=== PATIENT | female | born 2000 | race Caucasian/White ===

== ENCOUNTER 2023-05-28 20:41 | Emergency (ER) | payer OTHER, SELFPAY ==
[2023-05-28 20:44] VITALS: BP 135/83; PULSE 126; RESP 20; TEMP 36.8; O2SAT 94; BMI 19.6
--- NOTE | 2023-05-28 21:02 | ED.URI1 ---
HPI - URI/Sore Throat General Chief Complaint: Upper Respiratory Infection Stated Complaint: BACK PAIN, HEADACHE, FEVER Time Seen by Provider: 05/28/23 20:56 Source: patient Limitations: no limitations History of Present Illness HPI Narrative: patient has a past history of bone marrow transplant several years ago. 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 She is not on immunotherapy . Now presents complaining her lungs feel tight and she has a fever. Not short of breath. EDWARDS on and off but none now. No nausea or vomiting or abdominal pain MD elicited complaint: Reports fever Related Data Home Medications Medication Instructions Recorded Confirmed albuterol inhalation .every 4 hours PRN sob 05/28/23 cholecalciferol (vitamin D3) 25 05/28/23 mcg (1,000 unit) tablet montelukast 10 mg tablet mg 05/28/23 norgestimate-ethinyl estradiol tab 05/28/23 0.18 mg/0.215mg/0.25mg-35 mcg(28)tablet Allergies Allergy/AdvReac Type Severity Reaction Status Date / Time vancomycin Allergy Severe Rash Verified 05/28/23 20:51 blood products Allergy Severe Anaphylaxis Uncoded 05/28/23 20:51 Review of Systems ROS Status of ROS 10 or more systems reviewed and unremarkable except as noted in history and below Constitutional Reports: fever [facility] Medical History (Updated 05/28/23 @ 23:02 by Jose Davis MD) Social History Smoking status: Never smoker Exam Constitutional Vital Signs, click to edit/add: Last Vital Signs Temp 98.0 F 05/28/23 22:19 Pulse 126 H 05/28/23 20:44 Resp 20 05/28/23 20:44 BP 135/83 05/28/23 20:44 Pulse Ox 94 L 05/28/23 20:44 O2 Del Method Room Air 05/28/23 20:44 Common normals: no apparent distress, average body habitus, oriented x3, no limitations, healthy appearing, alert and well nourished [facility] Common normals: normocephalic and head/scalp atraumatic Eye Common normals: EOMs intact bilaterally, conjunctivae normal and no scleral icterus Respiratory Common normals: normal respiratory effort, no retractions, no use of accessory muscles and clear to auscultation bilaterally Cardio Common normals: regular rate, regular rhythm, S1 normal heart sound and S2 normal heart sound GI Common normals: Normal to inspection, nondistended, normoactive bowel sounds present, soft to palpation and non-tender Extremity Common normals: normal to inspection and full ROM Neuro Common normals: oriented x3, CN's II-XII intact bilaterally, moves all extremities, no focal motor deficits and no sensory deficits noted Psych Appearance: grossly normal Course Vital Signs Vital signs: Vital Signs Temperature 98.3 F 05/28/23 20:44 Pulse Rate 126 H 05/28/23 20:44 Respiratory Rate 05/28/23 20:44 Blood Pressure 135/83 05/28/23 20:44 Pulse Oximetry 94 L 05/28/23 20:44 Oxygen Delivery Method Room Air 05/28/23 20:44 Temperature 98.0 F 05/28/23 22:19 Pulse Rate 126 H 05/28/23 20:44 Respiratory Rate 05/28/23 20:44 Blood Pressure 135/83 05/28/23 20:44 Pulse Oximetry 94 L 05/28/23 20:44 Oxygen Delivery Method Room Air 05/28/23 20:44 MDM - URI/Sore Throat MDM Narrative Medical decision making narrative: patient has past history of pneumonia. Presents with fever and chest tightness. Concerned she may have pneumonia again. Not short of breath. cxray with early infiltrate LLL. Patient treated with IV Rocephin and zithromax and discharged home with a prescription for Ceftin and zpak Lab Data Labs: Lab Results 05/28/23 05/28/23 Range/Units 21:14 21:33 WBC 14.1 H (4.0-11.0) 10^3/uL RBC 4.00 L (4.20-5.40) 10^6/uL Hgb 14.4 (12.0-16.0) g/dL Hct 38.6 (36.0-48.0) % MCV 96.5 (81.0-99.0) fL MCH 36.0 H (26.7-34.0) pg MCHC 37.3 H (29.9-35.2) g/dL RDW 11.5 (11.0-15.0) % Plt Count 167 (150-450) 10^3/uL MPV 9.4 L (9.5-13.5) fL Neut % (Auto) 81.8 H (43.0-75.0) % Lymph % (Auto) 11.9 L (20.5-60.0) % [place] % (Auto) 5.6 (1.7-12.0) % Eos % (Auto) 0.2 L (0.9-7.0) % Baso % (Auto) 0.2 (0.2-2.0) % Neut # (Auto) 11.5 H (1.4-6.5) 10^3/uL Lymph # (Auto) 1.7 (1.2-3.8) 10^3/uL [place] # (Auto) 0.8 (0.3-0.8) 10^3/uL Eos # (Auto) 0.0 (0.0-0.7) 10^3/uL Baso # (Auto) 0.0 (0.0-0.1) 10^3/uL Abs Immat Gran (auto) 0.04 H (0.00-0.03) 10^3/uL Imm/Tot Granulo (auto) 0.3 (0.0-0.5) % Sodium 137 (136-145) mmol/L Potassium 3.6 (3.5-5.1) mmol/L Chloride 102 (98-107) mmol/L Carbon Dioxide 24.8 (21.0-32.0) mmol/L Anion Gap 13.8 BUN 15.0 (7.0-18.0) mg/dL Creatinine 1.00 (0.55-1.02) mg/dL Est GFR ( Amer) >60 (>=60) Est GFR (Non-Af Amer) >60 (>=60) BUN/Creatinine Ratio 15.0 Glucose 125 H (74-106) mg/dL Lactate 0.7 (0.4-2.0) mmol/L Calcium 9.3 (8.5-10.1) mg/dL Urine Color Lt. yellow (YELLOW) Urine Clarity Clear (CLEAR) Urine pH 7.0 (5.0-9.0) Ur Specific [place] <=1.005 A (1.005-1.025) Urine Protein Negative (NEG/TRACE) mg/dL Urine Glucose (UA) Negative (NEGATIVE) mg/dL Urine Ketones Negative (NEGATIVE) mg/dL Urine Occult Blood Large A (NEGATIVE) Urine Nitrite Negative (NEGATIVE) Urine Bilirubin Negative (NEGATIVE) Urine Urobilinogen 0.2 (0.2-1.0) EU/dL Ur Leukocyte Esterase Negative (NEGATIVE) Urine RBC 2-5 A (0-2) #/HPF Urine WBC 0-2 A (NONE SEEN) #/HPF Ur Squamous Epith Cells Moderate A (NONE/RARE) #/LPF Urine Crystals None seen (None Seen) #/HPF Urine Bacteria None seen (NONE SEEN) #/HPF Urine Casts None seen (NONE SEEN) #/LPF Urine Mucus None seen (NONE SEEN) Adenovirus (PCR) Not detected (NOT DETECTE) C. pneumoniae DNA (PCR) Not detected (NOT DETECTE) Coronavirus Type OC43 Not detected (NOT DETECTE) Coronavirus Type HKU1 Not detected (NOT DETECTE) Coronavirus Type 229E Not detected (NOT DETECTE) Coronavirus Type NL63 Not detected (NOT DETECTE) Human Metapneumovir PCR Not detected (NOT DETECTE) M. pneumoniae (PCR) Not detected (NOT DETECTE) Parainfluenza PCR Not detected (NOT DETECTE) Parainfluenza 2 (PCR) Not detected (NOT DETECTE) Parainfluenza 3 (PCR) Not detected (NOT DETECTE) Parainfluenza 4 (PCR) Not detected (NOT DETECTE) RSV (RT-PCR) Not detected (NOT DETECTE) Entero/Rhino (PCR) Not detected (NOT DETECTE) SARS-CoV-2 (PCR) Not detected (NOT DETECTE) Bordetella pertussis (PCR) Not detected (NOT DETECTE) B parapertussis DNA PCR Not detected (NOT DETECTE) Influenza Type A (PCR) Not detected (NOT DETECTE) Influenza Type B (PCR) Not detected (NOT DETECTE) Discharge Plan Discharge Chief Complaint: Upper Respiratory Infection Clinical Impression: Pneumonia Patient Disposition: Home, Self-Care Prescriptions / Home Meds: No Action norgestimate-ethinyl estradiol 0.18/0.215/0.25 mg-35 mcg (28) tablet montelukast 10 mg tablet cholecalciferol (vitamin D3) 25 mcg (1,000 unit) tablet albuterol inhalation .every 4 hours PRN (Reason: sob) Instructions: Community Acquired Pneumonia (ED), Pneumonia (ED) Additional Instructions: follow up with your doctor next week for recheck Stand Alone Forms: Portal Instructions Referrals: Physician,Non-Staff, MD [Primary Care Provider] - 1 week
--- NOTE | 2023-05-28 21:06 | XR_ITS ---
The [address] [address] Patient Name: ALLAN VARGAS MRN: [id number] date: 2000 Sex: F Assigned Patient Location: ER Current Patient Location: ER Accession/Order Number: [id number] Exam Date: 05/28/2023 21:25 Report Date: 05/28/2023 21:42 At the request of: JUAQUIN GUTIERREZ Procedure: XR chest 2V EXAM: XR chest 2V HISTORY: fever COMPARISON: None. TECHNIQUE: PA and lateral chest FINDINGS: Patchy consolidation at the left lung base concerning for infectious process. No pneumothorax or effusion. Normal heart size. No acute osseous abnormality. XR/XR chest 2V IMPRESSION: Consolidative changes at the left lung base concerning for infectious process. Electronically authenticated by: TERESITA STRAUSS Date: 05/28/2023 21:42
[2023-05-28 21:20] LABS: Adenovirus NOT DETECTED (NOT DETECTE); Bordetella parapertussis NOT DETECTED (NOT DETECTE); Coronavirus 229E NOT DETECTED (NOT DETECTE); Coronavirus HKU1 NOT DETECTED (NOT DETECTE); Coronavirus NL63 NOT DETECTED (NOT DETECTE); Coronavirus OC43 NOT DETECTED (NOT DETECTE); Human Metapneumovirus NOT DETECTED (NOT DETECTE); Human Rhinovirus/Enterovirus NOT DETECTED (NOT DETECTE); Influenza A NOT DETECTED (NOT DETECTE); Influenza B NOT DETECTED (NOT DETECTE); Mycoplasma pneumoniae NOT DETECTED (NOT DETECTE); Parainfluenza Virus 1 NOT DETECTED (NOT DETECTE); Parainfluenza Virus 2 NOT DETECTED (NOT DETECTE); Parainfluenza Virus 3 NOT DETECTED (NOT DETECTE); Parainfluenza Virus 4 NOT DETECTED (NOT DETECTE); Respiratory Syncytial Virus NOT DETECTED (NOT DETECTE); SARS-CoV-2 NOT DETECTED (NOT DETECTE)
[2023-05-28 21:24] LABS: Basophils Percent Auto 0.2 % (0.2-2.0); Eosinophils Percent Auto 0.2 % (0.9-7.0); Hematocrit 38.6 % (36.0-48.0); Hemoglobin 14.4 g/dL (12.0-16.0); Immature Granulocytes Abs Auto 0.04 10^3/uL (0.00-0.03); Immature Granulocytes Pct Auto 0.3 % (0.0-0.5); Lymphocytes Absolute Auto 1.7 10^3/uL (1.2-3.8); Lymphocytes Percent Auto 11.9 % (20.5-60.0); Mean Corpuscular HGB Conc 37.3 g/dL (29.9-35.2); Mean Corpuscular Volume 96.5 fL (81.0-99.0); Mean Platelet Volume 9.4 fL (9.5-13.5); Monocytes Absolute Auto 0.8 10^3/uL (0.3-0.8); Monocytes Percent Auto 5.6 % (1.7-12.0); Neutrophils Absolute Auto 11.5 10^3/uL (1.4-6.5); Neutrophils Percent Auto 81.8 % (43.0-75.0); Platelet Count 167 10^3/uL (150-450); Red Cell Distribution Width 11.5 % (11.0-15.0); White Blood Count 14.1 10^3/uL (4.0-11.0)
[2023-05-28] MEDS: 0.9 % SODIUM CHLORIDE 1,000 ML 999 ML IV (21:33)
[2023-05-28 21:37] LABS: Anion Gap 13.8; Calcium 9.3 mg/dL (8.5-10.1); Carbon Dioxide 24.8 mmol/L (21.0-32.0); Chloride 102 mmol/L (98-107); Estimated GFR (African America >60 (>=60); Estimated GFR (Non-African Ame >60 (>=60); Glucose 125 mg/dL (74-106); Potassium 3.6 mmol/L (3.5-5.1); Sodium 137 mmol/L (136-145)
[2023-05-28 21:45] LABS: Lactate/Lactic Acid 0.7 mmol/L (0.4-2.0)
[2023-05-28 21:56] LABS: Bilirubin Urine NEGATIVE (NEGATIVE); Blood Urine LARGE (NEGATIVE); Clarity Urine CLEAR (CLEAR); Color Urine LT. YELLOW (YELLOW); Glucose Urine UA NEGATIVE (NEGATIVE); Ketones Urine NEGATIVE (NEGATIVE); Leukocyte Esterase Urine NEGATIVE (NEGATIVE); Nitrite Urine NEGATIVE (NEGATIVE); Protein Urine NEGATIVE (NEG/TRACE); Specific Gravity Urine <=1.005 (1.005-1.025); Urobilinogen Urine 0.2 EU/dL (0.2-1.0)
[2023-05-28 22:01] LABS: Urine Microscopic Indicated YES
[2023-05-28] MEDS: CEFTRIAXONE 1,000 MG in 0.9 % SODIUM CHLORIDE 50 ML 100 MG IV (22:05)
[2023-05-28] MEDS: AZITHROMYCIN 250 MG TABLET 500 MG PO (22:17)
[2023-05-28 22:19] VITALS: TEMP 36.7
[2023-05-28 22:28] LABS: Bacteria Urine NONE SEEN #/HPF (NONE SEEN); Cast Seen? NONE SEEN #/LPF (NONE SEEN); Crystals Seen? None Seen #/HPF (None Seen); Mucus Urine NONE SEEN (NONE SEEN); WBC Urine 0-2 #/HPF (NONE SEEN)
[2023-05-28 22:30] LABS: Squamous Epithelial Cell Urine MODERATE #/LPF (NONE/RARE)
[2023-05-28 23:52] VITALS: O2SAT 97
== END 2023-05-28 23:52 | disposition home or self-care (01) ==
PROVIDERS: Emergency Provider Internal Medicine
DX: J18.9 Pneumonia, unspecified organism (principal); Z94.81 Bone marrow transplant status; Z79.899 Other long term (current) drug therapy; Z87.01 Personal history of pneumonia (recurrent); Z20.822 Contact with and (suspected) exposure to COVID-19
CPT/HCPCS: 0202U; 36415; 71046; 80048; 81001; 83605; 85025; 96365; 99285

== ENCOUNTER 2024-08-17 16:20 | Emergency (ER) | payer OTHER, SELFPAY ==
[2024-08-17 16:24] VITALS: BP 140/80; PULSE 106; TEMP 36.7; O2SAT 97; BMI 21.0
--- NOTE | 2024-08-17 16:37 | ED_ITS ---
HPI - URI/Sore Throat General Chief Complaint: Upper Respiratory Infection Stated Complaint: sore throat Time Seen by Provider: 08/17/24 16:25 Source: patient Limitations: no limitations History of Present Illness HPI Narrative: Patient is a 24-year-old female who presents to the emergency department for 6- day history of continued sore throat. She was seen at urgent care and was tested for strep, upper respiratory swabs were also performed and all of these were negative. She states urgent care started her on amoxicillin but when her strep swab and culture came back negative they told her to stop it after 2 doses. She has had no fevers, vomiting or diarrhea. She presents to the ER today because she continues to have the sore throat with no relief with [id number] medications. She has a remote history of leukemia with bone marrow transplant at age 16. She is not concerned for . She states she is drinking fluids easily but does have pain with swallowing food. Related Data Home Medications ?Medication ?Instructions ?Recorded ?Confirmed cholecalciferol (vitamin D3) 25 25 mcg PO DAILY 05/28/23 08/17/24 mcg (1,000 unit) tablet norgestimate-ethinyl estradiol 1 tab PO DAILY 05/28/23 08/17/24 0.18 mg/0.215mg/0.25mg-35 mcg(28)tablet Previous Rx's ?Medication ?Instructions ?Recorded cefdinir 300 mg capsule 300 mg PO BID 10 days #20 caps 08/17/24 dexamethasone 4 mg tablet 4 mg PO BID 3 days #6 tabs 08/17/24 Allergies Allergy/AdvReac Type Severity Reaction Status Date / Time vancomycin Allergy Severe Rash Verified 08/17/24 16:27 blood products Allergy Severe Anaphylaxis Uncoded 08/17/24 16:27 Review of Systems 2 ROS Constitutional Denies: fever or chills Ears, nose, mouth, and throat Reports: throat pain; Denies: nasal discharge or nasal congestion Respiratory Reports: cough; Denies: shortness of breath Gastrointestinal Denies: nausea or vomiting Integumentary/Breast Denies: rash Neurological Denies: numbness in extremities or weakness in extremities Hematologic/Lymphatic Denies: easy bruising or easy bleeding [facility] Medical History (Updated 08/17/24 @ 16:34 by CHARLY Owens) FH: bone marrow transplant ?Z84.89 - Family history of other specified conditions (ICD-10) Social History Smoking status: Never smoker Little interest or pleasure in doing things: not at all Feeling down, depressed, or hopeless: not at all Exam Narrative Exam Narrative: Gen.: Awake, alert, in no distress Head: Normocephalic, atraumatic ENT: Moist mucous membranes, airway widely open patent with uvula midline, pharyngeal erythema noted with no tonsillar edema or exudate. No trismus or drooling. Clear speech. Respiratory: No respiratory distress, lungs clear bilaterally Cardio: Regular rate and rhythm Extremities: Moves extremities equally Psych: Normal mood and affect Neuro: No focal neuro deficit Skin: Warm, dry, intact Constitutional Vital Signs, click to edit/add: Last Vital Signs Temp 98.1 F 08/17/24 16:24 Pulse 106 H 08/17/24 16:24 Resp 18 08/17/24 16:24 BP 140/80 08/17/24 16:24 Pulse Ox 97 08/17/24 16:24 O2 Del Method Room Air 08/17/24 16:24 Course Vital Signs Vital signs: Vital Signs Temperature 98.1 F 08/17/24 16:24 Pulse Rate 106 H 08/17/24 16:24 Respiratory Rate 18 08/17/24 16:24 Blood Pressure 140/80 08/17/24 16:24 Pulse Oximetry 97 08/17/24 16:24 Oxygen Delivery Method Room Air 08/17/24 16:24 Temperature 98.1 F 08/17/24 16:24 Pulse Rate 106 H 08/17/24 16:24 Respiratory Rate 18 08/17/24 16:24 Blood Pressure 140/80 08/17/24 16:24 Pulse Oximetry 97 08/17/24 16:24 Oxygen Delivery Method Room Air 08/17/24 16:24 MDM - URI/Sore Throat MDM Narrative Medical decision making narrative: Patient declined additional repeat strep screen or upper respiratory swabs. Based on the duration of symptoms, we will treat with antibiotics, steroids. Magic mouthwash given for symptoms. Patient appears well-hydrated and nontoxic with stable vital signs. No evidence of airway compromise or respiratory difficulty at this time. Follow-up with PCP and return to the emergency department if symptoms change or worsen SUPERVISED APC VISIT, PHYSICIAN ATTESTATION: Based on the medical record the care appears appropriate. ? Medical Records Attestation: I reviewed the patient's medical records. Discharge Plan Discharge Chief Complaint: Upper Respiratory Infection Clinical Impression: Pharyngitis Patient Disposition: Home, Self-Care Time of Disposition Decision: 16:33 Condition: Good Prescriptions / Home Meds: New dexamethasone 4 mg tablet 4 mg PO BID 3 Days Qty: 6 0RF cefdinir 300 mg capsule 300 mg PO BID 10 Days Qty: 20 0RF No Action norgestimate-ethinyl estradiol 0.18/0.215/0.25 mg-35 mcg (28) tablet 1 tab PO DAILY cholecalciferol (vitamin D3) 25 mcg (1,000 unit) tablet 25 mcg PO DAILY Print Language: Irish Instructions: Pharyngitis (ED) Referrals: Physician,Non-Staff, MD [Primary Care Provider] - 1 week
[2024-08-17 16:41] VITALS: BP 140/80; PULSE 98; O2SAT 98
== END 2024-08-17 16:42 | disposition home or self-care (01) ==
PROVIDERS: Emergency Provider Emergency Medicine
DX: J02.9 Acute pharyngitis, unspecified (principal); Z85.6 Personal history of leukemia; Z94.81 Bone marrow transplant status
CPT/HCPCS: 99283

== ENCOUNTER 2025-08-09 08:03 | Emergency (ER) | payer OTHER, SELFPAY ==
[2025-08-09] VITALS (13 sets, daily range): BP systolic 116–135; BP diastolic 72–79; PULSE 105–134; TEMP 36.8; O2SAT 87–99; BMI 21.1
--- NOTE | 2025-08-09 08:17 | XR_ITS ---
The [place] [id number] Patient Name: ALLAN VARGAS MRN: [id number] date: 2000 Sex: F Assigned Patient Location: ER Current Patient Location: ED.MAIN Accession/Order Number: [id number] Exam Date: 08/09/2025 08:20 Report Date: 08/09/2025 09:20 At the request of: GABRIELA HENDERSON MD Procedure: XR chest 1V Single view chest: CLINICAL HISTORY: cough COMPARISON: Chest 05/28/2023 FINDINGS: The heart is normal in size. The lungs are clear. The pulmonary vasculature is normal. Mediastinum and hilar regions are unremarkable. No pleural effusions are seen. Visualized bones are intact. XR/XR chest 1V IMPRESSION: NO ACUTE PROCESS. Impression dictated by: Elkin Melo Jr., D.O. 08/09/2025 9:20 AM Dictation Location: [place] [address] Electronically authenticated by: [id number] Y Date: 08/09/2025 09:20
--- NOTE | 2025-08-09 08:18 | ECG_ITS ---
The [facility] Test Date: 2025-08-09 Pat Name: ALLAN VARGAS Department: Room: - Gender: Female [employer]: : 2000 Requested By: [id number] Order Number: [id number] Reading MD: GER MONTANO M.D. Measurements Intervals [place] Rate: 105 P: 91 MA: 152 QRS: 71 QRSD: 80 T: 63 QT: 340 QTc: 401 Interpretive Statements 1120 Sinus tachycardia Otherwise normal ECG No previous ECG available for comparison Electronically Signed On 08-09-2025 8:51:38 EST by GER MONTANO M.D.
--- NOTE | 2025-08-09 08:18 | ED_ITS ---
HPI HPI - General Adult General Chief complaint: Shortness of Breath/Dyspnea Stated complaint: SOB, CHEST PAIN Time Seen by Provider: 08/09/25 08:07 Source: patient Mode of arrival: walk-in Limitations: no limitations History of Present Illness HPI narrative: 25-year-old female presents to the emergency department for cough. She is worried about having pneumonia. She has had it previously and her ship loader told her when she gets a cough like that she should go get a chest x-ray. She has been coughing up a small amount of green phlegm. No fever or hemoptysis. She has had the symptoms for the past 2 days. Related Data Home Medications ?Medication ?Instructions ?Recorded ?Confirmed cholecalciferol (vitamin D3) 25 25 mcg PO DAILY 08/17/24 mcg (1,000 unit) tablet norgestimate-ethinyl estradiol 1 tab PO DAILY 05/28/23 08/09/25 0.18mg/0.215mg/0.25mg-0.035mg(28)tablet Previous Rx's ?Medication ?Instructions ?Recorded dexamethasone 4 mg tablet 4 mg PO BID 3 days #6 tabs 1 10/18/23 albuterol sulfate 90 mcg/actuation 2 inh inhalation Q4 H PRN shortness 08/09/25 aerosol inhaler of breath or wheezing #8.5 g jacky azithromycin 250 mg tablet See Rx Instructions PO .COM PLEX #6 08/09/25 (Zithromax Z-Shane) tabs prednisone 10 mg tablet See Rx Instructions .Route 1 10/09/24 .COMPLEX #30 tabs Allergies Allergy/AdvReac Type Severity Reaction Status Date / Time vancomycin Allergy Severe Rash Verified 08/09/25 08:08 blood products Allergy Severe Anaphylaxis Uncoded 08/09/25 08:08 Opioid HPI Opioid Management Most Recent Opioid Data: Last Pain Scale 7 05/28/23, 20:55 Review of Systems ROS Narrative A ten point review of systems is negative except as noted above. [facility] Medical History (Updated 08/09/25 @ 09:28 by Gareth Harris MD) FH: bone marrow transplant ?Z84.89 - Family history of other specified conditions (ICD-10) Social History Smoking status: Never smoker Little interest or pleasure in doing things: not at all Feeling down, depressed, or hopeless: not at all Exam Narrative Exam Narrative: Nurses note and vital signs reviewed General:The patient appears in no acute respiratory distress. She is speaking in full sentences. Skin:Warm, dry, no pallor noted.There is no rash noted. Head:Normocephalic, atraumatic Eye: Normal conjunctiva, no drainage Ears, Nose, Mouth, and Throat: oral mucosa is moist. Nares patent. Cardiovascular:Regular Rate and Rhythm, mildly tachycardic Respiratory: Bilateral rhonchi present Back:non-tender GI: Soft and nontender Musculoskeletal: The patient has no evidence of calf tenderness, no pitting e stefano, symmetrical pulses noted bilaterally Neurological:A&O, normal speech Psychiatric:Cooperative Constitutional Vital Signs, click to edit/add: Last Vital Signs Temp 98.2 F 08/09/25 08:08 Pulse 134 H 08/09/25 09:03 Resp 18 08/09/25 09:03 BP 122/72 08/09/25 09:03 Pulse Ox 99 08/09/25 09:03 O2 Del Method Room Air 08/09/25 08:20 Course Vital Signs Vital signs: Vital Signs Temperature 98.2 F 08/09/25 08:08 Pulse Rate 118 H 08/09/25 08:08 Respiratory Rate 18 08/09/25 08:08 Blood Pressure 135/79 08/09/25 08:08 Pulse Oximetry 98 08/09/25 08:08 Oxygen Delivery Method Room Air 08/09/25 08:08 Temperature 98.2 F 08/09/25 08:08 Pulse Rate 134 H 08/09/25 09:03 Respiratory Rate 18 08/09/25 09:03 Blood Pressure 122/72 08/09/25 09:03 Pulse Oximetry 99 08/09/25 09:03 Oxygen Delivery Method Room Air 08/09/25 08:20 Medical Decision Making MDM Narrative Medical decision making narrative: COVID, influenza, and chest x-ray are negative. She was given aerosol treatment and feels improved. She is discharged home on albuterol, prednisone, and Zithromax. Treatment diagnosis and follow-up were discussed with the patient. Differential Diagnosis Differential Diagnosis: Pneumonia, COVID, influenza, viral URI Lab Data Lab results reviewed: Yes I reviewed the patient's lab results Labs: Lab Results 08/09/25 Range/Units 09:01 Influenza Type A Ag Negative Influenza Type B Ag Negative SARS-CoV-2 Ag (CV2AG) Negative (NEGATIVE) Imaging Data Chest x-ray: Radiologist's impression: ITS Impressions Chest X-Ray 08/09/25 08:17 IMPRESSION: NO ACUTE PROCESS. Impression dictated by: Elkin Melo Jr., D.O. 08/09/2025 9:20 AM Dictation Location: [place] [address] Electronically authenticated by: [id number] Y Date: 08/09/2025 09:20 ECG Data Attestation: I personally reviewed and interpreted this ECG as follows: (EKG on my interpretation shows sinus rhythm with a rate of 105) Discharge Plan Discharge Chief Complaint: Shortness of Breath/Dyspnea Clinical Impression: Upper respiratory infection Patient Disposition: Home, Self-Care Time of Disposition Decision: 09:28 Condition: Good Mode of Transportation: Private Vehicle Prescriptions / Home Meds: New prednisone 10 mg tablet See Rx Instructions .ROUTE .COMPLEX Qty: 30 0RF Rx Instructions: 4 by mouth daily for three days then 3 by mouth daily for three days then 2 by mouth daily for three days then 1 by mouth daily for three days azithromycin [Zithromax Z-Shane] 250 mg tablet See Rx Instructions .ROUTE .COMPLEX Qty: 6 0RF Rx Instructions: For 250 mg dose pack: take 500 mg today (day 1), then 250 mg for 4 days (days 2-5) albuterol sulfate 90 mcg/actuation HFA aerosol inhaler 2 inh inhalation Q4H PRN (Reason: shortness of breath or wheezing) Qty: 8.5 0RF No Action norgestimate-ethinyl estradiol 0.18/0.215/0.25 mg-35 mcg (28) tablet 1 tab PO DAILY cholecalciferol (vitamin D3) 25 mcg (1,000 unit) tablet 25 mcg PO DAILY dexamethasone 4 mg tablet 4 mg PO BID 3 Days Qty: 6 0RF Print Language: [place] Instructions: Upper Respiratory Infection (ED) Referrals: Physician,Non-Staff, [Physician] - 1 week
[2025-08-09] MEDS: ALBUTEROL SULFATE 2.5 MG/3 ML VIAL NEB IH (08:27)
--- OUTSIDE RECORDS SUMMARY | 2025-08-09 08:36 | XMS_ITS | CCD ---
Author Organization [facility] Care Team Providers Care Quality Control Microbiology Supervisor Name Role Phone JU GODFREY Attending UnavailAmina Arguelles Primary Care Physician Unavailable Primary Care Provider UnavailPRADIP Bassett Attending Unavailable Holly Garcia Primary Care Physician Blossom JHAVERI Unavailable Blossom Hancock MD Unavailable [phone] Tete Kent Unavailable Derrick Lopez MD Unavailable Stacie Holt Primary Care Provider Unavailable Primary Care Provider UnavailDR KRISTI Travis Attending Unavailable MIRIAM Graff, DR BERRY Admitting Unavailable [facility], DR ARCE Primary Care Unavailable MIRIAM Graff, DR BERRY Consulting Unavailable Lia Weiss Primary Care Physician Blossom Hancock MD Unavailable [phone] Tete Kent Unavailable Derrick Lopez MD Unavailable Stacie Holt Primary Care Provider Unavailable Primary Care Provider UnavailLia Sandhu Primary Care Physician Lia Weiss Attending Unavailable Lia Weiss Admitting Unavailable Lia Weiss Attending Unavailable Lia Weiss Attending Unavailable Lia Weiss Attending Unavailable NICOLE DOS SANTOS Attending Unavailable NICOLE DOS SANTOS Admitting Unavailable Ling Culver Attending Unavailable Efrain Pathak DO Unavailable Lia Pacheco Primary Care Provider GRAYSON BASS Attending Unavailelisabet BASS, GRAYSON Hannon Attending Unavailelisabet BASS, GRAYSON Hannon Attending UnavailLia Sandhu Admitting Unavailable Lia Weiss Attending Unavailable Blossom Hancock MD Unavailable [phone] Meagan MECHANICAL SYSTEMS DESIGN ENGINEER-ENGINEERING TECHNICAL WRITER, Tete Young Unavailable Derrick Lopez MD Unavailable Dipesh MECHANICAL SYSTEMS DESIGN ENGINEER-[facility], [facility] Primary Care Provider Deon Bernal Attending Unavailable Bullimore, Izzy E Attending Unavailable Bullimore, Izzy E Admitting Unavailable NO FAMILY, PHYSICIAN Primary Care Unavailable Bullimore ARTISTS' MODEL-BC, Izzy E Emergency Provider NO FAMILY, PHYSICIAN Primary Care Provider Unava ilable Radha MECHANICAL SYSTEMS DESIGN ENGINEER.ENGINEERING TECHNICAL WRITER, Holly Newby Primary Care Provider Brynn Arizmendi APRN Attending Provider [phone] NON STAFF Primary Care Provider UnavailPascual Carter MD Primary Care Provider [phone] Blossom Hancock MD Unavailable Meagan MECHANICAL SYSTEMS DESIGN ENGINEER-ENGINEERING TECHNICAL WRITER, Tete Young Unavailable Derrick Lopez MD Unavailable Dipesh MECHANICAL SYSTEMS DESIGN ENGINEER-[facility], [facility] Primary Care Provider NICOLE DOS SANTOS Attending Unavailable DIPESH, STACIE Referring Unavailable DIPESH, [facility] Primary Care Unavailable DIPESH, STACIE Primary Care Unavailable PREMA SMITH Referring Unavailable BLOSSOM HANCOCK Attending Unavailable SELF Referring Unavailable HOLLY GARCIA Primary Care Unavailable PREMA HENRY Attending Unavailable LYNETTE DASILVA Attending Unavailable KIMBERLY PIERRE Attending Unavailable KIMBERLY PIERRE Referring Unavailable JOSE L PIERRELIE Referring Unavailable LALITA, MARAN Referring Unavailable HOLLY GARCIA Primary Care Unavailable THAMILALACYAN, MARAN Referring Unavailable HOLLY GARCIA Primary Care Unavailable JOSE ALFREDO ALBARADO Attending Unavailelisabet e HOLLY GARCIA Primary Care Unavailable SELF Referring Unavailable CARLINE SNYDER Attending Unavailable ETHEL RANGEL Attending Unavailable EFRAIN PATHAK Attending Unavailable ACE BURNHAM Attending Unavailable Allergies Allergy ClassificationReported Allergen(s)Allergy TypeDate of OnsetReaction(s) FacilityGlycopeptides (antibiotic) (1 source)Vancomycin; Translations: [vancomycin]Drug Allergyras[facility] allergenic extract (1 source)[place] allergenic extractDrug AllergyEruption of skin (disorder)[facility] (20 sources)israel allergenic extract; Translations: [[place]]Drug Allergy 42-90-5297Gmkbemss of skin (disorder), [facility] (20 sources)Vancomycin; Translations: [vancomycin]Drug Sdxnteb10-61-3900Bcav, [facility] (20 sources)Blood-Group Specific Substance; Translations: [BLOOD-GROUP SPECIFIC SUBSTANCE]Drug Hoarssy56-70-8879Etwkmin, Other (See Comments)[facility] (20 sources)[place] Flavor; Translations: [[place] FLAVOR]Drug Exfmyau13-64-5238 Unknown, Other (See Comments), [facility] (1 source)VancomycinDrug Knskbad37-20-4958Orq [facility] (9 sources)Mangifera IndicaAllergy to frdpdipjx24-46-6304Qgzh, UnknownNOWA Healthcare Work Phone: (2 sources)blood productsAllergy to cpinzqypo89-32-1527Qadmtcf [facility]enan Private HospitalComment on above:body shuts down (8 sources)[place] Flavoring Agent (Non-Screening); Translations: [[place] FLAVORING AGENT (NON-SCREENING)]Propensity to adverse ofixtwopy49-00-9735Miau, Other (See Comments)[facility] Medications Current Medications MedicationDrug Class(es)DatesSig (Normalized)Sig (Original)acetaminophen 325 mg / HYDROcodone bitartrate 5 mg oral tablet (1 source)Opioid AgonistStart: 23-56-5658Yumid 325 mg-5 mg oral tablet 1 tab(s), Oral, q4hr for pain, 7 tab(s), Refill(s) 0 Start Date: 08/18/24 Status: Ordered [id number] 200 actuat albuterol 0.09 mg/actuat metered dose inhaler (20 sources)beta2-Adrenergic AgonistStart: 80-24-1570Souuupanp Sulfate 90 mcg/actuation HFA aerosol inhaler Active INHALATION March 29, 2025 12:00am Com plies with drug therapyStart: 92-91-1335mkme 2.5 mg by inhalation every six hours as neededalbuterol (PROVENTIL) 2.5 mg /3 mL (0.083 %) nebulizer solution Use 3 mL via nebulizer every 6 hours as needed for wheezing/shortness of breath. Inhale over 5-15 minutes Do not use if using inhaler 3mL 5 07/14/2024 Active Start: 05-29-2024 End: 44-82-6349nisc 2 puff(s) by inhalation every six hours as needed for wheezingalbuterol HFA (PROVENTIL HFA, VENTOLIN HFA) 90 mcg/actuation inhaler Inhale 2 Puffs as instructed every 6 hours as needed for wheezing/shortness of breath. 18 g 5 07/14/2024 07/14/2025 ActiveStart: 25-43-0618wdry 2 puff(s) by mouth every six hoursalbuterol HFA 90 mcg/act inhaler inhale 2 puffs by mouth and INTO THE LUNGS every 6 hours 07/17/2022 ActiveStart: 13-73-4694dhmm 2.5 mg by inhalation every six hours as needed for wheezingalbuterol 0.083% Inh Doris 3 mL 2.5 mg, 3 mL, Inhalation, q6hr as needed for wheezing, 100 EA, Refill(s) 0, [facility] [facility], 165, cm, 12/08/21 8:48:00 EDT, Height/Length Dosing, 54.5, kg, 12/08/21 8:48:00 EDT, Weight Dosing Start Date: 12/08/21 Status: OrderedStart: 16-57-9860vrhr 2.5 mg by inhalation every six hours as needed for wheezingalbuterol 0.083% Inh Doris 3 mL 2.5 mg, 3 mL, Inhalation, q6hr as needed for wheezing, 100 EA, Refill(s) 0, [facility], 165, cm, 12/08/21 8:48:00 EDT, Height/Length Dosing, 54.5, kg, 12/08/21 8:48:00 EDT, Weight Dosing Start Date: 12/08/21 Status: OrderedStart: 43-21-4629uoch 2 puff(s) by inhalation every six hours as needed for coughalbuterol 108 (90 Base) MCG/ACT inhaler Inhale 2 Puffs into the lungs every 6 hours as needed for Wheezing, Shortness of Breath or Cough 1 Each 3 08/25/2021 ActiveStart: 05-23-2020 End: 04-36-5759qosnzlmys HFA (PROVENTIL HFA, VENTOLIN HFA) 90 mcg/actuation inhaler Inhale 2 Puffs as instructed. 05/23/2020 05/29/2024 DiscontinuedComment on above:Inhale 2 Puffs as instructed.ALPRAZolam 0.25 mg oral tablet (4 sources)BenzodiazepineStart: 03-19-2022 End: 05-24-6046nuig 1 tablet by mouth twice daily as needed for anxietyXanax 0.25 mg Tab 0.25 mg = 1 tab(s), Oral, BID, PRN Anxiety, X 14 day(s), # 28 tab(s), Refills(s) 1, [facility], 165, cm, 03/19/22 11:59:00 EDT, Height/Length Dosing, 62, kg, 03/19/22 11:59:00 EDT, Weight Dosing Start Date: 03/19/22 Stop Date: 04/16/22 Status: Orderedamoxicillin 875 mg oral tablet (4 sources)Penicillin-class AntibacterialStart: 08-15-2024 End: 06-93-0772zqrf 1 tablet by mouth in the morningamoxicillin (Amoxil) 875 MG tablet Indications: Pharyngitis, unspecified etiology Take 1 tablet (875 mg) by mouth in the morning and 1 tablet (875 mg) before bedtime. Do all this for 10 days. 20 tablet 08/15/2024 08/25/2024 Activeamoxicillin 875 mg / clavulanate 125 mg oral tablet (2 sources)Penicillin-class AntibacterialStart: 11-17-2023 End: 63-12-6519dcxp 1 tablet by mouth every twelve hoursAugmentin 875 mg oral tablet = 1 tab(s), Oral, q12hr, X 10 day(s), # 20 tab(s), Refills(s) 0, Pharma cy: [facility] #[id number], 165, cm, 11/16/23 21:35:00 EST, Height/Length Dosing, 55.1, kg, 11/16/23 21:35:00 EST, Weight Dosing Start Date: 11/17/23 Stop Date: 11/27/23 Status: OrderedStart: 04-15-2022 End: 71-90-6735Nuodpwgpi 875 mg-125 mg Tab 1 tab(s), Oral, q12hr for 7 day(s), 14 tab(s), Refill(s) 0, [facility] #[id number], 165, cm, 04/15/22 13:44:00 EDT, Height/Length Dosing, 52.5, kg, 04/15/22 13:44:00 EDT, Weight Dosing Start Date: 04/15/22 Stop Date: 04/22/22 Status: Orderedbrompheniramine maleate 0.4 mg/ml / dextromethorphan hydrobromide 2 mg/ml / pseudoephedrine hydrochloride 6 mg/ml oral solution (6 sources)alpha-Adrenergic Agonist, Uncompetitive F-hqqtfp-P-aspartate Receptor Antagonist, Sigma-1 AgonistStart: 87-39-0851wufm 10 mL by mouth four times daily for cough and congestionBromfed DM oral syrup 10 mL, Oral, QID for cough and congestion, 200 mL, Refill(s) 0, [facility] #[id number], 166, cm, 07/17/22 13:01:00 EDT, Height/Length Dosing, 53, kg, 07/17/22 13:01:00 EDT, Weight Dosing Start Date: 07/17/22 Status: OrderedStart: 75-74-8902rbsa 10 mL by mouth four times daily for cough and congestionBromfed DM oral syrup 10 mL, Oral, QID for cough and congestion, 200 mL, Refill(s) 0, [facility], 165, cm, 12/08/21 8:48:00 EDT, Height/Length Dosing, 54.5, kg, 12/08/21 8:48:00 EDT, W eight Dosing Start Date: 12/08/21 Status: OrderedBrompheniramine / Pseudoephedrine (2 sources)alpha-Adrenergic AgonistStart: 28-47-9709abgy 10 mL by mouth four times daily for cough and congestionBromfed DM oral syrup 10 mL, Oral, QID for cough and congestion, 200 mL, Refill(s) 0, [facility], 165, cm, 12/08/21 8:48:00 EDT, Height/Length Dosing, 54.5, kg, 12/08/21 8:48:00 EDT, W eight Dosing Start Date: 12/08/21 Status: OrderedbusPIRone hydrochloride 5 mg oral tablet (1 source)busPIRone (BUSPAR) 5 mg tablet Take 5 mg by mouth as needed. Active cholecalciferol 0.025 mg oral capsule (20 sources)Vitamin DStart: 55-65-0081kcls 1 capsule by mouth once daily Cholecalciferol (Vitamin D3) 25 mcg (1,000 unit) capsule Active 25 MCG PO Daily November 11, 2024 1:00am Complies with drug therapyStart: 68-24-8572ifit 1 tablet by mouth once dailyRA Vitamin D-3 25 MCG (1000 UT) tablet Take 25 mcg by mouth Daily 05/07/2023 ActiveStart: 67-26-5051avld 1 tablet by mouth once daily cholecalciferol (VITAMIN D3) 25 mcg (1000 units) tablet Take 1 Tablet (1,000 Units) by mouth daily 90 Tablet 3 05/07/2023 ActiveStart: 03-08-2019 End: 24-72-6581yvhx 1 capsule by mouth once dailyCholecalciferol, Vitamin D3, 50 mcg (2,000 unit) cap take 1 capsule by mouth once daily 03/08/2019 ActiveComment on above:take 1 capsule by mouth once dailydoxycycline hyclate 100 mg oral capsule (4 sources)Tetracycline-class DrugStart: 49-50-2143jsft 1 capsule by mouth twice dailyDoxycycline Hyclate 100 mg capsule Active 100 MG PO Twice daily 02 07March 29, 2025 12:00am Complies with drug therapyStart: 11-11-2024 End: 44-15-2023gsaq 1 capsule by mouth twice dailyDoxycycline Hyclate 100 mg capsule Discontinued 100 MG PO Twice daily 02 07November 11, 2024 1:00am November 11, 2024 11:30amStart: 12-08-2021 End: 25-93-8321ntgk 1 tablet by mouth twice dailydoxycycline hyclate 100 mg Tab 100 mg = 1 tab(s), Oral, BID, X 7 day(s), # 14 tab(s), Refills(s) 0,[facility], 165, cm, 12/08/21 8:48:00 EDT, Height/Length Dosing, 54.5, kg, 12/08/21 8:48:00 EDT, Weight Dosing Start Date: 12/08/21 Stop Date: 12/15/21 Status: OrderedDrug or medicament (substance) (8 sources)Start: Each. 11/21/2020 ActiveEthinyl Estradiol / norgestimate (20 sources)Progestin, EstrogenStart: 32-46-5374yqlw 1 tablet by mouth in the morningnorgestimate-ethinyl estradiol (Ortho Tri-Cyclen,Trinessa) 0.18/0.215/0.25 MG-35 MCG tablet Indications: Encounter for gynecological examination without abnormal finding Take 1 tablet by mouth in themorning. 84 tablet 3 04/27/2025 ActiveStart: 03-21-2025 End: 28-92-5723pmzg 1 tablet by mouth once daily in the morningnorgestimate- ethinyl estradiol (Ortho Tri-Cyclen,Trinessa) 0.18/0.215/0.25 MG-35 MCG tablet Indications: Encounter for gynecological examination without abnormal finding TAKE 1 TABLET BY MOUTH EVERY DAY IN THE MORNING 28 tablet 1 03/21/2025 04/27/2025 Discontinued (Reorder)Start: 18-55-5456brjf 1 tablet by mouth once daily in the morningnorgestimate-ethinyl estradiol (Ortho Tri-Cyclen,Trinessa) 0.18/0.215/0.25 MG-35 MCG tablet Indications: Encounter for gynecological examination without abnormal finding TAKE 1 TABLET BY MOUTH EVERY DAY IN THE MORNING 28 tablet 1 03/21/2025 ActiveStart: 39-49-1410tnzx 1 tablet by mouth once dailyNorgestimate-Ethinyl Estradiol 0.18/0.215/0.25 mg-35 mcg (28) tablet Active 1 TAB PO Daily November 11, 2024 1:00am Complies with drug therapyStart: 01-28-3111jdox 1 tablet by mouth in the morningnorgestimate-ethinyl estradiol (Ortho Tri-Cyclen,Trinessa) 0.18/0.215/0.25 MG-35 MCG tablet Indications: Encounter for gynecological examination without abnormal finding Take 1 tablet by mouth in themorning. 28 tablet 11 04/28/2024 ActiveStart: 19-58-0255ppkn 1 tablet by mouth once daily in the morningnorgestimate-ethinyl estradiol (ORTHO TRI-CYCLEN) 0.18/0.215/0.25 MG-35 MCG tablet Take 1 Tablet bymouth every morning 04/28/2024 ActiveStart: 01-31-2023 End: 40-49-6055qvaw 1 tablet by mouth once dailyNorgestimate-Ethinyl Estradiol 0.18/0.215/0.25 mg-35 mcg (28) Take 1 tablet by mouth once daily. 01/31/2023 02/23/2025 DiscontinuedStart: 37-42-4811egev 1 tablet by mouth once daily Norgestimate-Ethinyl Estradiol 0.18/0.215/0.25 mg-35 mcg (28) Take 1 tablet by mouth once daily. 01/31/2023 ActiveStart: 22-00-4650hflk 1 tablet by mouth once dailyNorgestimate-Ethinyl Estradiol 0.18/0.215/0.25 mg-35 mcg (28) Take 1 tablet by mouth once daily. 0 01/31/2023 ActiveStart: 96-12-8766ktcpgue estradiol- norgestimate triphasic 35 mcg Tab Refills(s) 0 Start Date: 11/08/21 Status: OrderedStart: 86-32-0861lvxf 1 tablet by mouth oncenorgestimate 0.25 mg-ethinyl estradiol 35 mcg (SPRINTEC, ORTHO-CYCLEN) 0.25-35 mg-mcg per tablet Take 1 tablet by mouth. 02/14/2021 ActiveStart: 28-45-3224kwro 1 tablet by mouth once norgestimate 0.25 mg-ethinyl estradiol 35 mcg (SPRINTEC, ORTHO-CYCLEN) 0.25-35 mg-mcg per tablet Take 1 tablet by mouth. 0 02/14/2021 ActiveStart: 02-14-2021 End: 67-69-4732rjyh 1 tablet by mouth oncenorgestimate 0.25 mg-ethinyl estradiol 35 mcg (SPRINTEC, ORTHO-CYCLEN) 0.25-35 mg-mcg per tablet Take 1 tablet by mouth. 0 02/14/2021 02/09/2022 ActiveComment on above:Take 1 tablet by mouth. Take 1 tablet by mouth once daily.ethinyl estradiol-norgestimate triphasic 35 mcg Tab (2 sources)Start: 94-72-8387synjbgt estradiol-norgestimate triphasic 35 mcg Tab Refills(s) 0 Start Date: 11/08/21 Status: Orderedfluconazole 150 mg oral tablet (5 sources)Azole AntifungalStart: 20-07-8769mwpt 1 tablet by mouth onceDiflucan 150 mg Tab 150 mg = 1 tab(s), Oral, Once, # 1 tab(s), Refills(s) 0, [facility]: [facility], 165, cm, 12/19/21 18:29:00 EDT, Height/Length Dosing, 54.4, kg, 12/19/21 18:29:00 EDT, Weight Dosing Start Date: 12/19/21 Status: OrderedFLUoxetine 20 mg oral capsule (6 sources)Serotonin Reuptake InhibitorStart: 08-48-6765fptq 1 capsule by mouth once dailyFLUoxetine (PROzac) 20 MG capsule Take 20 mg by mouth Daily 04/06/2025 Active End: 82-42-9177btua 1 capsule by mouth once dailyFLUoxetine (PROzac) 40 MG capsule Take 40 mg by mouth Daily 04/27/2025 Discontinued (Therapy completed) fluticasone propionate 0.05 mg/actuat metered dose nasal spray (8 sources)CorticosteroidStart: 54-41-4112nkaa 2 spray(s) nasal route once daily fluticasone 0.05 mg/inh Nasal [place] 2 spray(s), Nasal, Daily, 16 gram, Refill(s) 0, each nostril, [facility], 165, cm, 12/08/21 8:48:00 EDT, Height/Length Dosing, 54.5, kg, 12/08/21 8:48:00 EDT, Weight Dosing Start Date: 12/08/21 Status: Orderedfluticasone 0.05 mg/inh Nasal [place] (3 sources)Start: 95-30-3151mshs 2 spray(s) nasal route once dailyfluticasone 0.05 mg/inh Nasal [place] 2 spray(s), Nasal, Daily, 16 gram, Refill(s) 0, each nostril, [facility], 165, cm, 12/08/21 8:48:00 EDT, Height/Length Dosing, 54.5, kg, 12/08/21 8:48:00 EDT, Weight Dosing Start Date: 12/08/21 Status: OrderedhydrOXYzine pamoate 25 mg oral capsule (9 sources)AntihistamineStart: 72-40-4180aede 1 capsule by mouth in the morning hydrOXYzine pamoate (Vistaril) 25 MG capsule Take 1 capsule by mouth in the morning. 12/01/2024 ActiveStart: 08-18-8956ipzv 1 tablet by mouth twice daily as needed for anxietyhydrOXYzine hydrochloride 10 mg Tab 10 mg = 1 tab(s), Oral, BID, PRN for anxiety, # 60 tab(s), Refills(s) 1, [id number], 165, cm, 04/15/22 13:44:00 EDT, Height/Length Dosing, 52.5, kg,04/15/22 13:44:00 EDT, Weight Dosing Start Date: 04/15/22 Status: Orderedloratadine 10 mg oral tablet (1 source)take 1 tablet by mouth once daily as neededloratadine (CLARITIN) 10 MG tablet Take 1 Tablet (10 mg) by mouth daily as needed ActivemethylPREDNISolone 4 mg oral tablet (3 sources)CorticosteroidStart: 76-67-4944uwrb 1 tablet by mouth once Methylprednisolone (Medrol (Shane)) 4 mg tablets,dose pack Active 0 PO per package directions 2024 12:00am PO PER PKG DIR for 6 days Complies with drug therapyStart: 07-17-2022 End: 54-78-3437Pmzbaz 4 mg Tab = 1 packet(s), Oral, As Directed, as directed on package labeling, X 6 day(s), # 21tab(s), Refills(s) 0, [id number], 166, cm, 07/17/22 13:01:00 EDT, Height/Length Dosing, 53, kg, 07/17/22 13:01:00 EDT, Weight Dosing Start Date: 07/17/22 Stop Date: 07/23/22 Status: Orde redStart: 03-19-2022 End: 68-25-0156Djtowp 4 mg Tab = 1 packet(s), Oral, As Directed, as directed on package labeling, X 6 day(s), # 21tab(s), Refills(s) 0, [facility]: [facility], 165, cm, 03/19/22 11:59:00 EDT, Height/Length Dosing, 62, kg, 03/19/22 11:59:00 EDT, Weight Dosing Start Date: 03/19/22 Stop Date: 03/25/22 Sta tus: Orderedmontelukast 10 mg oral tablet (20 sources)Leukotriene Receptor AntagonistStart: 04-30-2020 End: 94-17-9627zxty 10 mg by mouth once dailySingulair 10 mg, Oral, Daily, Refills(s) 0 Start Date: 07/23/23 Status: OrderedComment on above:Take 1 tablet by mouth once daily.Multi Vitamin+ (8 sources)Start: 86-63-6263Lsbtt Vitamin+ Oral, Daily, Refill(s) 0 Start Date: 07/23/23 Status: OrderedMultivitamin (Multiple Vitamins) tablet (2 sources)Start: 65-91-3674btgx 1 tablet by mouth once dailyMultivitamin (Multiple Vitamins) tablet Active 1 TAB PO Daily November 11, 2024 1:00am Complies with drug therapyStart: 22-76-5670cyrk 1 tablet by mouth once dailyMultivitamin (Multiple Vitamins) tablet Active 1 TAB PO Daily November 11, 2024 12:00am mv,calcium,min/iron/folic/vitK (ONE-A-DAY WOMEN'S COMPLETE ORAL) (20 sources)mv,calcium,min/iron/folic/vitK (ONE-A-DAY WOMEN'S COMPLETE ORAL) Take by mouth. Activemv,calcium,min/iron/folic/vitK (ONE-A-DAY WOMEN'S COMPLETE ORAL) Take by mouth. 0 ActiveComment on above:Take by mouth.naproxen 500 mg oral tablet (11 sources)Nonsteroidal Anti-inflammatory DrugStart: 86-17-5158whwx 1 tablet by mouth twice dailyNaprosyn 500 mg Tab 500 mg = 1 tab(s), Oral, BID, # 20 tab(s), Refills(s) 0, [facility]: [facility], 165, cm, 11/11/21 21:37:00 EST, Height/Length Dosing, 52.5, kg, 11/11/21 21:37:00 EST, Weight Dosing Start Date: 11/12/21 Status: OrderedNorgestimate-Ethinyl Estradiol 0.18/0.215/0.25 mg-35 mcg (28) tablet (1 source)Start: 27-51-6203uvxr 1 tablet by mouth once dailyNorgestimate-Ethinyl Estradiol 0.18/0.215/0.25 mg-35 mcg (28) tablet Active 1 TAB PO Daily November 11, 2024 12:00amnystatin 100,000 units/mL oral suspension (1 source)Start: 12-19-2021 End: 57-22-3229beng 085916 [IU] by mouth four times dailynystatin 100,000 units/mL oral suspension 500,000 unit(s) = 5 mL, Oral, QID, X 7 day(s), # 200 mL, Refills(s) 1, Pharmacy: [facility] [address], 165, cm, 12/19/21 18:29:00 EDT, Height/Length Dosing, 54.4, kg, 12/19/21 18:29:00 EDT, Weight Dosing Start Date: 12/19/21 Stop Date: 01/02/22 Status: Orderedomeprazole 20 mg delayed release oral capsule (9 sources)Proton Pump InhibitorStart: 54-66-6022ynxl 1 capsule by mouth once dailyomeprazole 20 mg Cap-DR 20 mg = 1 cap(s), Oral, Daily, # 30 cap(s), Refills(s) 1, Pharmacy: [facility] #[id number], 166, cm, 11/06/22 15:01:00 EST, Height/Length Dosing, 54.9, kg, 11/06/22 15:01:00 EST, Weight Dosing Start Date: 11/10/22 Status: OrderedStart: 96-71-2375vfdm 1 capsule by mouth once daily omeprazole 20 mg Cap-DR 20 mg = 1 cap(s), Oral, Daily, # 30 cap(s), Refills(s) 1, Pharmacy: [facility] #[id number], 166, cm, 09/11/22 11:42:00 EST, Height/Length Dosing, 54.8, kg, 09/11/22 11:42:00 EST, Weight Dosing Start Date: 09/11/22 Status: Orderedondansetron 4 mg oral tablet (17 sources)Serotonin-3 Receptor AntagonistStart: 08-14-2024 End: 55-27-2702liwk 1 tablet by mouth once daily as needed for nauseaondansetron (Zofran) 4 MG tablet TAKE 1 TABLET BY MOUTH ONCE EVERYDAY NEEDED FOR NAUSEA/VOMITINGAS DIRECTED 08/14/2024 ActiveStart: 16-59-7025gptr 1 tablet by mouth every six hours as needed for nauseaondansetron 4 mg Dis Tab 4 mg = 1 tab(s), Oral, q6hr, PRN Nausea/Vomiting, # 12 tab(s), Refills(s) 0, [facility] [address], 165, cm, 11/13/21 10:33:00 EST, Height/Length Dosing, 53, kg, 11/13/21 10:33:00 EST, Weight Dosing Start Date: 11/13/21 Status: OrderedStart: 28-73-2872ekml 1 tablet by mouth every six hours as needed for nauseaondansetron 4 mg Dis Tab 4 mg = 1 tab(s), Oral, q6hr, PRN Nausea/Vomiting, # 12 tab(s), Refills(s) 0, [facility], 165, cm, 11/13/21 10:33:00 EST, Height/Length Dosing, 53, kg, 11/13/21 10:33:00 EST, Weight Dosing Start Date: 11/13/21 Status: OrderedpredniSONE 50 mg oral tablet (8 sources)Start: 04-04-2022 End: 44-07-0076lolg 1 tablet by mouth once dailypredniSONE 50 mg Tab 50 mg = 1 tab(s), Oral, Daily, X 7 day(s), # 7 tab(s), Refills(s) 0 Start Date: 04/04/22 Stop Date: 04/11/22 Status: OrderedStart: 12-23-2021 End: 35-69-5554wrig 3 tablets by mouth once daily, then take 2 tablets by mouth once daily, then take 1 tablet by mouth once daily, then take 0.5 tablet by mouth once dailypredniSONE (DELTASONE) 10 mg tablet Indications: Bronchiolitis obliterans syndrome (HCC) Take 3 tablets by mouth once daily for 5 days, THEN 2 tablets once daily for 5 days, THEN 1 tablet once daily for 5 days, THEN 0.5 tablets once daily for 5 days. 33 tablet 0 12/23/2021 01/12/2022 ActiveStart: 07-11-2021 End: 60-69-6129xbsj 1 tablet by mouth once dailypredniSONE (DELTASONE) 20 mg tablet Take 1 tablet by mouth once daily. 7 tablet 0 07/11/2021 12/23/2021 DiscontinuedComment on above:Take 1 tablet by mouth once daily.Take 3 tablets by mouth once daily for 5 days, THEN 2 tablets once daily for 5 days, THEN 1 tablet once daily for 5 days, THEN 0.5 tablets once daily for 5 days.sodium chloride 0.111 meq/ml nasal spray (11 sources)Start: 34-25-7487Fws Saline Mist 0.65% nasal spray 2 spray(s), Nasal, QID, 1 EA, Refill(s) 3, [facility] [address], 165, cm, 12/08/21 8:48:00 EDT, Height/Length Dosing, 54.5, kg, 12/08/21 8:48:00 EDT, Weight Dosing Start Date: 12/08/21 Status: OrderedStart: 21-14-2803Jdu Saline Mist 0.65% nasal spray 2 spray(s), Nasal, QID, 1 EA, Refill(s) 3, [facility] [address], 165, cm, 12/08/21 8:48:00 EDT, Height/Length Dosing, 54.5, kg, 12/08/21 8:48:00 EDT, Weight Dosing Start Date: 12/08/21 Status: OrderedSpacer/Aero-Holding Chambers ([place]) MISC DEVICE (6 sources)Start: 21-69-3557Iaqgqy/Aero-Holding Chambers ([place]) MISC DEVICE 1 Each by Other route Use as directed with metered-dose inhaler. 1 Each 1 11/21/2020 Active Completed/Discontinued Medications MedicationDrug Class(es)DatesSig (Normalized)Sig (Original)Albuterol (Eqv-ProAir HFA) 90 mcg/inh inhalation aerosol (20 sources)Start: 73-80-6524vtze 1 dose by inhalation every six hoursAlbuterol (Eqv-ProAir HFA) 90 mcg/inh inhalation aerosol 2 puff(s), Inhalation, q6hr, 1 EA, Refill(s) 4, [facility], 166, cm, 07/17/22 13:01:00 EDT, Height/Length Dosing, 53, kg, 07/17/22 13:01:00 EDT, Weight Dosing Start Date: 07/17/22 Status: OrderedStart: 66-12-9765wzwg 2 puff(s) by inhalation every six hoursAlbuterol (Eqv-ProAir HFA) 90 mcg/inh inhalation aerosol 2 puff(s), Inhalation, q6hr, 1 EA, Refill(s) 1, [facility], 165, cm, 12/08/21 8:48:00 EDT, Height/Length Dosing, 54.5, kg, 12/08/21 8:48:00 EDT, Weight Dosing Start Date: 12/08/21 Status: Orderedazithromycin 250 mg oral tablet (20 sources)Macrolide AntimicrobialStart: 11-11-2024 End: 24-95-4029Ffcnrzynbhtm 250 mg tablet Discontinued 0 PO .COMPLEX 6 November 11, 2024 1:00am March 29, 2025 6:08pm For 250 mg dose pack: take 500 mg today (day 1), then 250 mg for 4 days (days 2-5) POStart: 11-17-2023 End: 79-09-7325Ueuvnnxao 250 mg Tab = 1 packet(s), Oral, As Directed, as directed on package labeling, X 5 day(s),# 6 tab(s), Refills(s) 0, [facility]: [id number], 165, cm, 11/16/23 21:35:00 EST, Height/Length Dosing, 55.1, kg, 11/16/23 21:35:00 EST, Weight Dosing Start Date: 11/17/23 Stop Date: 11/22/23 Status:OrderedStart: 16-78-5476gptv 1 tablet by mouth onceazithromycin 500 mg oral tablet take 1 tablet by mouth every WEDNESDAY, WEDNESDAY AND WEDNESDAY Start Date : 09/11/22 Status: OrderedStart: 07-11-2021 End: 32-73-3297szjx 1 tablet by mouth onceazithromycin (ZITHROMAX) 500 mg tablet Take 1 tablet by mouth every Wednesday,Wednesday,Wednesday. 36 tablet 3 03/30/2022 ActiveStart: 02-28-2021 End: 34-35-0906Qqpixsgjfucu (ZITHROMAX) 500 MG tablet Take 1 tab by mouth Wed- 36 Tablet 4 02/28/2021 05/05/2024 Discontinued (* Remove (Not on AVS))Comment on above:1 tablet every Wednesday,Wednesday,Wednesday.Take 1 tablet by mouth every Wednesday,Wednesday,Wednesday.biotin 2.5 mg oral capsule (20 sources) End: 53-91-1190Pnacmw 2,500 mcg cap Take 2,500 mcg by mouth. 02/23/2025 DiscontinuedComment on above:Take 2,500 mcg by mouth.cefdinir 300 mg oral capsule (4 sources)Cephalosporin AntibacterialStart: 08-17-2024 End: 32-26-1803yqfu 1 capsule by mouth every twelve hourscefdinir (OMNICEF) 300 mg capsule Take 1 capsule by mouth every 12 hours. 08/17/2024 03/28/2025 Disc ontinued (Course of therapy completed)diphenhydrAMINE hydrochloride 25 mg oral tablet (20 sources)Histamine-1 Receptor AntagonistStart: 01-24-2019 End: 39-14-8458xmlv 1 tablet by mouth once daily at bedtime for sleep diphenhydrAMINE (BENADRYL) 25 mg tablet take 1 tablet by mouth once daily at bedtime if needed for itching sleep or allergies 0 01/24/2019 08/20/2023 DiscontinuedComment on above:take 1 tablet by mouth once daily at bedtime if needed for itching sleep or allergiesdocusate sodium 100 mg oral capsule (2 sources)Start: 05-08-2022 End: 79-93-7256hqng 1 capsule by mouth twice dailydocusate sodium (COLACE) 100 MG CAPS capsule Take 1 Capsule (100 mg) by mouth 2 times daily 60 Capsule 5 05/08/2022 05/07/2023 Discontinued (* Remove (Not on AVS))Ethinyl Estradiol / Ferrous fumarate / Norethindrone (20 sources)Estrogen End: 82-12-6609pabg 1 tablet by mouth once dailynorethindrone-e.estradiol-iron (LO LOESTRIN FE) 1 mg-10 mcg (24)/10 mcg (2) Take 1 tablet by mouth once daily. 02/23/2025 Discontinuedtake 1 tablet by mouth once daily norethindrone-e.estradiol-iron (LO LOESTRIN FE) 1 mg-10 mcg (24)/10 mcg (2) Take 1 tablet by mouth once daily. Activetake 1 tablet by mouth once daily norethindrone-e.estradiol-iron (LO LOESTRIN FE) 1 mg-10 mcg (24)/10 mcg (2) Take 1 tablet by mouth once daily. 0 ActiveComment on above:Take 1 tablet by mouth once daily.60 actuat formoterol fumarate 0.005 mg/actuat / mometasone furoate 0.2 mg/actuat metered dose inhaler (1 source)Corticosteroid, beta2-Adrenergic AgonistStart: 83-52-6884ovnr 1 puff(s) by inhalation twice dailymometasone-formoterol (DULERA) 200-5 mcg/actuation inhaler Inhale 1 Puff as instructed twice daily.8.8 g 2 07/31/2022 ActiveComment on above:Inhale 1 Puff as instructed twice daily.Nebulizer Machine (6 sources)Start: 24-76-1717Wawbyyngp Machine Nebulizer Machine, See Instructions, 1 EA, 0, Nebulizer Machine, Novel #16, Supply, 165, cm, 08/05/21 7:46:00 EST, Height/Length Dosing, 51.6, kg, 08/05/21 7:46:00 EST, Weight Dosing Start Date: 08/05/21 Status: OrderedNebulizer Tubing and Mouthpiece Kit (6 sources)Start: 75-79-6726Ioxeqdvuf Tubing and Mouthpiece Kit Nebulizer Tubing and Mouthpiece Kit, See Instructions, 1 kit(s), 0, Nebulizer Tubing and Mouthpiece Kit, Novel #16, Supply, 165, cm, 08/05/21 7:46:00 EST, Height/Length Dosing, 51.6, kg, 08/05/21 7:46:00 EST, Weight Dosing Start Date: 08/05/21 Status: OrderedNORGESTIMATE-ETH ESTRADIOL PO (3 sources) End: 03-37-4111HPKVEZADOQRC-ETH ESTRADIOL PO Take by mouth 05/05/2024 Discontinued (* Remove (Not on AVS))NORGESTIMATE-ETH ESTRADIOL PO Take by mouth 0 ActivePediatric Rsozwzoy-Hivyhomq-Q (MULTIVITAMIN GUMMIES CHILDRENS PO) (1 source) End: 49-06-3041tezq 2 tablets by mouth once dailyPediatric Pdpvtrvf-Geqjzfkj-M (MULTIVITAMIN GUMMIES CHILDRENS PO) Take 2 Tabs by mouth daily [place] gummies 0 05/08/2022 Discontinued (* Remove (Not on AVS))sucralfate 100 mg/ml oral suspension (1 source)Aluminum ComplexStart: 08-21-2024 End: 60-34-6050uxyz 1 mL by mouth every six hoursSucralfate (Carafate) 100 mg/mL suspension Discontinued 10 ML PO Every 6 hours 300 August 21, 2024 1:00am November 11, 2024 10:26amSucralfate (Carafate) 100 mg/mL suspension (1 source)Start: 08-21-2024 End: 91-12-9655hyqi 1 mL by mouth every six hoursSucralfate (Carafate) 100 mg/mL suspension Discontinued 10 ML PO Every 6 hours 300 August 21, 2024 12:00am November 11, 2024 9:26amVitamin D3 5000 intl units oral capsule (20 sources)Start: 10-53-3370leds 1 capsule by mouth once daily at mealtime Vitamin D3 5000 intl units oral capsule 5,000 International_Unit = 1 cap(s), Oral, Daily, with food, Refills(s) 0 Start Date: 07/26/20 Status: Ordered (19 sources)Start: Each. 0 11/21/2020 ActiveComment on above:1 Each. Problems Active Problems Problem ClassificationProblemDateDocumented DateEpisodic/ChronicAcute and chronic tonsillitis (1 source)Acute tonsillitis; Translations: [Acute tonsillitis, unspecified] 53-28-3304SsqlrbqxAzypowq disorders (20 sources)Anxiety; Translations: [Anxiety disorder]Onset: 141874-08-4020 ChronicAortic; peripheral; and visceral artery aneurysms (3 sources)Thoracic aortic aneurysm without rupture; Translations: [Thoracic aortic aneurysm without rupture, unspecified part (HCC)]33-84-4149BgomhzzNibvlv (20 sources)Exacerbation of moderate persistent asthma; Translations: [Exacerbation of asthma]Onset: 235386-88-8792XddnuojTpttmsbrm-jtipnta, conduct, and disruptive behavior disorders (20 sources)Attention deficit hyperactivity disorder, predominantly inattentive jslj68-65-9803HpgwhzvLahriys obstructive pulmonary disease and bronchiectasis (20 sources)Obliterative bronchiolitis; 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]Onset: 06-24-2017 Resolved: 46-56-0283ItevtbiBlfmfmn obstructive pulmonary disease and bronchiectasis (1 source)Bronchitis; Translations: [Bronchitis, not specified as acute or chronic]Onset: 96-14-6982VdpxrvkiPnqrmgouvtvd of device; implant or graft (20 sources)Graft versus host disease; 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 disease, unspecified]Onset: 01-05-2017 Resolved: 399484-64-7589YtjrppoPuljwgckxwuyo and procreative management (2 sources)Social and personal history finding; Translations: [Encounter for procreative management, unspecified]24-79-3129ThrsiwzyFyqmhyhjcxrfs symptoms and ill-defined conditions (1 source)Proteinuria; Translations: [Proteinuria, unspecified]Onset: 04-09-2022 EpisodicLeukemias (20 sources)Acute myeloid leukemia in remission; Translations: [Acute myeloblastic leukemia, in remission]Onset: 07-29-2016 Resolved: 774783-52-1504JbvsshfWryfzhkfv (20 sources)History of acute myeloid leukemia; Translations: [Personal history of leukemia]Onset: 938763-52-1000GkjypdquLnmsncskge disorders (20 sources)Primary ovarian failure; Translations: [Other primary ovarian failure]Onset: 11-05-2017 Resolved: 135934-27-1191QecxxvkPlircv and vomiting (1 source)Nausea; Translations: [Nausea]Onset: 52-10-7780MqdsiavuVvizfptgn of unspecified nature or uncertain behavior (2 sources)Neoplasm of uncertain behavior of skin; Translations: [Neoplasm of uncertain behavior of skin]40-39-3240BtvhtqezQerhhmpmcoy deficiencies (1 source)Vitamin D deficiency; Translations: [Vitamin D deficiency, unspecified]03-28-2338TcwrwujRfzun aftercare (1 source)Other penitentiary (current) drug therapy; Translations: [OTH PLUMBER'S ASSISTANT CURRENT DRUG THERAPY]Onset: 68-61-1811NbiglpfeRbaxy aftercare (1 source)custodial (current) use of hormonal contraceptives; Translations: [PLUMBER'S ASSISTANT HORMONAL CONTRACEPTIVES]Onset: 15-13-5556YszuzlauWzrso and unspecified benign neoplasm (3 sources)Melanocytic nevus of trunk; Translations: [Melanocytic nevi of trunk] 36-00-4203FtnvjnqhAffbi gastrointestinal disorders (1 source)Chronic idiopathic constipation; Translations: [Chronic idiopathic constipation]ChronicOther gastrointestinal disorders (6 sources)Irritable bowel uxbbohng27-03-5173LsilohtYlndm hereditary and degenerative nervous system conditions (1 source)Restless legs; Translations: [Restless legs syndrome]Onset: 03-13-2024 ChronicOther lower respiratory disease (3 sources)Interstitial lung disease; Translations: [Interstitial pulmonary disease, unspecified]ChronicOther lower respiratory disease (2 sources)Acute lower respiratory tract infection; Translations: [Unspecified acute lower respiratory infection]23-12-8780IkogmqlxYwujr lower respiratory disease (1 source)Unspecified acute lower respiratory infection; Translations: [Other diseases of respiratory system,not elsewhere classified]80-03-9009XoiuptaaFsshl nutritional; endocrine; and metabolic disorders (20 sources)Body mass index less than 20; Translations: [Body mass index (BMI) 19.9 or less, adult]Onset: 666059-49-4916YpgiovbeUezcb screening for suspected conditions (not mental disorders or infectious disease) (1 source)Cancer cervix screening status; Translations: [Encounter for screening for malignant neoplasm of cervix]32-13-1726NbkrnfzbHcxaa skin disorders (3 sources)Rash and other nonspecific skin eruption; Translations: [RASH OTH NONSPECIFIC SKIN ERUPTION]Onset: 00-64-0146QwbhmjloPxpof skin disorders (2 sources)Non-scarring alopecia; Translations: [Nonscarring hair loss, unspecified]Onset: 38-55-5550MjxubgstSnjxl skin disorders (1 source)Lentiginosis; Translations: [Other melanin hyperpigmentation] 57-15-7450UycukkamVcvfa upper respiratory disease (20 sources)Seasonal allergic -53-9358MizzobbBxuir upper respiratory disease (15 sources)Allergic rhinitis; Translations: [Allergic rhinitis, unspecified] Onset: 433367-21-9683QgexphlApels upper respiratory disease (15 sources)Chronic rhinitis; Translations: [Chronic rhinitis]Onset: 05-23-2020 97-11-0016FtwxubgYuebc upper respiratory disease (2 sources)Bleeding of pharynx; Translations: [Other diseases of pharynx] 00-36-5200DjrkyudkRizzp upper respiratory infections (12 sources)Bacterial sinusitis; Translations: [Chronic sinusitis, unspecified] Onset: 12-02-2017 Resolved: 896229-25-7230RewasuxFheominm codes; unclassified (20 sources)H/O: tissue/organ recipient; Translations: [Stem cells transplant status]Onset: 033548-14-3578RwzlwvkCryqquxc codes; unclassified (19 sources)History of bone marrow transplant; Translations: [Bone marrow transplant status]Onset: 93-25-1331KcdogpfUeneujlm codes; unclassified (6 sources)Bone marrow transplant kbolmtf68-27-5485JvfvfqjUukftmbp codes; unclassified (1 source)FH: Polycystic kidney; Translations: [Family history of polycystic kidney]46-72-5513HbmctwzaVjndrbxu codes; unclassified (3 sources)Body mass index 20-24 - normal; Translations: [Body mass index (BMI) 21.0-21.9, adult]Onset: 56-83-8693VrgneeatHskjkqyx codes; unclassified (3 sources)Patient encounter status; Translations: [Other specified health status]Onset: 65-09-2478MxyvbrvfCebjwlly codes; unclassified (1 source)Family history of ischemic heart disease; Translations: [Family history of ischemic heart disease and other diseases of the circulatory system] 84-00-1630EnzdxsjiErvjzznf codes; unclassified (3 sources)Non-smoker; Translations: [Other specified health status]Onset: 119987-18-5602HwkgvzwxVsxziabndspv (5 sources)Body mass index 20-24 - -48-3397Uclofiwmshxx (3 sources)Ooa-xcarhp71-78qzmnuu87-68-2747Pgurksitldhc (1 source)History of bone marrow -57-0446Fcxnvkmasceg (1 source)Social and personal history qdhffej81-31-0637Jgkhssajlemq (1 source)Thoracic aortic aneurysm without rupture, unspecified part; Translations: [Thoracic aortic aneurysmwithout rupture, unspecified part]Onset: 81-78-0313Kioevzwegtvc (2 sources)History of acute myeloid leukemia; Translations: [History of acute myeloid leukemia in remission]Onset: Past or Other Problems Problem ClassificationProblemDateDocumented DateEpisodic/ChronicAbdominal pain (20 sources)Abdominal discomfort; Translations: [Abdominal pain]Onset: 10-15-2016 Resolved: 744111-58-5180YnmlqeibKtfdt and unspecified renal failure (6 sources)Acute injury of kidney; Translations: [Acute kidney failure, unspecified]Onset: 08-01-2016 Resolved: 281006-26-8872ZjzzxcsyLtdun bronchitis (6 sources)Acute bronchitis; Translations: [Acute bronchitis, unspecified]Onset: 02-28-2021 Resolved: 169957-63-3730IjtefguyPaowxztzyd disorders (6 sources)Adjustment disorder with anxious mood; Translations: [Adjustment disorder with anxiety]Onset: 10-15-2016 Resolved: 869975-18-1735DcxqzofXcfwnavlodnmhe/social admission (15 sources)Fear of endocrine disease; Translations: [Person with feared health complaint in whom no diagnosis is made]Onset: 12-14-2017 Resolved: 192361-97-3703BdmwpcjfKjybsqpx reactions (20 sources)Contact dermatitis; Translations: [Acral erythema]Onset: 10-10-2016 Resolved: 668587-57-9232KwvjqcljIbpbwalmw infection; unspecified site (6 sources)Infection due to Pseudomonas aeruginosa; Translations: [Other bacterial infections of unspecified site]Onset: 10-16-2016 Resolved: 871052-95-0614ImhgjaegZcnhzlaulhw and hemorrhagic disorders (12 sources)Platelet count below reference range; Translations: [Thrombocytopenia, unspecified]Onset: 07-27-2016 Resolved: 171421-69-0569PwljtkrNthgrlchkcbzy of surgical procedures or medical care (6 sources)Anemia due to antineoplastic chemotherapy; Translations: [Antineoplastic chemotherapy induced anemia]Onset: 10-11-2016 Resolved: 341642-12-5137CqxobqvXsvmdqynpjdfu of surgical procedures or medical care (20 sources)Anaphylactic reaction due to administration of blood and blood products, initial encounter; Translations: [Anaphylactic reaction due to administration of blood and blood products]Onset: 07-29-2016 Resolved: 352521-53-2516FuyybxohOtnvuhjjxx and other anemia (6 sources)Pancytopenia due to antineoplastic chemotherapy; Translations: [Antineoplastic chemotherapy inducedpancytopenia]Onset: 11-04-2016 Resolved: 909084-58-9731TjbtxghWycuhdqflg and other anemia (6 sources)Anemia; Translations: [Anemia, unspecified]Onset: 07-27-2016 Resolved: 017954-32-0623NrrgzcgwWjmpiwfh of mouth; excluding dental (6 sources)Painful mouth; Translations: [Other lesions of oral mucosa]Onset: 11-26-2016 Resolved: 738409-36-4468KikrxmckXhcxvbkc of white blood cells (18 sources)Leukocytosis; Translations: [Elevated white blood cell count, unspecified]Onset: 07-26-2016 Resolved: 107003-53-8424ItrixksWthza of unknown origin (6 sources)Fever; Translations: [Fever, unspecified]Onset: 06-30-2017 Resolved: 794635-06-9790KpspttqgYbspt and electrolyte disorders (6 sources)Hypokalemia; Translations: [Hypokalemia]Onset: 07-31-2016 Resolved: 785224-58-2271NcrwzwgfFqfxtqwk disorders (6 sources)Hypogammaglobulinemia; 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]Onset: 06-28-2017 Resolved: 632190-43-4959CvjvmigAwyhfsdepn infection (6 sources)Clostridium difficile diarrhea; Translations: [Enterocolitis due to Clostridium difficile, not specified as recurrent]Onset: 12-07-2016 Resolved: 125126-36-3336NaitwhaaPlzzyrogr disorders (9 sources)Amenorrhea; Translations: [Amenorrhea, unspecified]Onset: 04-16-2023 Resolved: 189517-88-4208GjwmuodKfvknzy (12 sources)Candidiasis of mouth; Translations: [Candidal stomatitis]Onset: 07-27-2016 Resolved: 060308-60-7967TgcveiolBzulr aftercare (2 sources)Follow-up status; Translations: [Encounter for follow-up examination after completed treatment for conditions other than malignant neoplasm]Episodic Other aftercare (15 sources)Patient care statuses; Translations: [Encounter for palliative care] Onset: 613495-41-9216JhkrestgJyckr endocrine disorders (6 sources)Iatrogenic adrenal insufficiency; Translations: [Other adrenocortical insufficiency]Onset: 12-13-2018 Resolved: 472294-50-3005SljnfzfTeola inflammatory condition of skin (6 sources)Erythema; Translations: [Erythematous condition, unspecified]Onset: 12-12-2016 Resolved: 331464-79-2801WgdswfocQpxag lower respiratory disease (6 sources)Desaturation of blood; Translations: [Hypoxemia]Onset: 05-12-2017 Resolved: 112844-43-1658MuuxoksaFmhsf lower respiratory disease (6 sources)Chronic lung disease; Translations: [Other disorders of lung]Onset: 07-07-2017 Resolved: 306636-89-7224VeaijdgeXrykj nutritional; endocrine; and metabolic disorders (6 sources)Hypoalbuminemia; Translations: [Other disorders of plasma-protein metabolism, not elsewhere classified]Onset: 07-31-2016 Resolved: 650080-21-8078GvszmqkZwbxk nutritional; endocrine; and metabolic disorders (6 sources)Hypomagnesemia; Translations: [Hypomagnesemia]Onset: 12-31-2016 Resolved: 928677-31-1823GvyzaqzXjryb nutritional; endocrine; and metabolic disorders (6 sources)Dietary intake finding; Translations: [Other symptoms and signs concerning food and fluid intake]Onset: 09-15-2016 Resolved: 754289-01-3722JzilwawzXevae nutritional; endocrine; and metabolic disorders (5 sources)Weight loss; Translations: [Abnormal weight loss]Onset: 06-14-2018 Resolved: 801961-40-7942JxfvddjwMsdat nutritional; endocrine; and metabolic disorders (1 source)Weight decreased; Translations: [Abnormal weight loss]Onset: 06-14-2018 Resolved: 016162-14-3487NynffoyzFryjf skin disorders (1 source)Loss of hair; Translations: [Nonscarring hair loss, unspecified] 11-48-2145DdllbsztHpdce upper respiratory infections (20 sources)Acute upper respiratory infection; Translations: [Acute upper respiratory infection, unspecified]Onset: 10-18-2019 Resolved: 863337-37-3460NgghbzvpAlnykhlwk (except that caused by tuberculosis or sexually transmitted disease) (20 sources)Pneumonia; Translations: [Pneumonia, unspecified organism]Onset: 05-12-2017 Resolved: 80-26-2257VgliuqjjVldaombj enteritis and ulcerative colitis (6 sources)Terminal ileitis; Translations: [Crohn's disease of small intestine without complications]Onset: 12-28-2016 Resolved: 350265-34-0060ByehwilZtwwtalu codes; unclassified (6 sources)Restlessness and agitation; Translations: [Restlessness and agitation]Onset: 08-01-2016 Resolved: 585403-24-1408WqkmflxXjrtkubz codes; unclassified (6 sources)Edema, generalized; Translations: [Generalized edema]Onset: 07-31-2016 Resolved: 263777-07-9672CipcrfncHgfaskna codes; unclassified (6 sources)Intolerance to drug; Translations: [Other specified health status] Onset: 11-23-2016 Resolved: 010094-80-7343VcktmpkoIflnwjai codes; unclassified (6 sources)Tube feeding diet; Translations: [Other specified health status] Onset: 12-29-2016 Resolved: 451584-38-8552HgxamzjzMaockniu codes; unclassified (6 sources)Postoperative state; Translations: [Other specified postprocedural states]Onset: 06-10-2020 Resolved: 216361-31-5565GbkjiuaxCbzljbzu codes; unclassified (1 source)Family history of ischemic heart disease and other diseases of the circulatory system; Translations: [Family history of ischemic heart disease] Onset: 24-35-7392PfksbzapVjeclyyaljj failure; insufficiency; arrest (adult) (6 sources)Acute hypoxemic respiratory failure; Translations: [Acute respiratory failure with hypoxia]Onset: 07-31-2016 Resolved: 911292-70-3302WwtuluzdBnlwinvrvp (except in labor) (6 sources)Septic shock; Translations: [Sepsis, unspecified organism]Onset: 08-04-2016 Resolved: 355824-60-7661CnnthrznRqlahfjsjpxv (1 source)Exposure to 2019 novel coronavirus; Translations: [Contact with and (suspected) exposure to COVID19]Viral infection (20 sources)Viral pleurisy; Translations: [Cytomegalovirus infection]Onset: 12-11-2016 Resolved: 349371-14-8264Seilalab Results Test NameValueInterpretationReference RangeFacilityCNPNon 01-54-9859BEHZ Telephone (REIBD) PARIS VARGAS ([id number]) 4 F Date Time Provider Department 06/26/25 DANIELA SAHA During your visit today, we recorded the following information about you: KevinJagjitBoy 06/26/2025 1:30 PM Signed Patient has been identified by name and birthdate. Person Calling: Self Reason for Call: Patient Question Message: patient called in to make an appointment. They are a cancer patient, please reach out Call patient at: Cell, , [place] to leave a voicemail, and , [place] to send a MyChart [phone] (home) [phone] (cell) Sharon No RN 06/26/2025 2:39 PM Signed Consult to Fertility Preservation Consult referral received on [employer] Workstation from patients PCP/Oncology office. Called patient at phone number listed, . Sent Mychart message with office contact information so patient can schedule consult with Best Garrido NP or Dr. Daniela Saha who specializes in Oncofertility/fertility preservation. Will follow up with patient if they have any further questions/concerns regarding egg/ embryo freezing process. Sharon No RN June 26, 2025 2:24 PM Allergies As of Date: 06/26/2025 Noted Allergy Reaction BLOOD-GROUP SPECIFIC SUBSTANCE 08/05/2016 16 - Unknown Comments: TRALI on 07/29/16 - please see FYI tab 12/22/16: Anaphylaxis to male platelets and female platelets that were premedicated with Tylenol, Solumedrol and benadryl. 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 Pretreat with Benadryl, and run vancomycin over 2 hours. Date Reviewed: 03/28/2025 Reviewed by: Ramo Capellan RN - Fully Assessed Reason for Visit: Patient Question [7857] Primary Visit Diagnosis:Encounter for fertility testing [Z31.41] Order(s):WHIIVF ANTI MULLERIAN HORMONE [SQAMHIVF] Order #: [id number] FUTURE ESTRADIOL-17B BLD [SQE2] Order #: [id number] FUTURE FOLLICLE STIMULATING HORMONE [SQFSH] Order #: [id number] FUTURE PROGESTERONE [SQPROG] Order #: [id number] FUTURE LUTEINIZING HORMONE [SQLH] Order #: [id number] FUTURE Prescriptions as of 06/26/2025 - hydrOXYzine pamoate (VISTARIL) 25 mg capsule Take 1 capsule by mouth once daily. - busPIRone (BUSPAR) 5 mg tablet Take 5 mg by mouth as needed. - albuterol HFA (PROVENTIL HFA, VENTOLIN HFA) 90 mcg/actuation inhaler Inhale 2 Puffs as instructed every 6 hours as needed for wheezing/shortness of breath. - albuterol (PROVENTIL) 2.5 mg /3 mL (0.083 %) nebulizer solution Use 3 mL via nebulizer every 6 hours as needed for wheezing/shortness of breath. Inhale over 5-15 minutes Do not use if using inhaler - norgestimate 0.25 mg-ethinyl estradiol 35 mcg (SPRINTEC, ORTHO-CYCLEN) 0.25-35 mg-mcg per tablet Take 1 tablet by mouth. - 1 Each. - Cholecalciferol, Vitamin D3, 50 mcg (2,000 unit) cap take 1 capsule by mouth once daily - mv,calcium,min/iron/folic/vitK (ONE-A-DAY WOMEN'S COMPLETE ORAL) Take by mouth. Problem List As Of Date 06/26/2025 Noted Resolved Acute myeloid leukemia in remission ([facility]) [C92.* Stem cells transplant status (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 on above:Order Comment: Release to patient->AutomaticBasophils/100 WBC (Bld)0.4 %Normal0.3-0.[address] [facility] on above:Order Comment: Release to patient->AutomaticEosinophil \\P\\0.04 10E3/???LNormal0.04-0.27[facility] HospitalComcorewell [facility] on above:Order Comment: Release to patient->Automatic Eosinophils/100 WBC (Bld)0.6 %Normal0.6-3.8ABluffton HospitalComcorewell health [facility] on above:Order Comment: Release to patient->AutomaticErythrocyte distribution width (RBC) [Ratio]11.6 %Low11.9-14.8[facility] on above:Order Comment: Release to patient->AutomaticHematocrit (Bld) [Volume fraction]39.4 % Xpzjnd54.5-44.6AM[facility] on above:Order Comment: Release to patient->AutomaticHemoglobin (Bld) [Mass/Vol]14.5 g/hZOsgtbg16.4-14.8ABluffton HospitalComment on above:Order Comment: Release to patient->Automatic Immature granulocytes/100 WBC (Bld)0.4 %Normal0.2-0.5ABluffton Hospital Comment on above:Order Comment: Release to patient->AutomaticResult Comment: Immature Granulocyte Percent includes promyelocytes, myelocytes,and metamyelocytes.IG% > 1.0 indicates a left shift is present. With automated differentials, bands are included inthe neutrophil count and not in the Immature Granulocyte Percent.Lymphocyte \\P\\3.25 10E3/???LHigh1.51-2.99[facility] HospitalComment on above:Order Comment: Release to patient->Automatic Lymphocytes/100 WBC (Bld)46.6 %High21.8-42.1ABluffton HospitalComment on above:Order Comment: Release to patient->AutomaticMCH (RBC) [Entitic mass]34.9 ovDvis11.7-31.2ABluffton HospitalComment on above:Order Comment: Release to patient->RokskopopJNET37.8 %High31.3-34.0[facility] HospitalComment on above:Order Comment: Release to patient->AutomaticMCV (RBC) [Entitic vol]94.9 fL Vauwrm30.0-100.0[facility] HospitalComment on above:Order Comment: Release to patient->AutomaticMonocyte \\P\\0.44 10E3/???LNormal0.36-0.77[facility] HospitalComment on above:Order Comment: Release to patient->Automatic Monocytes/100 WBC (Bld)6.3 %Normal5.6-10.2ABluffton HospitalComment on above:Order Comment: Release to patient->AutomaticNeutrophil \\P\\3.18 10E3/???L Normal2.43-6.42[facility] HospitalComcorewell [facility] on above:Order Comment: Release to patient->AutomaticNeutrophils/100 WBC (Bld)45.7 %Low46.0-68.6ABluffton HospitalComment on above:Order Comment: Release to patient->AutomaticNucleated RBC/100 WBC (Bld) [Ratio]0.0 %Normal0.0-0.0[facility] on above:Order Comment: Release to patient->AutomaticPlatelet mean volume (Bld) [Entitic vol]9.3 fLLow9.6-11.9AM[facility] on above:Order Comment: Release to patient->QnhfwmapoNothaczhw966 10E3/???EYrfwfm491-202CnwpcMercy Health St. [facility] on above:Order Comment: Release to patient->Automatic RBC4.15 10E6/???LNormal4.03-4.91[facility] on above:Order Comment: Release to patient->AutomaticWBC7.0 10E3/???LNormal4.9-10.0[facility] on above:Order Comment: Release to patient->Automatic COMPREHENSIVE METABOLIC PANELon [id number] [Mass/Vol]4.8 g/dLNormal 3.5-5.0[facility] on above:Order Comment: Release to patient->AutomaticALP [Catalytic activity/Vol]54 U/FNrmqvy40-780EqtutMercy Health St. [facility] Medical Center on above:Order Comment: Release to patient->AutomaticALT [Catalytic activity/Vol]20 U/LNormal<=34AM[facility] on above:Order Comment: Release to patient->AutomaticAST [Catalytic activity/Vol]26 U/LNormal<=31[facility] on above:Order Comment: Release to patient->AutomaticBILI,TOTAL0.5 mg/dLNormal<=1.0[facility] on above:Order Comment: Release to patient->AutomaticCalcium [Mass/Vol]9.7 mg/dL Normal7.6-11.0[facility] on above:Order Comment: Release to patient->AutomaticChloride [Moles/Vol]101 mmol/ZSlfrpm84-475ZkqerMercy Health St. [facility] Center on above:Order Comment: Release to patient->AutomaticCO2 [Moles/Vol]23.6 mmol/OVaxbyw65.0-29.0[facility] on above: Order Comment: Release to patient->AutomaticCreatinine [Mass/Vol]0.97 mg/dL Normal0.50-1.00[facility] on above:Order Comment: Release to patient->TyygphvcffOQZ26 mL/min/1.73 w9Wsxyoc>=60[facility] Comment on above:Order Comment: Release to patient->AutomaticGlucose [Mass/Vol] 92 mg/rTVlgpgp23-64PhowqEast Liverpool City HospitalComcorewell health [facility] on above:Order Comment: Release to patient->AutomaticResult Comment: Criteria for Diagnosis of Diabetes: Fasting Specimen (no caloric intake for at least 8 hours): <100 mg/dL Normal 100-125 mg/dL Increased risk for Diabetes >125 mg/dL Diagnostic for Diabetes Random Glucose (any time of day without regard to last meal): > or = 200 mg/dL plus Classic Symptoms of DiabetesPotassium [Moles/Vol]3.7 mmol/LNormal3.3-5.[address] [facility] on above:Order Comment: Release to patient->AutomaticProtein [Mass/Vol]8.1 g/dLNormal5.9-8.4AM[facility] on above:Order Comment: Release to patient->AutomaticSodium [Moles/Vol]139 mmol/WPkrycy471-034MbjxwMercy Health St. [facility] on above: Order Comment: Release to patient->AutomaticUrea nitrogen [Mass/Vol]16 mg/dL Normal4-19[facility] HospitalComcorewell health [facility] on above:Order Comment: Release to patient->AutomaticComplete Blood Count with DifferentialOrdered By: Mitra Ghosh on [id number] (Bld) [#/Vol]0.03 10*3/[facility] HospitalBasophils/100 WBC (Bld)0.4 %0.3 - 0.9 %[facility] Eosinophils (Bld) [#/Vol]0.04 10*3/[facility] HospitalEosinophils/100 WBC (Bld)0.6 %0.6 - 3.8 %[facility] HospitalErythrocyte distribution width (RBC) [Ratio]11.6 %Low11.9 - 14.8 %[facility] HospitalHematocrit (Bld) [Volume fraction]39.4 %35.5 - 44.6 %[facility] HospitalHemoglobin (Bld) [Mass/Vol]14.5 g/dL11.4 - 14.8 g/dLEast Liverpool City HospitalImmature granulocytes/100 WBC (Bld)0.4 %0.2 - 0.5 %[facility] HospitalComment on above:Immature Granulocyte Percent includes promyelocytes, myelocytes,and metamyelocytes. IG% > 1.0 indicates a left shift is present. With automated differentials, bands are included in the neutrophil count and not in the Immature Granulocyte Percent.Interpretation and review of laboratory results AbnormalEast Liverpool City HospitalLymphocytes (Bld) [#/Vol]3.25 10*3/uLHighEast Liverpool City HospitalLymphocytes/100 WBC (Bld)46.6 %High21.8 - 42.1 %[facility] (RBC) [Entitic mass]34.9 xaIrox31.7 - 31.2 pgAWexner Medical CenterHC (RBC) [Mass/Vol]36.8 %High31.3 - 34.0 %[facility] HospitalV (RBC) [Entitic vol]94.9 fL80.0 - 100.0 [facility] Monocytes (Bld) [#/Vol]0.44 10*3/[facility] HospitalMonocytes/100 WBC (Bld)6.3 %5.6 - 10.2 %[facility] HospitalNeutrophils (Bld) [#/Vol]3.18 10*3/uLEast Liverpool City HospitalNeutrophils/100 WBC (Bld)45.7 %Low46.0 - 68.6 % [facility] HospitalNucleated RBC/100 WBC (Bld) [Ratio]0.0 %0.0 - 0.0 % [facility] HospitalPlatelet mean volume (Bld) [Entitic vol]9.3 fLLow9.6 - 11.9 fLEast Liverpool City HospitalPlatelets (Bld) [#/Vol]191 10*3/[facility] HospitalRBC (Bld) [#/Vol]4.15 10*6/[facility] HospitalWBC (Bld) [#/Vol]7.0 10*3/[facility] Comprehensive metabolic panelon [id number] BCG dye [Mass/Vol]4.8 g/dL3.5 - 5.0 g/dLEast Liverpool City HospitalALP [Catalytic activity/Vol]54 U/L35 - 104 U/[facility] CenterALT With P-5'-P [Catalytic activity/Vol]20 U/LNINF - 34 U/[facility] CenterAST With P-5'-P [Catalytic activity/Vol]26 U/L NINF - 31 U/[facility] CenterBilirubin [Mass/Vol]0.5 mg/dLNINF - 1.0 mg/dLEast Liverpool City HospitalCalcium [Mass/Vol]9.7 mg/dL7.6 - 11.0 mg/dLEast Liverpool City HospitalChloride [Moles/Vol]101 mmol/L96 - 108 mmol/[facility] CenterCreatinine [Mass/Vol]0.97 mg/dL0.50 - 1.00 mg/dLEast Liverpool City HospitalGFR/1.73 sq M.predicted among non-blacks MDRD (S/P/Bld) [Vol rate/Area] 84 mL/min/{1.73_m2}- PINCleveland Clinic Children's Hospital for RehabilitationGlucose [Mass/Vol]92 mg/dL70 - 99 mg/dLEast Liverpool City HospitalComment on above:Criteria for Diagnosis of Diabetes: Fasting Specimen (no caloric intake for at least 8 hours): <100 mg/dL Normal 100-125 mg/dL Increased risk for Diabetes >125 mg/dL Diagnostic for Diabetes Random Glucose (any time of day without regard to last meal): > or = 200 mg/dL plus Classic Symptoms of Diabetes HCO3 (P) [Moles/Vol]23.6 mmol/L22.0 - 29.0 mmol/[facility] Interpretation and review of laboratory resultsNormJersey City Medical [facility] Potassium (BldA) [Moles/Vol]3.7 mmol/L3.3 - 5.1 mmol/[facility] Protein [Mass/Vol]8.1 g/dL5.9 - 8.4 g/dLSelect Medical Specialty Hospital - Columbusodium [Moles/Vol]139 mmol/L133 - 145 mmol/[facility] CenterUrea nitrogen [Mass/Vol]16 mg/dL4 - 19 mg/dLOrlando Health [facility] Hospital Red Topon [id number] HospitalCNOVon [id number] Visit (CARIMN) SAMPARIS ANDERS ([id number]) 4 F Date Time Provider Department 03/28/25 12:15 PM JOSE ALFREDO ALBARADO During your visit today, we recorded the following information about you: Pulse Blood pressure Weight Height 111/minute 132/95 55.3 kg 1.651 m Jose Alfredo Albarado MD 03/28/2025 5:51 PM Signed Heart, Vascular and Thoracic Randolph Zully Alvarez Department of Cardiovascular Medicine SECTION OF CARDIOVASCULAR IMAGING OUTPATIENT VISIT DATE 03/28/2025 OUTPATIENT VISIT TYPE NEW PRIMARY CARE PHYSICIAN: Holly Garcia APRN.ENGINEERING TECHNICAL WRITER [address] [facility] [id number] REFERRING PHYSICIAN: SELF Recording using ambient Retora Black software for draft documentation of the visit was discussed with the patient/authorized logistics service representative; all questions welcomed and answered. Patient/authorized logistics service representative agreed to proceed CHIEF COMPLAINT: Anxiety regarding aortic dilation HPI: Ms. Paris Vargas is a 25-year-old female presenting for evaluation of aortic dilation noted on a prior echocardiogram. The patient reports feeling generally well but experiences occasional episodes of tachycardia, describing it as a hard, fast beating heart and being able to see my heartbeat. She attributes these episodes to anxiety, which she describes as constant. She also notes that her blood pressure is often reported as elevated during medical visits. She is currently dealing with unspecified pulmonary issues, which she believes may contribute to her elevated heart rate. She has a history of cancer and continues to follow up with her oncologist annually. She is no longer on immunosuppressive therapy. She denies any other cardiac symptoms or conditions. She has no family history of aortic aneurysms or dissections. Her father had a myocardial infarction at age 55, which she believes was related to polycystic kidney disease and a subsequent kidney transplant. NURSING INTAKE: Mrs. 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 She presents today with complaints of palpitations, and rapid HR, and anxiety. 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 OSH TTE 05/05/2025 PAST MEDICAL HISTORY Diagnosis Date Acute myeloid leukemia in remission (HCC) Aspergillus pneumonia (HCC) C. 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) Recurrent pneumonia Stem cells transplant status (HCC) MUD PAST SURGICAL HISTORY Procedure Laterality Date LUNG BIOPSY x 2 SOCIAL HISTORY Social History Tobacco Use Smoking status: Never Smokeless tobacco: Never Vaping Use Vaping status: Never Used Substance Use Topics Alcohol use: Yes Comment: occasional Drug use: Never FAMILY HISTORY Problem Relation Age of Onset Heart Attack Father ALLERGIES: ALLERGIES Allergen Reactions Blood-Group Specifi* Unknown TRALI on 07/29/16 - please see FYI tab 12/22/16: Anaphylaxis to male platelets and female platelets that were premedicated with Tylenol, Solumedrol and benadryl. 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 Pretreat with Benadryl, and run vancomycin over 2 hours. MEDICATIONS: hydrOXYzine pamoate (VISTARIL) 25 mg capsule Take 1 capsule by mouth once daily. albuterol HFA (PROVENTIL HFA, VENTOLIN HFA) 90 mcg/actuation inhaler Inhale 2 Puffs as instructed every 6 hours as needed for wheezing/shortness of breath. albuterol (PROVENTIL) 2.5 mg /3 mL (0.083 %) nebulizer solution Use 3 mL via nebulizer every 6 hours as needed for wheezing/shortness of breath. Inhale over 5-15 minutes Do not use if using inhaler norgestimate 0.25 mg-ethinyl estradiol 35 mcg (SPRINTEC, ORTHO-CYCLEN) 0.25-35 mg-mcg per tablet Take 1 tablet by mouth. Cholecalciferol, Vitamin D3, 50 mcg (2,000 unit) cap take 1 capsule by mouth once daily mv,calcium,min/iron/folic/vitK (ONE-A-DAY WOMEN'S COMPLETE ORAL) Take by mouth. busPIRone (BUSPAR) 5 mg tablet Take 5 mg by mouth as needed. 1 Each. REVIEW OF SYSTEMS: Positive in BOLD GENERAL: Weight loss or gain, Fever or Chills, Weakness and Sleep difficulties. HEENT: Headache, Glasses/Contacts, Eye pain, Impaired Vis (more content not included)...NormalMartin Memorial Hospital COMPLETEon [id number] COMPLETEVentricular Rate : 97 BPM Atrial Rate : 97 BPM P-R Interval : 156 ms QRS Duration : 86 ms Q-T Interval : 348 ms QTC Calculation(Bazett) : 441 ms Calculated P [place] : 80 degrees Calculated R [place] : 57 degrees Calculated T [place] : 67 degrees NORMAL SINUS RHYTHM WITH SINUS ARRHYTHMIA NORMAL ECG Confirmed by CÉSAR MARTIENZ M.D. ([id number]) on 05/18/2025 4:47:23 PM NAME : PARIS VARGAS PID : [id number] : 2000 Gender : Female Race : ORD : [id number] Procedure Date : Mar 28 2025 11:06:47 Edit Date : May 18 2025 16:54:59 Diagnosis: NORMAL SINUS RHYTHM WITH SINUS ARRHYTHMIA NORMAL ECG Confirmed by CÉSAR MARTINEZ M.D. ([id number]) on 05/18/2025 4:47:23 PM Test Reason : Location : 314 : J14 J1-4 Overread By : CÉSAR MARTINEZ M.D. Edited By : CÉSAR MARTINEZ M.D. Referred By : EH CELIS Acquired by : Audra EVERETTACMC [facility] [id number]isqtrbaf Report: Transthoracic Echo [address] Date of service: 03/28/2025 3:26:43 PM SERVICE ASSOCIATE Ordering physician: JOSE ALFREDO ALBARADO Exam indication: Palpitations Technologist: Dang Perez Interpreting physician: Eugene Carrion MD PATIENT: Name: MRS. PARIS VARGAS : 2000 Age: 25 years Gender: F Primary rhythm: sinus. Height: 165.10 cm BSA: 1.64 m Weight: 58.70 kg BMI: 21.5 kg/m Heart rate 94 bpm Blood pressure 132/95 mmHg Color Doppler was utilized to interrogate the cardiac valves assessed and spectral Doppler was utilized to determine the flow velocities and pressure gradients reported in this exam. Myocardial strain analysis was performed in this exam to aid in the assessment of cardiac function. MEASUREMENTS: Value Indexed Normal Max aortic dimension 3.3 cm Ao < 3.8 Left atrial volume 23 ml (biplane A-L) 14 ml/m Adrianna <= 34 LV ID (diastole) 5.0 cm (2D) 3.04 cm/m LV ID (systole) 3.8 cm (2D) 2.32 cm/m IVS, leaflet tips 0.8 cm (2D) Posterior wall thickness 0.8 cm (2D) Left ventricular mass 137 g (2D) 84 g/m Global peak long strain -16.1 % LV stroke volume 49 ml (2D biplane) LV end diastolic volume 86 ml (2D biplane) 52.3 ml/m 29<=EDVi<62 LV end systolic volume 37 ml (2D biplane) 22.8 ml/m Ejection Fraction 57 % (2D biplane) EF > 54 FINDINGS: LEFT VENTRICLE The left ventricle is normal in size. Left ventricular systolic function is normal. Global LV myocardial strain is normal. Left ventricular diastolic function was not evaluated due to e/a fusion. Wall Motion: All scored segments are normal. RIGHT VENTRICLE The right ventricle is normal in size. Right ventricular systolic function is normal. RV systolic tissue Doppler velocity is 16.0 cm/s. Tricuspid annular displacement is 1.7 cm. Estimated right ventricular systolic pressure is not reported due to an insufficient tricuspid regurgitation signal. Estimated right atrial pressure is 3 mmHg based on IVC assessment. LEFT ATRIUM The left atrial cavity is normal in size. RIGHT ATRIUM The right atrial cavity is normal in size. Inferior Vena Cava: The inferior vena cava appears normal measuring 0.6 cm. The vessel decreases greater than 50 percent with inspiration. MITRAL VALVE The mitral valve leaflets are structurally normal. There is no mitral valve regurgitation. TRICUSPID VALVE The tricuspid valve leaflets are structurally normal. There is trace tricuspid valve regurgitation. AORTIC VALVE The aortic valve cusps are structurally normal. There is no aortic valve regurgitation. The peak gradient is 6 mmHg (peak velocity = 123.0 cm/s). PULMONIC VALVE The pulmonic valve cusps are structurally normal. There is no pulmonic valve regurgitation. The peak gradient is 3 mmHg. AORTA The visualized aorta is normal in size. Measurements - Aortic valve annulus 1.9 cm. Sinus: 3.3 cm. Mid ascending aorta 3.0 cm. Distal ascending aorta 2.8 cm. Mid arch 2.4 cm. Distal descending diaphragmatic level 1.8 cm. INTERATRIAL SEPTUM There is no evidence of intracardiac shunting as detected by Doppler. INTERVENTRICULAR SEPTUM There is no flow through the interventricular septum as detected by Doppler. CONCLUSIONS: - Exam indication: Palpitations - The left ventricle is normal in size. Left ventricular systolic function is normal. EF = 57 5% (2D biplane) - The right ventricle is normal in size. Right ventricular systolic function is normal. - There are no significant valvular abnormalities. There are no significant valvular abnormalities. Patient tachycardic throughout most of the study. - The patient has not had a prior CC echocardiographic exam for comparison. * * * Final (Updated) * * * [facility] [employer] [facility] Image : [id number] [facility] HealthFrandy [id number] Visit ([facility]) PARIS VARGAS ([id number]) 4 F Date Time Provider Department 02/23/25 10:20 AM PREMA HENRY [facility] During your visit today, we recorded the following information about you: Pulse Blood pressure Weight Last Period 98/minute 130/87 59 kg 01/31/25 Prema Henry MD 02/23/2025 10:55 AM Signed [facility] OFFICE VISIT Jaxson Toledo is a 25 year old With a history of POI who presents with preconception visit. She was diagnosed with POI at the time of her Leukemia and had bone marrow transplant in 2017. She had labs completed in 2018 which confirmed POI and she has been taking COCP for hormone replacement since that time. Prior to chemotherapy for her leukemia, she did receive Lupron for attempt at ovarian preservation. Taking Trinessa COCP with regular monthly menses. No intermenstrual bleeding. No other concerning or bothersome symptoms. She denies any history of blood clots, migraines, hypertension. She denies any bowel or urinary concerns. Did meet with fertility specialist in [place] and reports poor reaction to pelvic exam. She would like to get in the next 2 years. 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 Pap 04/2024 NILM No history STD: No Sexually active: Yes Pain with intercourse: no Bleeding with intercourse: No OB History Gravida0 Para0 Term0 Preterm0 AB0 Living0 SAB0 IAB0 Ectopic0 Multiple0 Live Births0 Plant Operator Helper History LMP: 01/31/2025 (Approximate), Having periods Age at Menarche: Age at First : Age at Menopause: Plant Operator Helper History Comments: Sexual Activity: Yes; Male Contraception: Pill PAST MEDICAL HISTORY Diagnosis Date Acute myeloid leukemia in remission (HCC) Aspergillus pneumonia (HCC) C. 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 Social History Tobacco Use Smoking status: Never Smokeless tobacco: Never Vaping Use Vaping status: Never Used Substance Use Topics Alcohol use: Yes Comment: occasional Drug use: Never Current Outpatient Medications Medication Sig albuterol HFA (PROVENTIL HFA, VENTOLIN HFA) 90 mcg/actuation inhaler Inhale 2 Puffs as instructed every 6 hours as needed for wheezing/shortness of breath. albuterol (PROVENTIL) 2.5 mg /3 mL (0.083 %) nebulizer solution Use 3 mL via nebulizer every 6 hours as needed for wheezing/shortness of breath. Inhale over 5-15 minutes Do not use if using inhaler 1 Each. Cholecalciferol, Vitamin D3, 50 mcg (2,000 unit) cap take 1 capsule by mouth once daily cefdinir (OMNICEF) 300 mg capsule Take 1 capsule by mouth every 12 hours. (Patient not taking: Reported on 02/23/2025) Norgestimate-Ethinyl Estradiol 0.18/0.215/0.25 mg-35 mcg (28) Take 1 tablet by mouth once daily. (Patient not taking: Reported on 02/23/2025) norgestimate 0.25 mg-ethinyl estradiol 35 mcg (SPRINTEC, ORTHO-CYCLEN) 0.25-35 mg-mcg per tablet Take 1 tablet by mouth. Biotin 2,500 mcg cap Take 2,500 mcg by mouth. norethindrone-e.estradiol-iron (LO LOESTRIN FE) 1 mg-10 mcg (24)/10 mcg (2) Take 1 tablet by mouth once daily. mv,calcium,min/iron/folic/vitK (ONE-A-DAY WOMEN'S COMPLETE ORAL) Take by mouth. (Patient not taking: Reported on 08/23/2024) No current facility-administered medications for this visit. ALLERGIES Allergen Reactions Blood-Group Specifi* Unknown TRALI on 07/29/16 - please see FYI tab 12/22/16: Anaphylaxis to male platelets and female platelets that were premedicated with Tylenol, Solumedrol and benadryl. 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 Pretreat with Benadryl, and run vancomycin over 2 hours. Review of Systems Constitutional: Negative for chills, fatigue, fever and unexpected weight change. Respiratory: Negative for chest tightness and shortness of breath. Cardiovascular: Negative for chest pain and palpitations. Gastrointestinal: Negative for abdominal pain, constipation, diarrhea, nausea and vomiting. Endocrine: Negative for cold intolerance. Genitourinary: Negative for dyspareunia, dysuria, frequency, pelvic pain, urgency, vaginal bleeding and vaginal discharge. Musculoskeletal: Negative for arthralgias, back pain and myalgias. Skin: Negative. Neurological: Negative for dizziness, tremors and weakness. Psychiatric/Behavioral: Negative for confusion and decreased miah (more content not included)...[facility] [id number] Visit (OTOLMN) PARIS STEVEN ([id number]) 4 F Date Time Provider Department 08/23/24 10:00 AM LYNETTE DASILVA OTOLMN During your visit today, we recorded the following information about you: Greg Martins MA 08/23/2024 10:43 AM Signed Tobacco Use: Never Was smoking cessation packet given? N/A - Patient is a non-smoker or quit >1 year ago. Was a referral initiated?N/A Patient is a non-smoker Lynette Dasilva MD 08/23/2024 10:43 AM Signed 24 year old female presents with the following concerns and complaints: Sore throat ASSESSMENT/IMPRESSION/PLAN: Resolved hemorrhagic tonsillitis. No action required HISTORY OF PRESENT ILLNESS: Patient reports remote history of bone marrow transplant completed when she was a child for leukemia. Reports no interim difficulties. Now? Patient has 1 week history of tonsillitis associated with spitting blood. She brought with her a picture/photo of her throat demonstrating 3+ tonsils with hemorrhagic spots on the left side. Currently: Sore throat is minimal. Painful swallowing has resolved. Neck node swelling has resolved. She reports that in the ED a test for strep and mono were negative. Denies history of repeat sore throats. Denies other bleeding difficulties. 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 albuterol HFA (PROVENTIL HFA, VENTOLIN HFA) 90 mcg/actuation inhaler Inhale 2 Puffs as instructed every 6 hours as needed for wheezing/shortness of breath. Norgestimate-Ethinyl Estradiol 0.18/0.215/0.25 mg-35 mcg (28) Take 1 tablet by mouth once daily. Cholecalciferol, Vitamin D3, 50 mcg (2,000 unit) cap take 1 capsule by mouth once daily albuterol (PROVENTIL) 2.5 mg /3 mL (0.083 %) nebulizer solution Use 3 mL via nebulizer every 6 hours as needed for wheezing/shortness of breath. Inhale over 5-15 minutes Do not use if using inhaler norgestimate 0.25 mg-ethinyl estradiol 35 mcg (SPRINTEC, ORTHO-CYCLEN) 0.25-35 mg-mcg per tablet Take 1 tablet by mouth. 1 Each. Biotin 2,500 mcg cap Take 2,500 mcg by mouth. norethindrone-e.estradiol-iron (LO LOESTRIN FE) 1 mg-10 mcg (24)/10 mcg (2) Take 1 tablet by mouth once daily. mv,calcium,min/iron/folic/vitK (ONE-A-DAY WOMEN'S COMPLETE ORAL) Take by mouth. (Patient not taking: Reported on 08/23/2024) No current facility-administered medications for this visit. REVIEW OF SYSTEMS: GENERAL: No weight loss, malaise or fevers NECK: Negative for lumps, goiter, pain and significant neck swelling RESPIRATORY: Negative for cough, hemoptysis, wheezing, COPD, dyspnea or shortness of breath EXAM VITAL SIGNS: LMP 01/09/2022 APPEARANCE: alert, NAD, and cooperative. EYES: Conjunctiva and sclera normal and without drainage. EARS: TMs without erythema and apppear normal bilat. Canals normal bilaterally.. NOSE/SINUS: Nares normal, no sign of erythema or edema of the turbinates. MOUTH: Examination includes lips, tongue, teeth, buccal mucosa, gingiva, hard palate, floor the mouth, normal. OROPHARYNX: Examination of the soft palate, posterior and lateral pharyngeal rosa, tonsil fossa, normal. NASOPHARYNX: Superior wall, lateral recess, Rosenmuller's fossa, eustachian tube orifice, normal. LARYNX AND HYPOPHARYNX: Examination of the base of tongue, epiglottis, arytenoids, aryepiglottic folds, glottis, ventricle, piriform and postcricoid regions, normal. Vocal fold movement, normal. NECK: Neck supple, no adenopathy; thyroid symmetric, normal size, no bruits.. CRANIAL NERVE 2-7 AND 9-12: normal. Lynette Dasilva MD Otolaryngology Allergies As of Date: 08/23/2024 Noted Allergy Reaction BLOOD-GROUP SPECIFIC SUBSTANCE 08/05/2016 16 - Unknown Comments: TRALI on 07/29/16 - please see FYI tab 12/22/16: Anaphylaxis to male platelets and female platelets that were premedicated with Tylenol, Solumedrol and benadryl. 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 Pretreat with Benadryl, and run van (more content not included)...[facility]ED Clinical Summaryon [id number] Clinical SummaryED Clinical Summary [place] [id number] ED Clinical Summary Person Information Name: PARIS VARGAS [place] Age: 24 Years : 2000 Sex: Female Language: Malian PCP: Lia Weiss PA-C Marital Status: Visit Id: Visit Reason: Cough; Sinus Pain/Congestion; Throat pain - Adult; SORE THROAT, CONGESTION Speciality: Acuity: 4 Enc Type: Emergency Med Service: Emergency Arrival: 08/18/2024 03:16:17 Discharge: 08/18/2024 04:53:10 LOS: 000 01:37 Checkin: 08/18/2024 03:16:17 Checkout: 08/18/2024 04:53:10 Dispo Type: Home (Routine DC) EVENTS: Event Name Event Status Request Date/Time Start Date/Time Complete Date/Time Arrive Complete 08/18/2024 03:16:17 08/18/2024 03:16:17 08/18/2024 03:16:17 Document Home Meds Request 08/18/2024 03:16:17 Triage Complete 08/18/2024 03:16:17 08/18/2024 03:23:45 08/18/2024 03:23:45 Bed Assign Complete 08/18/2024 03:19:33 08/18/2024 03:19:33 08/18/2024 03:19:33 Dr Exam Complete 08/18/2024 03:19:33 08/18/2024 03:47:26 08/18/2024 03:47:26 RN Exam Complete 08/18/2024 03:19:33 08/18/2024 03:28:11 08/18/2024 03:28:11 Registration Request 08/18/2024 03:47:26 Meds Admin Complete 08/18/2024 03:48:59 08/18/2024 03:57:51 Pending Labs Complete 08/18/2024 03:48:59 08/18/2024 04:37:08 Lab Complete 08/18/2024 03:48:59 08/18/2024 04:37:08 Meds Admin Complete 08/18/2024 03:53:48 08/18/2024 04:49:57 Discharge Complete 08/18/2024 04:41:56 08/18/2024 04:53:14 08/18/2024 04:53:14 Transfer Complete 08/18/2024 04:53:15 08/18/2024 04:53:15 08/18/2024 04:53:15 ADDRESS: [address] [place] [phone] PHYS DOC NOTES: MEDICAL INFORMATION: Prescriptions Given: New Medications Printed Prescriptions acetaminophen-hydrocodone ([place] 325 mg-5 mg oral tablet) 1 Tablets By Mouth every 4 hours as needed for pain. Refills: 0. Medications to Continue with No Changes Other Medications albuterol (Albuterol (Eqv-ProAir HFA) 90 mcg/inh inhalation aerosol) 2 Puffs Inhalation every 6 hours. Refills: 4. albuterol (albuterol 0.083% Inh Doris 3 mL) 3 Milliliter Inhalation every 6 hours as needed as neededfor wheezing. Refills: 0. cholecalciferol (Vitamin D3 5000 intl units oral capsule) 1 Capsules By Mouth every day. with food. ethinyl estradiol-norgestimate (ethinyl estradiol-norgestimate triphasic 35 mcg Tab) multivitamin (Multi Vitamin+) By Mouth every day. ondansetron (Zofran 4 mg Tab) 1 Tablets By Mouth As Directed as needed Nausea/Vomiting for 30 Days.Refills: 0. PATIENT EDUCATION INFORMATION: Instructions: Pharyngitis, Dwan-lf-Oufi Follow up: With: Address: When: Lia Weiss In 3 days 08/21/2024, only if needed DIAGNOSIS: 1:PharyngitisNormalFisher Choco Medical CenterED Note-Physicianon [id number] Note-PhysicianED Note-Physician Basic Information Time Seen: Deon Bernal MD 08/18/2024 03:47 Chief Complaint pt to ED with c/o sore throat for last 6 days. yesterday started cough and congestion. denies fevers or chills. History of Present Illness 24-year-old female presents with complaint of persistent sore throat over the past week or more. Patient states she was seen and placed on amoxicillin briefly pending her rapid strep results. Rapid strep was negative. The amoxicillin was then discontinued. The throat pain continued and she was seenat [facility] earlier today. She was prescribed a tapering dose of dexamethasone. She was also placed on cefdinir. She has not filled either of these prescriptions. Patient states she has remote history of childhood leukemia and is nervous about steroids. She states she thinks she had mononucleosis as a child. She denies any significant ear pain. She denies any chest pain or shortness of breath. There has been occasional nausea but no vomiting. Review of Systems A 10 point review of systems is negative except as noted above. Medical and Surgical History: Reviewed and noted Social history: Lives at home Tobacco: Denies Physical Exam Vitals & Measurements T: 36.7 ???C(Oral) HR: 117(Peripheral) RR: 16 BP: 142/99 SpO2: 96% HT: 167 cm WT: 59.4 kg BMI: 21.3 This is a thin white female alert and oriented in no acute distress. Skin is warm and dry color is pink on room air. Both tympanic membranes are normal. Oral mucosa is moist there is no drooling. Theposterior pharynx is brightly erythematous. The anterior cervical nodes are 1 cm in size I do not detect posterior nodes. The lungs are clear to auscultation the heart is regular but accelerated. Medical Decision Making I explained to the patient that I do believe the dexamethasone will be significantly helpful for the pain. She will fill the prescription for the cefdinir tomorrow. She will begin the taper dose of dexamethasone tomorrow. We will send her home with some [place] for pain unrelieved by the dexamethasone. A CBC and Monospot were ordered here. Assessment/Plan 1. Pharyngitis (J02.9: Acute pharyngitis, unspecified) Orders: acetaminophen-hydrocodone, 1 EA, Tab, Oral, Once, Stop date 08/18/24 3:53:00 EST, STAT, Start date 08/18/24 3:53:00 EST acetaminophen-hydrocodone, 1 tab(s), Oral, q4hr for pain, 7 tab(s), Refill(s) 0 dexamethasone, 10 mg = 2.5 tab(s), Tab, Oral, Once, Stop date 08/18/24 3:48:00 EST, STAT, Start date 08/18/24 3:48:00 EST, 08/18/24 3:48:00 EST CBC w/ Auto Diff Mononucleosis Screen Medications Administered Given dexamethasone 4 mg Tab, 10 mg, Oral Disposition Plan Patient Discharge Condition Stable Discharge Disposition Home Discharge Prescription List Prescriptions [place] 325 mg-5 mg oral tablet, 1 tab(s), Oral, q4hr, PRN Follow-up With When Contact Information Lia Weiss In 3 days 08/21/2024 EST, only if needed Additional Instructions: Patient Education Pharyngitis, Gzso-dc-Jtya Problem List/Past Medical History Ongoing Abdominal discomfort Allergic rhinitis, seasonal Anxiety Asthma flare Attention-deficit disorder BMI 20.0-20.9, adult BMI 21.0-21.9, adult BMI less than 19,adult Community acquired bilateral lower lobe pneumonia Contact dermatitis 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 Medications Inpatient TO GO acetaminophen-hydrocodone 325 mg - 5 mg, 1 EA, Oral, Once Home Albuterol (Eqv-ProAir HFA) 90 mcg/inh inhalation aerosol, 2 puff(s), Inhalation, q6hr, 4 refills albuterol 0.083% Inh Doris 3 mL, 2.5 mg= 3 mL, Inhalation, q6hr, PRN ethinyl estradiol-norgestimate triphasic 35 mcg Tab Multi Vitamin+, Oral, Daily [place] 325 mg-5 mg oral tablet, 1 tab(s), Oral, q4hr, PRN Vitamin D3 5000 intl units oral capsule, 5000 International_Unit= 1 cap(s), Oral, Daily Zofran 4 mg Tab, 4 mg= 1 tab(s), Oral, As Directed, PRN Allergies [place] (Rash) vancomycin (rash) Social History Alcohol - Denies Alcohol Use, 04/16/2020 Current. Beer, Wine, Liquor. 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 Never Smokeless Tobacco Use:. Household tobacco concerns: No. Yes, 08/16/2024 Family History Hypertension: Mother and Father. Lab Results W (more content not included)...[facility] HospitalComment on above:Result Comment: Electronically Signed By: Deon Bernal MD\\.br\\Date and Time Signed: 08/18/24 04:42 ESTED Patient Summaryon [id number] Patient SummaryED Patient Summary [place] [id number] Patient Discharge Instructions Person Information Name: PARIS VARGAS Age: 24 Years Arrival Date: 08/18/2024 03:16:17 Discharge Diagnosis: 1:Pharyngitis Primary Care Physician: Lia Weiss PA-C Provider Information Primary Provider: Deon Bernal MD Advanced Meter Technician:None The exam and treatment you received in the Emergency Department were for an urgent problem and are not intended as complete care. It is important that you follow up with a doctor, nurse practitioner,or physician???s veterinary technician assistant for ongoing care. If your symptoms become worse or you do not improve asexpected and you are unable to reach your usual health care provider, you should return to the Emergency Department. We are available 24 hours a day. PARIS VARGAS has been given the following list of patient education materials, prescriptions and follow-up instructions: Follow-up Instructions: With: Address: When: Lia Weiss In 3 days 08/21/2024, only if needed In the event that this physician does not participate in your insurance network, please consult with your insurance company to find a nearby participating provider. Patient Education Materials: Pharyngitis, Vrls-am-Zoqg A MESSAGE TO ALL PATIENTS REGARDING OPIOIDS PRESCRIPTION OPIOIDS: WHAT YOU NEED TO KNOW Prescription opioids can be used to help relieve brplhdmh-uq-jqgdvy pain and are often prescribed following a surgery or injury, or for certain health conditions. These medications can be an important part of the treatment but also come with serious risks. It is important to work with your healthcare provider to make sure you are getting the safest, most effective care. WHAT ARE THE RISKS AND SIDE EFFECTS OF OPIOID USE? Prescription opioids carry serious risks of addiction and overdose, especially with prolonged use. An opioid overdose, often marked by slowed breathing, can cause sudden . The use of prescription opioids can have a number of side effects as well, even when taken as directed: ??? Tolerance???meaning you might need to take more of the medication for the same pain relief ??? Physical dependence???meaning you have symptoms of withdrawal when a medication is stopped ??? Increased sensitivity to pain ??? Constipation ??? Nausea, vomiting, and dry mouth ??? Sleepiness and dizziness ??? Confusion ??? Depression ??? Low levels of testosterone that can result in lower sex drive, energy, and strength ??? Itching and sweating RISKS ARE GREATER WITH: ??? History of drug misuse, substance use disorder, or overdose ??? Mental health conditions (such as depression or anxiety) ??? Sleep apnea ??? Older age (65 years and older) ??? Avoid alcohol while taking prescription opioids. Also, unless specifically advised by your health care provider, medications to avoid include: ??? Benzodiazepines (such as Xanax or Valium) ??? Muscle relaxants (such as Soma or Flexeril) ??? Hypnotics (such as Ambien or Lunesta) ??? Other prescription opioids KNOW YOUR OPTIONS Talk to your health care provider about ways to manage your pain that don???t involve prescription opioids. Some of these options may actually work better and have fewer risks and side effects. Options may include: ??? Pain relievers such as acetaminophen, ibuprofen, and naproxen ??? Some medication that are also used for depression or seizures ??? Physical therapy and exercise ??? Cognitive behavioral therapy, a psychological, goal-directed approach, in which patients learn how to modify physical, behavioral, and emotional triggers of pain and stress. IF YOU ARE PRESCRIBED OPIOIDS FOR PAIN: ??? Never take opioids in greater amounts or more often than prescribed. ??? Follow up with your primary health care provider. o Work together to create a plan on how to manage your pain. o Talk about ways to help manage your pain that don???t involve prescription opioids. o Talk about any and all concerns and side effects. ??? Help prevent misuse and abuse o Never sell or share prescription opioids. o Never use another person???s prescription opioids. ??? Store prescription opioids in a secure place and out of reach of others (this may include visitors, children, friends, and family). ??? Safely dispose of unused prescription opioids: Find your community drug take-back program or your pharmacy mail-back program, or flush them down the toilet, following guidance from the Food and Drug Administration (www.fda.gov/Drugs/ResourcesForYou). ??? Visit www.cdc.gov/drugoverdose to learn about the risks of opioids abuse and overdose. ??? If you believe you may be struggling with addiction, tell your health out of school hours care worker and askfor guidance or call [facility]???S National Helpline at 3-207-489-BJAO. (more content not included)...[facility] HEMATOLOGYOrdered By: SYSTEM SYSTEM on [id number]/100 WBC (Bld)0.4 % Normal0.0 - 2.0 %Remisol HemeBasophils/Leukocytes Auto (Bld) [Pure # fraction] 0.0 E9/LNormal0.0 - 0.2 E9/LRemisol HemeEosinophils (Bld) [#/Vol]0.2 E9/LNormal 0.0 - 0.5 E9/LRemisol HemeEosinophils/100 WBC (Bld)3.0 %Normal0.0 - 8.0 %Remisol HemeErythrocyte distribution width (RBC) [Ratio]12.0 %Pvrhdk05.9 - 14.2 % Remisol HemeHematocrit (Bld) [Volume fraction]41.7 %Gioxen17.0 - 46.0 %Remisol HemeHemoglobin (Bld) [Mass/Vol]15.1 g/dDGhdaja58.0 - 16.0 gm/dLRemisol Heme Lymphocytes (Bld) [#/Vol]2.0 E9/LNormal1.0 - 4.0 E9/LRemisol HemeLymphocytes/100 WBC (Bld)27.9 %Ljyvyx30.0 - 50.0 %Remisol HemeMCH (RBC) [Entitic mass]36.1 pg High27.0 - 34.0 pgRemisol HemeMCHC (RBC) [Mass/Vol]36.2 g/kYIejy26.4 - 36.0 gm/dLRemisol HemeMCV (RBC) [Entitic vol]99.6 cWDjcczl09.0 - 100.0 fLRemisol Heme Monocytes (Bld) [#/Vol]0.6 E9/LNormal0.2 - 1.0 E9/LRemisol HemeMonocytes/100 WBC (Bld)8.0 %Normal4.0 - 14.0 %Remisol HemeNeutrophils (Bld) [#/Vol]4.4 E9/LNormal 2.0 - 7.5 E9/LRemisol HemeNeutrophils/100 WBC (Bld)60.7 %Fgafov24.0 - 75.0 % Remisol HemePlatelet mean volume (Bld) [Entitic vol]7.4 fLNormal6.4 - 10.8 fL Remisol HemePlatelets (Bld) [#/Vol]183.0 E9/ZMmsiof144.0 - 500.0 E9/LRemisol HemeRBC (Bld) [#/Vol]4.2 E12/LLow4.3 - 5.9 E12/LRemisol HemeWBC corrected for nucl RBC Auto (Bld) [#/Vol]7.3 E9/LNormal4.0 - 11.0 E9/LRemisol HemeMono Screen on [id number] Ab LA Ql (S)NegativeNormalNegativeCritical Access Hospitaler [facility] Medical CenterComment on above:Performed By: #### [id number] #### [facility] [address] [place] [id number] By: Angel Ramirez on [id number] Ab LA Ql (S)Negative (08/18/24 4:07 AM)NormalNegativeSUMMIT MED[facility] Man SeroNo Panel InformationOrdered By: Rula Yanez on [id number] HealthcarePHARYNGITIS/LARYNGITIS (HTRX)on [id number] HADV-B (PHARYNGITIS/LARYNGITIS)0NOMS HealthcareADENOVIRUS HADV-B (PHARYNGITIS/LARYNGITIS)Not detectedNOMS HealthcareCHLAMYDIA PNEUMONIAE (PHARYNGITIS/LARYNGITIS)0NOMS HealthcareCHLAMYDIA PNEUMONIAE (PHARYNGITIS/LARYNGITIS)Not detectedNOMS HealthcareCORONAVIRUS (NL63, OC43, HKU1) (PHARYNGITIS/LARYNGITIS)0NOMS HealthcareCORONAVIRUS (NL63, OC43, HKU1) (PHARYNGITIS/LARYNGITIS)Not detectedNOMS HealthcareENTEROVIRUS D68 (PHARYNGITIS/LARYNGITIS)0NOMS HealthcareENTEROVIRUS D68 (PHARYNGITIS/LARYNGITIS) Not detectedNOMS HealthcareFUSOBACTERIUM NECROPHORUM, [id number] Healthcare FUSOBACTERIUM NECROPHORUM, NUCLEATUMNot detectedNOWA HealthcareHUMAN METAPNEUMOVIRUS (PHARYNGITIS/LARYNGITIS)0NOMS HealthcareHUMAN METAPNEUMOVIRUS (PHARYNGITIS/LARYNGITIS)Not detectedNOMS HealthcareINFLUENZA VIRUS A, B (PHARYNGITIS/LARYNGITIS)0NOMS HealthcareINFLUENZA VIRUS A, B (PHARYNGITIS/LARYNGITIS)Not detectedNOMS HealthcareMYCOPLASMA PNEUMONIAE (PHARYNGITIS/LARYNGITIS)0NOMS HealthcareMYCOPLASMA PNEUMONIAE (PHARYNGITIS/LARYNGITIS)Not detectedNOMS HealthcarePARAINFLUENZA VIRUS (TYPES 1, 2, 3, 4) (PHARYNGITIS/LARYNGITIS)0NOMS HealthcarePARAINFLUENZA VIRUS (TYPES 1, 2, 3, 4) (PHARYNGITIS/LARYNGITIS)Not detectedNOMS HealthcareRESPIRATORY SYNCYTIAL VIRUS (PHARYNGITIS/LARYNGITIS)0NOMS HealthcareRESPIRATORY SYNCYTIAL VIRUS (PHARYNGITIS/LARYNGITIS)Not detectedNOMS HealthcareRHINOVIRUS-ENTEROVIRUS (PHARYNGITIS/LARYNGITIS)0NOMS HealthcareRHINOVIRUS-ENTEROVIRUS (PHARYNGITIS/LARYNGITIS)Not detectedNOMS SbunielftaUAHE-RlJ-7 (COVID-19) RNA NIDHI+probe Ql (Unsp spec)NegativeNOMS TaubqebqjxNELS-GlU-6 (COVID-19) RNA NIDHI+probe Ql (Unsp spec)Not detectedNOMS HealthcareSTREPTOCOCCUS DYSGALACTIAE (GROUP C AND G STREP)0NOMS HealthcareSTREPTOCOCCUS DYSGALACTIAE (GROUP C AND G STREP)Not detectedNOMS HealthcareSTREPTOCOCCUS PYOGENES (GROUP A STREP) (PHARYNGITIS/LARYNGITIS)0NOMS HealthcareSTREPTOCOCCUS PYOGENES (GROUP A STREP) (PHARYNGITIS/LARYNGITIS)Not detectedNOMS HealthcareNOMS HealthcareS. pyogenes DNA NIDHI+probe Nom (Unsp spec)on [id number] and review of laboratory resultsNormalNOMS HealthcareRESULTNegativeNegativeNOMS HealthcareNOMS HealthcareAmbulatory Visit Summaryon [id number] Visit Summary Ambulatory Visit Summary PARIS VARGAS Darby :2000 Visit Date:08/14/2024 Ambulatory Visit Instructions Your Diagnosis Nausea in adult Sore throat Non-smoker BMI 20.0-20.9, adult Your Care Team Attending Physician - BETTY BASS CNP Primary Care Physician - Lia Weiss PA-C. This Is Your Medications List ondansetron (Zofran 4 mg Tab) Contact prescribing physician if questions or concerns albuterol (Albuterol (Eqv-ProAir HFA) 90 mcg/inh inhalation aerosol) albuterol (albuterol 0.083% Inh Doris 3 mL) cholecalciferol (Vitamin D3 5000 intl units oral capsule) ethinyl estradiol-norgestimate (ethinyl estradiol-norgestimate triphasic 35 mcg Tab) multivitamin (Multi Vitamin+) Procedures Performed Biopsy of lung (07/14/2020), Bone marrow transplant recipient (2017), [place]. Discharge Vitals Temperature (Oral) 36.6 ???C Heart Rate (Peripheral) 94 Respiratory Rate 18 Blood Pressure 116/80 Height 167.5 cm Height 66 in Weight 57.1 kg Weight 125.884 lb BMI 20.35 Medications What How Much When Why Instructions New ondansetron (Zofran 4 mg Tab) 1 Tablets By Mouth As Directed as needed for Nausea/Vomiting Nausea in adult Duration: 30 Days Pickup at [facility]/pharmacy #[id number] Unchanged albuterol (Albuterol (Eqv-ProAir HFA) 90 mcg/ inh inhalation aerosol) 2 Puffs Inhalation Every 6 hours Pneumonia Contact prescribing physician if questions or concerns Unchanged albuterol (albuterol 0.083% Inh Doris 3 mL) 3 Milliliter Inhalation Every 6 hours as neededfor as needed for wheezing Bilateral pneumonia Wheezing S/P bone marrow transplant AML (acute myeloid leukemia) in remission Contact prescribing physician if questions or concerns Unchanged cholecalciferol (Vitamin D3 5000 intl units oral capsule) 1 Capsules By Mouth Every day with food Contact prescribing physician if questions or concerns Unchanged ethinyl estradiol-norgestimate (ethinyl estradiol-norgestimate triphasic 35 mcg Tab) Contact prescribing physician if questions or concerns Unchanged multivitamin (Multi Vitamin+) By Mouth Every day Contact prescribing physician if questions or concerns Pharmacy Information [facility]/pharmacy #[id number]: [address], [place] [phone] Allergies Israel (Rash) vancomycin (rash) Problems Ongoing - Any problem that you are currently receiving treatment for. 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 Bone marrow transplant recipient IBS - Irritable bowel syndrome Leukemia Pneumonia Patient Survey You may receive a survey via text or e-mail asking about your office visit. Please share your experience with us by completing your survey. We appreciate your feedback and thank you for choosing us for your care. [facility] Medicine Office/Clinic Noteon [id number] Medicine Office/Clinic NoteFalowell general hospital Medicine Office/Clinic Note HPI Staff Paris is a 24 year old female presenting with sore throat and nausea Onset: Started 3 days ago sinus congestion- a little bit fever/chills- chills body aches- no nausea/ vomiting nausea cough- no ear pain no allergies- no medication taken- Cough drops and Tylenol- Did not help at all COVID tested IO- NEG STREP tested IO- NEG I have reviewed and verified the staff HPI to be accurate for this encounter. History of Present Illness Patient presents today for an acute visit for evaluation for sore throat & nausea. She reports her was in the ED over the weekend for dizziness. She states they were told he has a viral infection. She reports her sore throat started about 3 days ago. She denies fever, ear pain, and nasal congestion. She reports she has had some nausea as well. She is afebrile today. She did not test for COVID and reports she ate pizza yesterday and she has not eaten today. She reports she had green tea this AM but still has some nausea. She has lost 5 pounds since her visit in mid July. She states she will need a note as she did call off work today. Review of Systems PHQ Score Initial Depression Screen Score: 0 SCORE Constitutional: no fever, no chills, no sweats, no weakness Skin: no Jaundice, no rash, no lesions, nopetechiae ENMT: no ear pain, no sore throat, no congestion, no hoarseness Respiratory: no shortness of breath, no cough, no orthopnea, no wheezing Cardiovascular: no chest pain, no palpitations, no edema Gastrointestinal: no nausea, no vomiting, no diarrhea, no GI bleeding Genitourinary: no dysuria, no hematuria, no discharge, no pain Musculoskeletal: no back pain, no trauma Neurologic: no headache, no dizziness, no numbness, no weakness Psychiatric: no sleeping problems, no irritability, no mood swings/depression. Additional ROS info: Except as noted in the above Review of Systems and in the History of Present Illness all other systems have been reviewed and are negative or noncontributory. Physical Exam Vitals & Measurements T: 36.6 ???C(Oral) HR: 94(Peripheral) RR: 18 BP: 116/80 SpO2: 98% HT: 66 in HT: 167.5 cm WT: 57.1 kg WT: 125.884 lb BMI: 20.35 General: alert, no acute distress ENMT: TM's clear, oral mucosa moist, yes pharyngeal erythema or exudate Cardiovascular: regular rate and rhythm, normal peripheral perfusion Respiratory: Lungs CTA, respirations non labored Extremities: no deformity, no trauma Neurological: oriented x 4, LOC appropriate for age speech normal Assessment/Plan 1. Nausea in adult (R11.0: Nausea) Discussed viral illness with patient Encouraged diet as tolerated Instructed to increase fluids Note provided to patient for her employer f/u if no improvement in 2-3 days Ordered: ondansetron, 4 mg = 1 tab(s), Oral, As Directed, PRN Nausea/Vomiting, X 30 day(s), # 6 tab(s), Refills(s) 0, Pharmacy: [facility]/pharmacy #[id number], 167.5, cm, 08/14/24 9:29:00 EST, Height/Length Dosing, 57.1,kg, 08/14/24 9:29:00 EST, Weight Dosing Rapid COVID POC 59492 Rapid Strep POC 44458 2. Sore throat (J02.9: Acute pharyngitis, unspecified) Encouraged to gargle with warm saline water Lozenges as needed POC rapid strep negative f/u if no improvement in 2-3 days Ordered: Rapid COVID POC 20542 Rapid Strep POC 20143 3. Non-smoker (Z78.9: Other specified health status) Encourage to continue as non-smoker Ordered: busPIRone, 5 mg = 1 tab(s), Oral, BID, # 90 tab(s), Refills(s) 0, Pharmacy: [facility]/pharmacy #[id number], 167.5, cm, 07/28/24 10:52:00 EST, Height/Length Dosing, 59.4, kg, 07/28/24 10:52:00 EST, Weight Dosing 4. 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 Medications Albuterol (Eqv-ProAir HFA) 90 mcg/inh inhalation aerosol, 2 puff(s), Inhalation, q6hr, 4 refills albuterol 0.083% Inh Doris 3 mL, 2.5 mg= 3 mL, Inhalation, q6hr, PRN ethinyl estradiol-norgestimate triphasic 35 mcg Tab Multi Vitamin+, Oral, Daily Vitamin D3 5000 intl units oral capsule, 5000 International_Un (more content not included)...[facility] HospitalComment on above:Result Comment: Electronically Signed By: BETTY BASS CNP\\.br\\Date and Time Signed: 08/14/24 10:08 ESTProvider Letteron [id number] LetterProvider Letter August 14, 2024 PARIS VARGAS [address] [place] [address] : 2000 To Whom It May Concern, Please excuse above patient from work. Date of Illness: From: _08-14-24 To: _ 08-14-24 May Return to Work On:08-15-24 Restrictions: _ Comments: _ Sincerely, Family Medicine [address] [address] FsvrxdPptwukEast [facility] HospitalFami Medicine Office/Clinic Noteon [id number] Medicine Office/Clinic NoteFami Medicine Office/Clinic Note Chief Complaint Increased Anxiety HPI Staff Paris is a 24 year old female presenting with increased anxiety & face tingling. JONES: 5 States she has been given meds for anxiety in past, but has not taken them. ALso c/o chest tightness. Related to lungs. Does see pulmonology @ [facility]. Hx of Bone Marrow Transplant. History of Present Illness 24 year patient presents today to discuss anxiety. She reports she has been on medication in the past for anxiety. Her JONES???7 score today is 5. She reports she has taken Xanax in the past and was prescribed hydroxyzine which she did not take. She is looking for a medication that she can take to control the anxiety. Review of Systems PHQ Score Initial Depression Screen Score: 2 SCORE Constitutional: no fever, no chills, no sweats, no weakness Skin: no Jaundice, no rash, no lesions, nopetechiae ENMT: no ear pain, no sore throat, no congestion, no hoarseness Respiratory: no shortness of breath, no cough, no orthopnea, no wheezing Cardiovascular: no chest pain, no palpitations, no edema Gastrointestinal: no nausea, no vomiting, no diarrhea, no GI bleeding Genitourinary: no dysuria, no hematuria, no discharge, no pain Musculoskeletal: no back pain, no trauma Neurologic: no headache, no dizziness, no numbness, no weakness Psychiatric: no sleeping problems, no irritability, no mood swings/depression. Heme/Lymph: no bleeding tendency, no bruising tendency, no petechiae, no swollen nodes Allergy/Immunologic: no seasonal allergies, no food allergies, no recurrent infections, no impairedimmunity Additional ROS info: Except as noted in the above Review of Systems and in the History of Present Illness all other systems have been reviewed and are negative or noncontributory. Physical Exam Vitals & Measurements T: 36.8 ???C(Oral) HR: 68(Peripheral) RR: 16 BP: 110/66 SpO2: 95% HT: 66 in HT: 167.5 cm WT: 59.4 kg WT: 130.954 lb BMI: 21.17 General: alert, no acute distress Skin: warm, dry Head: no trauma, normocephalic Neck: Trachea midline, no adenopathy, no tenderness Eye: normal conjunctiva, sclera clear ENMT: TM's clear, oral mucosa moist, no pharyngeal erythema or exudate Cardiovascular: regular rate and rhythm, normal peripheral perfusion Respiratory: Lungs expiratory wheezes, respirations non labored Neurological: oriented x 4, LOC appropriate for age speech normal Psychiatric: cooperative, affect appropriate for age, normal judgement, normal psychiatric thoughts. Assessment/Plan 1. Anxiety (F41.9: Anxiety disorder, unspecified) Completed and reviewed the JONES???7 score of 5 Discussed previous medications the patient has tried for anxiety Patient is not interested in an SSRI Start buspirone 5 mg 1 tablet p.o. daily may increase to twice daily Follow-up in 4 weeks Ordered: busPIRone, 5 mg = 1 tab(s), Oral, BID, # 90 tab(s), Refills(s) 0, Pharmacy: [facility]/pharmacy #[id number], 167.5, cm, 07/28/24 10:52:00 EST, Height/Length Dosing, 59.4, kg, 07/28/24 10:52:00 EST, Weight Dosing 2. Wheezing (R06.2: Wheezing) Encouraged to utilize the Albuterol HFA 2 puffs every 4-6 hours x 4 days 3. BMI 21.0-21.9, adult (Z68.21: Body mass index [BMI] 21.0-21.9, adult) Normal BMI Ordered: busPIRone, 5 mg = 1 tab(s), Oral, BID, # 90 tab(s), Refills(s) 0, Pharmacy: [facility]/pharmacy #[id number], 167.5, cm, 07/28/24 10:52:00 EST, Height/Length Dosing, 59.4, kg, 07/28/24 10:52:00 EST, Weight Dosing 4. Nonsmoker (Z78.9: Other specified health status) Encouraged to continue is a non-smoker Ordered: busPIRone, 5 mg = 1 tab(s), Oral, BID, # 90 tab(s), Refills(s) 0, Pharmacy: [facility]/pharmacy #[id number], 167.5, cm, 07/28/24 10:52:00 EST, Height/Length Dosing, 59.4, kg, 07/28/24 10:52:00 EST, Weight Dosing Follow-up No qualifying data available Patient Education Managing Anxiety, Adult Problem List/Past Medical History Ongoing Abdominal discomfort Allergic rhinitis, seasonal Anxiety Asthma flare Attention-deficit disorder BMI 21.0-21.9, adult BMI less than 19,adult Community acquired bilateral lower lobe pneumonia Contact dermatitis 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 Medications Albuterol (Eqv-ProAir HFA) 90 mcg/inh inhalation aerosol, 2 puff(s), Inhalation, q6hr, 4 refills albuterol 0.083% Inh Doris 3 mL, 2.5 mg= 3 mL, Inhalation, q6hr, PRN busPIRone 5 mg Tab, 5 mg= 1 tab(s), Oral, BID ethinyl estradiol-norgestimate triphasic 35 mcg Tab Multi Vitamin+, Oral, Daily Vitamin D3 5000 intl units oral capsule, 5000 International_Unit= 1 cap(s), Oral, Daily All (more content not included)...[facility] HospitalComment on above:Result Comment: Electronically Signed By: BETTY BASS CNP\\.jagjit\\Date and Time Signed: 07/28/24 11:24 Elliot [id number] Visit (PULMMN) STEVENPARIS ([id number]) 4 F Date Time Provider Department 07/14/24 2:00 PM KIMBERLY PIERRE During your visit today, we recorded the following information about you: Temperature Pulse Respiration Blood pressure 97.8 degrees 93/minute 16/minute 118/88 Weight 58.7 kg Dale Taveras MD 07/17/2024 2:38 PM Signed Respiratory Randolph Paris Steven is a 24 year old female here for a follow up with the [facility] Interstitial Lung Disease Team. HISTORY OF PRESENT ILLNESS: I had the pleasure of seeing Paris Steven in follow-up in the Interstitial Lung Disease Clinic at [facility] on July 14, 2024. 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 difficile enterocolitis and GVHD of the skin AND lung who I have been following in the [facility] IL[facility] Clinic for chronic, pulmonary GVHD. Last seen 08/20/23--off fluticasone and azithro, singulair from my perspective as well. Would recommend yearly follow up with dorina/DLCO, sooner if pneumonia recur or c/f GVHD flare. Today: -Has had respiratory illness 2 X May 2023, November of 2023. 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 Hancock yearly -Starting to walk more on Wednesday, currently only walks her dogs Animals: Dogs, goats, horses Now going to following with cardiology for aortic root: 1. History of present illness: Hx of AML, S/P BMT. 2. Left ventricle: Mild hypokinesis of the inferoseptal wall. Global left ventricular systolic function remains normal by fractional shortening and ejection fraction despite the observed hypokinesis. The fractional shortening (MM) is 27%. The triplane global longitudinal strain is -18.66%. The ejection fraction (A-L) is 49.17%. Normal global longitudinal strain. 3. Aorta: Borderline aortic root and ascending aortic dilatation. 4. Pericardium, extracardiac: There is no significant pericardial effusion. REVIEW OF SYSTEMS: MRC Dyspnea Scale: 1. Not troubled by breathlessness except on strenuous exercise All others per history of present illness or otherwise negative on detailed 14 point review. 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) Recurrent pneumonia Stem cells transplant status (HCC) MUD PAST SURGICAL HISTORY Procedure Laterality Date LUNG BIOPSY x 2 SOCIAL HISTORY: Social History Tobacco Use Smoking status: Never Smokeless tobacco: Never Alcohol Use: Not on file Drug Use: Not on file No family history on file. ALLERGIES Allergen Reactions Blood-Group Specifi* Unknown TRALI on 07/29/16 - please see FYI tab 12/22/16: Anaphylaxis to male platelets and female platelets that were premedicated with Tylenol, Solumedrol and benadryl. 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 Pretreat with Benadryl, and run vancomycin over 2 hours. CURRENT MEDICATIONS albuterol HFA (PROVENTIL HFA, VENTOLIN HFA) 90 mcg/actuation inhaler Inhale 2 Puffs as instructed every 6 hours as needed for wheezing/shortness of breath. Norgestimate-Ethinyl Estradiol 0.18/0.215/0.25 mg-35 mcg (28) Take 1 tablet by mouth once daily. 1 Each. Cholecalciferol, Vitamin D3, 50 mcg (2,000 unit) cap take 1 capsule by mouth once daily mv,calcium,min/iron/folic/vitK (ONE-A-DAY WOMEN'S COMPLETE ORAL) Take by mouth. norgestimate 0.25 mg-ethinyl estradiol 35 mcg (SPRINTEC, ORTHO-CYCLEN) 0.25-35 mg-mcg per tablet Take 1 tablet by mouth. Biotin 2,500 mcg cap Take 2,500 mcg by mouth. norethindrone-e.estradiol-iron (LO LOESTRIN FE) 1 mg-10 mcg (24)/10 mcg (2) Take 1 tablet by mouth once daily. PHYSICAL EXAM: BP 118/88 Pulse 93 Temp (Src) 97.8 (Temporal) Resp 16 Wt 129 lb 6.6 oz (58.7kg) SpO2 100% LMP 01/09/2022 Physical Exam Constitutional: General: She is not in acute distress. Cardiovascular: Rate and Rhythm: Normal rate. Pulses: Normal pulses. Heart sounds: No murmur heard. Pulmonary: Effort: Pulmonary effort is normal. Comments: Some en (more content not included)...NormalSelect Medical [facility] Clinic [facility] Hemoglobin A1Con [id number] (Bld) [Mass fraction]4.8 %NINF - 5.6 %[facility] HospitalComcorewell [facility] on above:Reference Interval: <5.7% 5.7-6.4% Prediabetes > or = 6.5% Diabetes Targets for diabetes management: Type I <7.5% Type II <7.0% Interpretation and review of laboratory resultsNormHCA Florida West [facility] Hospital ERLipid panelOrdered By: Background Lab on 05-19-2024 Cholesterol [Mass/Vol]177 mg/dLNIOhio State Harding HospitalComment on above: Acceptable (mg/dL): <190 Borderline-High (mg/dL): 190-224 High (mg/dL): > or = 225 Reference: Recommendations of the [place] [employer] (Pediatrics, Aug 2011, 128 (Supplement 5) I423-P577; DOI: 10.1542/peds.2008-2107C). Cholesterol in HDL [Mass/Vol]61 mg/dLMG/DLMercy Health St. Vincent Medical Center on above:Low (mg/dL): <40 Borderline-Low (mg/dL): 40-45 Acceptable (mg/dL): >45 Cholesterol in LDL [Mass/Vol]104 mg/dLNIOhio State Harding HospitalCholesterol non HDL [Mass/Vol]116 mg/dLNIOhio State Harding HospitalTriglyceride [Mass/Vol] 58 mg/dLNIOhio State Harding HospitalComcorewell health [facility] on above:Acceptable (mg/dL): <115 Borderline-High (mg/dL): 115-149 High (mg/dL): > or = 150 No Panel Informationon [id number] and review of laboratory results NormalEast Liverpool City HospitalNo Panel InformationOrdered By: Background Lab on [id number] HospitalT4, freeon [id number] T4 [Mass/Vol]1.1 ng/dLEast Liverpool City HospitalTSHon [id number] Qn2.99 m[IU]/[facility] Medical CenterVitamin D 25 Hydroxyon [id number] D+Metabolites [Mass/Vol]61 [facility] HospitalComment on above:Reference ranges provided by [facility] Laboratory are based on Endocrine Society Guidelines: Level: Characterization < 21 ng/mL: Vitamin D deficiency 21-29 ng/mL: Suboptimal Vitamin D status 30-100 ng/mL: Optimal Vitamin D status >100 ng/mL: Potentially toxic Vitamin D effects Family Medicine Office/Clinic Noteon [id number] Medicine Office/Clinic NoteFalowell general hospital Medicine Office/Clinic Note Chief Complaint Here to review current labs and restless legs HPI Staff C/O:restles legs Onset:2 months ago Location:bilateral legs Symptoms:in night and achy in am OTC: eating more bananas, and almonds, seems to have helped some History of Present Illness I have reviewed staff HPI and it is correct. Paris Vargas is a 24-year-old female presents today to follow up on most recent blood work and discuss her restless leg syndrome. The patient's restless leg syndrome is more pronounced at night, however, her legs become in the morning. She has incorporated more bananas into her diet, which she reports as beneficial. Apart from this, she reports feeling well. She does not require any medication refills at this time. She has a multivitamin, which she admits to not adhering to. She continues to take control pills. She has not required the use of her inhaler. She mentions that her hair fall problem has improved. Family History: Her mother has restless leg syndrome. Patient has no other questions or concerns at this time. Review of Systems PHQ Score Initial Depression Screen Score: 0 SCORE Negative unless stated in HPI. Physical Exam Vitals & Measurements T: 37 ?C(Temporal Artery) HR: 88(Peripheral) RR: 20 BP: 128/70 SpO2: 99% HT: 65 in HT: 165 cm WT: 57.3 kg WT: 126.06 lb BMI: 21.05 General: Young adult female, well hydrated, no acute distress. Lungs: Normal respiratory effort and clear to auscultation Cardio: Regular rate and rhythm, normal S1 and S2, no murmur, no rub Neurologic: Grossly normal Lymph Nodes: No cervical adenopathy, nodes normal Mental Status: Alert and oriented x3. Normal mood and affect Assessment/Plan 1. Restless leg syndrome (G25.81: Restless legs syndrome) Her laboratory results from 03/03/2024 were thoroughly reviewed and discussed. The results indicate no concern for vitamin deficiency or irregular electrolytes. She was advised to maintain adequate hydration and consume daily electrolyte beverages such as Powerade, Gatorade, Propel, or Liquid IV. She was also advised to incorporate a vitamin B6 supplementation of 30 to 40 mg daily, supplementedwith 400 international units of vitamin E. Should her symptoms worsen, she was advised to return for further office visit. 2. BMI 21.0-21.9, adult (Z68.21: Body mass index [BMI] 21.0-21.9, adult) The standard range for ages 18 and older is >=18.5 and < 25 kg/m2. Your BMI today was within this range. Your BMI and weight management will be followed at subsequent visits. Patient verbalized understanding and is agreeable to plan and course of treatment. This documentation was completed by voice-activated device and software. Inaccuracies compared to the original dictation of this provider are possible although this document has been overread and corrected. Portions of this record may have been created with voice recognition artificial intelligence software, specifically Quitt.ch, Viddyad and or InSupply. Substitutions may have occurred due to the inherent limitations of voice recognition and artificial intelligence software. ATTESTATION: This note has been generated by [employer] and edited by RUBIO Rider, Quality Check Clerk. 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 Medications Albuterol (Eqv-ProAir HFA) 90 mcg/inh inhalation aerosol, 2 puff(s), Inhalation, q6hr, 4 refills albuterol 0.083% Inh Doris 3 mL, 2.5 mg= 3 mL, Inhalation, q6hr, PRN ethinyl estradiol-norgestimate triphasic 35 mcg Tab Multi Vitamin+, Oral, Daily Vitamin D3 5000 intl units oral capsule, 5000 International_Unit= 1 cap(s), Oral, Daily Allergies Israel (Rash) vancomycin (rash) Social History Alcohol - Denies Alcohol Use, 04/16/2020 Current, 1-2 times per month, 11/16/2023 Household alcohol concerns: No., 07/17/2022 Employment/School Employed, Work/School description: Works at a [employer] center in [place]., 10/02/2021 Home/Environment Lives with Father, Mother., 10/02/2021 Substance Abuse - Denies Substance Abuse, 04/16/2020 Household substance abuse concerns: No (more content not included)...Normal St. Rita'S HospitalComment on above:Result Comment: Electronically Signed By: Lia Weiss PA-C\\.br\\Date and Time Signed: 03/14/2411:08 EDT\\.br\\Electronically Co-Signed By: Francoise Carmona\\.br\\Date and Time Co- Signed: 03/13/24 15:08 EDTAmbulatory Visit Summaryon [id number] Visit SummaryAmbulatory Visit Summary PARIS VARGAS Darby :2000 Visit Date:03/13/2024 Ambulatory Visit Instructions Your Diagnosis Restless leg syndrome BMI 21.0-21.9, adult Your Care Team Attending Physician - Lia Weiss PA-C Primary Care Physician - Lia Weiss PA-C This Is Your Medications List Contact prescribing physician if questions or concerns albuterol (Albuterol (Eqv-ProAir HFA) 90 mcg/inh inhalation aerosol) albuterol (albuterol 0.083% Inh Doris 3 mL) cholecalciferol (Vitamin D3 5000 intl units oral capsule) ethinyl estradiol-norgestimate (ethinyl estradiol-norgestimate triphasic 35 mcg Tab) multivitamin (Multi Vitamin+) Procedures Performed Biopsy of lung (07/14/2020), Bone marrow transplant recipient (2016), Port. Discharge Vitals Temperature (Temporal Artery) 37 ?C Heart Rate (Peripheral) 88 Respiratory Rate 20 Blood Pressure 128/70 Height 165 cm Height 65 in Weight 57.3 kg Weight 126.06 lb BMI 21.05 What to do next You Need to Schedule the Following Appointments Follow Up with Abhishek CHADWICK, Lia Fernández When: Only if needed Where: [address] [place] [phone] Medications What How Much When Why Instructions Unchanged albuterol (Albuterol (Eqv-ProAir HFA) 90 mcg/ inh inhalation aerosol) 2 Puffs Inhalation Every 6 hours Pneumonia Contact prescribing physician if questions or concerns Unchanged albuterol (albuterol 0.083% Inh Doris 3 mL) 3 Milliliter Inhalation Every 6 hours as neededfor as needed for wheezing Bilateral pneumonia Wheezing S/P bone marrow transplant AML (acute myeloid leukemia) in remission Contact prescribing physician if questions or concerns Unchanged cholecalciferol (Vitamin D3 5000 intl units oral capsule) 1 Capsules By Mouth Every day with food Contact prescribing physician if questions or concerns Unchanged ethinyl estradiol-norgestimate (ethinyl estradiol-norgestimate triphasic 35 mcg Tab) Contact prescribing physician if questions or concerns Unchanged multivitamin (Multi Vitamin+) By Mouth Every day Contact prescribing physician if questions or concerns Allergies [place] (Rash) vancomycin (rash) Problems Ongoing - Any problem that you are currently receiving treatment for. 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 Bone marrow transplant recipient IBS - Irritable bowel syndrome Leukemia Pneumonia Patient Survey You may receive a survey via text or e-mail asking about your office visit. Please share your experience with us by completing your survey. We appreciate your feedback and thank you for choosing us for your care. [facility] Auto Diffon 03-03-2024 Basophils/100 WBC (Bld)0.6 %Normal0.0-2.0[facility] HospitalComment on above:Performed By: #### [id number] #### [facility] [address] [id number]/Leukocytes Auto (Bld) [Pure # fraction]0.0 E9/LNormal 0.0-0.2FSelect Medical Specialty Hospital - TrumbullComment on above:Performed By: #### [id number] #### [facility] [address], [place] [address]Iuxbrgkcxgo (Bld) [#/Vol]0.3 E9/LNormal0.0-0.5FSelect Medical Specialty Hospital - TrumbullComment on above:Performed By: #### [id number] #### [facility] [address] [place] [address]07[address]Dgzewswdzot/100 WBC (Bld)5.7 %Normal0.0-8.0[facility] HospitalComment on above:Performed By: #### [id number] #### [facility] [address] [place] [address]55[address]Pfxhvkacqyo distribution width (RBC) [Ratio]12.3 %Normal 10.9-14.2FSelect Medical Specialty Hospital - TrumbullComment on above:Performed By: #### [id number] #### [facility] [address] [place] [address]Qammlxzuxp (Bld) [Volume fraction]39.6 %Rgdhfh04.0-46.0[facility] HospitalComment on above:Performed By: #### [id number] #### [facility] [address] [place] [address]Smmsxxurnb (Bld) [Mass/Vol]14.1 g/dHInipnz54.0-16.0[facility] HospitalComment on above:Performed By: #### [id number] #### [facility] [address] [place] [address] 138[address]Psthwnaxjxk (Bld) [#/Vol]2.5 E9/LNormal1.0-4.0[facility] HospitalComment on above:Performed By: #### [id number] #### [facility] [address] [place] [address]47[address]Pvlrdmjdmuj/100 WBC (Bld)44.4 %Baxyph15.0-50.0[facility] HospitalComment on above:Performed By: #### [id number] #### [facility] [address] [place] [address]33[address]MTH (RBC) [Entitic mass]35.3 mzThim91.0-34.0[facility] HospitalComment on above:Performed By: #### [id number] #### [facility] [address] [place] [address] 08189EKBL (RBC) [Mass/Vol]35.5 g/lYOdrhau37.4-36.0[facility] HospitalComment on above:Performed By: #### [id number] #### [facility] [address] [place] [address] 96365CNU (RBC) [Entitic vol]99.5 xTDofuel04.0-100.0[facility] HospitalComment on above:Performed By: #### [id number] #### [facility] [address] [place] [address] 93868Xbwykicsf (Bld) [#/Vol]0.4 E9/LNormal0.2-1.0[facility] HospitalComment on above:Performed By: #### [id number] #### [facility] [address] [place] [address] 61632Hvxgkouakxc (Bld) [#/Vol]2.4 E9/LNormal2.0-7.5FSelect Medical Specialty Hospital - TrumbullComment on above:Performed By: #### [id number] #### [facility] [address] [place] [address] 614[address]Furrviytxeo/100 WBC (Bld)42.0 %Tbnsap42.0-75.0[facility] HospitalComment on above:Performed By: #### [id number] #### [facility] [address] [place] [address] 93[address]Rijaqogm845.0 E9/SChlmgh665.0-500.0[facility] Comment on above:Performed By: #### [id number] #### [facility] [address], [place] [address]Nqpphfsx mean volume (Bld) [Entitic vol]7.8 fLNormal6.4-10.8 [facility] HospitalComment on above:Performed By: #### [id number] #### [facility] [address], [place] [address]IZT (Bld) [#/Vol]4.0 E12/LLow4.3-5.9[facility] Comment on above:Performed By: #### [id number] #### [facility] [address], [place] [address]LZB corrected for nucl RBC Auto (Bld) [#/Vol]5.6 E9/LNormal 4.0-11.0[facility] HospitalComment on above:Performed By: #### [id number] #### [facility] [address], [place] [address]VKSEPADGHVzzirkz By: SYSTEM SYSTEM on - hydroxyvitamin D3 [Mass/Vol]42.1 ng/iUTscolq68.0 - 100.0 ng/mLRemisol Chem Albumin [Mass/Vol]4.3 g/dLNormal3.3 - 5.0 gm/dLRemisol ChemAlbumin/Globulin [Mass ratio]1.4 {ratio}Normal1.1 - 2.2Remisol ChemALP [Catalytic activity/Vol]39 [iU]/fLmtwgu21 - 98 Int._Unit/LRemisol ChemALT No additional P-5'-P [Catalytic activity/Vol]23 [iU]/dNormal6 - 46 Int._Unit/LRemisol ChemAnion gap [Moles/Vol] 11 mmol/LNormal6 - 16 mEq/LRemisol ChemAST [Catalytic activity/Vol]26 [iU]/d Normal5 - 43 Int._Unit/LRemisol ChemBilirubin [Mass/Vol]0.5 mg/dLNormal0.0 - 1.1 mg/dLRemisol ChemCalcium [Mass/Vol]9.5 mg/dLNormal8.9 - 11.1 mg/dLRemisol Chem Chloride [Moles/Vol]106 mmol/PZgefnp995 - 111 mmol/LRemisol ChemCO2 [Moles/Vol] 26 mmol/GBztdno20 - 31 mmol/LRemisol ChemCobalamin (Vitamin B12) [Mass/Vol]296 pg/eQRhmldv28 - 1500 pg/mLRemisol ChemCreatinine [Mass/Vol]0.8 mg/dLNormal0.5 - 1.3 mg/dLRemisol RgmdfLTW233 mL/min/1.73 y2Rizljx>=59mL/min/1.73 b1Oiouazd Chem Globulin (S) [Mass/Vol]3.0 g/dLNormal1.4 - 4.0 gm/dLRemisol ChemGlucose [Mass/Vol]78 mg/vNFhzybh32 - 199 mg/dLRemisol ChemMagnesium [Mass/Vol]2.0 mg/dL Normal1.3 - 2.4 mg/dLRemisol ChemPotassium [Moles/Vol]4.1 mmol/LNormal3.5 - 5.3 mmol/LRemisol ChemProtein [Mass/Vol]7.3 g/dLNormal6.0 - 7.8 gm/dLRemisol Chem Sodium [Moles/Vol]139 mmol/NEhyhrs185 - 145 mmol/LRemisol ChemUrea nitrogen [Mass/Vol]15 mg/dLNormal5 - 21 mg/dLRemisol ChemUrea nitrogen/Creatinine [Mass ratio]19 mg/hnFpygng49 - 20Remisol ChemCMPon 90-10-8459Usktrdu [Mass/Vol]4.3 g/dLNormal3.3-5.0[facility] HospitalComment on above:Performed By: #### [id number] #### [facility] [address], [place] [address]Fvsbigi/Globulin (S) [Mass conc ratio]1.3Llcpcs5.1-2.2FSelect Medical Specialty Hospital - TrumbullComment on above:Performed By: #### [id number] #### [facility] [address], [place] [address]HMN [Catalytic activity/Vol]39 Int._Unit/TNqohjg38-48QxrmifSt. Rita'S HospitalComment on above:Performed By: #### [id number] #### [facility] [address], [place] [address]IDR No additional P-5'-P [Catalytic activity/Vol]23 Int._Unit/L Normal6-46St. [facility]'S HospitalComment on above:Performed By: #### [id number] #### [facility] [address], [place] [address]Wnxtt gap [Moles/Vol]11 mmol/LNormal6-16St. [facility]S HospitalComment on above:Performed By: #### [id number] #### [facility] [address] [place] [address]QCA [Catalytic activity/Vol]26 Int._Unit/LNormal5-43St[facility] HospitalComment on above:Performed By: #### [id number] #### [facility] [address] [place] [address]Ljenkesow [Mass/Vol]0.5 mg/dLNormal0.0-1.1FSelect Medical Specialty Hospital - TrumbullComment on above:Performed By: #### [id number] #### [facility] [address] [place] [address]Caiopzb [Mass/Vol]9.5 mg/dLNormal8.9-11.1FSelect Medical Specialty Hospital - TrumbullComment on above:Performed By: #### [id number] #### [facility] [address], [place] [address]Xhkwxbaz [Moles/Vol]106 mmol/GUhcudy994-240RkuyfaSt. Rita'S HospitalComment on above:Performed By: #### [id number] #### [facility] [address], [place] [address]GW2 [Moles/Vol]26 mmol/SMbwquz28-07TrqgvwSt. Rita'S Hospital Comment on above:Performed By: #### [id number] #### [facility] [address] [place] [address]Ysztxxkemj [Mass/Vol]0.8 mg/dLNormal0.5-1.3FSelect Medical Specialty Hospital - TrumbullComment on above:Performed By: #### [id number] #### [facility] [address], [place] [address]Xldceeke (S) [Mass/Vol]3.0 g/dLNormal1.4-4.0[facility] HospitalComment on above:Performed By: #### [id number] #### [facility] [address], [place] [address]Zcegnws [Mass/Vol]78 mg/bYVidhxl06-099FvywvsSt. Rita'S HospitalComment on above:Performed By: #### [id number] #### [facility] [address] [place] [address]Lachcwtaw [Moles/Vol]4.1 mmol/LNormal3.5-5.3FSelect Medical Specialty Hospital - TrumbullComment on above:Performed By: #### [id number] #### [facility] [address], [place] [address]Dzbazgm [Mass/Vol]7.3 g/dLNormal6.0-7.8St[facility]S HospitalComment on above:Performed By: #### [id number] #### [facility] [address] [place] [address]Xwzqdc [Moles/Vol]139 mmol/EGjpcik802-696MeyzgjSt. Rita'S HospitalComment on above:Performed By: #### [id number] #### [facility] [address], [place] [address]Wqcc nitrogen [Mass/Vol]15 mg/dLNormal5-21St. [facility]S HospitalComment on above:Performed By: #### [id number] #### [facility] [address], [place] [address]Wabs nitrogen/Creatinine [Mass ratio]19 No GzareLceqpm15-69 [facility] HospitalComment on above:Performed By: #### [id number] #### [facility] [address], [place] [address]Vptrtvd for Treatmenton 32-86-7000Mljbjev for Treatment [id number]#1.00TIFFHarrison Community HospitalHEMATOLOGYOrdered By: SYSTEM SYSTEM on 56-81-1921Fiktwnptz/100 WBC (Bld) 0.6 %Normal0.0 - 2.0 %Remisol HemeBasophils/Leukocytes Auto (Bld) [Pure # fraction]0.0 E9/LNormal0.0 - 0.2 E9/LRemisol HemeEosinophils (Bld) [#/Vol]0.3 E9/LNormal0.0 - 0.5 E9/LRemisol HemeEosinophils/100 WBC (Bld)5.7 %Normal0.0 - 8.0 %Remisol HemeErythrocyte distribution width (RBC) [Ratio]12.3 %Pgkpcu40.9 - 14.2 %Remisol HemeHematocrit (Bld) [Volume fraction]39.6 %Fskgzn08.0 - 46.0 % Remisol HemeHemoglobin (Bld) [Mass/Vol]14.1 g/aZZydwfq15.0 - 16.0 gm/dLRemisol HemeLymphocytes (Bld) [#/Vol]2.5 E9/LNormal1.0 - 4.0 E9/LRemisol Heme Lymphocytes/100 WBC (Bld)44.4 %Ksgzlv91.0 - 50.0 %Remisol HemeMCH (RBC) [Entitic mass]35.3 akSvjt35.0 - 34.0 pgRemisol HemeMCHC (RBC) [Mass/Vol]35.5 g/dLNormal 31.4 - 36.0 gm/dLRemisol HemeMCV (RBC) [Entitic vol]99.5 dDZuqbqi19.0 - 100.0 fL Remisol HemeMonocytes (Bld) [#/Vol]0.4 E9/LNormal0.2 - 1.0 E9/LRemisol Heme Monocytes/100 WBC (Bld)7.3 %Normal4.0 - 14.0 %Remisol HemeNeutrophils (Bld) [#/Vol]2.4 E9/LNormal2.0 - 7.5 E9/LRemisol HemeNeutrophils/100 WBC (Bld)42.0 % Hjogvb58.0 - 75.0 %Remisol DrpzUsdtdfhe254.0 E9/QLtwkuv434.0 - 500.0 E9/LRemisol HemePlatelet mean volume (Bld) [Entitic vol]7.8 fLNormal6.4 - 10.8 fLRemisol HemeRBC (Bld) [#/Vol]4.0 E12/LLow4.3 - 5.9 E12/LRemisol HemeWBC corrected for nucl RBC Auto (Bld) [#/Vol]5.6 E9/LNormal4.0 - 11.0 E9/LRemisol HemeMagnesiumon 83-17-9920Gcnecksfn [Mass/Vol]2.0 mg/dLNormal1.3-2.4FSelect Medical Specialty Hospital - Trumbull Comment on above:Performed By: #### [id number] #### [facility] [address], [place] [address]Bay B12on 10-06-7411Qwguprneb (Vitamin B12) [Mass/Vol]296 pg/mL Nzspwq92-2474HjvkpiSt. Rita'S HospitalComment on above:Performed By: #### [id number] #### [facility] [address], [place] [address]Rukghtt D 25 Hydroxyon 00-82-184123367277-njsnpwyvumqrkw D3 [Mass/Vol]42.1 ng/xOWvimkk01.0-100.0St[facility]'S HospitalComment on above: Performed By: #### [id number] #### [facility] [address], [place] [address]bRKGlv 59-99-7027zPAC336 mL/min/1.73 p2Bnirga>=59St. [facility]'S HospitalComment on above:Order Comment: Order added by Discern Expert. Performed By: #### [id number] #### [facility] [address], [place] [address]WQZ Cheston 07-25-5609DGB ChestExam Date/Time: 11/16/2023 23:37 EST Reason for Exam: Pulmonary embolism (PE) suspected, low to intermediate prob, positive D- dimer;Other (please specify) Report IMPRESSION: No CT evidence of acute pulmonary embolism. Patchy lung opacities, especially involving the dependent right lower lobe, nonspecific, but most likely infectious/inflammatory in etiology, with possible component associated with aspiration given the debris within the airways. Recommend short interval follow-up after treatment to ensure resolution. EXAMINATION: CHEST CT WITH CONTRAST (PULMONARY EMBOLISM PROTOCOL) CLINICAL HISTORY: Pulmonary embolism (PE) suspected, low to intermediate prob, positive D-dimer productive cough. Shortness of breath. History of pneumonia. History of leukemia. Port. History of lung biopsy. Technique: Spiral CTA acquisition of the chest from the thoracic inlet to the upper abdomen following IV contrast. Including 3D MIPS reconstructions in coronal plane. Other 3D sagittal and coronal reconstructions. Contrast: IV administration of 80 ml Isovue 370 Unless otherwise stated, incidental findings identified in this report do not require routine follow-up imaging. All CT scans at this facility use dose modulation, iterative reconstruction, and/or weight based dosing when appropriate to reduce radiation dose to as low as reasonably achievable. Comparison: 11/11/2021. RESULT: Evaluation for thromboembolic disease: No evidence for thromboembolic disease in the main, lobar, segmental, and visualized subsegmental pulmonary arteries. No evidence for right heart strain. Lung parenchyma and pleura: Areas of bronchial wall thickening. Debris within some distal bronchi/bronchioles, especially of the dependent lower lobes, worse on the right. Ill-defined patchy opacities within the posterior aspect of the right lower lobe and to a lesser extent the right middle lobe and lingula. Areas of mosaic attenuation. Multiple linear areas of calcification adjacent to the pleura within the right lung including anteriorly right middle lobe and posteriorly within the right lower lobe, unchanged, and may be postsurgical. Please correlate with prior surgical history. No pleural effusion or pneumothorax. Report Thoracic inlet, heart, and mediastinum: Visualized thyroid unremarkable. No axillary, mediastinal, or hilar lymphadenopathy. Normal thoracic aorta. Normal pulmonary artery size. Normal heart size. No coronary artery calcifications. No pericardial effusion or thickening. Esophagus nondilated. Bones: No acute osseous findings. No destructive osseous lesions. Soft tissues: Unremarkable. Upper abdomen: No acute abnormality in the imaged upper abdomen. Ordering Provider: Ling Culver FINAL REPORT Dictated: 11/17/2023 8:20 am Kiel Goff MD Signed (Electronic Signature): 11/17/2023 8:20 am Signed by: Kiel Goff MD Transcribed by: JOSE Technologist: KHRIS Technical Comments GFR (mL/min/1/73m2) n/a Contrast: Isovue 370 Contrast amount in ml's: 80NoEast [facility] Regional HospitalDischarge Instructionson 50-04-7527Lzachxydl Instructions [id number]#1.00TIFFNoGenesis Hospital Clinical Summaryon [id number] Clinical Summary [address] [place] [address] ED Clinical Summary Person Information Name: PARIS VARGAS [facility] Age: 23 Years : 2000 Sex: Female Language: Malian PCP: Lia Weiss PA-C Marital Status: MRN: [id number] Visit Id: Visit Reason: Cough; Chest pain - Pleuritic; FLU SYMPTOMS CP Speciality: Acuity: 3 Enc Type: Emergency Med Service: Emergency Arrival: 11/16/2023 21:26:05 Discharge: 11/17/2023 02:10:38 LOS: 000 04:44 Checkin: 11/16/2023 21:26:05 Checkout: 11/17/2023 02:10:38 Dispo Type: Home (Routine DC) EVENTS: Event Name Event Status Request Date/Time Start Date/Time Complete Date/Time Arrive Complete 11/16/2023 21:26:05 11/16/2023 21:26:05 11/16/2023 21:26:05 Document Home Meds Request 11/16/2023 21:26:05 Triage Complete 11/16/2023 21:26:05 11/16/2023 21:35:24 11/16/2023 21:35:24 Registration Complete 11/16/2023 21:29:50 11/16/2023 21:29:50 11/16/2023 21:29:50 Reg Complete Request 11/16/2023 21:29:50 Reg Bed Request Complete 11/16/2023 21:29:50 11/16/2023 21:29:50 11/16/2023 21:29:50 EKG Complete 11/16/2023 21:31:39 11/16/2023 21:36:14 Bed Assign Complete 11/16/2023 21:36:55 11/16/2023 21:36:55 11/16/2023 21:36:55 Dr Exam Complete 11/16/2023 21:36:55 11/16/2023 21:37:16 11/16/2023 21:37:16 RN Exam Complete 11/16/2023 21:36:55 11/16/2023 21:44:46 11/16/2023 21:44:46 Registration Complete 11/16/2023 21:37:16 11/16/2023 21:47:43 11/16/2023 21:47:43 X-Ray Complete 11/16/2023 21:50:48 11/16/2023 21:51:48 11/16/2023 22:05:31 Pending Labs Complete 11/16/2023 21:51:35 11/16/2023 22:35:20 Lab Complete 11/16/2023 21:51:35 11/16/2023 22:35:20 Meds Admin Complete 11/16/2023 21:51:35 11/16/2023 22:07:08 Pending Labs Cancel 11/16/2023 21:52:45 11/16/2023 22:15:35 Wet Read Request 11/16/2023 22:05:31 Pending Labs Complete 11/16/2023 22:14:14 11/16/2023 22:14:14 11/16/2023 22:35:20 Lab Complete 11/16/2023 22:14:14 11/16/2023 22:14:14 11/16/2023 22:35:20 Pending Labs Complete 11/16/2023 22:16:06 11/16/2023 22:16:06 11/16/2023 22:50:49 Pending Labs Complete 11/16/2023 22:56:59 11/16/2023 23:15:27 Lab Complete 11/16/2023 22:56:59 11/16/2023 23:15:27 CT Complete 11/16/2023 23:22:24 11/16/2023 23:24:35 11/16/2023 23:37:16 Meds Admin Complete 11/17/2023 00:00:31 11/17/2023 01:02:37 Discharge Complete 11/17/2023 00:37:27 11/17/2023 02:10:45 11/17/2023 02:10:45 Transfer Complete 11/17/2023 02:10:45 11/17/2023 02:10:45 11/17/2023 02:10:45 ADDRESS: [facility] [address] [place] [id number] PHYS DOC NOTES: MEDICAL INFORMATION: Prescriptions Given: New Medications [id number], [address] [place], [place] [id number], [phone] amoxicillin-clavulanate (Augmentin 875 mg oral tablet) 1 Tablets By Mouth every 12 hours for 10 Days. Refills: 0. azithromycin (Zithromax 250 mg Tab) 1 Packets By Mouth As Directed for 5 Days. as directed on package labeling. Refills: 0. Medications to Continue with No Changes Other Medications albuterol (Albuterol (Eqv-ProAir HFA) 90 mcg/inh inhalation aerosol) 2 Puffs Inhalation every 6 hours. Refills: 4. albuterol (albuterol 0.083% Inh Doris 3 mL) 3 Milliliter Inhalation every 6 hours as needed as neededfor wheezing. Refills: 0. cholecalciferol (Vitamin D3 5000 intl units oral capsule) 1 Capsules By Mouth every day. with food. ethinyl estradiol-norgestimate (ethinyl estradiol-norgestimate triphasic 35 mcg Tab) montelukast (Singulair) 10 Milligram By Mouth every day. multivitamin (Multi Vitamin+) By Mouth every day. omeprazole (omeprazole 20 mg Cap-DR) 1 Capsules By Mouth every day. Refills: 1. PATIENT EDUCATION INFORMATION: Instructions: Community-Acquired Pneumonia, Adult Follow up: With: Address: When: Lia Weiss In 3 days 11/20/2023 Comments: Return to the emergency room if your symptoms get worse, fever persist, shortness of breath or any new symptoms. Stop taking Cefdinir and start taking the antibiotic that was prescribed today. DIAGNOSIS: 1:PneumoniaNormalFisher San Lorenzo Medical CenterED Note-Physicianon [id number] Note-PhysicianBasic Information Time Seen: Ling Culver M.D. 11/16/2023 21:37 Chief Complaint Patient reports cough started last wednesday. Pain whenever she breathes started today. Denies fever. History of Present Illness The patient is 23-year-old female who presented to the emergency room with a cough fever right-sided chest pain. The patient states her symptoms started with sore throat. She was put on cefdinir by urgent care for throat infection. The patient states on Wednesday she started having cough and she is coughing up yellow-green sputum. Today she had temperature of 101. The patient states she has right-sided chest pain when she is laying down and when she takes a deep breath. The patient states this feels the same as when she was diagnosed with pneumonia. The patient denies any nausea, denies any vomiting. She denies any diarrhea. The patient denies any other associated symptoms. Review of Systems Additional ROS info: Except as noted in the above Review of Systems and in the History of Present Illness all other systems have been reviewed and are negative or noncontributory. Physical Exam Vitals & Measurements T: 37.3 ?C(Oral) HR: 102(Monitored) RR: 18 BP: 115/74 SpO2: 97% HT: 165 cm WT: 55.1 kg BMI: 20.24 General: alert, no acute distress Skin: warm, dry Head: no trauma, normocephalic Neck: Trachea midline, no tenderness, supple Eye: normal conjunctiva, sclera clear, PERRL, EOMI, vision unchanged ENMT: Oral mucosa moist, lips are dry, no pharyngeal erythema or exudate Cardiovascular: Tachycardia Respiratory: Lungs rales on the right, respirations non labored, breath sounds equal, Gastrointestinal: soft, non distended, no tenderness, no guarding Extremities: no deformity, no trauma Neurological: Alert and oriented, speech normal, no focal neuro deficits Psychiatric: cooperative, affect appropriate for age, Medical Decision Making MEDICAL DECISION MAKING Number and Complexity of Problems Differential Diagnosis: [] [facility] Data External documents reviewed: [] My EKG interpretation: [] My CT interpretation: [] My X-ray interpretation: [] My Ultrasound interpretation: [] Decision rules/scores evaluated: [] Discussed with: [] Treatment and Disposition ED Course: The patient presented with right-sided pleuritic chest pain and cough. She is tachycardic. Blood work reviewed. D-dimer is elevated. Initially the chest x-ray shows no acute cardiopulmonary disease. CT angiography shows no PE but infiltrates on the right lung consistent with multilobar pneumonia. The patient was given IV fluid, Toradol and she was started on Rocephin and Zithromax for community-acquired pneumonia. Will discharge patient home with prescription for Zithromax and Augmentin. She will stop taking cefdinir. The patient was instructed to follow-up with primary care and return to the emergency room if her symptoms get worse or any new symptoms. Shared decision making: [] Code status: [] Assessment/Plan 1. Pneumonia (J18.9: Pneumonia, unspecified organism) Orders: amoxicillin-clavulanate, = 1 tab(s), Oral, q12hr, X 10 day(s), # 20 tab(s), Refills(s) 0, Pharmacy:[facility] #[id number], 165, cm, 11/16/23 21:35:00 EST, Height/Length Dosing, 55.1, kg, 11/16/23 21:35:00 EST, Weight Dosing azithromycin, = 1 packet(s), Oral, As Directed, as directed on package labeling, X 5 day(s), # 6 tab(s), Refills(s) 0, Pharmacy: [facility] #[id number], 165, cm, 11/16/23 21:35:00 EST, Height/Length Dosing,55.1, kg, 11/16/23 21:35:00 EST, Weight Dosing azithromycin + Sodium Chloride 0.9% intravenous solution 250 mL, 500 mg = 1 EA, Injection, IV Piggyback, Once, Stop date 11/16/23 23:59:00 EST, STAT, Start date 11/16/23 23:59:00 EST, 250 mL/hr, Infuse over 60 minute(s) ceftriaxone + Sodium Chloride 0.9% intravenous solution 50 mL, 1,000 mg = 1 EA, IV Piggyback, Once,Stop date 11/16/23 23:59:00 EST, STAT, Start date 11/16/23 23:59:00 EST, 100 mL/hr, Infuse over 30 minute(s), 11/16/23 23:59:00 EST ketorolac, 30 mg = 1 mL, Injection, IV Push, Once, Stop date 11/16/23 21:51:00 EST, STAT, Start date 11/16/23 21:51:00 EST, 11/16/23 21:51:00 EST Sodium Chloride 0.9% intravenous solution, 1,000 mL, Soln-IV, IV, Once, Stop date 11/16/23 21:51:00EST, STAT, Start date 11/16/23 21:51:00 EST, Infuse over 61, minute(s) Basic Metabolic Panel CBC w/ Auto Diff CTA Chest D-Dimer eGFR Extra Blue Tube Extra SST Tube Sedimentation Rate Automated Troponin 0 Hr. XR Chest 2 Views Medications Administered Given ketorolac 30 mg/mL Inj 1 mL, 30 mg, IV Push NS 1000 ml Bolus, 1000 mL, IV Sodium Chloride 0.9% intravenous solution 50 mL + ceftriaxone additive 1000 mg, IV Piggyback Disposition Plan Patient Discharge Condition Stable, improved Discharge Disposition Discharged home Discharge Prescription List Prescriptions Augmentin 875 mg oral tablet, 1 tab(s), Oral, q12hr Zithromax 250 mg Tab, 1 packet(s), Oral, As Dire (more content not included)... [facility]:Result Comment: Electronically Signed By: Abiola Stratton, Ling Raymond\\.br\\Date and Time Signed: 11/16/2402:58 JULIANA Patient Education Noteon [id number] Patient Education NoteInfectious Disease Community-Acquired Pneumonia, Adult Pneumonia is a lung infection that causes inflammation and the buildup of mucus and fluids in the lungs. This may cause coughing and difficulty breathing. Community-acquired pneumonia is pneumonia that develops in people who are not, and have not recently been, in a hospital or other health care facility. Usually, pneumonia develops as a result of an illness that is caused by a virus, such as the commoncold and the flu (influenza). It can also be caused by bacteria or fungi. While the common cold andinfluenza can pass from person to person (are contagious), pneumonia itself is not considered contagious. What are the causes? This condition may be caused by: ? Viruses. ? Bacteria. ? Fungi. What increases the risk? The following factors may make you more likely to develop this condition: ? Being over age 65 or having certain medical conditions, such as: ? A long-term (chronic) disease, such as: chronic obstructive pulmonary disease (COPD), asthma, heart failure, diabetes, or kidney disease. ? A condition that increases the risk of breathing in (aspirating) mucus and other fluids from yourmouth and nose. ? A weakened body defense system (immune system). ? Having had your spleen removed (splenectomy). The spleen is the organ that helps fight germs and infections. ? Not cleaning your teeth and gums well (poor dental hygiene). ? Using tobacco products. ? Traveling to places where germs that cause pneumonia are present or being near certain animals oranimal habitats that could have germs that cause pneumonia. What are the signs or symptoms? Symptoms of this condition include: ? A dry cough or a wet (productive) cough. ? A fever, sweating, or chills. ? Chest pain, especially when breathing deeply or coughing. ? Fast breathing, difficulty breathing, or shortness of breath. ? Tiredness (fatigue) and muscle aches. How is this diagnosed? This condition may be diagnosed based on your medical history or a physical exam. You may also havetests, including: ? Imaging, such as a chest X-ray or lung ultrasound. ? Tests of: ? The level of oxygen and other gases in your blood. ? Mucus from your lungs (sputum). ? Fluid around your lungs (pleural fluid). ? Your urine. How is this treated? Treatment for this condition depends on many factors, such as the cause of your pneumonia, your medicines, and other medical conditions that you have. For most adults, pneumonia may be treated at home. In some cases, treatment must happen in a hospital and may include: ? Medicines that are given by mouth (orally) or through an IV, including: ? Antibiotic medicines, if bacteria caused the pneumonia. ? Medicines that kill viruses (antiviral medicines), if a virus caused the pneumonia. ? Oxygen therapy. Severe pneumonia, although rare, may require the following treatments: ? Mechanical ventilation.This procedure uses a machine to help you breathe if you cannot breathe well on your own or maintain a safe level of blood oxygen. ? Thoracentesis. This procedure removes any buildup of pleural fluid to help with breathing. Follow these instructions at home: Medicines ? Take svfg-rwv-ztenvyr and prescription medicines only as told by your health care provider. ? Take cough medicine only if you have trouble sleeping. Cough medicine can prevent your body from removing mucus from your lungs. ? If you were prescribed antibiotics, take them as told by your health care provider. Do not stop taking the antibiotic even if you start to feel better. Lifestyle ? Do not drink alcohol. ? Do not use any products that contain nicotine or tobacco. These products include cigarettes, chewing tobacco, and vaping devices, such as e-cigarettes. If you need help quitting, ask your health care provider. ? Eat a healthy diet. This includes plenty of vegetables, fruits, whole grains, low-fat dairy products, and lean protein. General instructions ? Rest a lot and get at least 8 hours of sleep each night. ? Sleep in a partly upright position at night. Place a few pillows under your head or sleep in a reclining chair. ? Return to your normal activities as told by your health care provider. Ask your health care provider what activities are safe for you. ? Drink enough fluid to keep your urine pale yellow. This helps to thin the mucus in your lungs. ? If your throat is sore, gargle with a mixture of salt and water 3?4 times a day or as needed. To make salt water, completely dissolve ??1 tsp (3?6 g) of salt in 1 cup (237 mL) of warm water. ? Keep all follow-up visits. How is this prevented? You can lower your risk of developing community-acquired pneumonia by: ? Getting the pneumonia vaccine. There are different types a (more content not included)...[facility] Patient Summaryon [id number] Patient Summary [place] [id number] Patient Discharge Instructions Person Information Name: PARIS VARGAS Age: 23 Years Arrival Date: 11/16/2023 21:26:05 Discharge Diagnosis: 1:Pneumonia Primary Care Physician: Lia Weiss PA-C Provider Information Primary Provider: Ling Culver M.D. Advanced Meter Technician:None The exam and treatment you received in the Emergency Department were for an urgent problem and are not intended as complete care. It is important that you follow up with a doctor, nurse practitioner,or physician?s veterinary technician assistant for ongoing care. If your symptoms become worse or you do not improve as expected and you are unable to reach your usual health care provider, you should return to the Emergency Department. We are available 24 hours a day. PARIS VARGAS has been given the following list of patient education materials, prescriptions and follow-up instructions: Follow-up Instructions: With: Address: When: Lia Weiss In 3 days 11/20/2023 Comments: Return to the emergency room if your symptoms get worse, fever persist, shortness of breath or any new symptoms. Stop taking Cefdinir and start taking the antibiotic that was prescribed today. In the event that this physician does not participate in your insurance network, please consult with your insurance company to find a nearby participating provider. Patient Education Materials: Community-Acquired Pneumonia, Adult A MESSAGE TO ALL PATIENTS REGARDING OPIOIDS PRESCRIPTION OPIOIDS: WHAT YOU NEED TO KNOW Prescription opioids can be used to help relieve zqfxzfhf-bk-ncceoz pain and are often prescribed following a surgery or injury, or for certain health conditions. These medications can be an important part of the treatment but also come with serious risks. It is important to work with your healthcare provider to make sure you are getting the safest, most effective care. WHAT ARE THE RISKS AND SIDE EFFECTS OF OPIOID USE? Prescription opioids carry serious risks of addiction and overdose, especially with prolonged use. An opioid overdose, often marked by slowed breathing, can cause sudden . The use of prescription opioids can have a number of side effects as well, even when taken as directed: ? Tolerance?meaning you might need to take more of the medication for the same pain relief ? Physical dependence?meaning you have symptoms of withdrawal when a medication is stopped ? Increased sensitivity to pain ? Constipation ? Nausea, vomiting, and dry mouth ? Sleepiness and dizziness ? Confusion ? Depression ? Low levels of testosterone that can result in lower sex drive, energy, and strength ? Itching and sweating RISKS ARE GREATER WITH: ? History of drug misuse, substance use disorder, or overdose ? Mental health conditions (such as depression or anxiety) ? Sleep apnea ? Older age (65 years and older) ? Avoid alcohol while taking prescription opioids. Also, unless specifically advised by your health care provider, medications to avoid include: ? Benzodiazepines (such as Xanax or Valium) ? Muscle relaxants (such as Soma or Flexeril) ? Hypnotics (such as Ambien or Lunesta) ? Other prescription opioids KNOW YOUR OPTIONS Talk to your health care provider about ways to manage your pain that don?t involve prescription opioids. Some of these options may actually work better and have fewer risks and side effects. Optionsmay include: ? Pain relievers such as acetaminophen, ibuprofen, and naproxen ? Some medication that are also used for depression or seizures ? Physical therapy and exercise ? Cognitive behavioral therapy, a psychological, goal-directed approach, in which patients learn how to modify physical, behavioral, and emotional triggers of pain and stress. IF YOU ARE PRESCRIBED OPIOIDS FOR PAIN: ? Never take opioids in greater amounts or more often than prescribed. ? Follow up with your primary health care provider. o Work together to create a plan on how to manage your pain. o Talk about ways to help manage your pain that don?t involve prescription opioids. o Talk about any and all concerns and side effects. ? Help prevent misuse and abuse o Never sell or share prescription opioids. o Never use another person?s prescription opioids. ? Store prescription opioids in a secure place and out of reach of others (this may include visitors, children, friends, and family). ? Safely dispose of unused prescription opioids: Find your community drug take- back program or yourpharmacy mail-back program, or flush them down the toilet, following guidance from the Food and Drug Administration (www.fda.gov/Drugs/ResourcesForYou). ? Visit www.cdc.gov/drugoverdose to learn about the risks of opioids abuse and overdose. ? If you believe you may be struggling with addiction, (more content not included)...NormalSt. Rita'S HospitalRAD - Preliminary Cat Scan Reporton [id number] - Preliminary Cat Scan Report [id number]. Rita'S HospitalXR Chest 2 Viewson [id number] Chest 2 ViewsExam Date/Time: 11/16/2023 22:05 EST Reason for Exam: Cough Report IMPRESSION: RIGHT BASILAR PNEUMONITIS. CLINICAL HISTORY: Cough. Shortness of breath. COMPARISON: 04/03/2022. COMMENT: The heart is normal in size. The mediastinum is unremarkable. There are patchy increased densities in the basilar right lung, with pneumonitis suspected. No pleural effusion is noted. Ordering Provider: Ling Culver FINAL REPORT Dictated: 11/17/2023 7:59 am Efrain Hills M.D. Signed (Electronic Signature): 11/17/2023 7:59 am Signed by: Efrain Hills M.D. Transcribed by: JOSE Technologist: KHRIS Technical Comments Radiation Dose: Ka,r in mGy = na DAP = naNorProMedica Bay Park HospitalBMPon 07-44-7246Gnfjy gap [Moles/Vol]12 mmol/LNormal6-16St. Rita'S HospitalComment on above:Performed By: #### [id number], 0573039, 05323163, 93536968, 39623160 ####[facility] [address] [place], [place] [address]Lxdwbhi [Mass/Vol]9.7 mg/dLNormal 8.9-11.1FSelect Medical Specialty Hospital - TrumbullComment on above:Performed By: #### 6761096, 8129970, 26432041, 12918597, 26641104 ####[facility] [place], [place] [address]Rthfqsll [Moles/Vol]103 mmol/LNormal 101-111St. Rita'S HospitalComment on above:Performed By: #### 1402120, 9341513, 43258491, 85321467, 09809950 ####[facility] [address] [place], [place] [address]GD6 [Moles/Vol]25 mmol/JXvezep77-50 [facility]'S HospitalComment on above:Performed By: #### 0074941, 4042984, 40560148, 50273465, 64904114 ####[facility] [address] [place], [place] [address]Kjzcdiiudm [Mass/Vol]1.1 mg/dLNormal0.5-1.3FSelect Medical Specialty Hospital - TrumbullComment on above:Performed By: #### 8295418, 6964426, 54091084, 10597173, 74520181 ####[place] [address] [place], [place] [address]Kozvims [Mass/Vol]108 mg/gGKlpfnm35-496QiyfhdSt. Rita'S HospitalComment on above:Performed By: #### 6244680, 3914570, 78201612, 80032859, 54289470 ####[place] [address] [place], [place] [address]Udnrmkmwt [Moles/Vol]3.5 mmol/LNormal3.5-5.3FSelect Medical Specialty Hospital - TrumbullComment on above:Performed By: #### 1946364, 0718083, 88442532, 12626812, 26318728 ####[place] [address] [place], [place] [address]Dgnnzy [Moles/Vol]136 mmol/HBwljug002-674GiblzzSt. Rita'S HospitalComment on above:Performed By: #### 5218344, 4885828, 44778816, 31488170, 92804743 ####[place] [address] [place], [place] [address]Hwst nitrogen [Mass/Vol]14 mg/dLNormal5-21St. Rita'S HospitalComment on above:Performed By: #### 2302761, 4778524, 80092199, 93119637, 25788461 ####[facility] [address] [place] [address]Knsl nitrogen/Creatinine [Mass ratio]13 No NqsqaTyfyps50-21 [facility]'S HospitalComment on above:Performed By: #### 0529372, 7002230, 64704331, 96049560, 25306967 ####[address] [address]MFW w/ Auto Diffon 14-76-6696Rlpiifxuy/100 WBC (Bld)0.6 %Normal0.0-2.0St. Rita'S HospitalComment on above:Performed By: #### 5656393, 4224134, 63354056, 55730207, 04380030 ####[address] [address]Isdwvkrce/Leukocytes Auto (Bld) [Pure # fraction]0.1 E9/LNormal0.0-0.2FSelect Medical Specialty Hospital - TrumbullComment on above:Performed By: #### 9529846, 9987837, 20976307, 09438328, 36893428 ####[address] [address] Eosinophils (Bld) [#/Vol]0.1 E9/LNormal0.0-0.5FSelect Medical Specialty Hospital - TrumbullComment on above:Performed By: #### 8047005, 4406172, 87382045, 21615517, 75745051 ####[address] [address] Eosinophils/100 WBC (Bld)0.5 %Normal0.0-8.0St. Rita'S HospitalComment on above:Performed By: #### 4592608, 2527314, 40477135, 88083860, 56079337 ####[address] [address] Erythrocyte distribution width (RBC) [Ratio]11.9 %Yxnshv73.9-14.2FSelect Medical Specialty Hospital - TrumbullComment on above:Performed By: #### 8481518, 0230955, 58684120, 98886602, 18187072 ####[place] [address] [place], [place] [address]Rlohcfzsuh (Bld) [Volume fraction]36.6 %Uwique51.0-46.0 [facility]'S HospitalComment on above:Performed By: #### 0440832, 3677619, 36558380, 35149034, 60332313 ####[address] [address]Undlildqcn (Bld) [Mass/Vol]13.1 g/yINidlni74.0-16.0 [facility]'S HospitalComment on above:Performed By: #### 2254245, 9876268, 54582303, 24828388, 53407257 ####[address] [address]Rkbdbkknpkm (Bld) [#/Vol]2.5 E9/LNormal1.0-4.0 [facility]'S HospitalComment on above:Performed By: #### 7488068, 8914953, 30285439, 95450653, 40152929 ####[address] [address]Vcxguxvomlw/100 WBC (Bld)25.8 %Kfjpmg35.0-50.0 [facility]'S HospitalComment on above:Performed By: #### 5134967, 8846095, 04671891, 94250635, 65892602 ####[facility] [address] [place] [address]DXY (RBC) [Entitic mass]34.9 lgRhhy51.0-34.0St. [facility]'S HospitalComment on above:Performed By: #### 9427724, 5504882, 50772793, 30048545, 55574073 ####[facility] [address] [place], [place] [address]SMCQ (RBC) [Mass/Vol]35.7 g/aTYfpadn70.4-36.0St. [facility]'S HospitalComment on above:Performed By: #### 7553449, 9708633, 72180256, 35673633, 35980861 ####[place] [address] [place], [place] [address]PNR (RBC) [Entitic vol]97.9 vYQuolik78.0-100.0 [facility]'S HospitalComment on above:Performed By: #### 9911630, 6751181, 68574256, 11407093, 52182928 ####[address] [address]Rrbzqxgyi (Bld) [#/Vol]0.7 E9/LNormal0.2-1.0St. [facility]'S HospitalComment on above:Performed By: #### 3978746, 4400468, 74658346, 30419032, 06570680 ####[address] [address]Sdxfxijxnzu (Bld) [#/Vol]6.5 E9/LNormal2.0-7.5 [facility]S HospitalComment on above:Performed By: #### 2634794, 8728702, 41036569, 10261567, 06379136 ####[address] [address]Peosfiuofvx/100 WBC (Bld)65.8 %Vnedky33.0-75.0 [facility]'S HospitalComment on above:Performed By: #### 4594862, 2639258, 67698771, 88132675, 92424544 ####[address] [address]Slqtsjxk mean volume (Bld) [Entitic vol]7.3 fL Normal6.4-10.8St. [facility]'S HospitalComment on above:Performed By: #### 3602453, 5719230, 37395758, 35459784, 93140094 ####[address] [address]Hyvifkkcb (Bld) [#/Vol]220.0 E9/L Darmdz462.0-500.0St. [facility]'S HospitalComment on above:Performed By: #### 9435141, 2833713, 78201278, 98984518, 81495516 ####[facility] [address] [place], [place] [address]LXQ (Bld) [#/Vol]3.7 E12/LLow4.3-5.9 [facility]'S HospitalComment on above:Performed By: #### 8318451, 6993203, 55273838, 13838639, 08613103 ####[facility] [address] [place], [place] [address]UWF corrected for nucl RBC Auto (Bld) [#/Vol]9.9 E9/LNormal4.0-11.0St. [facility]'S HospitalComment on above:Performed By: #### 3833805, 1827817, 30587673, 71962317, 60747869 ####[facility] [address] [place], [place] [address]KCGZIERAKSzdfjmq By: SYSTEM SYSTEM on 82-07-6395Zlaht gap [Moles/Vol]12 mmol/LNormal6 - 16 mEq/LRemisol ChemCalcium [Mass/Vol]9.7 mg/dLNormal8.9 - 11.1 mg/dLRemisol ChemChloride [Moles/Vol]103 mmol/VQawspy887 - 111 mmol/LRemisol ChemCO2 [Moles/Vol]25 mmol/LFyhdkm07 - 31 mmol/LRemisol ChemCreatinine [Mass/Vol]1.1 mg/dLNormal0.5 - 1.3 mg/dLRemisol GhqjtAPX49 mL/min/1.73 x6Uuugia>=59mL/min/1.73 j5Jkfpqef ChemGlucose [Mass/Vol] 108 mg/aSRsrqty43 - 199 mg/dLRemisol ChemPotassium [Moles/Vol]3.5 mmol/LNormal 3.5 - 5.3 mmol/LRemisol ChemSodium [Moles/Vol]136 mmol/HZnyquy730 - 145 mmol/L Remisol ChemTroponin3.20 pg/mLLow10.10 - 27.10 pg/mLRemisol ChemComment on above:Interpretive Data: The 95% CI (Confidence Interval) PPV (Positive Predictive Value) for myocardial infarction in females is 38 pg/mL, in males 51 pg/mL. The results should be used in conjunction withclinical conditions of myocardial infarction. (Access High Sensitivity Troponin I Instructions For Use, Anoop Lucina, April 2018)Urea nitrogen [Mass/Vol]14 mg/dLNormal5 - 21 mg/dLRemisol ChemUrea nitrogen/Creatinine [Mass ratio]13 mg/glDobroc21 - 20Remisol ChemCOAGULATION Ordered By: Angel Ramirez on 09-53-5942Oxwfdg D-dimer FEU (PPP) [Mass/Vol]810 ng/mL FEUInvalid Interpretation Ksib581 - 500 ng/mL FEUFTMC Auto CoagComment on above:Result Comment: Results Called To Fanny Santillan By jason And Read Back For Confirmation On 11/16/2023 23:15:22 EST Results Verified By Repeat AnalysisInterpretive Data: This assay is intended for use as an aid in the diagnosis of DVT or PE. These conditions cannot be excluded with certainty solely on the basis of a D-dimer concentration being within the reference range This D-Dimer assay may be used in conjunction with a non-high clinical pretest probability assessment to exclude deep-vein thrombosis(DVT). For exclusion of venous thrombosis or pulmonary embolism the analyte D-Dimer should not be used as an aid in patients with: Therapeutic dose anticoagulant therapy for >24 hours Fibrinolytic therapy within previous 7 days Trauma or surgery within previous 4 weeks Disseminated malignacies Aortic aneurysm Sepsis, severe infections, pneumonia, severe skin infections Liver cirrhosis PregnancyConsent for Treatmenton 25-26-4778Ftwgfaa for Treatment [id number] Health St[address] Elizabeth Youngstown HospitalD-Dimeron 95-86-5670Gsielq D-dimer FEU (PPP) [Mass/Vol]810 CD:[id number] Zrlpetue957-542ZrblauSt. Rita'S HospitalComment on above:Result Comment: Results Called To Fanny Santillan By jason And Read Back For Confirmation On 11/16/2023 23:15:22 EST Results Verified By Repeat Analysis This assay is intended for use as an aid in the diagnosis of DVT or PE. These conditions cannot be excluded with certainty solely on the basis of a D-dimer concentration being within the reference range This D-Dimer assay may be used in conjunction with a non-high clinical pretest probability assessment to exclude deep-vein thrombosis(DVT). For exclusion of venous thrombosis or pulmonary embolism the analyte D-Dimer should not be used as an aid in patients with: Therapeutic dose anticoagulant therapy for >24 hours Fibrinolytic therapy within previous 7 days Trauma or surgery within previous 4 weeks Disseminated malignacies Aortic aneurysm Sepsis, severe infections, pneumonia, severe skin infections Liver cirrhosis PregnancyPerformed By: #### [id number] ####[facility] [address] [place], [place] [address]FIYZOLFQSZVgnzaoz By: SYSTEM SYSTEM on 02-12-4860Fzomnovun/100 WBC (Bld)0.6 %Normal0.0 - 2.0 %Remisol Heme Basophils/Leukocytes Auto (Bld) [Pure # fraction]0.1 E9/LNormal0.0 - 0.2 E9/L Remisol HemeEosinophils (Bld) [#/Vol]0.1 E9/LNormal0.0 - 0.5 E9/LRemisol Heme Eosinophils/100 WBC (Bld)0.5 %Normal0.0 - 8.0 %Remisol HemeErythrocyte distribution width (RBC) [Ratio]11.9 %Rwapaa06.9 - 14.2 %Remisol HemeHematocrit (Bld) [Volume fraction]36.6 %Pxjlwl74.0 - 46.0 %Remisol HemeHemoglobin (Bld) [Mass/Vol]13.1 g/zTLknnnf49.0 - 16.0 gm/dLRemisol HemeLymphocytes (Bld) [#/Vol] 2.5 E9/LNormal1.0 - 4.0 E9/LRemisol HemeLymphocytes/100 WBC (Bld)25.8 %Normal 14.0 - 50.0 %Remisol HemeMCH (RBC) [Entitic mass]34.9 xpEpkm94.0 - 34.0 pg Remisol HemeMCHC (RBC) [Mass/Vol]35.7 g/cVVnjneb22.4 - 36.0 gm/dLRemisol HemeMCV (RBC) [Entitic vol]97.9 wUOobkcu95.0 - 100.0 fLRemisol HemeMonocytes (Bld) [#/Vol]0.7 E9/LNormal0.2 - 1.0 E9/LRemisol HemeMonocytes/100 WBC (Bld)7.3 % Normal4.0 - 14.0 %Remisol HemeNeutrophils (Bld) [#/Vol]6.5 E9/LNormal2.0 - 7.5 E9/LRemisol HemeNeutrophils/100 WBC (Bld)65.8 %Zjehcu73.0 - 75.0 %Remisol Heme Platelet mean volume (Bld) [Entitic vol]7.3 fLNormal6.4 - 10.8 fLRemisol Heme Platelets (Bld) [#/Vol]220.0 E9/VPhyrmn557.0 - 500.0 E9/LRemisol HemeRBC (Bld) [#/Vol]3.7 E12/LLow4.3 - 5.9 E12/LRemisol HemeWBC corrected for nucl RBC Auto (Bld) [#/Vol]9.9 E9/LNormal4.0 - 11.0 E9/LRemisol HemeHEMATOLOGYOrdered By: Angel Ramirez on 65-13-4402HHF (Bld) [Velocity]62 mm/hHigh0 - 34 mm/hrFTMC HemeAutoSSSed Rate Automatedon 73-12-7915AYM (Bld) [Velocity]62 mm/hHigh0-34 [facility]S HospitalComment on above:Performed By: #### 5441072, 4634283, 53681440, 22091751, 64249993 ####[facility] [address] [place], [place] [address]Azwptquv 0 Hr.on 34-22-6977Zywoudby7.20 pg/mLLow 10.10-27.10St. [facility]'S HospitalComment on above:Result Comment: The 95% CI (Confidence Interval) PPV (Positive Predictive Value) for myocardial infa rction in females is 38 pg/mL, in males 51 pg/mL. The results should be used in conjunction with clinical conditions of myocardial infarction. (Access High Sensitivity Troponin I Instructions For Use, Anoop Lucina, April 2018)Performed By: #### [id number], [id number], [id number], [id number], [id number] ####[facility] [address] [place], [place] [address]cPXT on 41-75-1012jBQW93 mL/min/1.73 x2Bzxnap>=59St[facility]'S HospitalComment on above:Order Comment: Order added by Discern Expert.Performed By: #### [id number], [id number], [id number], [id number], [id number] ####[facility] [address] [place], [place] [address]Zbw Miscellaneous-LCon 06-62-5587Jkf Miscellaneoussee ref reportInvalid Interpretation [facility] HospitalComment on above:Result Comment: Performed at: [facility] [id number] PhD Adair RiveroPerformed By: #### [id number] ####[facility] [address] [place], [place]Reference Lab Reporton [id number] Lab [id number]#1.00TIFF [facility] HospitalCHEMISTRYOrdered By: SYSTEM SYSTEM on 46-60-8328Oumtlgim [Mass/Vol]321 ng/yXPmjv54 - 307 ng/mLFTMC RemisolComment on above:Interpretive Data: NORMALS MEN <30 YRS 16-132 ng/mL MEN >30 YRS 8-338 ng/mL WOMEN (PREMEN) 6-104 ng/mL WOMEN (POSTMEN) 12-210 ng/mLFree T4 [Mass/Vol]0.94 ng/dLNormal0.58 - 1.64 ng/dL [facility] RemisolIron [Mass/Vol]154 ug/yCHzuz92 - 153 mcg/dLSUMMIT MEDICAL [facility] RemisolTSH Qn4.58 m[IU]/LNormal0.34 - 5.60 mcIU/mLSUMMIT MEDICAL CENTER [facility] RemisolConsent for Treatmenton 08-06-2023 Consent for [id number]#1.00TIFFNormal St. [facility]'S HospitalFerritinon 80-45-3988Gmjrrdtx [Mass/Vol]321 ng/mLHigh 11-307St[facility]S HospitalComment on above:Result Comment: NORMALS MEN <30 YRS 16-132 ng/mL MEN >30 YRS 8-338 ng/mL WOMEN (PREMEN) 6-104 ng/mL WOMEN (POSTMEN) 12-210 ng/mLPerformed By: #### [id number], [id number], [id number], [id number] ####[facility] [address] [place], [place] [address]Ukpj T4on 81-81-1364Qxol T4 [Mass/Vol]0.94 ng/dLNormal0.58-1.64St[facility]S HospitalComment on above:Performed By: #### [id number], [id number], [id number], [id number] ####[facility] [address] [place], [place] [address]Oeioua 75-86-3543Wxlc [Mass/Vol]154 microgram/lXTzlc91-206NppyykSt. Rita'S HospitalComment on above:Performed By: #### [id number], [id number], [id number], [id number] ####[facility] [address] [place], [place] [address]Vej Miscellaneous-LCon 67-63-8001Yxte Ihgw666050Yfdhsrr Interpretation Code St[facility]'S HospitalComment on above:Performed By: #### [id number] ####[facility] [address] [place], [place]Test Nametestos freeInvalid Interpretation CodeSt. Rita'S HospitalComment on above:Performed By: #### [id number] ####[facility] [address] [place], [place]Cvyrtfxwc Orderon 51-60-0023Iqadauaze [id number]#1.00TIFFNormalSt. Rita'S HospitalReference Laboratory TestingOrdered By: Nicol Cisneros on 33-38-7132Ftnr Ziic756710 1Invalid Interpretation CodeSUMMIT [facility] SendOutsSSTest Nametestos free Invalid Interpretation CodeSUMMIT MEDICAL [facility] – [facility] SendOutsSSTSHon [id number] Qn4.58 m[IU]/L Normal0.34-5.60St[facility]S HospitalComment on above:Performed By: #### [id number], [id number], [id number], [id number] ####[facility] [address] [place] [address]Pykpim Medicine Office/Clinic Noteon 08-01-2023 Family Medicine Office/Clinic NoteChief Complaint Patient has concerns of hair loss and lumps on the scalp HPI Staff C/O: Pt concerns of hair loss. Notices clumps of hair falling out. Location: Scalp Symptoms: lose hair, bumps, scabs Denies any change in shampoo. Some scalp pain History of Present Illness Paris Vargas is a 23-year-old female presents to the office for concerns regarding hair loss and bumps on her scalp. Her hair has been thinning significantly, and she is concerned about losing more hair. She underwent thyroid laboratory testing, and all results came back normal. This issue has been persisting for the last year but has recently worsened. She has been on the same control since being diagnosed with cancer 7 years ago. She received the shot during her cancer treatment, and then she transitioned to the current control that she is on now. She used to be on Ortho-Cyclen, but now she is taking a generic version of it. That is the only change she made around 1.5 years ago. She has no issues with her menstrual cycle. She is experiencing normal and regular periods. She wason Lo Loestrin Fe, a low-dose control back in 2021. She emphasizes that she takes the control to avoid entering menopause. She was in full menopause. She felt sick. She was initially prescribed OCPs by OSCAR Herrera, and later by Dr. Efrain Pathak DO. Her current healthcare provider at [facility] is Dr. Nicole Naranjo. The color of her medication appears to be more like blue than green. She is wondering if there was a switch in her medication, particularly after being prescribed Lo Loestrin Fe, which did not work for her, resulting in her current prescription. Because she had used dandruff shampoo and essential oils, applying oil to her hair, she feels confident in her hair care routine. She consistently takes her multivitamin. She denies having bumps. She does not experience this issue all the time. She notes that when her hair falls out, it does not appear infected. It seems like it just fell out. She feels that her hair has been falling out more than usual in the past year, expressing concern about this increased shedding. She feels that her control might be a factor, as she has investigated this possibility and noticed changes in her condition over the past period. Patient has no other questions or concerns at this time. Review of Systems All negative except as noted in the HPI. Physical Exam Vitals & Measurements T: 36.8 ?C(Temporal Artery) HR: 104(Peripheral) RR: 18 BP: 124/68 SpO2: 98% HT: 65 in HT: 166 cm WT: 54.2 kg WT: 119.24 lb BMI: 19.67 General: Well developed female, well nourished, in no acute distress Lungs: Normal respiratory effort and clear to auscultation Cardio: Regular rate and rhythm, normal S1 and S2, no murmur, no rub Neurologic: Grossly normal Lymph Nodes: No cervical adenopathy, nodes normal Mental Status: Alert and oriented x3. Normal mood and affect Skin: Thin hair distribution on the scalp with no visible lesions, signs of dandruff, bald patches,or indications of plaques or parasitic infestation. Assessment/Plan Total time spent preparing the chart, conducting of the encounter with the patient and family and time spent documenting, reviewing, and ordering tests was 20 minutes. 1. Thinning hair (L65.9: Nonscarring hair loss, unspecified) A lengthy discussion with the patient centered around blood work conducted in 02/2023, which showedno concerns regarding thyroid involvement. The patient does not currently take a hair, skin, and nails multivitamin, and it was encouraged to help with the symptoms. I advised the patient to look at the control, as it appears in the fill history that it was changed around the same time she began noticing her symptoms. If there is a need for a control change, the patient was instructedto contact the office directly. In the event of difficulty reaching [facility] that currently prescribes her control, the patient should contact our office for assistance. 2. Body mass index [BMI] 19.9 or less, adult (Z68.1: Body mass index [BMI] 19.9 or less, adult) The standard range for ages 18 and older is >=18.5 and < 25 kg/m2. Your BMI today was within this range. Your BMI and weight management will be followed at subsequent visits. Portions of this record may have been created with voice recognition artificial intelligence software, specifically Quitt.ch, Viddyad and or InSupply. Substitutions may have occurred due to the inherent limitations of voice recognition and artificial intelligence software. Patient verbalized understanding and is agreeable to plan and course of treatment. This documentation was completed by voice-activated device and software. Inaccuracies compared to the original dictation of this provider are possible although this document has been overread and corrected. ATTESTATION: This note h (more content not included)...[facility] Comment on above:Result Comment: Electronically Signed By: Lia Weiss PA-C\\.br\\Date and Time Signed: 08/01/2311:01 EST\\.br\\Electronically Co-Signed By: Abhijit Siu\\.br\\Date and Time Co-Signed: 07/23/23 17:25 EST\\.br\\Electronically Co-Signed By: Abhijit Siu\\.br\\Date and Time Co- Signed: 08/25/23 15:09ESTAmbulatory Visit Summaryon [id number] Visit Summary PARIS VARGAS :2000 Visit Date:07/23/2023 Ambulatory Visit Instructions Your Care Team Attending Physician - Lia Weiss PA-C Primary Care Physician - Weiss PA-C, Lia E. This Is Your Medications List albuterol (Albuterol (Eqv-ProAir HFA) 90 mcg/inh inhalation aerosol) albuterol (albuterol 0.083% Inh Doris 3 mL) cholecalciferol (Vitamin D3 5000 intl units oral capsule) ethinyl estradiol-norgestimate (ethinyl estradiol-norgestimate triphasic 35 mcg Tab) montelukast (Singulair) multivitamin (Multi Vitamin+) omeprazole (omeprazole 20 mg Cap-DR) Procedures Performed Biopsy of lung (07/14/2020), Bone marrow transplant recipient (2017), Port. Discharge Vitals Temperature (Temporal Artery) 36.8 ?C Heart Rate (Peripheral) 104 Respiratory Rate 18 Blood Pressure 124/68 Height 166 cm Height 65 in Weight 54.2 kg Weight 119.24 lb BMI 19.67 Medications What How Much When Why Instructions Unchanged albuterol (Albuterol (Eqv-ProAir HFA) 90 mcg/ inh inhalation aerosol) 2 Puffs Inhalation Every 6 hours Pneumonia Unchanged albuterol (albuterol 0.083% Inh Doris 3 mL) 3 Milliliter Inhalation Every 6 hours as neededfor as needed for wheezing Bilateral pneumonia Wheezing S/P bone marrow transplant AML (acute myeloid leukemia) in remission Unchanged cholecalciferol (Vitamin D3 5000 intl units oral capsule) 1 Capsules By Mouth Every day with food Unchanged ethinyl estradiol-norgestimate (ethinyl estradiol-norgestimate triphasic 35 mcg Tab) Unchanged montelukast (Singulair) 10 Milligram By Mouth Every day Unchanged multivitamin (Multi Vitamin+) By Mouth Every day Unchanged omeprazole (omeprazole 20 mg Cap-DR) 1 Capsules By Mouth Every day Epigastric pain Allergies [place] (Rash) vancomycin (rash) Problems Ongoing - Any problem that you are currently receiving treatment for. 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 Please share your experience with us by completing your survey. We appreciate your feedback and thank you for choosing us for your care. NormalFisher [facility]oco Medical CenterFamily Medicine Office/Clinic Noteon [phone] Medicine Office/Clinic NoteChief Complaint Here for follow up for ER visit 2 weeks ago for pneumonia. Doing much better no residual sx continue. History of Present Illness Paris Vargas is a 23-year-old female who presents to the office for follow-up for emergency room visit for pneumonia 2 weeks ago. The patient reports she is doing much better, has no residual symptoms at this time. The patient reports significant improvement this week. She still experiences a cough, but it is notsevere and feels as though something is stuck in her throat. Last week, it was characterized as hard and tight, but her condition has greatly improved this week, and she feels almost back to normal. She was prescribed azithromycin and cephalexin. She mentions feeling a bit uneasy about being on azithromycin for an extended period. Before getting blood draw, she received Tylenol, a steroid, and Benadryl. She denies taking any mucus medication or other substances. Patient has no other questions or concerns at this time. Review of Systems PHQ Score Initial Depression Screen Score: 0 All negative except as noted in the HPI. Physical Exam Vitals & Measurements T: 36.8 ?C(Temporal Artery) HR: 78(Peripheral) RR: 18 BP: 110/60 SpO2: 98% HT: 65 in HT: 166 cm WT: 53.4 kg WT: 117.48 lb BMI: 19.38 General: Well developed female, well hydrated, no apparent distress Head: Normocephalic atraumatic Eyes: EOMI, sclera clear Ears: Bilateral tympanic membranes pearly godfrey with good cone of light Nose: No deformity, discharge, inflammation or lesion Mouth: Mucous membranes moist. Normal oropharynx, posterior pharynx without lesion or exudate. Tongue normal. Neck: No cervical lymphadenopathy Lungs: Mild wheezing on the left size lower right. Lungs clear to auscultation Cardio: Regular rate and rhythm with no murmur Mental status: Alert and oriented x3. Appropriate mood and affect. Assessment/Plan 1. Community acquired pneumonia (J18.9: Pneumonia, unspecified organism) This is now resolved. The patient has completed the entire course of antibiotics and is noting significant improvement. Discussed with patient optional chest X-ray could be ordered in 2 to 3 weeks to confirm completion of treatment. Advised patient if symptoms worsen to contact the office for reevaluation. Advised if still having issues with mild chest congestion, can take Mucinex 12- hour, twice daily asneeded for congestion relief. Encouraged hydration and rest. 2. 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 She requires Tylenol, Benadryl, and steroids prior to any administration of any blood products. Alert was placed in chart for patient as did not feel this would qualify for the allergy list. 3. Body mass index (BMI) of 19.0-19.9 in adult (Z68.1: Body mass index [BMI] 19.9 or less, adult) The standard range for ages 18 and older is >=18.5 and < 25 kg/m2. Your BMI today was within this range. Your BMI and weight management will be followed at subsequent visits. Portions of this record may have been created with voice recognition artificial intelligence software, specifically Quitt.ch, Viddyad and or InSupply. Substitutions may have occurred due to the inherent limitations of voice recognition and artificial intelligence software. Patient verbalized understanding and is agreeable to plan and course of treatment. This documentation was completed by voice-activated device and software. Inaccuracies compared to the original dictation of this provider are possible although this document has been overread and corrected ATTESTATION: This note has been generated by [employer] and edited by Maria A Gregg, Quality Check Clerk. 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 Medications Albuterol (Eqv-ProAir HFA) 90 mcg/inh inhalation aerosol, 2 puff(s), Inhalation, q6hr, 4 refills albuterol 0.083% Inh Doris 3 mL, 2.5 mg= 3 mL, Inhalation, q6hr, PRN azithromycin 500 mg oral tablet, Not taking ethinyl estradiol-norgestimate triphasic 35 mcg Tab omeprazole 20 mg Cap-DR, 20 mg= 1 cap(s), Oral, Daily, 1 refills Vitamin D3 5000 intl u (more content not included)...[facility] HospitalComment on above:Result Comment: Electronically Signed By: Lia Weiss PA-C\\.br\\Date and Time Signed: 06/14/2300:03 EDT\\.br\\Electronically Co- Signed By: Maria A Gregg\\.br\\Date and Time Co-Signed: 06/11/23 15:09 EDT Ambulatory Visit Summaryon [id number] Visit Summary PARIS VARGAS Darby :2000 Visit Date:06/11/2023 Ambulatory Visit Instructions Your Care Team Attending Physician - Lia Weiss PA-C Primary Care Physician - iLa Weiss PA-C This Is Your Medications List albuterol (Albuterol (Eqv-ProAir HFA) 90 mcg/inh inhalation aerosol) albuterol (albuterol 0.083% Inh Doris 3 mL) azithromycin (azithromycin 500 mg oral tablet) cholecalciferol (Vitamin D3 5000 intl units oral capsule) ethinyl estradiol-norgestimate (ethinyl estradiol-norgestimate triphasic 35 mcg Tab) omeprazole (omeprazole 20 mg Cap-DR) Procedures Performed Biopsy of lung (07/14/2020), Bone marrow transplant recipient (2017), Port. Discharge Vitals Temperature (Temporal Artery) 36.8 ?C Heart Rate (Peripheral) 78 Respiratory Rate 18 Blood Pressure 110/60 Height 166 cm Height 65 in Weight 53.4 kg Weight 117.48 lb BMI 19.38 What to do next You Need to Schedule the Following Appointments Follow Up with Lia Weiss PA-C When: Only if needed Comments: Only if needed [facility] [place] [phone] Medications What How Much When Why Instructions Unchanged albuterol (Albuterol (Eqv-ProAir HFA) 90 mcg/ inh inhalation aerosol) 2 Puffs Inhalation Every 6 hours Pneumonia Unchanged albuterol (albuterol 0.083% Inh Doris 3 mL) 3 Milliliter Inhalation Every 6 hours as neededfor as needed for wheezing Bilateral pneumonia Wheezing S/P bone marrow transplant AML (acute myeloid leukemia) in remission Unchanged azithromycin (azithromycin 500 mg oral tablet) take 1 tablet by mouth every WEDNESDAY, WEDNESDAY AND WEDNESDAY Unchanged cholecalciferol (Vitamin D3 5000 intl units oral capsule) 1 Capsules By Mouth Every day with food Unchanged ethinyl estradiol-norgestimate (ethinyl estradiol-norgestimate triphasic 35 mcg Tab) Unchanged omeprazole (omeprazole 20 mg Cap-DR) 1 Capsules By Mouth Every day Epigastric pain Allergies [place] (Rash) vancomycin (rash) Problems Ongoing - Any problem that you are currently receiving treatment for. 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 This may cause coughing and difficulty breathing. Community-acquired pneumonia is pneumonia that develops in people who are not, and have not recently been, in a hospital or other health care facility. Usually, pneumonia develops as a result of an illness that is caused by a virus, such as the commoncold and the flu (influenza). It can also be caused by bacteria or fungi. While the common cold andinfluenza can pass from person to person (are contagious), pneumonia itself is not considered contagious. What are the causes? This condition may be caused by: ? Viruses. ? Bacteria. ? Fungi, such as molds or mushrooms. What increases the risk? The following factors may make you more likely to develop this condition: ? Having certain medical conditions, such as: ? A long-term (chronic) disease, which may include chronic obstructive pulmonary disease (COPD), asthma, heart failure, cystic fibrosis, diabetes, kidney disease, sickle cell disease, and human immunodeficiency virus (HIV). ? A condition that increases the risk of breathing in (aspirating) mucus and other fluids from yourmouth and nose. ? A weakened body defense system (immune system). ? Having had your spleen removed (splenectomy). The spleen is the organ that helps fight germs and infections. ? Not cleaning your teeth and gums well (poor dental hygiene). ? Using tobacco products. ? Traveling to places where germs that cause pneumonia are present. ? Being near certain animals, or animal habitats, that have germs that cause pneumonia. ? Being older than 65 years of age. What are the signs or symptoms? Symptoms of this condition include: ? A dry cough or a wet (productive) cough. ? A fever. ? Sweating or chills. ? Chest pain, especially when breathing deeply or coughing. ? Fast breathing, difficulty breathing, or shortness of breath. ? Tiredness (fatigue). ? Muscle aches. How is this diagnosed? This condition may be diagnosed based on your medical history or a physical exam. You may also havetests, including: ? Chest X-rays. ? Tests of the level of oxygen and other gases in your blood. ? Tests of: ? Your blood. ? Mucus from your lungs (sputum). ? Fluid around your lungs (pleural fluid). ? Your urine. If your pneumonia is severe, other tests may be done to learn more about the cause. How is this treated? Treatment for this condition depends on many factors, such as the cause of your pneumonia, your medicines, and other medical conditions that you have. For most adults, pneumonia may be treated at home. In some cases, treatment must happen in a hospital and may include: ? Medicines that are given by mouth (orally) or through an IV, including: ? Antibiotic medicines, if bacteria caused the pneumonia. ? Medicines that kill viruses (antiviral medicines), if a virus caused the pneumonia. ? Oxygen therapy. Severe pneumonia, although rare, may require the following treatments: ? Mechanical ventilation.This procedure uses a machine to help you breathe if you cannot breathe well on your own or maintain a safe level of blood oxygen. ? Thoracentesis. This procedure removes any buildup of pleural fluid to help with breathing. Follow these instructions at home: Medicines ? Take gpnw-rix-bnnoxjp and prescription medicines only as told by your health care provider. ? Take cough medicine only if you have trouble sleeping. Cough medicine can prevent your body from removing mucus from your lungs. ? If you were prescribed an antibiotic medicine, take it as told by your health care provider. Do not stop taking the antibiotic even if you start to feel better. Lifestyle ? Do not drink alcohol. ? Do not use any products that contain nicotine or tobacco, such as cigarettes, e-cigarettes, and chewing tobacco. If you need help quitting, ask your health care provider. ? Eat a healthy diet. This includes plenty of vegetables, fruits, whole grains, low-fat dairy products, and lean protein. General instructions ? Rest a lot and get at least 8 hours of sleep each night. ? Sleep in a partly upright position at night. Place a few pillows under your head or sleep in a reclining chair. ? Return to your normal activities as told by your health care provider. Ask your health care provider what activities are safe for you. ? Drink enough fluid to keep your urine pale yellow. This helps to thin the mucus in your lungs. ? If your throat is sore, gargle with a salt?water mixture 3?4 times a day or as needed. To make a salt?water mixture, completely dissolve ??1 tsp (3?6 g) of salt in 1 cup (237 mL) of warm water. ? Keep all (more content not included)...[facility] CHEMISTRYOrdered By: SYSTEM SYSTEM on [id number]-nernwratldlfkd D3 [Mass/Vol] 43.0 ng/sSVmsunv67.0 - 100.0 ng/mLFTMC RemisolAnion gap [Moles/Vol]13 mmol/L Normal6 - 16 mEq/LFTMC RemisolCalcium [Mass/Vol]9.8 mg/dLNormal8.9 - 11.1 mg/dL [facility] RemisolChloride [Moles/Vol]104 mmol/UJyzown033 - 111 mmol/LFTMC RemisolCO2 [Moles/Vol]26 mmol/YAzxeph77 - 31 mmol/LFTMC RemisolCobalamin (Vitamin B12) [Mass/Vol]333 pg/tQGutefg97 - 1500 pg/mLFTMC RemisolCreatinine [Mass/Vol]0.8 mg/dLNormal0.5 - 1.3 mg/dLFTMC RemisolGFR/1.73 sq M.predicted among non-blacks MDRD (S/P/Bld) [Vol rate/Area]107 mL/min/1.73 j4Avxoel>=59mL/min/1.73 m2FT[facility] Chem SGlucose [Mass/Vol]76 mg/uVJsdgae87 - 199 mg/dLFTMC RemisolPotassium [Moles/Vol]3.9 mmol/LNormal3.5 - 5.3 mmol/LFTMC RemisolSodium [Moles/Vol]139 mmol/DBsqqkl746 - 145 mmol/LFTMC RemisolTSH Qn3.82 m[IU]/LNormal0.34 - 5.60 mcIU/mLFT[facility] RemisolUrea nitrogen [Mass/Vol]15 mg/dLNormal5 - 21 mg/dLFTMC RemisolUrea nitrogen/Creatinine [Mass ratio]19 mg/mrIrvfhf20 - 20[facility] Remisol HEMATOLOGYOrdered By: SYSTEM SYSTEM on 96-53-6189Ectgzplgg/100 WBC (Bld)0.4 % Normal0.0 - 2.0 %[facility] HemeAutoSSBasophils/Leukocytes Auto (Bld) [Pure # fraction]0.0 E9/LNormal0.0 - 0.2 E9/LFTMC HemeAutoSSEosinophils/100 WBC (Bld)2.0 %Normal0.0 - 8.0 %[facility] HemeAutoSSEosinophils/Leukocytes Auto (Bld) [Pure # fraction]0.1 E9/LNormal0.0 - 0.5 E9/LFTMC HemeAutoSSLymphocytes/100 WBC (Bld) 48.0 %Jhkcid05.0 - 50.0 %[facility] HemeAutoSSLymphocytes/Leukocytes Auto (Bld) [Pure # fraction]2.8 E9/LNormal1.0 - 4.0 E9/LFTMC HemeAutoSSMonocytes/100 WBC (Bld)6.6 %Normal4.0 - 14.0 %[facility] HemeAutoSSMonocytes/Leukocytes Auto (Bld) [Pure # fraction]0.4 E9/LNormal0.2 - 1.0 E9/LFTMC HemeAutoSSNeutrophils/100 WBC (Bld) 43.0 %Flenmw02.0 - 75.0 %[facility] HemeAutoSSNeutrophils/Leukocytes Auto (Bld) [Pure # fraction]2.5 E9/LNormal2.0 - 7.5 E9/LFT[facility] HemeAutoSSHEMATOLOGYOrdered By: Angel Ramirez on 02-60-3283Pgytqgqscjn distribution width (RBC) [Ratio]12.4 % Cplmwf49.9 - 14.2 %[facility] HemeAutoSSHematocrit (Bld) [Volume fraction]39.3 %Normal 34.0 - 46.0 %[facility] HemeAutoSSHemoglobin (Bld) [Mass/Vol]13.5 g/uWUmxpkr64.0 - 16.0 gm/dLFTMC HemeAutoSSMCH (RBC) [Entitic mass]34.5 mdQknx55.0 - 34.0 pgFTMC HemeAutoSSMCHC (RBC) [Mass/Vol]34.4 g/fQHafknv32.4 - 36.0 gm/dLFTMC HemeAutoSS MCV (RBC) [Entitic vol]100.2 pNPoqv35.0 - 100.0 fLFTMC HemeAutoSSPlatelet mean volume (Bld) [Entitic vol]7.7 fLNormal6.4 - 10.8 fLFTMC HemeAutoSSPlatelets (Bld) [#/Vol]195.0 E9/TVrbdcn090.0 - 500.0 E9/LFT[facility] HemeAutoSSRBC (Bld) [#/Vol] 3.9 E12/LLow4.3 - 5.9 E12/LFT[facility] HemeAutoSSWBC corrected for nucl RBC Auto (Bld) [#/Vol]5.7 E9/LNormal4.0 - 11.0 E9/LFTMC HemeAutoSSURINALYSISOrdered By: Manuela Yanez on 50-18-0908Comulopjd Ql (U)Negative (05/23/22 7:00 AM)NormalNegativeFTMC UA Auto SSClarity (U)Clear (05/23/22 7:00 AM)NormalClearFCARL AL[facility] U[facility] Auto SSColor (U)Yellow (05/23/22 7:00 AM)NormalYellowSUMMIT MEDICAL [facility] UA Auto SSEpithelial cells.squamous LM.HPF (Urine sed) [#/Area]3-4 /HPFNormal0-2/HPFSUMMIT MEDICAL CENTER – [facility] UA Auto SSGlucose Test strip (U) [Mass/Vol]Negative (05/23/22 7:00 AM)NormalNegativeSUMMIT MEDICAL [facility] UA Auto SSHemoglobin Ql (U)Negative (05/23/22 7:00 AM)NormalNegativeSUMMIT [facility] UA Auto SSKetones (U) [Mass/Vol]Negative (05/23/22 7:00 AM)NormalNegativeSUMMIT MEDICAL [facility] UA Auto SSLithium.plasma/Vander.RBC (Bld) [Mass ratio]0-3 /HPFNormal0-3/HPFSUMMIT MEDICAL CENTER [facility] UA Auto SSNitrite Ql (U)Negative (05/23/22 7:00 AM)NormalNegativeSUMMIT MEDICAL [facility] UA Auto SSpH (U)7.5 *NA* (05/23/22 7:00 AM)Invalid Interpretation Code5.0 - 9.0[facility] U[facility] Auto SSProtein (U) [Mass/Vol]Negative (05/23/22 7:00 AM)NormalNegativeSUMMIT MEDICAL [facility] UA Auto SSSpecific gravity (U) [Rel density] 1.015 *NA* (05/23/22 7:00 AM)Invalid Interpretation Code1.005 - 1.030[facility] UA Auto SSUA Spec DescClean Catch (05/23/22 7:00 AM)NormalSUMMIT MEDICAL C[facility] UA Auto SSUrobilinogen Qn (U)0.0099256 {Mehnaz'U}/dLNormal0.0 - 1.0 EU/dLSUMMIT MEDICAL CENTER – [facility] UA Auto SSWBC Auto Ql (U)Negative (05/23/22 7:00 AM)NormalNegativeSUMMIT MEDICAL [facility] UA Auto SSWBC LM.HPF (Urine sed) [#/Area]0-5 /HPFNormal0-5/HPFSUMMIT MEDICAL CENTER – [facility] UA Auto SSComplete Blood Count with Differentialon 12-02-3730Uclbmtidnjzm CompleteTufts Medical Center'M[facility] Stanley Children's HospitalErythrocyte distribution width (RBC) [Ratio]12.1 %0 - 14.4 %[facility] Hematocrit (Bld) [Volume fraction]35.1 %Low36 - 44 %[facility] Hemoglobin (Bld) [Mass/Vol]13.1 g/dL12 - 15 g/dlEast Liverpool City HospitalComment on above:Hemocue MethodImmature granulocytes/100 WBC (Bld)0.2 %[facility] HospitalComcorewell health lak[facility] on above:Immature Granulocyte Percent includes promyelocytes, myelocytes, and metamyelocytes. IG% > 1.0 indicates a left shift is present. With automated differentials, bands are included in the neutrophil count and not in the Immature Granulocyte Percent. MCH (RBC) [Entitic mass]35.2 szKuno98 - 34 pgAWexner Medical CenterHC37.9 % High31 - 37 %[facility] HospitalV (RBC) [Entitic vol]92.9 fL80 - 100 fl [facility] HospitalNucleated RBC/100 WBC (Bld) [Ratio]0 %-1 - 0 %[facility] HospitalPlatelet mean volume (Bld) [Entitic vol]9.4 fLEast Liverpool City HospitalComcorewell health lakeland hospitals st[facility] hospital on above: MPV is platelet range and age dependent Platelets (Bld) [#/Vol]154 10*3/[facility] HospitalRBC (Bld) [#/Vol]3.78 10*6/[facility] HospitalWBC (Bld) [#/Vol]5.9 10*3/[facility] HospitalComprehensive metabolic panelon 11-58-9434Udgkvxy [Mass/Vol]4.0 g/dL3.5 - 5 g/dLEast Liverpool City HospitalALP [Catalytic activity/Vol]56 U/L35 - 104 U/L [facility] HospitalALT [Catalytic activity/Vol]20 U/L0 - 34 U/[facility] CenterAST [Catalytic activity/Vol]25 U/L0 - 31 U/[facility] CenterBilirubin [Mass/Vol]0.3 mg/dL0 - 1 mg/dLEast Liverpool City HospitalCalcium [Mass/Vol]9.3 mg/dL7.6 - 11 mg/dLEast Liverpool City HospitalChloride [Moles/Vol] 104 mmol/L96 - 108 mmol/[facility] CenterCO2 [Moles/Vol]21.9 mmol/LLow 22 - 29 mmol/[facility] CenterCreatinine [Mass/Vol]0.91 mg/dL0.5 - 1 mg/dLEast Liverpool City HospitalGlucose [Mass/Vol]94 mg/dL70 - 99 mg/dLEast Liverpool City HospitalComment on above:Criteria for Diagnosis of Diabetes: Fasting Specimen (no caloric intake for at least 8 hours): <100 mg/dL Normal 100-125 mg/dL Increased risk for Diabetes >125 mg/dL Diagnostic for Diabetes Random Glucose (any time of day without regard to last meal): > or = 200 mg/dL plus Classic Symptoms of Diabetes Interpretation and review of laboratory resultsAbCleveland Clinic Potassium [Moles/Vol]3.6 mmol/L3.3 - 5.1 mmol/[facility] CenterProtein [Mass/Vol]7.1 g/dL5.9 - 8.4 g/dLSelect Medical Specialty Hospital - Columbusodium [Moles/Vol]138 mmol/L133 - 145 mmol/[facility] CenterUrea nitrogen [Mass/Vol]15 mg/dL4 - 19 mg/dLEast Liverpool City HospitalHemoglobin A1con [id number] Elph (Bld) [Mass fraction]4.9 %0 - 5.6 %[facility] HospitalComment on above:Reference Interval: <5.7% 5.7-6.4% Prediabetes > or = 6.5% Diabetes Targets for diabetes management: Type I <7.5% Type II <7.0% Release to patient->AutomaticACH LABEast Liverpool City HospitalMagnesiumon 49-44-1611Pxxcvktfc [Mass/Vol]2.0 mg/dL1.5 - 2.2 mg/dLEast [facility] City Hospital Manual Differentialon 05-08-2022% Eosinophils1 %0 - 3 %[facility] % Metamyelocytes0 %0 - 0 %[facility]% Monocytes4 %3 - 6 %[facility]% Myelocytes0 %0 - 0 %[facility]% Promyelocytes0 %0 - 0 %[facility] HospitalAbsolute Neutrophil No.2.1ABluffton HospitalAnisocytosisSlightEast Liverpool City HospitalAtypical Lymphocytes1 %0 - 8 %[facility] HospitalBand Neutrophil0 %Low5 - 11 %[facility] HospitalLymphocytes59 %High24 - 44 %[facility] Segmented Gkogcssllid48 %35 - 66 %[facility] HospitalNo Panel Information on 72-57-0112Spestgw to patient->[facility] Release to patient->[facility] HealthInterpretation and review of laboratory resultsAbnormBlanchard Valley Health SystemRelease to patient->[facility] HealthPhosphoruson 05-08-2022 Phosphate [Mass/Vol]2.9 mg/dL2.7 - 4.5 mg/dLEast Liverpool City HospitalTS with Reflex to T4, Freeon 45-17-2400PSE with reflex to T4, Free2.57[facility] HospitalVitamin D 25 hydroxyon [place] Vitamin D82 ng/mL30 - 100 ng/mL [facility] HospitalComment on above:Reference ranges provided by [facility] Laboratory are based on Endocrine Society Guidelines: Level: Characterization < 21 ng/mL: Vitamin D deficiency 21-29 ng/mL: Suboptimal Vitamin D status 30-100 ng/mL: Optimal Vitamin D status >100 ng/mL: Potentially toxic Vitamin D effects CHEMISTRYOrdered By: Tyesha Patel on 04-01-5719Tdvltit [Mass/Vol]3.8 g/dLNormal 3.3 - 5.0 gm/dLFTMC RemisolAlbumin/Globulin [Mass ratio]1.1 {ratio}Normal1.1 - 2.2[facility] RemisolALP [Catalytic activity/Vol]44 [iU]/rYdziwp91 - 98 Int._Unit/L [facility] RemisolALT No additional P-5'-P [Catalytic activity/Vol]21 [iU]/dNormal6 - 46 Int._Unit/LFT[facility] RemisolAnion gap [Moles/Vol]12 mmol/LNormal6 - 16 mEq/LFT[facility] RemisolAST [Catalytic activity/Vol]20 [iU]/dNormal5 - 43 Int._Unit/LFT[facility] Remisol Bilirubin [Mass/Vol]0.6 mg/dLNormal0.0 - 1.1 mg/dLFTMC RemisolBilirubin.direct [Mass/Vol]0.1 mg/dLNormal0.1 - 0.4 mg/dLFTMC RemisolBilirubin.indirect [Mass or moles/Vol]0.5 mg/dLNormal0.1 - 0.9 mg/dLFT[facility] RemisolCalcium [Mass/Vol]9.3 mg/dL Normal8.9 - 11.1 mg/dLFTMC RemisolChloride [Moles/Vol]104 mmol/ANphddq114 - 111 mmol/LFT[facility] RemisolCO2 [Moles/Vol]27 mmol/VNddbnd78 - 31 mmol/LFT[facility] Remisol Creatinine [Mass/Vol]0.9 mg/dLNormal0.5 - 1.3 mg/dLFT[facility] RemisolGlobulin (S) [Mass/Vol]3.5 g/dLNormal1.4 - 4.0 gm/dLFT[facility] RemisolGlucose [Mass/Vol]81 mg/dL Abqogs90 - 199 mg/dLFT[facility] RemisolPotassium [Moles/Vol]3.7 mmol/LNormal3.5 - 5.3 mmol/LFT[facility] RemisolProtein [Mass/Vol]7.3 g/dLNormal6.0 - 7.8 gm/dLFT[facility] Remisol Sodium [Moles/Vol]139 mmol/CInitqr616 - 145 mmol/LFT[facility] RemisolUrea nitrogen [Mass/Vol]18 mg/dLNormal5 - 21 mg/dLFT[facility] RemisolUrea nitrogen/Creatinine [Mass ratio]20 mg/ptXeszzc09 - 20[facility] RemisolCHEMISTRYOrdered By: SYSTEM SYSTEM on 60-67-5890JJE/1.73 sq M.predicted among blacks MDRD (S/P/Bld) [Vol rate/Area] mL/min/1.73 z1Hevjih>=59mL/min/1.73 m2[facility] Chem SGFR/1.73 sq M.predicted among non-blacks MDRD (S/P/Bld) [Vol rate/Area]mL/min/1.73 n4Psbuzc>=59mL/min/1.73 m2 [facility] Chem STroponin I.cardiac [Mass/Vol]pg/mLLow10.10 - 27.10 pg/mLFT[facility] Remisol COAGULATIONOrdered By: Tyesha Patel on 90-47-1203gZUH Coag (PPP) [Time]37.5 sHigh 25.1 - 36.5 second(s)[facility] Auto CoagINR Coag (PPP) [Relative time]1.1 {INR} Invalid Interpretation CodeFTMC Auto CoagPT Coag (PPP) [Time]12.7 xUrmilr14.2 - 12.9 second(s)[facility] Auto CoagHEMATOLOGYOrdered By: SYSTEM SYSTEM on 04-03-2022 Basophils/100 WBC (Bld)0.7 %Normal0.0 - 2.0 %[facility] HemeAutoSSBasophils/Leukocytes Auto (Bld) [Pure # fraction]0.1 E9/LNormal0.0 - 0.2 E9/LFT[facility] HemeAutoSS Eosinophils/100 WBC (Bld)0.5 %Normal0.0 - 8.0 %[facility] HemeAutoSS Eosinophils/Leukocytes Auto (Bld) [Pure # fraction]0.0 E9/LNormal0.0 - 0.5 E9/L [facility] HemeAutoSSLymphocytes/100 WBC (Bld)29.6 %Ytzgec37.0 - 50.0 %[facility] HemeAutoSS Lymphocytes/Leukocytes Auto (Bld) [Pure # fraction]2.8 E9/LNormal1.0 - 4.0 E9/L [facility] HemeAutoSSMonocytes/100 WBC (Bld)8.4 %Normal4.0 - 14.0 %[facility] HemeAutoSS Monocytes/Leukocytes Auto (Bld) [Pure # fraction]0.8 E9/LNormal0.2 - 1.0 E9/L [facility] HemeAutoSSNeutrophils/100 WBC (Bld)60.8 %Bbnoxp52.0 - 75.0 %[facility] HemeAutoSS Neutrophils/Leukocytes Auto (Bld) [Pure # fraction]5.8 E9/LNormal2.0 - 7.5 E9/L [facility] HemeAutoSSHEMATOLOGYOrdered By: Beryl Villareal on 11-42-3310Wppxnuobqjj distribution width (RBC) [Ratio]12.4 %Nwspam88.9 - 14.2 %[facility] HemeAutoSS Hematocrit (Bld) [Volume fraction]36.7 %Thoixn44.0 - 46.0 %[facility] HemeAutoSS Hemoglobin (Bld) [Mass/Vol]12.8 g/kANnogit34.0 - 16.0 gm/dLFT HemeAutoSSMCH (RBC) [Entitic mass]33.8 eySfzvid24.0 - 34.0 pgFTM HemeAutoSSMCHC (RBC) [Mass/Vol]34.8 g/bFMnmqnf52.4 - 36.0 gm/dLFT HemeAutoSSMCV (RBC) [Entitic vol] 97.0 wHOajbga20.0 - 100.0 fLSUMMIT MEDICAL CENTER – [facility] HemeAutoSSPlatelet mean volume (Bld) [Entitic vol]7.2 fLNormal6.4 - 10.8 fLFT HemeAutoSSPlatelets (Bld) [#/Vol]199.0 E9/L Shbrbv554.0 - 500.0 E9/LFTMC HemeAutoSSRBC (Bld) [#/Vol]3.8 E12/LLow4.3 - 5.9 E12/LFT[facility] HemeAutoSSWBC corrected for nucl RBC Auto (Bld) [#/Vol]9.6 E9/LNormal 4.0 - 11.0 E9/LFT[facility] HemeAutoSSSEROLOGYOrdered By: Tyesha Patel on 17-11-7952Obxb hCG QlNegative (04/03/22 10:29 PM)NormalSUMMIT MEDICAL [facility] Man SeroCT CHEST WO IVCONon 98-63-9117Axlkvftvp [facility] Vital Signs Date TimeVital SignValuePerforming LuiujotelPvvjhezt12-28-4442 13:46-0400Body .1 Patricia Hancock MD Work Phone: [facility]'s HospitalIalxbxpb89-87-3816 13:46-0400Body mass index (BMI) [Ratio]19.78 kg/g1RgiwvumhcBlossom Hancock MD Work Phone: [facility]09-23-2025 13:46-0400Body xrxmdxpznmo82.3 [degF]Blossom Hancock MD Work Phone: [phone]09-23-2025 13:46-0400Body itlbqy68.9 kgBlossom Hancock MD Work Phone: [phone] [place], [place] 2011109-23-2025 13:46-0400 Diastolic blood fgyqfhbx58 mm[Hg]Blossom Hancock MD Work Phone: [phone]09-23-2025 13:46-0400Heart mnva353 /Obi Hancock MD Work Phone: [phone] [place], [place] 2011109-23-2025 13:46-0400 Respiratory rate20 /Obi Hancock MD Work Phone: [phone]09-23-2025 13:46-0400Systolic blood ikvporhp408 mm[Hg]Blossom Hancock MD Work Phone: [phone] [place], [place] 7910408-15-2025 08:16-0400Body uweqer068.6 cmEfrain Pathak DO Work Phone: [facility] HospitalQlydlhdeks03-77-9868 08:16-0400Body mass index (BMI) [Ratio]19.69 kg/i2ObxcimoEfrain Pathak DO Work Phone: [facility] HospitalGjdfnwfeut99-86-1152 08:16-0400Body btzqeo51.34 kgEfrain Pathak DO Work Phone: [facility] HospitalZcpligoreq15-38-1560 08:16-0400Diastolic blood imxasjyf80 mm[Hg]Efrain Pathak DO Work Phone: [facility] HospitalBwwmwdamwo31-66-7825 08:16-0400Systolic blood vrcanhru345 mm[Hg]Efrain Pathak DO Work Phone: [phone] [place], [place] [address]Yefhihdgpy08-27-7502 18:13-0400Body vstuag702.64 cmAjackie Arizmendi MECHANICAL SYSTEMS DESIGN ENGINEER Work Phone: [facility]07-17-2025 18:13-0400 Body mass index (BMI) [Ratio]19.8 kg/m9CviljBrynn Arizmendi MECHANICAL SYSTEMS DESIGN ENGINEER Work Phone: [address] [place], [place] 5320807-17-2025 18:13-0400 Body .9 [degF]Brynn Arizmendi MECHANICAL SYSTEMS DESIGN ENGINEER Work Phone: [address] [place], [place] 5320807-17-2025 18:13-0400 Body emefml82.84 kgBrynn Arizmendi MECHANICAL SYSTEMS DESIGN ENGINEER Work Phone: [address] [place], [place] 5320807-17-2025 18:13-0400 Diastolic blood taddrfos56 mm[Hg]Brynn Arizmendi MECHANICAL SYSTEMS DESIGN ENGINEER Work Phone: [address] [place], [place] 5320807-17-2025 18:13-0400 Heart rate83 /minBrynn Kochler MECHANICAL SYSTEMS DESIGN ENGINEER Work Phone: [address] [place], [place] 5320807-17-2025 18:13-0400 Respiratory rate20 /minBrynn Arizmendi MECHANICAL SYSTEMS DESIGN ENGINEER Work Phone: [address] [place], [place] 5320807-17-2025 18:13-0400 SaO2% (BldA) [Mass fraction]96 %Brynn Arizmendi MECHANICAL SYSTEMS DESIGN ENGINEER Work Phone: [facility]07-17-2025 18:13-0400 Systolic blood ystozmjr619 mm[Hg]Brynn Arizmendi MECHANICAL SYSTEMS DESIGN ENGINEER Work Phone: [address] [place], [place] 5320807-16-2025 12:21-0400 Body oyujid387.1 Yasmine Albarado MD Work Phone: [facility]07-16-2025 12:21-0400Body mass index (BMI) [Ratio]20.3 kg/x7LbpxxaddtzJose Alfredo Albarado MD Work Phone: [facility]07-16-2025 12:21-0400Body mvyoje50.34 kgJose Alfredo Albarado MD Work Phone: [phone]07-16-2025 12:21-0400Diastolic blood yxvxkllu53 mm[Hg]Jose Alfredo Albarado MD Work Phone: [phone]07-16-2025 12:21-0400Heart ziud305 /minJose Alfredo Albarado MD Work Phone: [phone]07-16-2025 12:21-7628ZuO9% (BldA) [Mass fraction]100 %Jose Alfredo Albarado MD Work Phone: [phone]07-16-2025 12:21-0400Systolic blood kflzckki111 mm[Hg]Jose Alfredo Albarado MD Work Phone: [phone]06-13-2025 10:11-0400Body mass index (BMI) [Ratio]21.63 kg/o1TvfkvkPrema Henry MD Work Phone: [phone]06-13-2025 10:11-0400Body ilshyj23.97 kgPrema Henry MD Work Phone: [phone]06-13-2025 10:11-0400Diastolic blood nogvvdpd84 mm[Hg]Prema Henry MD Work Phone: [phone]06-13-2025 10:11-0400Heart rate98 /min Prema Henry MD Work Phone: [phone]06-13-2025 10:11-0400Systolic blood owsixukb750 mm[Hg]Prema Henry MD Work Phone: [phone]03-01-2025 09:24-0500Body vvyvke069.64 cmGinger Alfonzoore ARTISTS' MODEL-BC Work Phone: [facility]03-01-2025 09:24-0500 Body mass index (BMI) [Ratio]20.8 kg/b1Kpwrrr Alfonzoore [employer]ISTS[employer]DEL[employer] Work Phone: [phone] [place], [place] 2293903-01-2025 09:24-0500 Body hsnvtslmkyf33.2 [degF]Izzy Bullimore [employer] Work Phone: [phone] [place], [place] 2293903-01-2025 09:24-0500 Body lokbyx41.51 kgGinger Bullimore [employer]DEL[employer] Work Phone: [phone]03-01-2025 09:24-0500 Diastolic blood fqusjjvn02 mm[Hg]Izzy Bullimore [employer] Work Phone: [phone] [place], [place] 7453003-01-2025 09:24-0500 Heart pooo450 /minGinger Bullimore [employer] Work Phone: [phone]03-01-2025 09:24-0500 Respiratory rate18 /minGinger Bullimore [employer]DEL[employer] Work Phone: [phone] [place], [place] 7453003-01-2025 09:24-0500 SaO2% (BldA) [Mass fraction]96 %Izzy Bullimore [employer] Work Phone: [phone]03-01-2025 09:24-0500 Systolic blood afzpmfyz830 mm[Hg]Izzy Bullimore [employer] Work Phone: [phone] [place], [place] 7453012-09-2024 17:13-0500 Body ocbzyh342.64 cmGinger Bullimore [employer] Work Phone: [phone] [place], [place] 2293912-09-2024 17:13-0500 Body ghdsydgqufv89.1 [degF]Izzy Bullimore [employer] Work Phone: [phone] [place], [place] 2293912-09-2024 17:13-0500 Body tiscvu88.2 kgGinger Bullimore [employer] Work Phone: [phone] [place], [place] 2293912-09-2024 17:13-0500 Diastolic blood iinzpqch03 mm[Hg]Izzy Bullimore [employer] Work Phone: [facility]12-09-2024 17:13-0500 Heart rate89 /minSergeer Mirianore [employer] Work Phone: [facility]12-09-2024 17:13-0500 Respiratory rate16 /minIzzy Velaore [employer]DEL[employer] Work Phone: [facility]12-09-2024 17:13-0500 SaO2% (BldA) [Mass fraction]98 %Izzy Engle [employer] Work Phone: [facility]12-09-2024 17:13-0500 Systolic blood qoqectxu815 mm[Hg]Izzy Velaore [employer] Work Phone: [facility]12-06-2024 04:50-0500 Heart rate98 /minTim Gabe [address] [place], [place] 6745512-06-2024 04:50-0500 Respiratory rate16 /minTim Gabe [address] [place], [place] 6745512-06-2024 04:50-1717FtS4% (BldA) [Mass fraction]97 %Deon Bernal [facility]12-06-2024 03:21-0500Body rushttaeelr91.06 [degF]Deon Bernal [address] [place], [place] 6745512-06-2024 03:21-0500 Diastolic blood mm[Hg]Deon Bernal [address] [place], [place] 6745512-06-2024 03:21-0500Heart nilf263 /minTim Gabe [address] [place], [place] 6745512-06-2024 03:21-0500 Respiratory rate16 /minTim Gabe [address] [place], [place] 6745512-06-2024 03:21-0848KpF2% (BldA) [Mass fraction]96 %Deon Bernal [facility]12-06-2024 03:21-0500 Systolic blood pgengxyd465 mm[Hg]Deon Bernal [facility]12-04-2024 13:49-0500Blood Pressure LocationSHELLY SHELIA [phone]-DyndnDelaware County Hospital 08-16-2024 13:49-0500Body mjitvwubdxt31.06 [degF]BETTYSunita BASS 565-2898Auvfar-IpzlfDelaware County Hospital 08-16-2024 13:49-0500Diastolic blood xhvoxsfs08 mm[Hg]BETTY SHELIA 546-9850Dnhbsb-YjkjwDelaware County Hospital 08-16-2024 13:49-0500Heart rate86 /minSHELLY SHELIA 527-6842Coplzx-GgplyDelaware County Hospital 08-16-2024 13:49-0500Respiratory rate18 /minSHELLY SHELIA 230-4078Hhdrxj-TenkxDelaware County Hospital 08-16-2024 13:49-4105WeK7% (BldA) [Mass fraction]97 %BETTY SHELIA [phone]-VehtrDelaware County Hospital 08-16-2024 13:49-0500Systolic blood xwrlzabw300 mm[Hg]BETTY SHELIA 158-4208Mexgpt-VridzDelaware County Hospital 08-15-2024 09:16-0500Body mass index (BMI) [Ratio]20.18 kg/e9JqbiiooEthel Rangel STUDIO MANAGER Work Phone: [facility] HospitalFsdspgbegq91-96-6166 09:16-0500Body temperature 97.5 [degF]Ethel Rangel STUDIO MANAGER Work Phone: [facility] HospitalUvojkpfasr82-71-4667 09:16-0500Body kcbita69.7 kg Ethel Arvizumichelle STUDIO MANAGER Work Phone: [facility] HospitalHcdoklevvq85-64-0795 09:16-0500Diastolic blood loutagib74 mm[Hg]Ethel Arvizumichelle STUDIO MANAGER Work Phone: [facility] HospitalIbnxelthlq03-23-4388 09:16-0500Heart rate90 /min Ethel Claire STUDIO MANAGER Work Phone: [facility] HospitalFuezxrzsbv64-79-9747 09:16-4450BaQ9% (BldA) [Mass fraction]97 %Ethel Emmanuellara STUDIO MANAGER Work Phone: [facility] HospitalMzymskrmel79-45-0937 09:16-0500Systolic blood vptmsbqo769 mm[Hg]Ethel Emmanuellara STUDIO MANAGER Work Phone: [facility] HospitalKrvqfqfkrk68-35-1170 09:22-0500Blood Pressure LocationSHELLY SHELIA 438-9308Zkglxo-JpyzuDelaware [facility] 08-14-2024 09:22-0500Body zafftzpiygu15.88 [degF]BETTY SHELIA [phone]-LnbgdDelaware County Hospital 08-14-2024 09:22-0500Diastolic blood mm[Hg]BETTY SHELIA [phone]-EgbsxDelaware County Hospital 08-14-2024 09:22-0500Heart rate94 /minSHELLY SHELIA [phone]-PbzqnDelaware County Hospital 08-14-2024 09:22-0500Respiratory rate18 /minSHELLY SHELIA [phone]-AlfqlDelaware County Hospital 08-14-2024 09:22-5338VrP4% (BldA) [Mass fraction]98 %BETTY SHELIA [phone]-AsvynDelaware County Hospital 08-14-2024 09:22-0500Systolic blood qbximyef488 mm[Hg]BETTY SHELIA [phone]-PwtwnC[facility] [place] 07-14-2024 13:49-0400Body mass index (BMI) [Ratio]21.53 kg/k3NpxfwdKimberly Pierre MD Work Phone: [phone] Yvwpxu78-69-0244 13:49-0400Body temperature 97.81 [degF]Kimberly Pierre MD Work Phone: [phone] Vvfkji40-02-6238 13:49-0400Body .7 kgKimberly Pierre MD Work Phone: [phone] hospitaland Rdsisl91-38-2045 13:49-0400Diastolic blood eioixwyk25 mm[Hg]Kimberly Pierre MD Work Phone: [phone] hospitaland Jxlaal34-52-3642 13:49-0400Heart rate93 /min Kimberly Pierre MD Work Phone: [phone] hospitaland Uaqfng26-13-1117 13:49-0400Respiratory rate 16 /minKimberly Pierre MD Work Phone: [phone] hospitaland Qcieia99-43-2696 13:49-3173DvM4% (BldA) [Mass fraction]100 %Kimberly Pierre MD Work Phone: [place] Dkxtlf18-05-5593 13:49-0400Systolic blood eoeefqid980 mm[Hg]Kimberly Pierre MD Work Phone: [phone] [facility] hospitaland Ubdjix41-13-8889 11:15-0400Diastolic blood wwvramqq21 mm[Hg]Blossom Hancock MD Work Phone: [facility]08-23-2024 11:15-0400Systolic blood fdeauuxi791 mm[Hg]Blossom Hancock MD Work Phone: [facility]08-23-2024 10:37-0400Body ixjrzj219.3 cmSmaulik Hancock MD Work Phone: [facility]08-23-2024 10:37-0400Body mass index (BMI) [Ratio]19.88 kg/l9AvkpvtqxoBlossom Hancock MD Work Phone: [facility]08-23-2024 10:37-0400Body emcvrfgemce99.2 [degF]Blossom Hancock MD Work Phone: [facility]08-23-2024 10:37-0400Body ngkaqh62.3 kgStjohnna Hancock MD Work Phone: [facility]08-23-2024 10:37-0400Heart yqif413 /Obi Hancock MD Work Phone: [facility]08-23-2024 10:37-0400 Respiratory rate16 /Obi Hancock MD Work Phone: [facility]07-01-2024 10:49-0400Blood Pressure LocationLia Weiss [phone]-LvthcAshtabula [facility] Hospital 03-13-2024 10:49-0400Body fvaqwbxdhgs13.6 [degF]Lia Weiss [phone]-EhuduAshtabula General Hospital 03-13-2024 10:49-0400Diastolic blood mm[Hg]Lia Weiss 361-3408Zibgwz-QhhipAshtabula General Hospital 03-13-2024 10:49-0400Heart rate88 /Brigid Weiss 071-1138Osznua-XwjsiAshtabula General Hospital 03-13-2024 10:49-0400Respiratory rate20 /Brigid Weiss 771-5612Mmbocy-GdeyqAshtabula General Hospital 03-13-2024 10:49-6539SdF9% (BldA) [Mass fraction]99 %Lia Weiss 186-3401Uwzzfm-WdtemAshtabula General Hospital 03-13-2024 10:49-0400Systolic blood tfhlyqnn895 mm[Hg]Lia Weiss 253-0885Zcbcts-OyotgAshtabula General Hospital 11-17-2023 02:08-0500Diastolic blood urtvkgph00 mm[Hg][facility]03-06-2024 02:08-0500Heart rate96 /[facility] 02:08-0500Mean blood ypofunbr01 mm[Hg][facility]03-06-2024 02:08-0500Respiratory rate18 /min [facility]03-06-2024 02:08-0183ErO4% (BldA) [Mass fraction]98 %[facility]03-06-2024 02:08-0500Systolic blood eatmxydj518 mm[Hg][facility]03-06-2024 01:30-0500Heart azre109 /min[facility]03-06-2024 01:30-0500Respiratory rate18 /min[facility]03-06-2024 01:30-0052FgZ8% (BldA) [Mass fraction]97 %[facility]03-06-2024 00:30-0500Heart rate88 /[facility]03-06-2024 00:30-0500Respiratory rate18 /min [facility]03-06-2024 00:30-0215XzX6% (BldA) [Mass fraction]97 %[facility]03-05-2024 23:30-0500Diastolic blood cpivsump81 mm[Hg][facility]03-05-2024 23:30-0500Mean blood ltqntkej95 mm[Hg][facility]03-05-2024 23:30-0500Systolic blood flfekpzq791 mm[Hg][facility]03-05-2024 22:30-0500Diastolic blood uirlxvqe01 mm[Hg][facility]03-05-2024 22:30-0500Mean blood jssmbedg00 mm[Hg][facility]03-05-2024 22:30-0500Systolic blood tcyyqmup941 mm[Hg][facility]03-05-2024 21:30-0500Body .14 [degF][facility]03-05-2024 21:30-0500Heart jzlu743 /min [facility]11-10-2023 11:09-0500Blood Pressure Jasmin Weiss [phone]-Sntvg[address] [place] [address] 07-23-2023 11:09-0500Body kjguxccefsw65.24 [degF]Lia Weiss 394-5234Ixjdpk-Xtwci[address] [place] [address] 07-23-2023 11:09-0500Diastolic blood wuupaxiu82 mm[Hg]Lia Weiss 179-4952Vrcggs-Ohzvd[address] [place] [address] 07-23-2023 11:09-0500Heart objd648 /Brigid Weiss 626-2103Pixgvd-Exict[address] [place] [address] 07-23-2023 11:09-0500Respiratory rate18 /Brigid Weiss 697-8777Nyqexq-Zqpzl[address] [place] [address] 07-23-2023 11:09-4139ApO0% (BldA) [Mass fraction]98 %Lia Weiss 290-8674Ibpnho-Vcjde[address] [place] [address] 07-23-2023 11:09-0500Systolic blood mm[Hg]Lia Weiss 710-0883Gsthfn-AexcuAshtabula General Hospital 06-11-2023 10:36-0400Blood Pressure Jasmin Weiss 148-2940Xgqdrl-Urzhn[address] [place] [address] 06-11-2023 10:36-0400Body wjlgjwvcusc36.24 [degF]Lia Weiss 837-8188Whgoom-JmmcnAshtabula General Hospital 06-11-2023 10:36-0400Diastolic blood zzwfbpif65 mm[Hg]Lia Weiss 645-9234Folqdf-Xrobk[address] [place] [address] 06-11-2023 10:36-0400Heart rate78 /Brigid Weiss 061-5551Qdjral-Abirn[address] [place] [address] 06-11-2023 10:36-0400Respiratory rate18 /Brigid Weiss 636-5646Qxcsqf-DtorzAshtabula General Hospital 06-11-2023 10:36-7867XbR7% (BldA) [Mass fraction]98 %Lia Weiss 915-4897Ccqkld-Tpcfz[address] [place] [address] 06-11-2023 10:36-0400Systolic blood keqwjurn291 mm[Hg]Lia Weiss 635-2216Uywbgj-Eclpw[address] [place] [address] 05-07-2023 13:03-0400Body tmrfez254.5 Patricia Hancock MD Work Phone: [facility]08-25-2023 13:03-0400Body mass index (BMI) [Ratio]18.76 kg/c5PnkryqtkzBlossom Hancock MD Work Phone: [facility]08-25-2023 13:03-0400Body upgtwgeybwa43.9 [degF]Blossom Hancock MD Work Phone: [facility]08-25-2023 13:03-0400Body iynbvn58.9 kgStepreinaldo Hancock MD Work Phone: [facility]08-25-2023 13:03-0400 Diastolic blood xvgtaadi46 mm[Hg]Blossom Hancock MD Work Phone: [facility]08-25-2023 13:03-0400Heart rate88 /Obi Hancock MD Work Phone: [facility]08-25-2023 13:03-0400 Respiratory rate18 /Obi Hancock MD Work Phone: [facility]08-25-2023 13:03-0400Systolic blood mlfsnmdy475 mm[Hg]Blossom Hancock MD Work Phone: [facility]06-16-2023 10:53-0400Blood Pressure Jasmin Weiss [phone]-Azmgm[address] [place] [address] 02-26-2023 10:53-0400Diastolic blood kswjddob72 mm[Hg]Lia Weiss 310-1207Sbhtxg-Jjotw[address] [place] [address] 02-26-2023 10:53-0400Heart rate76 /Brigid Weiss [phone]-Uzosd[address] [place] [address] 02-26-2023 10:53-0400Respiratory rate20 /Brigid Weiss 691-2570Udhzjg-Vsfxk[address] [place] [address] 02-26-2023 10:53-6461BeW8% (BldA) [Mass fraction]99 %Lia Weiss 357-4646Qshhzk-Zxygo[address] [place] [address] 02-26-2023 10:53-0400Systolic blood ppsmxbur419 mm[Hg]Lia Weiss 794-4724Kpqlfj-Iplwu[address] [place] [address] 11-06-2022 14:56-0500Blood Pressure LocationLia Weiss 285-4927Ifcatr-Skoqc[address] [place] [address] 11-06-2022 14:56-0500Diastolic blood mm[Hg]Lia Hendersonzier 652-2531Keiydw-Runic[address] [place] [address] 11-06-2022 14:56-0500Heart rate75 /Sherriejackjoce HendersonWeiss 217-1858Mhuswz-Hhdsr[address] [place] [address] 11-06-2022 14:56-0500Respiratory rate18 /minEllen Weiss 807-0724Lmpovv-Qswrz[address] [place] [address] 11-06-2022 14:56-0589HhN8% (BldA) [Mass fraction]98 %Lia Weiss 588-9124Qtxyqs-Ltnkc[address] [place] [address] 11-06-2022 14:56-0500Systolic blood orlfomze296 mm[Hg]Liajoce HendersonWeiss [phone]-Tjzol[address] [place] [address] 09-11-2022 11:39-0500Blood Pressure LocationHolly Joseblaire 520-5935Fcsgqy-FzcsnPomerene Hospital 09-11-2022 11:39-0500Body xzovsvzhkxf29.42 [degF]Holly Garcia 965-3657Ggzoiu-MgnszPomerene Hospital 09-11-2022 11:39-0500Diastolic blood zszvismp19 mm[Hg]Holly Garcia 928-7482Agteil-HsejnPomerene Hospital 09-11-2022 11:39-0500Heart nhfd775 /minHolly Garcia 125-3812Dtqpha-MdzqpPomerene Hospital 09-11-2022 11:39-7909QeM4% (BldA) [Mass fraction]99 %Hollynnamdi Garcia 487-0466Cvcskq-UhbzqPomerene Hospital 09-11-2022 11:39-0500Systolic blood qjzxdeyr820 mm[Hg]Hollynnamdi Garcia 633-2788Hqkqxv-NahenPomerene Hospital 07-31-2022 10:40-0500Body niksuw745.1 Cindy Pierre MD Work Phone: [phone]. Francis HospitalCnzxrp33-10-8050 10:40-0500Body temperature 98.29 [degF]Kimberly Pierre MD Work Phone: [phone]. Francis HospitalIjpgil43-42-9047 10:40-0500Body qascwn21.5 kgKimberly Pierre MD Work Phone: [phone]. Francis HospitalWvvmmg65-07-0690 10:40-0500Diastolic blood goebzboy05 mm[Hg]Kimberly Pierre MD Work Phone: [phone]. Francis HospitalVzbrww97-47-7443 10:40-0500Heart wogt925 /Ashely Pierre MD Work Phone: [phone]. Francis HospitalGqalyf11-74-0108 10:40-0500Respiratory rate 16 /Ashely Pierre MD Work Phone: [phone]. Francis HospitalPrbtgn84-46-9322 10:40-2332FqY5% (BldA) [Mass fraction]97 %Kimberly Pierre MD Work Phone: [phone]. Francis HospitalQheayb65-53-1140 10:40-0500Systolic blood etuoxhzj798 mm[Hg]Kimberly Pierre MD Work Phone: [phone]. Francis HospitalGulawc11-43-5128 12:58-0400Blood Pressure LocationHolly Garcia [phone]-BtlaqPomerene Hospital 07-17-2022 12:58-0400Body xbbfichfdan40.7 [degF]Holly Garcia 180-5120Bdvcbs-SwapyPomerene Hospital 07-17-2022 12:58-0400Diastolic blood pwryslzm03 mm[Hg]Holly Barbozamary 980-7132Jxcauj-AhndfPomerene Hospital 07-17-2022 12:58-0400Heart mzbt297 /minHolly Joseterellmary 909-0395Fwpgxm-RbboePomerene Hospital 07-17-2022 12:58-2823CuT9% (BldA) [Mass fraction]95 %Holly Garcia 555-2599Xvjjzr-EljupPomerene Hospital 07-17-2022 12:58-0400Systolic blood mm[Hg]Holly Garcia 263-2641Lyxcsw-WfssiPomerene Hospital 05-08-2022 16:05-0400Diastolic blood vqbknyiu40 mm[Hg]Blossom Hancock MD Work Phone: [phone]08-26-2022 16:05-5458YiK5% (BldA) [Mass fraction]97 %Blossom Hancock MD Work Phone: [facility]08-26-2022 16:05-0400Systolic blood yjqimvpy925 mm[Hg]Blossom Hancock MD Work Phone: [phone]91[facility]08-26-2022 14:24-0400Body ilkehf964.5 cmSmaulik Hancock MD Work Phone: [phone]08-26-2022 14:24-0400Body mass index (BMI) [Ratio]18.73 kg/i2Zmtznoiqdjohnna Hancock MD Work Phone: [phone]08-26-2022 14:24-0400Body ppaccqpcmzc69.3 [degF]Blossom Hancock MD Work Phone: [phone] [place], [place] 7910408-26-2022 14:24-0400Body .8 kgBlossom Hancock MD Work Phone: [phone]08-26-2022 14:24-0400Heart vspo892 /Obi Hancock MD Work Phone: [facility]08-26-2022 14:24-0400 Respiratory rate18 /Obi Hancock MD Work Phone: [facility]07-28-2022 14:01-0400Body pdklmebknkm58.24 [degF]Rosa Bond 770-7419Tamkqn-AxdviMer[facility] 07-28-2022 14:01-0400Diastolic blood rvnxvxiq63 mm[Hg] Rosa Maciar 666-8370Bjnmln-JfhnfMercy Health [facility] 07-28-2022 14:01-0400Heart hbot074 /minClaire Cogar 856-1547Flhtvd-AyktdMercy Health [facility] 07-28-2022 14:01-9984BwE5% (BldA) [Mass fraction]97 % Rosabhanu Luxar 738-1012Jikrfg-VrkwiMercy Health [facility] 07-28-2022 14:01-0400Systolic blood cymqljrj766 mm[Hg] Rosa Cogar 762-9550Cjmxpg-IpmfwMercy Health [facility] 07-23-2022 01:11-0400Diastolic blood viyiiwzc88 mm[Hg] Kaylinn Dokken [facility]07-23-2022 01:11-0400Heart rate67 /minKaylinn Dokken [facility]07-23-2022 01:11-0400Mean blood zalbycmx48 mm[Hg]Kaylinn Dokken [facility]07-23-2022 01:11-0400 Respiratory rate14 /minKaylinn Dokken [address] [place], [place] 7166007-23-2022 01:11-0289ElD4% (BldA) [Mass fraction]98 %Kaylinn Dokken [address] [place], [place] 7166007-23-2022 01:11-0400 Systolic blood yunbbbzw218 mm[Hg]Kaylinn Dokken [address] [place], [place] 7166007-23-2022 00:34-0400 Diastolic blood hhytpvga04 mm[Hg]Kaylinn Dokken [address] [place], [place] 7166007-23-2022 00:34-0400Heart rate64 /minKaylinn Dokken [address] [place], [place] 7166007-23-2022 00:34-0400Mean blood hasrjsyo14 mm[Hg]Kaylinn Dokken [address] [place], [place] 7166007-23-2022 00:34-0400 Respiratory rate18 /minKaylinn Dokken [address] [place], [place] 7166007-23-2022 00:34-0163LcE2% (BldA) [Mass fraction]98 %Kaylinn Dokken [address] [place], [place] 7166007-23-2022 00:34-0400 Systolic blood infzxlzh257 mm[Hg]Kaylinn Dokken [address] [place], [place] 7166007-22-2022 23:30-0400 Diastolic blood mm[Hg]Kaylinn Dokken [address] [place], [place] 7166007-22-2022 23:30-0400Heart rate64 /minKaylinn Dokken [address] [place], [place] 7166007-22-2022 23:30-0400Mean blood jbsynsel12 mm[Hg]Angel Marsh [address] [place], [place] 7166007-22-2022 23:30-0400 Respiratory rate18 /minKaylien Dokken [address] [place], [place] 7166007-22-2022 23:30-3297QfM9% (BldA) [Mass fraction]99 %Angel Marsh [address] [place], [place] 7166007-22-2022 23:30-0400 Systolic blood porppwog861 mm[Hg]Angel Marsh [address] [place], [place] 7166007-22-2022 22:30-0400 Respiratory rate20 /minKaylien Jabieren [address] [place], [place] 7166007-22-2022 21:38-0400Body xrilmcljagx33.42 [degF]Anegl Marsh [address] [place], [place] 7166007-22-2022 21:38-0400 Respiratory rate18 /minAngel Marsh [address] [place], [place] 7166007-07-2022 11:57-0400Body khmupcexpzv37.8 [degF]Holly Garciaonmary 661-3545Gurbvg-IhpclPomerene Hospital 07-07-2022 11:57-0400Diastolic blood fvasgrei17 mm[Hg] Holly Joseonk 405-0943Bjvwdk-HmrjfPomerene Hospital 07-07-2022 11:57-0400Heart iuqq873 /minHolly Garciaonk 930-0679Fnfvue-RniigPomerene Hospital 07-07-2022 11:57-5905OjK6% (BldA) [Mass fraction]99 % Holly Klonk 048-9725Oxjypf-ZxsjbPomerene Hospital 07-07-2022 11:57-0400Systolic blood teadcubp10 mm[Hg] Holly Garcia 670-1212Hcpfzm-OawypPomerene Hospital 04-22-2022 11:54-0400Body ztqfimdzrbl73.91 [degF]Kimberly Pierre MD Work Phone: [facility]and Iorjjr02-67-7175 11:54-0400Diastolic blood mm[Hg]Kimberly Pierre MD Work Phone: [phone] [facility] hospitaland Npzpue33-14-2183 11:54-0400Heart rate91 /min Kimberly Pierre MD Work Phone: [facility]and Spyjzs41-55-7188 11:54-2301SrW4% (BldA) [Mass fraction]98 %Kimberly Pierre MD Work Phone: [facility] Fgqjko46-56-0249 11:54-0400Systolic blood mm[Hg]Kimberly Pierre MD Work Phone: [facility]and Exupme94-33-5545 18:27-0400Blood Pressure LocationMary MULLINS 310-3370Lsatqc-GwhwcMer[facility] Health [facility] 04-08-2022 18:27-0400Body zxgpcksxqip95.7 [degF]Mary MULLINS 215-3211Eqbusw-OoahgMercy Health [facility] 04-08-2022 18:27-0400Diastolic blood nfhewttk78 mm[Hg] Mary MULLINS 937-7610Gnxhyg-XzzcyMercy Health [facility] 04-08-2022 18:27-0400Heart rate88 /minMary MULLINS 311-8623Qstjxk-MbdgsMercy Health [facility] 04-08-2022 18:27-8702GkL9% (BldA) [Mass fraction]97 % Mary RINCONLEY 429-2854Ntgksi-PpgqtMer[facility] Health [facility] 04-08-2022 18:27-0400Systolic blood yqokrwud344 mm[Hg] Mary RINCONLEY 016-1423Zecwqv-AdfegMercy Health [facility] 03-28-2022 08:44-0400Blood Pressure LocationHolly Garcia 710-0344Bkquwu-QzgexPomerene Hospital 03-28-2022 08:44-0400Body vraybcbkzjn82.62 [degF]Holly Garcia 141-3271Wplslx-NtdtnPomerene Hospital 03-28-2022 08:44-0400Diastolic blood hicaimma54 mm[Hg] Holly Garcia 903-0631Umszxl-JwvrbPomerene Hospital 03-28-2022 08:44-0400Heart eecr754 /minHolly Garcia 598-4395Jtuvsp-TqspaPomerene Hospital 03-28-2022 08:44-6597HdC3% (BldA) [Mass fraction]96 % Holly Garcia 987-7532Znlmoi-HtpzwPomerene Hospital 03-28-2022 08:44-0400Systolic blood bwmdliuo804 mm[Hg] Holly Garciaonk 115-2700Zxfqew-QaukmPomerene Hospital Encounters Encounter DateEncounter TypeCare ProviderFacilityStart: 07-03-2025 End: 56-06-8003Tyswcg outpatient visit 15 minutesEmradha Snyder MD Work Phone: [facility] DermatologyComment on above:Melanocytic nevus of trunk (Primary Dx); LentiginesStart: 07-03-2025 End: 37-65-1013qzmnodjuqbRGSLQ A PETITTINot AvailableStart: 07-03-2025 End: 13-22-8590Tnmvht Vaishali Snyder MD Work Phone: no [facility] DermatologyStart: 07-03-2025 End: 37-61-5465Oavvgg Vaishali Snyder MD Work Phone: no [facility] DermatologyStart: 06-05-2025 End: 46-56-7756Hkzfwwezhy hospital visit by Eric Hancock MD Work Phone: Hematology Oncology - [place]Comment [place] above:Status post bone marrow transplant (Primary Dx); History of acute myeloid leukemia in remissionStart: 06-05-2025 End: 41-69-7808feloploazsKAMX AMProMedica Fostoria Community Hospitaltart: 05-11-2025 End: 52-76-1850wgxkdcahcsUNZUFKLX D [facility] Systemtart: 04-27-2025 End: 31-84-8423Wmrsvzh encounter statusEfrain Pathak DO Work Phone: noWA HealthcareStart: 04-27-2025 End: 20-21-7637Ynlzootf preventive med est patient 18-39 yrsEfrain Pathak DO Work Phone: no [facility] OBGYNComment on above:Encounter for gynecological examination without abnormal finding; Screening for malignant neoplasm of cervix; Screening for STDs (sexually transmitted diseases); Encounter for surveillance of contraceptive pillsStart: 04-27-2025 End: 48-05-8611yyickmkmhsNKZJRRIEveline Oro AvailableStart: 04-19-2025 End: 30-12-1545Cyvsxj Smita Burnham APRN-GRAYSON Work Phone: no [facility] DermatologyStart: 04-19-2025 End: 08-96-7036Solvsh flowsheetNatalie A Felter MECHANICAL SYSTEMS DESIGN ENGINEER-ENGINEERING TECHNICAL WRITER Work Phone: noMS [facility] DermatologyStart: 04-19-2025 End: 87-74-0767Jbrmqb outpatient visit 15 minutesNatalie A Felter MECHANICAL SYSTEMS DESIGN ENGINEER-ENGINEERING TECHNICAL WRITER Work Phone: NOMS [facility] DermatologyComment on above:Neoplasm of uncertain behavior of skin; Melanocytic nevus of trunkStart: 04-19-2025 End: 15-72-7657tppjdwfptuBRWHETP A FELTERNot AvailableStart: 03-29-2025 End: 32-55-8409fzkesqqigyNKW [facility] [place] Work Phone: Start: 03-29-2025 End: 69-99-4596Lyqcrow encounter procedureBrynn Arizmendi MECHANICAL SYSTEMS DESIGN ENGINEER-[facility] Work Phone: Start: 03-28-2025 End: 46-01-3544seacgcfiflADHOM THAMILARASANFacility:[facility] Start: 03-28-2025 End: 31-88-9076Qytiaer encounter Christen Albarado MD Work Phone: CardiologyComment on above:Anxiety disorder, unspecified type (Primary Dx); Family history of ischemic heart diseaseStart: 03-28-2025 End: 30-49-2044cbanokwsksRYNMGOIGCF KALAHASTIFacility:[facility] Start: 02-23-2025 End: 57-01-5643Dgtskvm encounter Kary Henry MD Work Phone: Obstetrics/GynecologyComment on above:Premature ovarian failure (Primary Dx); Acute myeloid leukemia in remission (HCC); Stem cells transplant status (HCC); Patient desires pregnancyStart: 02-23-2025 End: 26-11-8131omyqperkfsDQHUAZ ELBINFacility:[facility]htart: 11-15-2024 End: 78-36-9963Xiapjj OnlyJose Alfredo Albarado MD Work Phone: CardiologyComment on above:Thoracic aortic aneurysm without rupture, unspecified part (HCC) (Primary Dx)Start: 11-11-2024 End: 76-67-6547muloigbhoxFdmqmz E Bullimore [employer] Work Phone: [facility] Work Phone: Start: 11-11-2024 End: 80-64-3858Jyzogvc encounter procedureGinger Bullimore [employer]-BC Work Phone: [facility] Work Phone: Start: 08-23-2024 End: 43-69-3276xikvkwpdkwWRFMPZR M TIMENFacility:[facility] Northtart: 08-23-2024 End: 51-20-7399Srtwetc encounter procedureSmilan Dasilva MD Work Phone: OtolaryngologyComment on above:Acute tonsillitis, unspecified etiology (Primary Dx)Start: 08-21-2024 End: 53-05-9923Zymneojqz department patient visitGinger E Bullimore Facility:[facility]art: 08-18-2024 End: 37-88-0440Ivoaviigh department patient visitTim Gabe [facility] Start: 08-16-2024 End: 12-64-7394Wkzkpfy encounter Oscar BASS [phone]-QamwlMercy Health [facility] [place] Start: 08-15-2024 End: 80-39-3083Lutxvjax Result EncounterEthel Rangel NP Work Phone: noms External Department UnsolicitedStart: 08-15-2024 End: 89-15-5265Idvjffvs Result EncounterLinjavy Rangel NP Work Phone: noms External Department UnsolicitedStart: 08-15-2024 End: 80-18-2778Gomvdl outpatient visit 25 minutesEthel Rangel STUDIO MANAGER Work Phone: NOWP SWS UCComment on above:Pharyngitis, unspecified etiology (Primary Dx)Start: 08-15-2024 End: 30-05-9291wfrkwtfhokAPKCCLG R LACONISNot AvailableStart: 08-14-2024 End: 09-11-7184oatpqgiacyQOF BETTY SCHOFIELDHMANNFacility:[facility] BellevueStart: 08-14-2024 End: 93-82-9384Tmbbhrw encounter procedureSLONG BASS 048-5703Vwlfxv-OgonuMercy Health [facility] [place] Start: 07-28-2024 End: 84-73-3306mfqfrjwgszRNI BETTY SCHOFIELDHMANNFacility:[facility] BellevueStart: 95-77-7012dhtbgsqgslXWS BETTY LEHMANNFacility:[facility] BellevueStart: 07-14-2024 End: 94-35-3753Dndcbiq encounter procedurePulm Fct Lab Main 8Pulmonary Medicine Comment on above:ILD (interstitial lung disease) (HCC) (Primary Dx); 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)Start: 07-14-2024 End: 13-38-5516fmxxpxriknVjfl Fct Lab Main 8Pulmonary MedicineComment on above: SpirometryStart: 05-28-2024 End: 71-45-0535ayferjopviNnqqqr Tolle MD Work Phone: pulmonary MedicineComment on above:AlbuterolStart: 05-19-2024 End: 36-75-5902Drghhmktkw hospital visit by Eric Hancock MD Work Phone: [facility] Mansgreen cross hospitalComment on above:History of acute myeloid leukemia in remission; Status post bone marrow transplant; Vitamin D deficiency; AML (acute myeloid leukemia) in remission; Hair lossStart: 05-05-2024 End: 65-48-3217Uqskcx outpatient visit 25 minutesBlossom Hancock MD Work Phone: Hematology Oncology - [place]Comment on above:Status post bone marrow transplant (Primary Dx); History of acute myeloid leukemia in remission; Chemotherapy follow-up examination; Chronic bilateral lower abdominal painStart: 03-13-2024 End: 79-50-7347yqudiiojbyOvpqy E. FrazierFacility:FM WillardStart: 03-13-2024 End: 40-54-6192Fyqianx encounter Wilver Weiss [phone]-MdkfzKettering Health Hamiltonard Start: 03-03-2024 End: 41-59-0724stjifirndeLyeam E. FrazierFacility:FTMCStart: 03-03-2024 End: 18-62-0144Qkcddqx encounter Wilver Weiss [facility] Start: 11-16-2023 End: 05-41-2396Fqtyhvqvy department patient visitAstrit H LyleCincinnati [facility] Start: 08-20-2023 End: 30-53-4700rydksrgmgnNamz Fct Lab Main 4Pulmonary MedicineComment on above: SpirometryStart: 08-20-2023 End: 85-57-0676Vknjdmt encounter procedurePulm Fct Lab Main 4[facility] MAINStart: 08-06-2023 End: 19-78-7264woodyklhoeRGXLZRTA D MARTINFacility:FTMCStart: 08-06-2023 End: 33-81-2843Fjwzjbv encounter Luisana DOS SANTOS [facility] Start: 07-23-2023 End: 97-55-8085drkhxuedssFonca E. FrazierFacility: WillardStart: 07-23-2023 End: 62-61-7248Eepaobj encounter Wilver Weiss 041-0397Lntlls-IbhtrKettering Health Hamiltonard Start: 06-11-2023 End: 85-80-3106Ejwjbezopy hospital visit by Eric Hancock MD Work Phone: ULTRASOUND [place]RONComment on above:Family history of polycystic kidneyStart: 06-11-2023 End: 10-54-4220kfjcqrqoyuNbhhk E. FrazierFacility:FM WillardStart: 06-11-2023 End: 29-97-7241Ckrxmme encounter Wilver Weiss [phone]-HznznKettering Health Hamiltonard Start: 05-07-2023 End: 36-23-0479Dhidhceraw hospital visit by Eric Hancock MD Work Phone: Hematology Oncology - [place]:Status post bone marrow transplant (Primary Dx); History of acute myeloid leukemia in remission; Chronic bilateral lower abdominal painStart: 02-26-2023 End: 21-58-8434Pud Drop Luis Weiss [facility] Start: 02-26-2023 End: 17-89-6893Shxrzpc encounter Wilver Weiss [phone]-FuxdiNorwalk [facility] Start: 02-26-2023 End: 01-09-1311Navh adult monitoring check Elder Weiss [phone]-YhygoNorwalk Memorial Hospital [facility] Start: 01-04-2023 End: 77-81-1762Wzvnizn encounter Cornelia Parker [phone]-UvwvqOhio[facility] Start: 11-21-2022 End: 15-14-0114jtbptqxogrCK JACK HAY .Facility:D8Smnpg: 11-06-2022 End: 85-06-5381Twbtnpw encounter procedureLia Weiss [phone]-ZupluNorwalk Memorial Hospital [facility] Start: 09-11-2022 End: 39-15-8899Qurnxat encounter procedureHolly Garcia [phone]-GdubwPomerene Hospital Start: 08-19-2022 End: 42-00-1237Aixrjgl encounter procedureSam Michelle VANDANA [phone]-YwmryPomerene Hospital Start: 07-31-2022 End: 96-31-5661wkqnvnwdckZqzx Fct Lab Main 9Pulmonary MedicineComment on above: SpirometryStart: 07-31-2022 End: 12-80-1345Tzeozhf encounter procedurePulm Fct Lab Main 9[facility] MAINComment on above: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); Recurrent pneumonia; History of allogeneic stem cell transplant (HCC)Start: 07-17-2022 End: 30-05-5628Jejucvs encounter procedureHolly Garcia [phone]-BiczcPomerene Hospital Start: 05-23-2022 End: 27-87-5460Hun Drop Vivek HANCOCK [facility] Start: 05-08-2022 End: 21-27-3046Icrlyp outpatient visit 25 minutesStjohnna Hancock MD Work Phone: Hematology ServicesComment on above:Chronic idiopathic constipation (Primary Dx); History of acute myeloid leukemia in remission; Status post bone marrow transplant; Chemotherapy follow-up examinationStart: 50-40-6975HsbifiPtwbdi Tolle MD Work Phone: Pulmonary MedicineComment on above:Refill Request Start: 04-15-2022 End: 47-45-7637Jueiihs encounter procedureSmaulik DOYLEMAN [facility] Start: 04-09-2022 End: 24-97-4536Cez Drop offRosa Bond [facility] Start: 04-09-2022 End: 01-82-7449Rwglumu encounter procedureRosa Bond [phone]-FsfmoMer[facility] Start: 04-03-2022 End: 79-96-9452Ittvwfppp department patient visitAngel Marsh [facility] Start: 22-27-0265BdykssDbaelc Tolle MD Work Phone: pulmonary MedicineComment on above:Refill Request Start: 03-19-2022 End: 19-39-9060Tibyaun encounter Mimi Garcia [phone]-GcxwiMercy Health [facility] [place] Start: 32-34-3766Ohuerzixk encounterKimberly Pierre MD Work Phone: pulmonary MedicineComment on above:ILD Conference Start: 73-19-5771bmzvoxyzhzEoutxcv Glennie APRN.ENGINEERING TECHNICAL WRITER Work Phone: Pulmonary MedicineComment on above:ILD Conference Start: 46-55-0083P-mail encounter from caregiverZulma Downey APRN.CNP Work Phone: [facility] MAINStart: 95-46-4888Wiovnj-up encounterZulma Downey APRN.ENGINEERING TECHNICAL WRITER Work Phone: Pulmonary MedicineComment on above:Follow upStart: 01-20-2022 End: 93-94-7106MthsmquabJRBCHYOMG L [facility] Start: 51-38-5676Sgsgakcvi encounterIsrael Childers MD Work Phone: pulmonary MedicineComment on above:pre op bronchStart: 49-56-4514zvtoxmgygdMgvbzc Tolle MD Work Phone: pulmonary MedicineComment on above:Lung biopsy Bronchoscopy Scheduling (initial)Start: 26-92-3379Quvdxrt encounter status Landon Claire MD Work Phone: Pulmonary MedicineStart: 01-15-2022 End: 69-45-9745Ymswihpqdu hospital visit by physicianCt Main F30 (I-Stat) Work Phone: RadiologyComment on above:Pneumonia due to infectious organism, unspecified laterality, unspecified part of lung [J18.9]Start: 47-46-3865ptumockzikCHBGNFort [facility] AmbulatoryStart: 01-02-2022 End: 27-29-5776Jfbzaga encounter Rose Pierre MD Work Phone: pulmonary MedicineComment on above:Pneumonia due to infectious organism, unspecified laterality, unspecified part of lung (Primary Dx); History of allogeneic stem cell transplant (HCC)Start: 53-40-0259E-mail encounter from caregiverKimberly Pierre MD Work Phone: [facility] MAINStart: 14-71-1571Iiwoxpz encounter Rose Pierre MD Work Phone: pulmonary MedicineComment on above:AppointmentStart: 81-02-7736Ekkhykiwy encounterKimberly Pierre MD Work Phone: pulmonary MedicineComment on above:pneumonia, etc. Start: 12-19-2021 End: 07-12-9167Pibhizs encounter Balbir MULLINS [phone]-SyhxoMer[facility] Health [facility] Start: 46-75-7128feuhfeyxnkZusago Tolle MD Work Phone: pulmonary MedicineComment on above:PneumoniaStart: 12-08-2021 End: 32-54-7365Rsoaoik encounter procedureHolly Garcia [phone]-ZjkpzC[facility] [place] Start: 05-05-2021 End: 59-65-0983akqpsznvmbVRRR F. SPrerna [facility] Procedures DateProcedureProcedure DetailPerforming ClinicianStart: 98-19-9039Ggxchjhyzujxs metabolic panelStepreinaldo Hancock MD Work Phone: Start: 94-33-4700QQPKN TUBESStepreinaldo Hancock MD Work Phone: Start: 41-09-9110JTX TOPStjohnna Hancock MD Work Phone: Start: 16-13-1886BGCVTTEKVLI (HTRX)Ethel Rangel STUDIO MANAGER Work Phone: Start: 31-74-7887RKFICCJLHZD/LARYNGITIS (HTRX)Ethel Rangel STUDIO MANAGER Work Phone: Start: 08-18-2695Yllpq streptococcus group a amplified probe tqValeriano Coronado DO Work Phone: Start: 20-62-8110Bbajoo w/vc expiratory joseph w/wo mxml vol Louisa Pierre MD Work Phone: start: 12-43-7237Agkmzurgiy glycosylated f5uLnfzknelmando Dos Santos MD Work Phone: Start: 76-33-4412Twewk panelSmaulik Hancock MD Work Phone: Start: 80-58-2377Pabhro w/vc expiratory joseph w/wo mxml vol Louisa Pierre MD Work Phone: start: 01-57-0539Shlsyj w/vc expiratory joseph w/wo mxml vol vntjKimberly Pierre MD Work Phone: start: 17-22-6976HYWKTOBR BLOOD COUNT WITH DIFFERENTIALBlossom Hancock MD Work Phone: Start: 12-45-0488Axrgsxkcsrykb metabolic panel Blossom Hancock MD Work Phone: Start: 31-32-5689Valjul Differential panel - Blood Blossom Hancock MD Work Phone: Start: 11-33-4422Sx thorax w/o contrast Kevin Pierre MD Work Phone: start: 59-46-7424Noephy of lungHolly Garcia Start: 07-07-2017 End: 07-27-2017H/O: surgeryHistory of lung biopsyStjohnna Hancock MD Work Phone: Start: 89-60-6331Kfcn marrow transplant [facility] centerHolly Garcia [place] (substance)Holly Garcia Comment on above:For meds for cancer. Plan of Treatment DateCare ActivityDetailAuthorStart: 85-03-4221Swapmumokbwf vaccinationChillicothe VA Medical Centertart: 19-43-9466Dlaugvitimlk vaccinationPneumococcal Vaccine (4 of 4 - PCV20 or PCV21)[facility]art: 54-65-8978Xyfstle Diphtheria and Pertussis Vaccines (12 - Td or Tdap)Tetanus Diphtheria and Pertussis Vaccines (12 - Td or Tdap)[facility]: 97-33-7247Hhyxa microalbumin profile DTaP,Tdap,Td Vaccine (12 - Td or Tdap)[facility]art: 51-27-4660Jsfrohk Diphtheria and Pertussis Vaccines (11 - Td or Tdap)Tetanus Diphtheria and Pertussis Vaccines (11 - Td or Tdap)[facility]art: 05-03-2026 End: 36-26-0269Spzxrnc encounter bltxhwypf48/21/2026 8:30 AM EDT Office Visit PAT [facility]ala JOY[facility] [address] [place] [phone] Efrain Pathak DO [address] [place] [address] PAT Lala OBGYNStart: 05-01-2026 End: 44-86-5393Wyegvju encounter bjekbshgo49/19/2026 8:30 AM EDT Office Visit NOMMichelle [facility] Dermat[facility] [address] [place] [phone] Carline Snyder MD [address] [place] [address] PAT Lala DermatologyStart: 07-14-2025 End: 62-50-6424LCAO DIFFUSION CAPACITY (DLCO)LUNG DIFFUSION CAPACITY (DLCO) PFT Routine ILD (interstitial lung disease) (HCC) Expected: 07/14/2025, Expires: 08/13/2025leveland ClinicComment on above:Expected: 07/14/2025, Expires: 08/13/2025Start: 07-14-2025 End: 36-40-0348RXJCAOOEKD WITH DILATOR IF OBSTRUCTEDSPIROMETRY WITH DILATOR IF OBSTRUCTED PFT Routine ILD (interstitial lung disease) (HCC) Expected: , Expires: 08/13/2025[facility] Work Phone: comment on above:Expected: 07/14/2025, Expires: 08/13/2025Start: 07-03-2025 End: 47-57-7480Awndnfi encounter procedureNOMS Lala DermatologyComment on above:ArrivedStart: 91-62-6913QBS (#1)FLU (#1)[facility]art: 53-22-0954Amytelstj vaccinationChillicothe VA Medical Centertart: 05-11-2025 End: 25-96-9843Quxhlrw encounter tngadsvcc55/29/2025 9:00 AM EDT Office Visit Diabetes [facility] Endocrin[facility] - [place] 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 WRITER [address] [place] [address] ArrivedNOMS Lala [facility]ermat[facility] Comment on above:ArrivedStart: 03-28-2025 End: 42-05-7807Jmcbgqf encounter wafvtnnyd45/16/2025 3:30 PM EDT Office Visit Cardiology [address] [phone] Aortic Aneursym ThoracicCardiologyComment on above:Aortic Aneursym ThoracicStart: 03-28-2025 End: 14-00-6642Ixcrpof encounter evjhyznfv83/16/2025 12:15 PM EDT Office Visit Cardiology [address] [place] [address] PlwapcxduJose Alfredo Albarado MD [address] [place], [place] [phone] Aortic Aneursym ThoracicCardiologyComment on above:Aortic Aneursym ThoracicStart: 03-28-2025 End: 27-74-2920uubkgkdmti05/16/2025 11:30 AM EDT Procedure Cardiology [address] [place] [address] Aortic Aneursym Thoracic CardiologyComment on above:Aortic Aneursym ThoracicStart: 03-28-2025 End: 82-43-4175Abrtgrl encounter procedureCardiologyComment on above:Aortic Aneursym ThoracicStart: 01-26-2025 End: 67-12-3773Qwtgtwn encounter vyfjuynzd19/16/2025 9:00 AM EDT Office Visit Obstetrics/Gynecology [address] [place] [address] Dagn Eisenberg MD [address] [place] [address] Desire for preganancy, premature ovarian failure Obstetrics/GynecologyComment on above:Desire for preganancy, premature ovarian failureStart: 67-09-4550zqypbweyyfDsshawaolnZzmzsbrj:FT FM BellevueStart: 07-14-2024 End: 01-81-6899Ctuqhgp encounter molviqvdm81/01/2024 2:00 PM EDT Office Visit Pulmonary Medicine [address] [address] Kimberly Pierre MD [address] [place], [place] [phone] ILDPulmonary MedicineComment on above:ILDStart: 07-14-2024 End: 63-33-6919jdrxwxhumvCwdfhsfws MedicineComment on above:ILDStart: 05-14-2024 FLU (#1)FLU (#1)[facility]: 34-22-8900Uxeutfonb vaccination Influenza Vaccine (#1)[facility]art: 05-12-2024 End: 47-46-2389Rwfzajy encounter procedureDiabetes & Endocrinology - [facility]tart: 52-23-5803HVM (#1)FLU (#1)[facility]: 18-33-1848Gwiyrywkk vaccinationInfluenza Vaccine (#1)[facility] Cent[facility]art: 14-81-3220Opgyjsjkemw observation [Identifier] in Cervix by Cyto stainPap SmearSelect Medical Specialty Hospital - Columbustart: 66-08-9287Osm TestingPap TestingChillicothe VA Medical Centertart: 2023 Screening for malignant neoplasm of cervixCervical Cancer ScreeningChillicothe VA Medical Centertart: 40-73-4087Ztdpgsafop AssessmentDepression AssessmentClepromedica fostoria community hospital ClinicStart: 39-96-3094RDZFO-19 (3 - Pfizer risk series)COVID-19 (3 - Pfizer risk series)[facility]: 63-92-8051LIDVI-19 VACCINE (3 - Pfizer risk series)COVID-19 VACCINE (3 - Pfizer risk series)[facility] Start: 50-78-1056ZRD (#1)FLU (#1)[facility]art: 05-14-2022 Influenza vaccinationChillicothe VA Medical Centertart: 05-12-2022 End: 47-52-5332Wbtaucw encounter qmmlheijc79/30/2022 Office Visit Endocrinology [place] [address] [facility]art: 02-05-2022 End: 19-97-4287PDN BY IFA WITH REFLEXANA BY IFA WITH REFLEX Lab Routine 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) Recurrent pneumonia Expected: 02/05/2022, Expires: 04/07/2022[facility] Work Phone: Comment on above:Expected: 02/05/2022, Expires: 04/07/2022tart: 01-16-2022 End: 49-74-8711ALSH-CoV-2 (COVID-19) RNA [Presence] in Respiratory specimen by NIDHI with probe detectionINTERMEDIATE RAPID COVID Microbiology Routine Pre-op chest exam Expected: 01/16/2022, Expires: 05/19/2022[facility] Work Phone: Comment on above:Expected: 01/16/2022, Expires: 05/19/2022tart: 04-27-6780OYGDK-19 VACCINE (2 - Pfizer risk 4-dose series) COVID-19 VACCINE (2 - Pfizer risk 4-dose series)[facility]: 85-60-2410UXVSD-19 VACCINE (2 - Pfizer risk series)COVID-19 VACCINE (2 - Pfizer risk series)[facility]: 46-25-3322AYQVJAKEFK ASSESSMENTDEPRESSION ASSESSMENTChillicothe VA Medical Centertart: 14-73-5018Mzidluurs vaccinationINFLUENZA (#1) [facility]: 71-14-1565LUAKXJZQ VACCINE (1 of 2)SHINGRIX VACCINE (1 of 2)[facility]: 04-01-2385Evvuu microalbumin profileDTAP,TDAP,TD (1 - Tdap)[facility]: 07-41-9636Ukdisqb ScreeningAnxiety Screening [facility]: 77-63-8120AONOPMYFE SCREENING (18-24)CHLAMYDIA SCREENING (18-24)[facility]: 54-92-8019Ogvkwpqnag ScreeningDepression Screening [facility]: 84-68-5003YR (GONORRHEA) SCREENING (18-24)GC (GONORRHEA) SCREENING (18-24)[facility]: 54-30-8678Xovjadq ScreeningHearing ScreeningSelect Medical Specialty Hospital - Columbustart: 90-03-4798GCYMKOCFF C SCREENING HEPATITIS C SCREENINGChillicothe VA Medical Centertart: 58-61-3014Xwsmfifkz C screening Hepatitis C ScreeningChillicothe VA Medical Centertart: 76-45-6981HHX SCREENINGHIV SCREENING [facility]: 41-09-3157ODK screeningHIV ScreeningUc [facility] Hospital Start: 97-66-9417BIDJ Education 18+ YearsPATH Education 18+ YearsSelect Medical Specialty Hospital - Columbustart: 22-29-1021Yhwcdkaje for Chlamydia trachomatisChlamydia Screening (18-24)[facility]: 88-78-2082EjfH (1 of 2 - MenB 2-Dose Series Bexsero)MenB (1 of 2 - MenB 2-Dose Series Bexsero)[facility]: 31-08-4387BhxU (1 of 2 - MenB 2-Dose Series)MenB (1 of 2 - MenB 2-Dose Series)[facility]: 11-78-4664Ofdjxgqntddqd B Vaccine (1 of 2 - Standard)Meningococcal B Vaccine (1 of 2 - Standard)[facility] Start: 87-23-5600Ocdhpubgyndid B Vaccine: Consider Based On Risk (1 of 2 - Patient Seeks Protection)Meningococcal B Vaccine: Consider Based On Risk (1 of 2 - Patient Seeks Protection)[facility]: 58-95-2981MVFT Education 15- 17+ YearsPATH Education 15-17+ YearsSelect Medical Specialty Hospital - Columbustart: 2017 Vision ScreeningVision ScreeningSelect Medical Specialty Hospital - Columbustart: 85-80-4461HDWH TO ADULT TRANSITION ANNUAL ASSESSMENTPEDS TO ADULT TRANSITION ANNUAL ASSESSMENT [facility]: 11-62-9929Rgbxp depression screening assessmentDEPRESSION SCREENINGChillicothe VA Medical Centertart: 55-43-3091NMOTA-19 VACCINE (1)COVID-19 VACCINE (1)[facility]: 39-02-9684ZTNZ Education 12-14+ YearsPATH Education 12-14+ YearsSelect Medical Specialty Hospital - Columbustart: 79-89-9634IHSI Transitional AssessmentPATH Transitional AssessmentSelect Medical Specialty Hospital - Columbustart: 2014 PEDS TO ADULT TRANSITION INITIAL DISCUSSIONPEDS TO ADULT TRANSITION INITIAL DISCUSSIONChillicothe VA Medical Centertart: 42-96-1699SFI VACCINE (1 - 2-dose series)HPV VACCINE (1 - 2-dose series)[facility]: 51-55-7500PZCMPDDSQUVOK B: Consider based on risk (1 of 2 - Risk Bexsero 2-dose series)MENINGOCOCCAL B: Consider based on risk (1 of 2 - Risk Bexsero 2-dose series)[facility] Start: 32-49-7461ZLSFZXRSQNXS (1 - PCV)PNEUMOCOCCAL (1 - PCV)[facility] Start: 17-55-4988ORPPJUBCH B (1 of 3 - 3-dose series)HEPATITIS B (1 of 3 - 3- dose series)[facility] End: 71-03-4178Oy thorax w/o contrast materialCT CHEST WO IVCON Radiology Routine Pneumonia due to infectious organism, unspecified laterality, un specified part of lung 1 Occurrences starting 01/02/2022 until 02/01/2023 [facility] Work Phone: comment on above:1 Occurrences starting 01/02/2022 until 02/01/2023 End: 60-71-3834ELN COMPLETEECG COMPLETE ECG Routine Thoracic aortic aneurysm without rupture, unspecified part ([facility]) 1 Occurrences starting 11/15/2024 until 11/15/2025[facility] Work Phone: Comment on above:1 Occurrences starting 11/15/2024 until 11/15/2025 End: 27-92-7664ZmdedzirrenxswbtUDXV Cardiology Routine Thoracic aortic aneurysm without rupture, unspecified part ([facility]) 1 Occurrences starting 11/15/2024 until [facility]25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) 1 Occurrences starting 07/31/[address] [place] [address] Work Phone: comxdzc on above:1 Occurrences starting 07/31/2022 until 08/30/2023LUNG DIFFUSION CAPACITY (DLCO)LUNG DIFFUSION CAPACITY (DLCO) PFT Routine 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) 08/20/2023 9:00 AM [facility] Work Phone: LUNG DIFFUSION CAPACITY (DLCO)LUNG DIFFUSION CAPACITY (DLCO) PFT Routine 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) 07/14/2024 1:08 PM EDT [facility] Work Phone: patient EducationSore Throat, Adult [facility] Work Phone: Patient [facility] Work Phone: End: 68-00-2609Peg Hormone Binding GlobulinEast Liverpool City HospitalComment on above:For lab collect this frequency defaults to the next routine lab draw time. Routine times: 0600; 1100; 1400; 1900; 2200 for 1 Occurrences starting 05/19/2024 until 05/19/2024 End: 32-93-8577JUMICOJGUL BASELINE ONLYSPIROMETRY BASELINE ONLY PFT Routine 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) 1 Occurrences starting 03/09/2022 until 04/08/2023[facility] Work Phone: comment on above:1 Occurrences starting 03/09/2022 until 04/08/2023SPIROMETRY BASELINE ONLYSPIROMETRY BASELINE ONLY PFT Routine 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) 07/31/2022 10:15 AM [facility] Work Phone: End: 78-68-3020RFUZPGMKBN BASELINE ONLYSPIROMETRY BASELINE ONLY PFT Routine 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) 1 Occurrences starting 07/31/2022 until 08/30/2023[facility] Work Phone: comment on above:1 Occurrences starting 07/31/2022 until 08/30/2023SPIROMETRY BASELINE ONLYSPIROMETRY BASELINE ONLY PFT Routine 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) 08/20/2023 9:00 AM [facility] Work Phone: sPIROMETRY BASELINE ONLYSPIROMETRY BASELINE ONLY PFT Routine 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) 07/14/2024 1:08 PM [facility] Work Phone: End: 74-90-9113QnyojiuvchlxSt. [facility] Hospital Work Phone: comment on above:1 Occurrences starting 05/19/2024 until 05/19/2024US KidneyUS Renal Complete Imaging Routine Family history of polycystic kidney 06/11/2023 2:10 PM [facility] Work Phone: [facility] Immunizations Immunization DateImmunizationNotesCare SrctqqqoUbkdglya24-05-2098fpyjgxlrr, injectable, quadrivalent, preservative freeSam ROSS [phone]-TxockPomerene Hospital 46-35-4298hwpjwhocm virus vaccine, unspecified formulation[address] 14-26-9374jkpnucl toxoid, reduced diphtheria toxoid, and acellular pertussis vaccine, adsorbedEthel Rangel NP Work Phone: [facility] HospitalMeihbgoleb71-21-0499DMDKWI COVID-19, mRNA, VAC- PATEL, 30mcg/0.3mL doseStepreinaldo Hancock MD Work Phone: [facility] HospitalHskdpkrq35-62-0059OFHS-FqF-4 mRNA (rzvmeuewbne-ucnw-huhmaxs) Ranjeet BASS [phone]-EivkmNorwalk Memorial Hospital Graham Comment on above:Result Comment: 2024-08-16: LGUMPI74-75-5777DPLA-ZlN-9, UnspecifiedSlickllbasia Pathak DO Work Phone: [facility] HospitalKdsrewxzji76-62-6547jrjwhzwsb, injectable, quadrivalent, preservative freeHolly Garcia [phone]-GlqktNorwalk Memorial Hospital Jarrell 01-20-272467-64-9994OHTNF-61, mRNA, LNP-S, PF, 30 mcg/0.3 mL dose Holly Garcia [phone]-WjvulPomerene Hospital 1339129-19-1756vvbmnuqxy virus vaccine, unspecified formulationSHEL SHELIA [phone]-MvawrDelaware County Hospital 06-23-4353vqkayrasa, injectable, quadrivalent, preservative freeStjohnna Hancock MD Work Phone: [facility]02-05-2020HPV, unspecified formulationSHELAFFINITY HEALTH PARTNERS [phone]-HbrpsDelaware County Hospital 46-88-1552Chjzc Papillomavirus 9-valent vaccineSmaulik Hancock MD Work Phone: [facility] HospitalYytluybj88-13-8640gxsythpfo virus vaccineSmaulik Hancock MD Work Phone: [facility]11-06-2019measles, mumps, rubella, and varicella virus vaccineSmaulik Hancock MD Work Phone: [facility] HospitalLwjqdhlr30-09-7176lwkvrdolsjpwv ACWY vaccine, unspecified formulationSHELAFFINITY HEALTH PARTNERS [phone]-CpshcDelaware County Hospital 96-08-2847axgprapaekolp polysaccharide (groups A, C, Y and W-135) diphtheria toxoid conjugate vaccine (MCV4P)Blossom Hancock MD Work Phone: [facility] HospitalUoewsyhh58-04-0016ktvvhdfzm virus vaccine, unspecified formulationSHELAFFINITY HEALTH PARTNERS [phone]-RllziDelaware County Hospital 37-27-9546cukgbpvaq, injectable, quadrivalent, preservative Anthony Hancock MD Work Phone: [facility]10-01-2019measles, mumps, rubella, and varicella virus vaccineSmaulik Hancock MD Work Phone: [facility] HospitalNefgitjq06-47-4769uhigxvsnr A vaccine, pediatric/adolescent dosage, 2 dose scheduleSmaulik Hancock MD Work Phone: [facility] HospitalNrxostyz95-04-6632modvcspzk A vaccine, unspecified formulationSHELAFFINITY HEALTH PARTNERS [phone]-GxkuzDelaware County Hospital 95-38-9382DCG, unspecified formulationSHELAFFINITY HEALTH PARTNERS [phone]-PwuzgDelaware County Hospital 39-05-4791Ezkog Papillomavirus 9-valent vaccineSmaulik Hancock MD Work Phone: [facility] HospitalDkguxcgt57-03-0546druhgntnbwxxp ACWY vaccine, unspecified formulationSHELAFFINITY HEALTH PARTNERS [phone]-KqjkuDelaware County Hospital 76-27-3280mpmipeprcjjrh polysaccharide (groups A, C, Y and W-135) diphtheria toxoid conjugate vaccine (MCV4P)Blossom Hancock MD Work Phone: [facility]06-18-2019tetanus toxoid, reduced diphtheria toxoid, and acellular pertussis vaccine, adsorbedStjohnna Hancock MD Work Phone: [facility] HospitalMboczsyo07-84-7330cnisymswa B vaccine, pediatric or pediatric/adolescent dosageSmaulik Hancock MD Work Phone: [facility] HospitalHgbqhmei82-50-4401cftlytmeuo vaccine, inactivatedStjohnna Hancock MD Work Phone: [facility] HospitalNsbsbasq49-44-7120eawfnvjvzw vaccine, unspecified formulationSVIRTUA [facility] 126-1143Epdcnk-MjqgcDelaware County Hospital 43-54-8162rfzwbvsuv A vaccine, pediatric/adolescent dosage, 2 dose schedule Blossom Hancock MD Work Phone: [facility] HospitalDwabasvw12-43-7842ujhnofwyd A vaccine, unspecified formulationSHELCENTRA VIRGINIA BAPTIST HOSPITALSHELIA 588-4553Alcobv-OtezgDelaware County Hospital 65-20-4448CTP, unspecified formulationSHELKASI BASS 760-2486Sfwnsy-WaecgDelaware County Hospital 16-56-9556Blidc Papillomavirus 9-valent vaccineSmaulik Hancock MD Work Phone: [facility] HospitalKxpqgkum59-74-3806rscytovlk virus vaccine, unspecified formulationSHELKASI BASS 720-1235Sdidzf-WzllpDelaware County Hospital 78-00-5621qgdfkvwar, injectable, quadrivalent, preservative freeStjohnna Hancock MD Work Phone: [facility] HospitalAlkigiba99-98-7264qklgrfyab B vaccine, pediatric or pediatric/adolescent Ciera Hancock MD Work Phone: [facility] HospitalGiglffqj69-89-5087kbkbneygqzbb conjugate vaccine, 13 Rissa Hancock MD Work Phone: [facility] HospitalSylaxudl49-81-9880ydqgxzggjz, tetanus toxoids and acellular pertussis vaccine, Haemophilus influenzae type b conjugate, and poliovirus vaccine, inactivated (JNdD-Fkc-HLG)Blossom Hancock MD Work Phone: [facility] HospitalWrfabavy25-59-5702kqcrkqdnxnvq conjugate vaccine, 13 Rissa Hancock MD Work Phone: [facility] HospitalYjmhbxsp94-04-5211kcuouusyyk, tetanus toxoids and acellular pertussis vaccine, Haemophilus influenzae type b conjugate, and poliovirus vaccine, inactivated (VQfZ-Lfq-NUA)Blossom Hancock MD Work Phone: [facility] HospitalAiitgzek82-07-0285apexbzpsh B vaccine, pediatric or pediatric/adolescent dosageSmaulik Hancock MD Work Phone: [facility] HospitalOpggfuzr62-44-0664vsewjrkhzk, tetanus toxoids and acellular pertussis vaccine, Haemophilus influenzae type b conjugate, and poliovirus vaccine, inactivated (QLqH-Ude-IAU)Blossom Hancock MD Work Phone: [facility] HospitalUojvxcob99-93-7215xgtynobfa B vaccine, pediatric or pediatric/adolescent Ciera Hancock MD Work Phone: [facility] HospitalJkabpvgg66-03-5334mekpjvfbwzkb conjugate vaccine, 13 Rissa Hancock MD Work Phone: [facility] HospitalLflrpusa16-22-8981vbazhqduunnv conjugate vaccine, 13 Rissa Hancock MD Work Phone: [facility] HospitalDjkxaozb25-23-9925kkvjphffagzi polysaccharide vaccine, 23 Rissa Hancock MD Work Phone: [facility] HospitalYlftawul00-23-2513hcyyzxfxwdbn polysaccharide vaccine, 23 Rissa Hancock MD Work Phone: [facility] HospitalOnekhiwr22-46-9913oeilvlsqk virus vaccine, unspecified formulationSLONG BASS 181-5792Vsreio-TrrivDelaware County Hospital 09-61-2038byqyubste, injectable, quadrivalent, preservative Anthony Hancock MD Work Phone: [facility] HospitalZwuducgd35-76-0081bawyripvscrf polysaccharide vaccine, 23 Rissa Hancock MD Work Phone: [facility] HospitalFkigxwwp33-15-7028hymgymmvi, injectable, quadrivalent, preservative Anthony Hancock MD Work Phone: [facility] HospitalZivuiyck45-95-9692kzsgzrgli virus vaccine, whole virusBlossom Hancock MD Work Phone: [facility] HospitalAszyohow46-14-3065sibohdtnw, whole BETTY ABSS 830-1524Dvgegi-RqwxgDelaware County Hospital 40-97-3088mddsmhwta A vaccine, pediatric/adolescent dosage, 2 dose schedule Blossom Hancock MD Work Phone: [facility] HospitalEuzjkigd05-41-4716tsyqwakbk A vaccine, unspecified formulationSHELLY SHELIA 015-3404Vdkbae-NfghxDelaware County Hospital 54-87-7217KPR, unspecified formulationSHELLY SHELIA 523-2347Oxovfr-RsbtpDelaware County Hospital 43-60-5243ksfww papilloma virus vaccine, quadrivalentBlossom Hancock MD Work Phone: [facility]12-22-2014HPV, unspecified formulationSHELLY SHELIA 483-7764Dloqcr-RyoprDelaware County Hospital 42-38-1266xndhv papilloma virus vaccine, quadrivalentStjohnna Hancock MD Work Phone: [facility]12-22-2014tetanus toxoid, reduced diphtheria toxoid, and acellular pertussis vaccine, adsorbedStjohnna Hancock MD Work Phone: [facility] HospitalMxhaeqvo47-15-0771vnitefsrk virus vaccine, whole virusBlossom Hancock MD Work Phone: [facility] HospitalXcrdztoa50-73-1565bxetebbon, whole BETTY SHELIA 367-1370Xplxbx-EbrydDelaware County Hospital 10-81-7173nmxwvoqjd A vaccine, pediatric/adolescent dosage, 2 dose schedule Blossom Hancock MD Work Phone: [facility] HospitalElvqzlod40-37-3431ipeuoymlj A vaccine, unspecified formulationSHELLY SHELIA 442-0903Ufocej-EhhjkDelaware County Hospital 50-30-8519LOQ, unspecified formulationSHELLY SHELIA 753-6135Cfupkw-IztrdDelaware County Hospital 38-90-0361tgwtq papilloma virus vaccine, quadrivalentStjohnna Gonzalezlli MD Work Phone: [facility] HospitalOnmmjocb93-62-4169zfvlbmwaypomp ACWY vaccine, unspecified formulationSmaulik Hancock MD Work Phone: [facility] HospitalTursdgeu27-67-7510jexxsjoiiwvmy ACWY, unspecified formulationSHELLY SHELIA 868-7053Tbhnzt-AujgbDelaware County Hospital 79-73-4576xqopbkmbd virus vaccine, H1N1, liveSHELLY SHELIA 488-9314Eqbqbw-TimhjDelaware County Hospital 82-85-4552bhudf Kzxzngnoy-O8K7-20, live virus for nasal administrationBlossom Hancock MD Work Phone: [facility] HospitalHwyqeisn10-35-5767naehhsurz virus vaccine, unspecified formulationSHELLY SHELIA 963-7579Gdhled-QahnnDelaware County Hospital 41-84-4249kkpntouof, seasonal, injectableStjohnna Hancock MD Work Phone: [facility] HospitalJhdowded68-61-8161vbjiqqzas virus vaccine, unspecified formulationSHELLY SHELIA 380-2663Enlyhp-NleyyDelaware County Hospital 56-67-8280nschgqnrq, seasonal, injectableStjohnna Hancock MD Work Phone: [facility] HospitalPdepnvob09-66-8662aehnzsnyy virus vaccine, whole virusBlossom Hancock MD Work Phone: [facility] HospitalPcfsabsr62-43-4971aglbeyyid, whole BETTY SHELIA 561-0943Jehoua-OizhlDelaware County Hospital 34-68-1045pwdermmbp virus vaccine, whole virusBlossom Hancock MD Work Phone: [facility] HospitalSewoihok46-67-6466obvvucoks, whole BETTY SHELIA 015-9113Hihukb-BmoegOhiohealth Riverside Methodist Hospitalue 40-04-2755CQwT-hepatitis B and poliovirus vaccineSmaulik Hancock MD Work Phone: [facility]06-07-2007measles, mumps, rubella, and varicella virus vaccineSmaulik Hancock MD Work Phone: [facility] HospitalNyrqstbw33-94-0799gpmhcwvxql, tetanus toxoids and acellular pertussis vaccineWimelly Pathak DO Work Phone: [facility] HospitalWocjezmmjh47-08-7209qsezurmkyx, tetanus toxoids and acellular pertussis vaccine, unspecified formulationSmaulik Hancock MD Work Phone: [facility]09-03-2003DTaP, unspecified formulationSHELLY SHELIA 909-6830Ylzjke-VvyctDelaware County Hospital 78-30-7102ffpvysjlobj influenzae type b vaccine, conjugate unspecified formulationSmaulik Hancock MD Work Phone: [facility]09-03-2003Hib, unspecified formulationSHELLY SHELIA 391-5456Ocihdt-GfotyDelaware County Hospital 13-09-8618ykkovcs, mumps and rubella virus vaccineSmaulik Hancock MD Work Phone: [facility] HospitalVyucqokn84-60-8424pfsmteyap virus vaccineSmaulik Hancock MD Work Phone: [facility] HospitalOmgrfrjl53-22-7851dcmtxpfkan, tetanus toxoids and acellular pertussis vaccineWimelly Pathak DO Work Phone: [facility] HospitalEkeijuwmwb52-85-3362zbykscdwyl, tetanus toxoids and acellular pertussis vaccine, unspecified formulationSmaulik Hancock MD Work Phone: [facility] Work Phone: [phone], unspecified formulationSHELLY SHELIA 100-8071Tdaehs-OhxvdDelaware County Hospital 25-20-3647mxwsupcapit influenzae type b conjugate and Hepatitis B vaccine Blossom Hancock MD Work Phone: [facility] HospitalZnsqgdhs78-32-4031pzkgbowjlk vaccine, inactivatedBlossom Hancock MD Work Phone: [facility] HospitalJiojffsr50-65-2802ohsqxtukzs vaccine, unspecified formulationSHELLY SHELIA 718-1593Xvuwxb-XsijuDelaware County Hospital 96-18-7068kormcvmame, tetanus toxoids and acellular pertussis vaccineWilliam Zo DO Work Phone: [facility] HospitalGbhqjzkmfb83-44-0374sufhivojdo, tetanus toxoids and acellular pertussis vaccine, unspecified formulationSmaulik Hancock MD Work Phone: [facility]2002DTaP, unspecified formulationSHELLY SHELIA 607-1875Katwgw-OznrxDelaware County Hospital 91-58-0236uzdhcxplqlt influenzae type b conjugate and Hepatitis B vaccine Blossom Hancock MD Work Phone: [facility] HospitalVzkwxuso77-51-5555nlhgsbokxg vaccine, inactivatedStjohnna Hancock MD Work Phone: [facility] HospitalAnwdtmhp46-80-9986ucvbnuthei vaccine, unspecified formulationSHELLY SHELIA 075-1938Ahkvol-GnpktDelaware County Hospital 59-02-0604drtfhqkzwi, tetanus toxoids and acellular pertussis vaccineWilliam Zo DO Work Phone: [facility] HospitalHcyapeoisq20-22-8221subpiywoox, tetanus toxoids and acellular pertussis vaccine, unspecified formulationSmaulik Hancock MD Work Phone: [facility]2002DTaP, unspecified formulationSHELLY SHELIA 163-9846Jxxyeb-HgclmDelaware County Hospital 53-19-4572dmbobimbvpt influenzae type b conjugate and Hepatitis B vaccine Blossom Hancock MD Work Phone: [facility] HospitalJpmljvpk11-60-6228ynfeucoicg vaccine, inactivatedStephanie Delfino KILLIAN Work Phone: [facility] HospitalDfaggpsk78-63-8457gkrutbektg vaccine, unspecified formulationSAYLINKASI BASS 321-0402Rzijmr-EppkmDelaware County Hospital NEGATED: Highlighted row has not occurred!48-77-3778ixbsrwtwb virus vaccine, unspecified formulationHolly Radha 564-0723Cdzuvj-WapgdPomerene Hospital Comment on above:Result Comment: pt does want but not today as she il ill NEGATED: Highlighted row has not occurred!99-78-2624RZPG-CoV-2 (COVID-19) cUZD- 6971 vaccineHolly Garcia [phone]-DzxwkPomerene Hospital Payers DatePayer CategoryPayerPolicy [id number] Health Insurance [id number] MMO SUPERMED PLUS [id number] 2019-Present [phone] [address] [place] [address] [id number]. Unknown1.2.840.816489.1.13.159.2.7.3.108[id number] 2.16.840.1.742746.3.57[id number] 2.16.840.1.776610.3.57[id number] 2.16.840.1.186238.3.57[id number] 2.16.840.1.671980.3.57[id number] 2.16.840.1.894207.3.57[id number] 2.16.840.1.577677.3.57[id number] 2.16.840.1.451600.3.57[id number] 2.16.840.1.758665.3.57[id number] 2.16.840.1.585460.3.57[id number] 2.16.840.1.777288.3.57[id number] 2.16.840.1.920723.3.57[id number] 2.16.840.1.207664.3.57[id number] 2.16.840.1.063364.3.57[id number] 2.16.840.1.955828.3.57[id number] 2.16.840.1.444410.3.57[id number] 2.16.840.1.599274.3.57[id number] 2.16.840.1.272785.3.57[id number] 2.16.840.1.051114.3.57[id number] 2.16.840.1.814479.3.57[id number] Social History DateTypeDetailFacilityStart: 11-13-2021 End: 35-86-3262Tgmgezm smoking statusNever smoked tobacco (finding)[facility] Start: 90-46-7610Xafpubi smoking statusNeverBellevue Hospital Start: 05-12-2022 End: 81-55-4649Xeb [facility] Start: 07-11-2021 End: 67-55-6276Ykzzfmg use and exposureSmokeless tobacco non-userChillicothe VA Medical Centertart: 86-19-2847Mjf Assigned At BirthNot on fileChillicothe VA Medical Centertart: 12-12-2021 End: 24-38-1195Bxlhyupr to SARS-CoV-2 (event)Not sureChillicothe VA Medical Centertart: 10-24-2021 End: 88-66-6622Ylomtkz intakeCurrent non-drinker of alcohol (finding)[facility] Columbustart: 05-12-2022 End: 86-28-4603Mlbcoek of Social functionSelect Medical Specialty Hospital - Columbustart: 08-15-2024 End: 91-40-3935Zeugkwejk beverage intakeEx-drinker (finding)NOM HealthcareHow often to you have a drink containing alcohol?NeverNOWA HealthcareStart: 92-76-8551Cijiibi CommentCaffeine intake: 1-2 cups per day coffeeNOWA Healthcare Start: 99-30-5433Qph assigned at [facility]Fe[facility] HealthcareStart: 04-14-2023 Gender identityIdentifies as female gender (finding)[facility]OM[facility] HealthcareStart: 07-26-2016 End: 15-85-1746ItnPxsepk (finding)[facility] Centertart: 02-23-2025 End: 72-41-9360Pmaztwvfw beverage intakeCurrent drinker of alcohol (finding) [facility] Centertart: 08-37-8851Ktbwjnk CommentoccasionalCleveland ClinicHow often to you have a drink containing alcohol?Monthly or lessNOMS HealthcareHow many standard drinks containing alcohol do you have on a typical day?1 or 2NOMS [facility] Medical Equipment Procedure CodeEquipment CodeEquipment Original TextEquipment IdentifierDatesPort Powerport [id number]_impStart: 32-17-2313Vhwb 07fr [id number]_nndMrafq: 18-64-0260Jpsrjet on above:Description: Internal Jugular Functional Status BpwvPeowzjiilyNwbnezYrdlxxlu69-90-8746Nmtpy score [AUDIT-C]1 04/27/2025 8:20 AM EDTonie Holland [facility]'s HospitalEcyowiapvh04-03-7472Xfxjyky Health Questionnaire 2 item (PHQ-2) [Reported][facility] HospitalDuqrtrhqwz64-29-9230Djykirxoop StatusN/[facility]12-04-2024Functional StatusN/[facility]12-02-2024Functional StatusN/[facility]07-01-2024Functional StatusN[facility] Rydmpms77-45-7416Dahpilfmqt StatusN/[facility]11-10-2023Functional StatusN[facility]09-29-2023Functional StatusN[facility]06-16-2023Functional StatusN/[facility]02-24-2023Functional StatusN[facility]12-30-2022Functional StatusN/[facility]11-04-2022Functional StatusN/[facility]07-28-2022Functional StatusN/[facility] [id number]z StatusN/[facility]07-07-2022Functional StatusN[facility] [id number] you blind, or do you have serious difficulty seeing, even when wearing glassesNo 06/10/2020 4:41 PM EDT Rosalia Thomas RN [facility]03-12-2017Are you deaf, or do you have serious difficulty hearingNo 11/22/2016 6:00 PM EDT [facility] 07-50-3707Wb you have serious difficulty walking or climbing stairsNo 11/22/2016 6:00 PM EDT [facility]03-12-2017Do you have difficulty dressing or bathingNo 11/22/2016 6:00 PM EDT [facility] Mental Status FsgsWcrzztnyyeMaoxwxNcfeslhy45-39-4306Fogglog of a physical, mental, or emotional condition, do you have serious difficulty concentrating, remembering, or making decisionsNo 11/22/2016 6:00 PM EDT [facility] Clinical Notes 12-23-2021 to 07-03-2025 Note Date & PscpQlhoRqidzqyi31-40-5268 History of Present illness Narrative* Carline Snyder MD - 07/03/2025 4:00 PM EDT Skin Check Location: Patient requests a full body skin examination Dermatologic history: no history of skin cancer, no history of atypical moles Last visit: 1 year ago Established patient 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 All pertinent medical history, medications, and allergies were reviewed. General Exam: alert, oriented to person, place, and time, normal affect, well appearing Unaccompanied Scalp, Examined Right leg Examined Head, Face Examined Left leg Examined Neck Examined Right foot Examined Chest Examined Patient kept bra on Left foot Examined Back Examined Buttocks Examined Patient kept underwear on Abdomen Examined Digits,nails: Examined Right arm Examined Left arm Examined Lymphatics: Not examined Hands Examined Skin Exam 1. MELANOCYTIC NEVUS OF TRUNK Abdomen (Lower Torso, Anterior) Scattered benign appearing, regular brown to light brown melanocytic papules and macules with similar morphology Counseled regarding these benign growths. Rarely, a nevus can develop into malignant melanoma, so any changing nevi should be promptly re-evaluated. 2. LENTIGINES Generalized Scattered snowden macules in sun-exposed areas. The patient was informed that lentigines are benign pigmented lesions that occur on sun-exposed andsun-damaged skin. No treatment is necessary. Recommended regular use of broad spectrum sunscreen SPF 30 or higher Next Visit: 1 year documented in this encounterLee's Summit HospitalNymxovkmhi14-93-3758 NoteWe had the pleasure of seeing your patient, Paris Steven, in consultation at the request of Dr. Blossom Hancock at the [facility] Endocrine clinic for follow up evaluation and advice regarding concerns for potential endocrine disease related to Paris's history of AML and treatment with chemotherapy. Paris is a 25 y.o. female comes to the visit with her sister. Her last visit to Endocrine Clinic was on 05/12/2024 HPI: AML: Paris developed mouth sores at 16 years of age. Further laboratory evaluations and a bone marrow biopsy indicated that she had AML (diagnosed on 07/28/2016). she was treated with chemotherapy per protocol [id number] (this chemotherapy included Cytarabine, Etoposide, Daunorubicin, and Mitoxantrone) which ended in November 2016. Paris underwent a matched unrelated bone marrow transplant on 11/28/2016. Her preparative regimen included Busulfan and Fludarabine. she has not undergone radiation for treatment. Primary Ovarian Failure: Paris achieved menarche at 14 yo. Prior to her cancer diagnosis she had regular monthly cycles. Paris was started on monthly Lupron in July 2016 with the initiation of her chemotherapy secondary to current guidelines which recommend Lupron in adolescent females in an attempt to protect ovarian function against chemotherapy-induced toxicity. Lupron was last given on 03/23/2017. Paris had no vaginal discharge or bleeding since that time. Labs done in June 2018 were consistent with primary ovarian failure (FSH 121 uiu/ml, LH: 90 uiu/ml, estradiol: <20). Based on this Paris was started on hormonal replacement in the form of a control pill. Chronic steroids/iatrogenic adrenal insufficiency: Paris has been on immunosuppression with tacrolimus for management of multisystem chronic GVH (lung, GI, and liver). Paris had just been on Tacrolimus until 01/01/2017 when biopsies confirmed GVHD in the stomach. She was started on high dose steroids (IV methylprednisolone) and was slowly transitioned over a few weeks to lower dose PO Prednisone 2.5 mg daily (equivalent to hydrocortisone 10 mg daily or 6 mg/m2/day). By 03/02/2017 her GVHD had improved and steroids were stopped, however her abdominal pain returned and due to concerns of GVHD she was restarted on Prednisone again at 5 mg po BID (equivalent to hydrocortisone 40 mg daily or 25 mg/m2/day). Paris had her steroids slowly weaned over time and by 06/29/2017 her steroids were stopped. Two weeks later Paris was admitted with respiratory symptoms. 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 Steroids were again restarted. Paris was again started on a slow wean and she received her last dose of steroids in November 2017. Paris continues on inhaled corticosteroids, azithromycin, and Singulair (FAM therapy) for her decreased lung function. In February 2021 Paris underwent a repeat low dose ACTH stimulation test and she passed with a baseline cortisol of 22 mcg/dl maximally stimulated ACTH level of 26 mcg/dl. Hyperglycemia: Paris had issues with hyperglycemia (mid 200's) 2 weeks after her transplant when she was on TPN and only getting glucocorticoids prior to her transfusions. Low dose Lantus was started with Humalog for correction factor at that time with improvement in her BG. She was weaned off her Lantus and only needed NPH to cover TPN from 12/19-12/21. Paris has intermittently had hyperglycemia (mid 200's) since that time with high dose steroids, however insulin has never needed to be restarted. Her BG on follow up CMP have been normal. Interval History: Paris was started on Ortho cylen in May 2019 secondary to presumed primary ovarian failure (off Lupron for 3 years with elevated FSH/LH and unmeasurable estrogen). Will occasionally miss a dose (1-2 days every few months) and then gets spotting. Otherwise continues to have a monthly menstrual with no spotting. Paris was seen by Gynecology at an outside facility for routine care in fall 2020 and at that time the decision was made to switch her from her Ortho cylen to Lo Loestrin. Paris did not do well with this and began having symptoms of menopause - hot flashes and thinning hair. Paris switched back to Ortho cyclen and has done well with this. LMP: 04/25/2025 Her period lasts 4-7 days. Not very heavy. Not very painful. Paris is and her and her are interested in having children. She has a referral to meet with the Maintenance Plumber at [facility] - she would like to carry a gestation with adonated egg. Paris is on Cholecalciferol 1000 units daily for vitamin D deficiency. Will miss a dose every few weeks. No fractures. Drinks milk with coffee, multiple servings of cheese and ice-cream per day. Paris is now followed by Dr. Kimberly Pierre at [facility] for her pulmonary issues. She had PFT's in 12/25/2021 and underwent bronchoscopy with biopsy in February. Her case was discussed in t (more content not included)...[facility] 04-27-2025 History of Present illness Narrative* Alondra Riley MA - 04/27/2025 8:30 AM EDT Images from the original note were not included. Efrain Pathak, DO Obstetrics and Gynecology Paris Vargas 2000 04/27/25 [id number] Yearly Wellness Exam Chief Complaint Patient presents with Gynecologic Exam LMP: 04/25/25 regular, monthly, normal flow, last 6-7 days BC: norgestimate-ethinyl estradiol (Ortho Tri-Cyclen,Trinessa) 0.18/0.215/0.25 MG-35 Last pap 8-06-06 neg. Denies breast, urinary, or bowel concerns. Visit Vitals BP 126/90 Ht 5' 6 Wt 122 lb LMP 04/25/2025 BMI 19.69 kg/m OB Status Having periods Smoking Status Never BSA 1.6 m OB History Para Term AB Living 0 0 0 0 0 0 SAB IAB Ectopic Multiple Live Births 0 0 0 0 0 Current Outpatient Medications Medication Sig Dispense Refill FLUoxetine (PROzac) 20 MG capsule Take 20 mg by mouth Daily hydrOXYzine pamoate (Vistaril) 25 MG capsule Take 1 capsule by mouth in the morning. ondansetron (Zofran) 4 MG tablet TAKE 1 TABLET BY MOUTH ONCE EVERYDAY NEEDED FOR NAUSEA/VOMITINGAS DIRECTED albuterol HFA 90 mcg/act inhaler inhale 2 puffs by mouth and INTO THE LUNGS every 6 hours norgestimate-ethinyl estradiol (Ortho Tri-Cyclen,Trinessa) 0.18/0.215/0.25 MG-35 MCG tablet Take 1 tablet by mouth in the morning. 84 tablet 3 RA Vitamin D-3 25 MCG (1000 UT) tablet Take 25 mcg by mouth Daily No current facility-administered medications for this visit. Allergies Allergen Reactions Blood-Group Specific Substance Other Reaction(s): Other (See Comments), Unknown TRALI on 07/29/16 - please see FYI tab 12/22/16: Anaphylaxis to male platelets and female platelets that were premedicated with Tylenol, Solumedrol and benadryl. 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 Pretreat with Benadryl, and run vancomycinover 2 hours. Past Surgical History: Procedure Laterality Date BONE MARROW TRANSPLANT 2017 LUNG BIOPSY 01/2022 Past Medical History: Diagnosis Date History of bone marrow transplant (HCC) 2017 Hormone disorder Myeloid leukemia (HCC) PTSD (post-traumatic stress disorder) ROS Const: Denies appetite change, fever, chills. Allergy: Denies medication reaction. Ocular: Denies visual acuity change. ENT: Denies hearing change. Endoc: Denies weight loss. Resp: Denies dyspnoea, wheezing. Cardiac: Denies angina, palpitations. GI: Denies nausea, vomiting. Haem: Denies bleeding. : Denies incontinence. MSK: Denies arthralgias, joint oedema. Derm: Denies rash, hair loss. Neuro: Denies ataxia, tremor. Also see HPI for elements of ROS documented therein and for details of positive findings, which shall supersede the foregoing. EXAM GENERAL EXAMINATION alert oriented well developed, well nourished. HEAD: normocephalic atraumatic. EYES: sclera anicteric. EARS: no obvious hearing deficit. NECK/THYROID: neck supple no cervical lymphadenopathy no thyromegaly. LYMPH NODES: no axillary, supraclavicular or inguinal adenopathy. SKIN: warm and dry. HEART: regular rate and rhythm. LUNGS: clear to auscultation bilaterally. CHEST:axillary nodes grossly normal. BREASTS:no masses palpable bilaterally, normal nipples bilaterally - everted - finely cystic - dense- well supported- axilla negative. ABDOMEN: soft, nontender, nondistended, no masses palpable. BACK: no costovertebral angle tenderness, no obvious scoliosis/kyphosis. 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 RECTAL:normal tone , no masses palpable , only small external hemorrhoids. EXTREMITIES no edema. NEUROLOGIC: alert and oriented. PSYCH: cooperative with exam. ICD-10-CM 1. Encounter for gynecological examination without abnormal finding Z01.419 norgestimate-ethinyl estradiol (Ortho Tri-Cyclen,Trinessa) 0.18/0.215/0.25 MG-35 MCG tablet Pelvic and breast exam completed. Findings of today's exam discussed with the patient. Continue MSBE. Ca/Vit D recommendations reviewed with the patient. The patient is to contact the office with anychanges to her gynecological condition or any changes with breast or bleeding. The patient is to return in 1 year or as needed 2. Screening for malignant neoplasm of cervix Z12.4 IGP,CTNG,RFXAPTHPVALL,,45 Thinprep collected. Will notify patient if results are abnormal. 3. Screening for STDs (sexually transmitted diseases) Z11.3 IGP,CTNG,RFXAPTHPVALL,,45 Run with pap 4. Encounter for surveillance of contraceptive pills Z30.41 Tolerating well Entered by Alondra Riley MA acting as scribe for Dr. Efrain Pathak. Signature Alondra Riley MA Date 04/27/25 . Time 8:17 AM . The documentation recorded by the scribe accurately reflects the service(s) I personally performed and the decisions I made. Signature Prateek Pathak,D.O. Date 04/27/25 Time 5:00PM. documented in this [facility]08-07-2025 History of Present illness Narrative* JOSE Baires - 04/19/2025 9:25 AM EDT Images from the original note were not included. Lesions: Location: Right arm/abdomen Duration: few months Quality: denies pain, denies itch, denies bleeding Modifying factors: Lesion on right arm has since fallen off Associated symptoms: rough Treatments: none Established patient All pertinent medical history, medications, and allergies were reviewed. General Exam: alert, oriented to person, place, and time, normal affect, well appearing Unaccompanied A focused exam completed based on patient reported problems, see below: Skin Exam 1. NEOPLASM OF UNCERTAIN BEHAVIOR OF SKIN Right Forearm - Posterior Erythema noted Discussed the only way to know for sure what the lesion is would be to have it removed and tested. Patient elected for observation. Patient counseled if lesion is changing, bleeding, growing, or symptomatic prior to next visit to contact clinic. 2. MELANOCYTIC NEVUS OF TRUNK Abdomen (Lower Torso, Anterior) Scattered benign appearing, regular brown to light brown melanocytic papules and macules with similar morphology Counseled regarding these benign growths. Rarely, a nevus can develop into malignant melanoma, so any changing nevi should be promptly re-evaluated. Next Visit: 2 months documented in this [facility]07-16-2025 Instructions* Patient Instructions* Jose Alfredo Albarado MD - 03/28/2025 5:50 PM EDT We discussed your heart health: - Your echocardiogram today showed that your aorta and heart are normal. The previous concern abouta dilated aorta was based on a pediatric measurement system (Z-score), which is no longer applicable now that you are 25 years old. Your aorta size is normal, and there is no evidence of dilation. - Your heart valves, heart function, and rhythm are all normal. There is no indication of any structural or functional heart issues. - Your EKG was also normal, and there is no cause for concern regarding your heart health at this time. We discussed your occasional fast heart rate: - Your faster heart rate is likely related to anxiety or stress. This is not concerning at your ageand does not require treatment with medication. Instead, focus on managing anxiety and stress to help prevent episodes of a racing heart. - If you experience persistent or worsening symptoms, please follow up with your family doctor. We discussed your blood pressure: - Your blood pressure was elevated during today s visit, but this may be due to anxiety about the appointment. I recommend monitoring your blood pressure at home using proper technique (sit in a relaxed position for 3-5 minutes, support your arm and back, and avoid crossing your legs). - If your blood pressure readings remain consistently high, follow up with your family doctor for further evaluation and management. We discussed your follow-up care: - You will need a follow-up echocardiogram and EKG in 2 years to monitor your heart health. You canschedule this appointment approximately 6 months before it is due. - There is no need for additional follow-up with me at this time unless new concerns arise. If you have any questions or need to reach me, you can send a message through [employer]. Please continue to monitor your overall health, and follow up with your family doctor as needed. Itwas nice to meet you, and I wish you the best of health! [facility] History of Present illness Narrative* Jose Alfredo Albarado MD - 03/28/2025 12:15 PM EDT Images from the original note were not included. Heart, Vascular and Thoracic [facility] Department of Cardiovascular Medicine SECTION OF CARDIOVASCULAR IMAGING OUTPATIENT VISIT DATE 03/28/2025 OUTPATIENT VISIT TYPE NEW PRIMARY CARE PHYSICIAN: Holly Garcia APRN.ENGINEERING TECHNICAL WRITER [phone] [facility] [id number] REFERRING PHYSICIAN: SELF Recording using ambient Retora Black software for draft documentation of the visit was discussed with the patient/authorized logistics service representative; all questions welcomed and answered. Patient/authorized logistics service representative agreed to proceed CHIEF COMPLAINT: Anxiety regarding aortic dilation HPI: Ms. Paris Vargas is a 25-year-old female presenting for evaluation of aortic dilation noted on a prior echocardiogram. The patient reports feeling generally well but experiences occasional episodes of tachycardia, describing it as a hard, fast beating heart and being able to see my heartbeat. She attributes theseepisodes to anxiety, which she describes as constant. She also notes that her blood pressure is often reported as elevated during medical visits. She is currently dealing with unspecified pulmonary issues, which she believes may contribute to her elevated heart rate. She has a history of cancer and continues to follow up with her oncologist annually. She is no longer on immunosuppressive therapy. She denies any other cardiac symptoms or conditions. She has no family history of aortic aneurysms or dissections. Her father had a myocardial infarction at age 55, which she believes was related to polycystic kidney disease and a subsequent kidney transplant. NURSING INTAKE: Mrs. 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 She presents today with complaints of palpitations, and rapid HR, and anxiety. 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 OSH TTE 05/05/2025 PAST MEDICAL HISTORY Diagnosis Date Acute myeloid leukemia in remission (HCC) Aspergillus pneumonia (HCC) C. 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) Recurrent pneumonia Stem cells transplant status (HCC) MUD PAST SURGICAL HISTORY Procedure Laterality Date LUNG BIOPSY x 2 SOCIAL HISTORY Social History Tobacco Use Smoking status: Never Smokeless tobacco: Never Vaping Use Vaping status: Never Used Substance Use Topics Alcohol use: Yes Comment: occasional Drug use: Never FAMILY HISTORY Problem Relation Age of Onset Heart Attack Father ALLERGIES: ALLERGIES Allergen Reactions Blood-Group Specifi* Unknown TRALI on 07/29/16 - please see FYI tab 12/22/16: Anaphylaxis to male platelets and female platelets that were premedicated with Tylenol, Solumedrol and benadryl. 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 Pretreat with Benadryl, and run vancomycinover 2 hours. MEDICATIONS: hydrOXYzine pamoate (VISTARIL) 25 mg capsule Take 1 capsule by mouth once daily. albuterol HFA (PROVENTIL HFA, VENTOLIN HFA) 90 mcg/actuation inhaler Inhale 2 Puffs as instructed every 6 hours as needed for wheezing/shortness of breath. albuterol (PROVENTIL) 2.5 mg /3 mL (0.083 %) nebulizer solution Use 3 mL via nebulizer every 6 hours as needed for wheezing/shortness of breath. Inhale over 5-15 minutes Do not use if using inhaler norgestimate 0.25 mg-ethinyl estradiol 35 mcg (SPRINTEC, ORTHO-CYCLEN) 0.25-35 mg-mcg per tablet Take 1 tablet by mouth. Cholecalciferol, Vitamin D3, 50 mcg (2,000 unit) cap take 1 capsule by mouth once daily mv,calcium,min/iron/folic/vitK (ONE-A-DAY WOMEN'S COMPLETE ORAL) Take by mouth. busPIRone (BUSPAR) 5 mg tablet Take 5 mg by mouth as needed. 1 Each. REVIEW OF SYSTEMS: Positive in BOLD GENERAL: Weight loss or gain, Fever or Chills, Weakness and Sleep difficulties. HEENT: Headache, Glasses/Contacts, Eye pain, Impaired Vision, Trouble/Decreased Hearing, Ringing inEars, Nosebleeds, Dental Problems, Bleeding Gums, Dentures NECK: Swelling, Pain, Stiffness RESPIRATORY: Cough, Blood in Sputum, Shortness of breath, Wheezing, Asthma, Sleep Apnea SKIN: Rashes, Itching GASTROINTESTINAL: Trouble swallowing, Heartburn, Change in bowel habits, Blood in stool, Dark blackstools MUSCULOSKELETAL: Muscle or joint pain, Stiffness , Joint swelling NEUROLOGIC/PSYCHIATRIC: Weakness, Paralysis, Numbness, Tingling, Tremor, Nervousness, Anxiety, Depressed mood, Memory loss HEMATOLOGICAL/LYMPHATIC: Easy bruising , Easy bleeding ENDOCRINE: Heat or cold intolerance, Excessive sweating, Frequent urination, Frequent thirst Ramo Capellan RN I personally interviewed, confirmed and edited the above information if obtained by others. Jose Alfredo Albarado MD PHYSICAL EXAMINATION: BP 132/95 (BP Site: Left Arm, BP Cuff Size: Regular Adult) Pulse 111 Ht 165.1 cm (5' 5 ) Wt 55.3 kg (122 lb) LMP 01/31/2025 (Approximate) SpO2 100% BMI 20.30 kg/m General: Well appearing, in no acute distress. Skin: No clubbing, no cyanosis. Eyes: Extra ocular movements intact Oropharynx: Teeth in good repair. Neck: No jugular venous distention, no carotid bruits, carotids have a normal upstroke, no palpablethyromegaly. Lungs: Clear to auscultation bilaterally, no wheezing or rhonchi. Heart: Regular rhythm, PMI not displaced, S1, S2 normal, no S3, no S4, no heaves, no rub and no murmur. Abdomen: Soft, nontender, bowel sounds normal, no palpable organomegaly, no bruits. Extremities: No peripheral edema . Grade 2/4 distal pulses bilaterally. Neuro: Oriented to person, place and time, alert, cooperative, gait coordinated. CARDIOVASCULAR MEDICINE TESTING: Electrocardiogram: Diagnosis: NORMAL SINUS RHYTHM WITH SINUS ARRHYTHMIA NORMAL ECG Echocardiogram: Last ECHO Result Conclusion ECHO Collected: 03/28/2025 3:26 PM (Edited Result - FINAL) Impression: CONCLUSIONS: - Exam indication: Palpitations - The left ventricle is normal in size. Left ventricular systolic function is normal. EF = 57 5% (2D biplane) - The right ventricle is normal in size. Right ventricular systolic function is normal. - There are no significant valvular abnormalities. There are no significant valvular abnormalities. Patient tachycardic throughout most of the study. - The patient has not had a prior CC echocardiographic exam for comparison. * * * Final (Updated) * * * I have personally reviewed the Electrocardiogram and Echocardiogram. Assessment & Plan 1. Aortic dilation patient presented for an opinion regarding aortic root and ascending aortic dilation identified on outside hospital surveillance transthoracic echocardiogram in April 2024. Review of her echocardiogram today shows normal aortic dimensions, normal left ventricular function without significant wall m otion abnormalities and valvular abnormalities. I reassured the patient that she does not have aortic dilation and she does not need routine surveillance 2. Anxiety disorder, unspecified type (F41.9) Patient experiences anxiety, which may contribute to occasional tachycardia. Recent echocardiogram and EKG show normal heart function and size. - Reassured patient about normal cardiac findings. - Advised focusing on anxiety management rather than pharmacological treatment for tachycardia. 2. Family history of ischemic heart disease (Z82.49) Father had a myocardial infarction at age 55, post-kidney transplant due to polycystic kidney disease. - Discussed importance of regular monitoring and lifestyle modifications. - Scheduled follow-up echocardiogram and EKG in two years. CONTACT INFORMATION: Jose Alfredo Albarado M.D., F.A.CPrernaCPrerna Alvarez Department of Cardiovascular Medicine Heart, Vascular and Thoracic [facility] Desk [address] [place] [address] Office - [phone] extension [phone] Office E-mail: [email or web address] Appointments: [phone] -[phone] extension [phone] documented in this encounter[facility] NoteHNO ID: [id number] Author: JOSE ALFREDO ALBARADO MD Service: ? Author Type: Physician Type: Progress Notes Filed: 03/28/2025 17:51 Note Text: Heart, Vascular and Thoracic [facility] Department of Cardiovascular Medicine SECTION OF CARDIOVASCULAR IMAGING OUTPATIENT VISIT DATE 03/28/2025 OUTPATIENT VISIT TYPE NEW PRIMARY CARE PHYSICIAN: Holly Garcia APRN.ENGINEERING TECHNICAL WRITER [address] [facility] [id number] REFERRING PHYSICIAN: SELF Recording using Accolo software for draft documentation of the visit was discussed with the patient/authorized logistics service representative; all questions welcomed and answered. Patient/authorized logistics service representative agreed to proceed CHIEF COMPLAINT: Anxiety regarding aortic dilation HPI: Ms. Paris Vargas is a 25-year-old female presenting for evaluation of aortic dilation noted on a prior echocardiogram. The patient reports feeling generally well but experiences occasional episodes of tachycardia, describing it as a hard, fast beating heart and being able to see my heartbeat. She attributes these episodes to anxiety, which she describes as constant. She also notes that her blood pressure is often reported as elevated during medical visits. She is currently dealing with unspecified pulmonary issues, which she believes may contribute to her elevated heart rate. She has a history of cancer and continues to follow up with her oncologist annually. She is no longer on immunosuppressive therapy. She denies any other cardiac symptoms or conditions. She has no family history of aortic aneurysms or dissections. Her father had a myocardial infarction at age 55, which she believes was related to polycystic kidney disease and a subsequent kidney transplant. NURSING INTAKE: Mrs. 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 She presents today with complaints of palpitations, and rapid HR, and anxiety. 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 OSH TTE 05/05/2025 PAST MEDICAL HISTORY Diagnosis Date Acute myeloid leukemia in remission (HCC) Aspergillus pneumonia (HCC) C. 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) Recurrent pneumonia Stem cells transplant status (HCC) MUD PAST SURGICAL HISTORY Procedure Laterality Date LUNG BIOPSY x 2 SOCIAL HISTORY Social History Tobacco Use Smoking status: Never Smokeless tobacco: Never Vaping Use Vaping status: Never Used Substance Use Topics Alcohol use: Yes Comment: occasional Drug use: Never FAMILY HISTORY Problem Relation Age of Onset Heart Attack Father ALLERGIES: ALLERGIES Allergen Reactions Blood-Group Specifi* Unknown TRALI on 07/29/16 - please see FYI tab 12/22/16: Anaphylaxis to male platelets and female platelets that were premedicated with Tylenol, Solumedrol and benadryl. 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 Pretreat with Benadryl, and run vancomycin over 2 hours. MEDICATIONS: hydrOXYzine pamoate (VISTARIL) 25 mg capsule Take 1 capsule by mouth once daily. albuterol HFA (PROVENTIL HFA, VENTOLIN HFA) 90 mcg/actuation inhaler Inhale 2 Puffs as instructed every 6 hours as needed for wheezing/shortness of breath. albuterol (PROVENTIL) 2.5 mg /3 mL (0.083 %) nebulizer solution Use 3 mL via nebulizer every 6 hours as needed for wheezing/shortness of breath. Inhale over 5-15 minutes Do not use if using inhaler norgestimate 0.25 mg-ethinyl estradiol 35 mcg (SPRINTEC, ORTHO-CYCLEN) 0.25-35 mg-mcg per tablet Take 1 tablet by mouth. Cholecalciferol, Vitamin D3, 50 mcg (2,000 unit) cap take 1 capsule by mouth once daily mv,calcium,min/iron/folic/vitK (ONE-A-DAY WOMEN'S COMPLETE ORAL) Take by mouth. busPIRone (BUSPAR) 5 mg tablet Take 5 mg by mouth as needed. 1 Each. REVIEW OF SYSTEMS: Positive in BOLD GENERAL: Weight loss or gain, Fever or Chills, Weakness and Sleep difficulties. HEENT: Headache, Glasses/Contacts, Eye pain, Impaired Vision, Trouble/Decreased Hearing, Ringing in Ears, Nosebleeds, Dental Problems, Bleeding Gums, Dentures NECK: Swelling, Pain, Stiffness RESPIRATORY: Cough, Blood in Sputum, Shortness of breath, Wheezing, Asthma, Sleep Apnea SKIN: Rashes, Itching GASTROINTESTINAL: (more content not included)...[facility] 02-23-2025 History of Present illness Narrative* Prema Henry MD - 02/23/2025 10:20 AM EDT [facility] OFFICE VISIT Jaxson Toledo is a 25 year old With a history of POI who presents with preconception visit. She wasdiagnosed with POI at the time of her Leukemia and had bone marrow transplant in 2017. She had labscompleted in 2018 which confirmed POI and she has been taking COCP for hormone replacement since that time. Prior to chemotherapy for her leukemia, she did receive Lupron for attempt at ovarian preservation. Taking Trinessa COCP with regular monthly menses. No intermenstrual bleeding. No other concerning or bothersome symptoms. She denies any history of blood clots, migraines, hypertension. She denies any bowel or urinary concerns. Did meet with fertility specialist in [place] and reports poor reaction to pelvic exam. She would like to get in the next 2 years. 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 Pap 04/2024 NILM No history STD: No Sexually active: Yes Pain with intercourse: no Bleeding with intercourse: No OB History Gravida0 Para0 Term0 Preterm0 AB0 Living0 SAB0 IAB0 Ectopic0 Multiple0 Live Births0 Plant Operator Helper History LMP: 01/31/2025 (Approximate), Having periods Age at Menarche: Age at First : Age at Menopause: Plant Operator Helper History Comments: Sexual Activity: Yes; Male Contraception: Pill PAST MEDICAL HISTORY Diagnosis Date Acute myeloid leukemia in remission (HCC) Aspergillus pneumonia (HCC) C. 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 Social History Tobacco Use Smoking status: Never Smokeless tobacco: Never Vaping Use Vaping status: Never Used Substance Use Topics Alcohol use: Yes Comment: occasional Drug use: Never Current Outpatient Medications Medication Sig albuterol HFA (PROVENTIL HFA, VENTOLIN HFA) 90 mcg/actuation inhaler Inhale 2 Puffs as instructed every 6 hours as needed for wheezing/shortness of breath. albuterol (PROVENTIL) 2.5 mg /3 mL (0.083 %) nebulizer solution Use 3 mL via nebulizer every 6 hours as needed for wheezing/shortness of breath. Inhale over 5-15 minutes Do not use if using inhaler 1 Each. Cholecalciferol, Vitamin D3, 50 mcg (2,000 unit) cap take 1 capsule by mouth once daily cefdinir (OMNICEF) 300 mg capsule Take 1 capsule by mouth every 12 hours. (Patient not taking: Reported on 02/23/2025) Norgestimate-Ethinyl Estradiol 0.18/0.215/0.25 mg-35 mcg (28) Take 1 tablet by mouth once daily. (Patient not taking: Reported on 02/23/2025) norgestimate 0.25 mg-ethinyl estradiol 35 mcg (SPRINTEC, ORTHO-CYCLEN) 0.25-35 mg-mcg per tablet Take 1 tablet by mouth. Biotin 2,500 mcg cap Take 2,500 mcg by mouth. norethindrone-e.estradiol-iron (LO LOESTRIN FE) 1 mg-10 mcg (24)/10 mcg (2) Take 1 tablet by mouth once daily. mv,calcium,min/iron/folic/vitK (ONE-A-DAY WOMEN'S COMPLETE ORAL) Take by mouth. (Patient not taking: Reported on 08/23/2024) No current facility-administered medications for this visit. ALLERGIES Allergen Reactions Blood-Group Specifi* Unknown TRALI on 07/29/16 - please see FYI tab 12/22/16: Anaphylaxis to male platelets and female platelets that were premedicated with Tylenol, Solumedrol and benadryl. 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 Pretreat with Benadryl, and run vancomycinover 2 hours. Review of Systems Constitutional: Negative for chills, fatigue, fever and unexpected weight change. Respiratory: Negative for chest tightness and shortness of breath. Cardiovascular: Negative for chest pain and palpitations. Gastrointestinal: Negative for abdominal pain, constipation, diarrhea, nausea and vomiting. Endocrine: Negative for cold intolerance. Genitourinary: Negative for dyspareunia, dysuria, frequency, pelvic pain, urgency, vaginal bleedingand vaginal discharge. Musculoskeletal: Negative for arthralgias, back pain and myalgias. Skin: Negative. Neurological: Negative for dizziness, tremors and weakness. Psychiatric/Behavioral: Negative for confusion and decreased concentration. Participation of a fellow, resident, medical student, or advanced practice provider student in performing the sensitive examination was discussed with the patient or authorized logistics service representative. The patient or authorized logistics service representative has agreed to proceed with the sensitive examination. Objective Vitals: Blood pressure 130/87, pulse 98, weight 59 kg (130 lb), last menstrual period 01/31/2025. Physical Exam Constitutional: General: She is not in acute distress. Appearance: She is not ill-appearing. HENT: Head: Normocephalic and atraumatic. Right Ear: External ear normal. Left Ear: External ear normal. Nose: Nose normal. Mouth/Throat: Pharynx: Oropharynx is clear. Eyes: Conjunctiva/sclera: Conjunctivae normal. Cardiovascular: Rate and Rhythm: Normal rate. Pulmonary: Effort: Pulmonary effort is normal. Neurological: General: No focal deficit present. Mental Status: She is alert. Skin: General: Skin is dry. Psychiatric: Mood and Affect: Mood normal. Behavior: Behavior normal. Vitals and nursing note reviewed. Assessment & Plan Problem List Items Addressed This Visit Oncology Acute myeloid leukemia in remission (HCC) Other Stem cells transplant status (HCC) Overview MUD Other Visit Diagnoses Premature ovarian failure - Primary Relevant Orders CONSULT TO INFERTILITY CLINIC Patient desires Relevant Orders CONSULT TO INFERTILITY CLINIC Referral to [facility] placed to discuss options for future given history of POI Will continue on COCP for now Has annual appt scheduled with [facility] in [place] Follow Up No follow-ups on file. Prema Henry MD Staff Physician Obstetrics & Gynecology [place] 02/23/2025 10:54 AM Medical Decision Making: Problems: Low: Stable chronic illness Data: Unique source(s) for external note(s) reviewed: 2 Unique test(s) ordered: 1 Medical Decision Making Level: 3 - Low [facility] NoteHNO ID: [id number] Author: PREMA HENRY MD Service: ? Author Type: Physician Type: Progress Notes Filed: 02/23/2025 10:55 Note Text: [facility] OFFICE VISIT Jaxson Toledo is a 25 year old With a history of POI who presents with preconception visit. She was diagnosed with POI at the time of her Leukemia and had bone marrow transplant in 2017. She had labs completed in 2018 which confirmed POI and she has been taking COCP for hormone replacement since that time. Prior to chemotherapy for her leukemia, she did receive Lupron for attempt at ovarian preservation. Taking Trinessa COCP with regular monthly menses. No intermenstrual bleeding. No other concerning or bothersome symptoms. She denies any history of blood clots, migraines, hypertension. She denies any bowel or urinary concerns. Did meet with fertility specialist in [place] and reports poor reaction to pelvic exam. She would like to get in the next 2 years. 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 Pap 04/2024 NILM No history STD: No Sexually active: Yes Pain with intercourse: no Bleeding with intercourse: No OB History Gravida0 Para0 Term0 Preterm0 AB0 Living0 SAB0 IAB0 Ectopic0 Multiple0 Live Births0 [employer] History LMP: 01/31/2025 (Approximate), Having periods Age at Menarche: Age at First : Age at Menopause: [employer] History Comments: Sexual Activity: Yes; Male Contraception: Pill PAST MEDICAL HISTORY Diagnosis Date Acute myeloid leukemia in remission (HCC) Aspergillus pneumonia (HCC) C. 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 Social History Tobacco Use Smoking status: Never Smokeless tobacco: Never Vaping Use Vaping status: Never Used Substance Use Topics Alcohol use: Yes Comment: occasional Drug use: Never Current Outpatient Medications Medication Sig albuterol HFA (PROVENTIL HFA, VENTOLIN HFA) 90 mcg/actuation inhaler Inhale 2 Puffs as instructed every 6 hours as needed for wheezing/shortness of breath. albuterol (PROVENTIL) 2.5 mg /3 mL (0.083 %) nebulizer solution Use 3 mL via nebulizer every 6 hours as needed for wheezing/shortness of breath. Inhale over 5-15 minutes Do not use if using inhaler 1 Each. Cholecalciferol, Vitamin D3, 50 mcg (2,000 unit) cap take 1 capsule by mouth once daily cefdinir (OMNICEF) 300 mg capsule Take 1 capsule by mouth every 12 hours. (Patient not taking: Reported on 02/23/2025) Norgestimate-Ethinyl Estradiol 0.18/0.215/0.25 mg-35 mcg (28) Take 1 tablet by mouth once daily. (Patient not taking: Reported on 02/23/2025) norgestimate 0.25 mg-ethinyl estradiol 35 mcg (SPRINTEC, ORTHO-CYCLEN) 0.25-35 mg-mcg per tablet Take 1 tablet by mouth. Biotin 2,500 mcg cap Take 2,500 mcg by mouth. norethindrone-e.estradiol-iron (LO LOESTRIN FE) 1 mg-10 mcg (24)/10 mcg (2) Take 1 tablet by mouth once daily. mv,calcium,min/iron/folic/vitK (ONE-A-DAY WOMEN'S COMPLETE ORAL) Take by mouth. (Patient not taking: Reported on 08/23/2024) No current facility-administered medications for this visit. ALLERGIES Allergen Reactions Blood-Group Specifi* Unknown TRALI on 07/29/16 - please see FYI tab 12/22/16: Anaphylaxis to male platelets and female platelets that were premedicated with Tylenol, Solumedrol and benadryl. 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 Pretreat with Benadryl, and run vancomycin over 2 hours. Review of Systems Constitutional: Negative for chills, fatigue, fever and unexpected weight change. Respiratory: Negative for chest tightness and shortness of breath. Cardiovascular: Negative for chest pain and palpitations. Gastrointestinal: Negative for abdominal pain, constipation, diarrhea, nausea and vomiting. Endocrine: Negative for cold intolerance. Genitourinary: Negative for dyspareunia, dysuria, frequency, pelvic pain, urgency, vaginal bleeding and vaginal discharge. Musculoskeletal: Negative for arthralgias, back pain and myalgias. Skin: Negative. Neurological: Negative for dizziness, tremors and weakness. Psychiatric/Behavioral: Negative for confusion and decreased concentration. Participation of a fellow, resident, medical student, or advanced practice provider student in performing the sensitive examination was discussed with the patient or authorized logistics service representative. The patient or authorized logistics service representative has agreed to p (more content not included)...[facility] 08-23-2024 NoteHNO ID: [id number] Author: LYNETTE DASILVA MD Service: ? Author Type: Physician Type: Progress Notes Filed: 08/23/2024 10:43 Note Text: 24 year old female presents with the following concerns and complaints: Sore throat ASSESSMENT/IMPRESSION/PLAN: Resolved hemorrhagic tonsillitis. No action required HISTORY OF PRESENT ILLNESS: Patient reports remote history of bone marrow transplant completed when she was a child for leukemia. Reports no interim difficulties. Now? Patient has 1 week history of tonsillitis associated with spitting blood. She brought with her a picture/photo of her throat demonstrating 3+ tonsils with hemorrhagic spots on the left side. Currently: Sore throat is minimal. Painful swallowing has resolved. Neck node swelling has resolved. She reports that in the ED a test for strep and mono were negative. Denies history of repeat sore throats. Denies other bleeding difficulties. 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 albuterol HFA (PROVENTIL HFA, VENTOLIN HFA) 90 mcg/actuation inhaler Inhale 2 Puffs as instructed every 6 hours as needed for wheezing/shortness of breath. Norgestimate-Ethinyl Estradiol 0.18/0.215/0.25 mg-35 mcg (28) Take 1 tablet by mouth once daily. Cholecalciferol, Vitamin D3, 50 mcg (2,000 unit) cap take 1 capsule by mouth once daily albuterol (PROVENTIL) 2.5 mg /3 mL (0.083 %) nebulizer solution Use 3 mL via nebulizer every 6 hours as needed for wheezing/shortness of breath. Inhale over 5-15 minutes Do not use if using inhaler norgestimate 0.25 mg-ethinyl estradiol 35 mcg (SPRINTEC, ORTHO-CYCLEN) 0.25-35 mg-mcg per tablet Take 1 tablet by mouth. 1 Each. Biotin 2,500 mcg cap Take 2,500 mcg by mouth. norethindrone-e.estradiol-iron (LO LOESTRIN FE) 1 mg-10 mcg (24)/10 mcg (2) Take 1 tablet by mouth once daily. mv,calcium,min/iron/folic/vitK (ONE-A-DAY WOMEN'S COMPLETE ORAL) Take by mouth. (Patient not taking: Reported on 08/23/2024) No current facility-administered medications for this visit. REVIEW OF SYSTEMS: GENERAL: No weight loss, malaise or fevers NECK: Negative for lumps, goiter, pain and significant neck swelling RESPIRATORY: Negative for cough, hemoptysis, wheezing, COPD, dyspnea or shortness of breath EXAM VITAL SIGNS: LMP 01/09/2022 APPEARANCE: alert, NAD, and cooperative. EYES: Conjunctiva and sclera normal and without drainage. EARS: TMs without erythema and apppear normal bilat. Canals normal bilaterally.. NOSE/SINUS: Nares normal, no sign of erythema or edema of the turbinates. MOUTH: Examination includes lips, tongue, teeth, buccal mucosa, gingiva, hard palate, floor the mouth, normal. OROPHARYNX: Examination of the soft palate, posterior and lateral pharyngeal roas, tonsil fossa, normal. NASOPHARYNX: Superior wall, lateral recess, Rosenmuller's fossa, eustachian tube orifice, normal. LARYNX AND HYPOPHARYNX: Examination of the base of tongue, epiglottis, arytenoids, aryepiglottic folds, glottis, ventricle, piriform and postcricoid regions, normal. Vocal fold movement, normal. NECK: Neck supple, no adenopathy; thyroid symmetric, normal size, no bruits.. CRANIAL NERVE 2-7 AND 9-12: normal. Lynette Dasilva [facility] History of Present illness Narrative* Lynette Dasilva MD - 08/23/2024 10:37 AM EST 24 year old female presents with the following concerns and complaints: Sore throat ASSESSMENT/IMPRESSION/PLAN: Resolved hemorrhagic tonsillitis. No action required HISTORY OF PRESENT ILLNESS: Patient reports remote history of bone marrow transplant completed when she was a child for leukemia. Reports no interim difficulties. Now Patient has 1 week history of tonsillitis associated with spitting blood. She brought with her a picture/photo of her throat demonstrating 3+ tonsils with hemorrhagic spots on the left side. Currently: Sore throat is minimal. Painful swallowing has resolved. Neck node swelling has resolved. She reports that in the ED a test for strep and mono were negative. Denies history of repeat sore throats. Denies other bleeding difficulties. 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 albuterol HFA (PROVENTIL HFA, VENTOLIN HFA) 90 mcg/actuation inhaler Inhale 2 Puffs as instructed every 6 hours as needed for wheezing/shortness of breath. Norgestimate-Ethinyl Estradiol 0.18/0.215/0.25 mg-35 mcg (28) Take 1 tablet by mouth once daily. Cholecalciferol, Vitamin D3, 50 mcg (2,000 unit) cap take 1 capsule by mouth once daily albuterol (PROVENTIL) 2.5 mg /3 mL (0.083 %) nebulizer solution Use 3 mL via nebulizer every 6 hours as needed for wheezing/shortness of breath. Inhale over 5-15 minutes Do not use if using inhaler norgestimate 0.25 mg-ethinyl estradiol 35 mcg (SPRINTEC, ORTHO-CYCLEN) 0.25-35 mg-mcg per tablet Take 1 tablet by mouth. 1 Each. Biotin 2,500 mcg cap Take 2,500 mcg by mouth. norethindrone-e.estradiol-iron (LO LOESTRIN FE) 1 mg-10 mcg (24)/10 mcg (2) Take 1 tablet by mouth once daily. mv,calcium,min/iron/folic/vitK (ONE-A-DAY WOMEN'S COMPLETE ORAL) Take by mouth. (Patient not taking: Reported on 08/23/2024) No current facility-administered medications for this visit. REVIEW OF SYSTEMS: GENERAL: No weight loss, malaise or fevers NECK: Negative for lumps, goiter, pain and significant neck swelling RESPIRATORY: Negative for cough, hemoptysis, wheezing, COPD, dyspnea or shortness of breath EXAM VITAL SIGNS: [facility] 01/09/2022 APPEARANCE: alert, NAD, and cooperative. EYES: Conjunctiva and sclera normal and without drainage. EARS: TMs without erythema and apppear normal bilat. Canals normal bilaterally.. NOSE/SINUS: Nares normal, no sign of erythema or edema of the turbinates. MOUTH: Examination includes lips, tongue, teeth, buccal mucosa, gingiva, hard palate, floor the mouth, normal. OROPHARYNX: Examination of the soft palate, posterior and lateral pharyngeal rosa, tonsil fossa, normal. NASOPHARYNX: Superior wall, lateral recess, Rosenmuller's fossa, eustachian tube orifice, normal. LARYNX AND HYPOPHARYNX: Examination of the base of tongue, epiglottis, arytenoids, aryepiglottic folds, glottis, ventricle, piriform and postcricoid regions, normal. Vocal fold movement, normal. NECK: Neck supple, no adenopathy; thyroid symmetric, normal size, no bruits.. CRANIAL NERVE 2-7 AND 9-12: normal. Lynette Dasilva MD Otolaryngology * Greg Martins MA - 08/23/2024 9:52 AM EST Tobacco Use: Never Was smoking cessation packet given? N/A - Patient is a non-smoker or quit >1 year ago. Was a referral initiated?N/A Patient is a non-smoker documented in [place] encounterDavid [place] [id number] NoteHNO ID: [id number] Author: GREG MARTINS MA Service: ? Author Type: Occupational Health Coordinator Type: Progress Notes Filed: 08/23/2024 10:43 Note Text: Tobacco Use: Never Was smoking cessation packet given? N/A - Patient is a non-smoker or quit >1 year ago. Was a referral initiated?N/A [facility] is a [facility] Evaluation + Plan noteExtracted from:Title:ED NoteAuthor:Gabe KILLIAN, TimDate:08/18/24 1. Pharyngitis (J02.9: Acute pharyngitis, unspecified) Orders: acetaminophen-hydrocodone, 1 EA, Tab, Oral, Once, Stop date 08/18/24 3:53:00 EST, STAT, Start date 08/18/24 3:53:00 EST acetaminophen-hydrocodone, 1 tab(s), Oral, q4hr for pain, 7 tab(s), Refill(s) 0 dexamethasone, 10 mg = 2.5 tab(s), Tab, Oral, Once, Stop date 08/18/24 3:48:00 EST, STAT, Start date 08/18/24 3:48:00 EST, 08/18/24 3:48:00 EST CBC w/ Auto Diff Mononucleosis Screen [facility] 12-06-2024 Hospital Discharge instructions Patient Education 08/18/2024 04:42:03 Pharyngitis, [id number] Pharyngitis Pharyngitis is a sore throat (pharynx). This is when there is redness, pain, and swelling in your throat. Most of the time, this condition gets better on its own. In some cases, you may need medicine. What are the causes? An infection from a virus. An infection from bacteria. Allergies. What increases the risk? Being 5 24 years old. Being in crowded environments. These include: ?Daycares. ?Schools. ?Dormitories. Living in a place with cold temperatures outside. Having a weakened disease-fighting (immune) system. What are the signs or symptoms? Symptoms may vary depending on the cause. Common symptoms include: Sore throat. Tiredness (fatigue). Low-grade fever. Stuffy nose. Cough. Headache. Other symptoms may include: Glands in the neck (lymph nodes) that are swollen. Skin rashes. Film on the throat or tonsils. This can be caused by an infection from bacteria. Vomiting. Red, itchy eyes. Loss of appetite. Joint pain and muscle aches. Tonsils that are temporarily bigger than usual (enlarged). How is this treated? Many times, treatment is not needed. This condition usually gets better in 3 4 days without treatment. If the infection is caused by a bacteria, you may be need to take antibiotics. Follow these instructions at home: Medicines Take wbga-[id number]-[id number] and prescription medicines only as told by your doctor. If you were prescribed an antibiotic medicine, take it as told by your doctor. Do not stop taking the antibiotic even if you start to feel better. Use throat lozenges or sprays to soothe your throat as told by your doctor. Children can get pharyngitis. Do not give your child aspirin. Managing pain To help with pain, try: Sipping warm liquids, such as: ?Broth. ?Herbal tea. ?Warm water. Eating or drinking cold or frozen liquids, such as frozen ice pops. Rinsing your mouth (gargle) with a salt water mixture 3 4 times a day or as needed. ?To make salt water, dissolve 1 tsp (3 6 g) of salt in 1 cup (237 mL) of warm water. ?Do not swallow this mixture. Sucking on hard candy or throat lozenges. Putting a cool-mist humidifier in your bedroom at night to moisten the air. Sitting in the bathroom with the door closed for 5 10 minutes while you run hot water in the shower. General instructions Do not smoke or use any products that contain nicotine or tobacco. If you need help quitting, ask your doctor. Rest as told by your doctor. Drink enough fluid to keep your pee (urine) pale yellow. How is this prevented? Wash your hands often for at least 20 seconds with soap and water. If soap and water are not available, use hand general claims agent. Do not touch your eyes, nose, or mouth with unwashed hands. Wash hands after touching these areas. Do not share cups or eating utensils. Avoid close contact with people who are sick. Contact a doctor if: You have large, tender lumps in your neck. You have a rash. You cough up green, yellow-brown, or bloody spit. Get help right away if: You have a stiff neck. You drool or cannot swallow liquids. You cannot drink or take medicines without vomiting. You have very bad pain that does not go away with medicine. You have problems breathing, and it is not from a stuffy nose. You have new pain and swelling in your knees, ankles, wrists, or elbows. These symptoms may be an emergency. Get help right away. Call your local emergency services (911 int [place] Do not wait to see if the symptoms will go away. Do not drive yourself to the hospital. Summary Pharyngitis is a sore throat (pharynx). This is when there is redness, pain, and swelling in your throat. Most of the time, pharyngitis gets better on its own. Sometimes, you may need medicine. If you were prescribed an antibiotic medicine, take it as told by your doctor. Do not stop taking the antibiotic even if you start to feel better. This information is not intended to replace advice given to you by your health care provider. Make sure you discuss any questions you have with your health care provider. Document Revised: 11/26/2021 Document Reviewed: 11/26/2021 [employer] Patient Education 2023 [employer]. Follow Up Care 08/18/2024 03:17:51 With:Lia Weiss Address:Unknown When:08/21/2024 only if needed [facility] 12-06-2024 NoteED Patient Education Note Infectious Disease Pharyngitis Pharyngitis is a sore throat (pharynx). This is when there is redness, pain, and swelling in your throat. Most of the time, this condition gets better on its own. In some cases, you may need medicine. What are the causes? An infection from a virus. ??? An infection from bacteria. ??? Allergies. What increases the risk? Being 5?24 years old. ??? Being in crowded environments. These include: ? Daycares. ? Schools. ? Dormitories. ??? Living in a place with cold temperatures outside. ??? Having a weakened disease-fighting (immune) system. What are the signs or symptoms? Symptoms may vary depending on the cause. Common symptoms include: ??? Sore throat. ??? Tiredness (fatigue). ??? Low-grade fever. ??? Stuffy nose. ??? Cough. ??? Headache. Other symptoms may include: ??? Glands in the neck (lymph nodes) that are swollen. ??? Skin rashes. ??? Film on the throat or tonsils. This can be caused by an infection from bacteria. ??? Vomiting. ??? Red, itchy eyes. ??? Loss of appetite. ??? Joint pain and muscle aches. ??? Tonsils that are temporarily bigger than usual (enlarged). How is this treated? Many times, treatment is not needed. This condition usually gets better in 3?4 days without treatment. If the infection is caused by a bacteria, you may be need to take antibiotics. Follow these instructions at home: Medicines ??? Take txiz-rwj-gtwyati and prescription medicines only as told by your doctor. ??? If you were prescribed an antibiotic medicine, take it as told by your doctor. Do not stop taking the antibiotic even if you start to feel better. ??? Use throat lozenges or sprays to soothe your throat as told by your doctor. ??? Children can get pharyngitis. Do not give your child aspirin. Managing pain To help with pain, try: ??? Sipping warm liquids, such as: ? Broth. ? Herbal tea. ? Warm water. ??? Eating or drinking cold or frozen liquids, such as frozen ice pops. ??? Rinsing your mouth (gargle) with a salt water mixture 3?4 times a day or as needed. ? To make salt water, dissolve ??1 tsp (3?6 g) of salt in 1 cup (237 mL) of warm water. ? Do not swallow this mixture. ??? Sucking on hard candy or throat lozenges. ??? Putting a cool-mist humidifier in your bedroom at night to moisten the air. ??? Sitting in the bathroom with the door closed for 5?10 minutes while you run hot water in the shower. General instructions ??? Do not smoke or use any products that contain nicotine or tobacco. If you need help quitting, ask your doctor. ??? Rest as told by your doctor. ??? Drink enough fluid to keep your pee (urine) pale yellow. How is this prevented? Wash your hands often for at least 20 seconds with soap and water. If soap and water are not available, use hand general claims agent. ??? Do not touch your eyes, nose, or mouth with unwashed hands. Wash hands after touching these areas. ??? Do not share cups or eating utensils. ??? Avoid close contact with people who are sick. Contact a doctor if: ??? You have large, tender lumps in your neck. ??? You have a rash. ??? You cough up green, yellow-brown, or bloody spit. Get help right away if: ??? You have a stiff neck. ??? You drool or cannot swallow liquids. ??? You cannot drink or take medicines without vomiting. ??? You have very bad pain that does not go away with medicine. ??? You have problems breathing, and it is not from a stuffy nose. ??? You have new pain and swelling in your knees, ankles, wrists, or elbows. These symptoms may be an emergency. Get help right away. Call your local emergency services (911 int [place] ??? Do not wait to see if the symptoms will go away. ??? Do not drive yourself to the hospital. Summary ??? Pharyngitis is a sore throat (pharynx). This is when there is redness, pain, and swelling in your throat. ??? Most of the time, pharyngitis gets better on its own. Sometimes, you may need medicine. ??? If you were prescribed an antibiotic medicine, take it as told by your doctor. Do not stop taking the antibiotic even if you start to feel better. This information is not intended to replace advice given to you by your health care provider. Make sure you discuss any questions you have with your health care provider. Document Revised: 11/26/2021 Document Reviewed: 11/26/2021 Motor2 Patient Education ? [address] 08-16-2024 Hospital Discharge instructions Patient Education 08/16/2024 14:55:31 Pharyngitis, Hfup-wc-Qsim Pharyngitis Pharyngitis is a sore throat (pharynx). This is when there is redness, pain, and swelling in your throat. Most of the time, this condition gets better on its own. In some cases, you may need medicine. What are the causes? An infection from a virus. An infection from bacteria. Allergies. What increases the risk? Being 5 24 years old. Being in crowded environments. These include: ?Daycares. ?Schools. ?Dormitories. Living in a place with cold temperatures outside. Having a weakened disease-fighting (immune) system. What are the signs or symptoms? Symptoms may vary depending on the cause. Common symptoms include: Sore throat. Tiredness (fatigue). Low-grade fever. Stuffy nose. Cough. Headache. Other symptoms may include: Glands in the neck (lymph nodes) that are swollen. Skin rashes. Film on the throat or tonsils. This can be caused by an infection from bacteria. Vomiting. Red, itchy eyes. Loss of appetite. Joint pain and muscle aches. Tonsils that are temporarily bigger than usual (enlarged). How is this treated? Many times, treatment is not needed. This condition usually gets better in 3 4 days without treatment. If the infection is caused by a bacteria, you may be need to take antibiotics. Follow these instructions at home: Medicines Take abag-mwz-mramzyl and prescription medicines only as told by your doctor. If you were prescribed an antibiotic medicine, take it as told by your doctor. Do not stop taking the antibiotic even if you start to feel better. Use throat lozenges or sprays to soothe your throat as told by your doctor. Children can get pharyngitis. Do not give your child aspirin. Managing pain To help with pain, try: Sipping warm liquids, such as: ?Broth. ?Herbal tea. ?Warm water. Eating or drinking cold or frozen liquids, such as frozen ice pops. Rinsing your mouth (gargle) with a salt water mixture 3 4 times a day or as needed. ?To make salt water, dissolve 1 tsp (3 6 g) of salt in 1 cup (237 mL) of warm water. ?Do not swallow this mixture. Sucking on hard candy or throat lozenges. Putting a cool-mist humidifier in your bedroom at night to moisten the air. Sitting in the bathroom with the door closed for 5 10 minutes while you run hot water in the shower. General instructions Do not smoke or use any products that contain nicotine or tobacco. If you need help quitting, ask your doctor. Rest as told by your doctor. Drink enough fluid to keep your pee (urine) pale yellow. How is this prevented? Wash your hands often for at least 20 seconds with soap and water. If soap and water are not available, use hand general claims agent. Do not touch your eyes, nose, or mouth with unwashed hands. Wash hands after touching these areas. Do not share cups or eating utensils. Avoid close contact with people who are sick. Contact a doctor if: You have large, tender lumps in your neck. You have a rash. You cough up green, yellow-brown, or bloody spit. Get help right away if: You have a stiff neck. You drool or cannot swallow liquids. You cannot drink or take medicines without vomiting. You have very bad pain that does not go away with medicine. You have problems breathing, and it is not from a stuffy nose. You have new pain and swelling in your knees, ankles, wrists, or elbows. These symptoms may be an emergency. Get help right away. Call your local emergency services (911 int [place] Do not wait to see if the symptoms will go away. Do not drive yourself to the hospital. Summary Pharyngitis is a sore throat (pharynx). This is when there is redness, pain, and swelling in your throat. Most of the time, pharyngitis gets better on its own. Sometimes, you may need medicine. If you were prescribed an antibiotic medicine, take it as told by your doctor. Do not stop taking the antibiotic even if you start to feel better. This information is not intended to replace advice given to you by your health care provider. Make sure you discuss any questions you have with your health care provider. Document Revised: 11/26/2021 Document Reviewed: 11/26/2021 Motor2 Patient Education 2023 [employer]. [facility] 12-03-2024 History of Present illness Narrative* Ethel Rangel, CHAITANYA - 08/15/2024 9:20 AM EST Images from the original note were not included. [address], [address] [facility], [address] P: [phone] F: [phone] HPI Historian of HPI: patient Paris Steven is a 24 y.o. female who presents today to the Urgent Care with the following complaints and denials which have been present for 3 day(s) pt denies any vomiting or diarrhea, but admits to nausea. Pt states she does not have muchof an appetite. Pt states she saw her PCP yesterday and was testing for COVID which came back negative and was told she has a viral cold. C/O Denies Symptom Comments [] [x] Runny Nose [x] [] Difficulty Swallowing [x] [] Sore Throat X3 days [] [x] Cough [] [x] Ear Pain [] [x] Fever [] [x] Chills [x] [] Nasal Congestion [] [x] Myalgia [] [x] Sinus Pain [] [x] Sinus Pressure Additional Comments: pt has taken tylenol OTC medication without relief Pt states she always has wheezing her lung and it is baseline for her. Denies or . States she is feeling worse, not better. Denies immunosuppressant use ROS A complete system ROS was performed and negative aside from the pertinent positives noted in the HPI and PE. IH Testing: The following tests were performed PCR Strep Test SEE TEST(S) ORDERS FOR RESULTS PHYSICAL EXAM Examination General Examination: General Examination: in no acute distress, well developed, well nourished Head: normocephalic, atraumatic Eyes: no discharge Ears: BOTH EARS canals normal. TM with mild erythema bilat. Nose: nares patent, sinuses nontender bilaterally Oral Cavity: mucosa moist Throat: pharynx with erythema and PND. No trismus, muffled voice, drooling or protrusion of soft palate. Uvula midline tosils 1+ with erythema. Soft palate with erythema. Neck/Thyroid: neck supple, trachea midline Lymph Nodes: bilat tonsillar nodes mobile and tender Skin: warm and dry Heart: S1, S2 normal, regular rate and rhythm, no S3, S4, no murmurs, rubs, gallops Lungs: scattered faint wheezing that pt states is her baseline. Denies chest c/o at this time. Chest: normal shape and expansion, normal anteroposterior (AP) diameter Psych: alert, oriented. TREATMENT PLAN 1. Pharyngitis, unspecified etiology (Primary) Rapid strep neg. Sx worsening per pt. Start amoxil and throat culture obtained. Immediate eval if new or worsening sx otherwise follow up and further recommendations pending throat culture results. Note for work provided x1 day . - STREP DNA PROBE - amoxicillin (Amoxil) 875 MG tablet; Take 1 tablet (875 mg) by mouth in the morning and 1 tablet (875 mg) before bedtime. Do all this for 10 days. Dispense: 20 tablet; Refill: 0 [id number] Hospital Discharge instructions Patient Education 08/14/2024 10:08:15 Nausea, Adult, Pznr-ic-Dbqt Nausea, Adult Nausea is feeling like you may vomit. Feeling like you may vomit is usually not serious, but it maybe an early sign of a more serious medical problem. Vomiting is when stomach contents forcefully come out of your mouth. If you vomit, or if you are not able to drink enough fluids, you may not have enough water in your body (get dehydrated). If you do not have enough water in your body, you may: Feel tired. Feel thirsty. Have a dry mouth. Have cracked lips. Pee (urinate) less often. Older adults and people who have other diseases or a weak body defense system (immune system) have a higher risk of not having enough water in the body. The main goals of treating this condition are: To relieve your nausea. To ensure your nausea occurs less often. To prevent vomiting and losing too much fluid. Follow these instructions at home: Watch your symptoms for any changes. Tell your doctor about them. Eating and drinking Take an ORS (oral rehydration solution). This is a drink that is sold at pharmacies and stores. Drink clear fluids in small amounts as you are able. These include: ?Water. ?Ice chips. ?Fruit juice that has water added (diluted fruit juice). ?Low-calorie sports drinks. Eat bland, onfn-im-ziujkc foods in small amounts as you are able, such as: ?Bananas. ?Applesauce. ?Rice. ?Low-fat (lean) meats. ?Forestdale. ?Crackers. Avoid drinking fluids that have a lot of sugar or caffeine in them. This includes energy drinks, sports drinks, and soda. Avoid alcohol. Avoid spicy or fatty foods. General instructions Take rjeq-ywf-kaqfysz and prescription medicines only as told by your doctor. Rest at home while you get better. Drink enough fluid to keep your pee (urine) pale yellow. Take slow and deep breaths when you feel like you may vomit. Avoid food or things that have strong smells. Wash your hands often with soap and water for at least 20 seconds. If you cannot use soap and water, use hand general claims agent. Make sure that everyone in your home washes their hands well and often. Keep all follow-up visits. Contact a doctor if: You feel worse. You feel like you may vomit and this lasts for more than 2 days. You vomit. You are not able to drink fluids without vomiting. You have new symptoms. You have a fever. You have a headache. You have muscle cramps. You have a rash. You have pain while peeing. You feel light-headed or dizzy. Get help right away if: You have pain in your chest, neck, arm, or jaw. You feel very weak or you faint. You have vomit that is bright red or looks like coffee grounds. You have bloody or black poop (stools) or poop that looks like tar. You have a very bad headache, a stiff neck, or both. You have very bad pain, cramping, or bloating in your belly (abdomen). You have trouble breathing or you are breathing very quickly. Your heart is beating very quickly. Your skin feels cold and clammy. You feel confused. You have signs of losing too much water in your body, such as: ?Dark pee, very little pee, or no pee. ?Cracked lips. ?Dry mouth. ?Sunken eyes. ?Sleepiness. ?Weakness. These symptoms may be an emergency. Get help right away. Call 911. Do not wait to see if the symptoms will go away. Do not drive yourself to the hospital. Summary Nausea is feeling like you are about vomit. If you vomit, or if you are not able to drink enough fluids, you may not have enough water in your body (get dehydrated). Eat and drink what your doctor tells you. Take lnpq-eyj-zncrdtr and prescription medicines only as told by your doctor. Contact a doctor right away if your symptoms get worse or you have new symptoms. Keep all follow-up visits. This information is not intended to replace advice given to you by your health care provider. Make sure you discuss any questions you have with your health care provider. Document Revised: 03/06/2022 Document Reviewed: 03/06/2022 Motor2 Patient Education 2023 [employer]. [facility] 12-02-2024 NotePatient Education Gastroenterology Nausea, Adult Nausea is feeling like you may vomit. Feeling like you may vomit is usually not serious, but it maybe an early sign of a more serious medical problem. Vomiting is when stomach contents forcefully come out of your mouth. If you vomit, or if you are not able to drink enough fluids, you may not have enough water in your body (get dehydrated). If you do not have enough water in your body, you may: ??? Feel tired. ??? Feel thirsty. ??? Have a dry mouth. ??? Have cracked lips. ??? Pee (urinate) less often. Older adults and people who have other diseases or a weak body defense system (immune system) have a higher risk of not having enough water in the body. The main goals of treating this condition are: ??? To relieve your nausea. ??? To ensure your nausea occurs less often. ??? To prevent vomiting and losing too much fluid. Follow these instructions at home: Watch your symptoms for any changes. Tell your doctor about them. Eating and drinking ??? Take an ORS (oral rehydration solution). This is a drink that is sold at pharmacies and stores. ??? Drink clear fluids in small amounts as you are able. These include: ? Water. ? Ice chips. ? Fruit juice that has water added (diluted fruit juice). ? Low-calorie sports drinks. ??? Eat bland, tfwo-bn-xlpmde foods in small amounts as you are able, such as: ? Bananas. ? Applesauce. ? Rice. ? Low-fat (lean) meats. ? Forestdale. ? Crackers. ??? Avoid drinking fluids that have a lot of sugar or caffeine in them. This includes energy drinks, sports drinks, and soda. ??? Avoid alcohol. ??? Avoid spicy or fatty foods. General instructions ??? Take kouo-avo-xwpqpsx and prescription medicines only as told by your doctor. ??? Rest at home while you get better. ??? Drink enough fluid to keep your pee (urine) pale yellow. ??? Take slow and deep breaths when you feel like you may vomit. ??? Avoid food or things that have strong smells. ??? Wash your hands often with soap and water for at least 20 seconds. If you cannot use soap and water, use hand general claims agent. ??? Make sure that everyone in your home washes their hands well and often. ??? Keep all follow-up visits. Contact a doctor if: ??? You feel worse. ??? You feel like you may vomit and this lasts for more than 2 days. ??? You vomit. ??? You are not able to drink fluids without vomiting. ??? You have new symptoms. ??? You have a fever. ??? You have a headache. ??? You have muscle cramps. ??? You have a rash. ??? You have pain while peeing. ??? You feel light-headed or dizzy. Get help right away if: ??? You have pain in your chest, neck, arm, or jaw. ??? You feel very weak or you faint. ??? You have vomit that is bright red or looks like coffee grounds. ??? You have bloody or black poop (stools) or poop that looks like tar. ??? You have a very bad headache, a stiff neck, or both. ??? You have very bad pain, cramping, or bloating in your belly (abdomen). ??? You have trouble breathing or you are breathing very quickly. ??? Your heart is beating very quickly. ??? Your skin feels cold and clammy. ??? You feel confused. ??? You have signs of losing too much water in your body, such as: ? Dark pee, very little pee, or no pee. ? Cracked lips. ? Dry mouth. ? Sunken eyes. ? Sleepiness. ? Weakness. These symptoms may be an emergency. Get help right away. Call 911. ??? Do not wait to see if the symptoms will go away. ??? Do not drive yourself to the hospital. Summary ??? Nausea is feeling like you are about vomit. ??? If you vomit, or if you are not able to drink enough fluids, you may not have enough water in your body (get dehydrated). ??? Eat and drink what your doctor tells you. Take xsui-cdv-aydqlvi and prescription medicines onlyas told by your doctor. ??? Contact a doctor right away if your symptoms get worse or you have new symptoms. ??? Keep all follow-up visits. This information is not intended to replace advice given to you by your health care provider. Make sure you discuss any questions you have with your health care provider. Document Revised: 03/06/2022 Document Reviewed: 03/06/2022 Motor2 Patient Education ? [address] 07-28-2024 NotePatient Education Mental and Behavioral Health Managing Anxiety, Adult After being diagnosed with anxiety, you may be relieved to know why you have felt or behaved a certain way. You may also feel overwhelmed about the treatment ahead and what it will mean for your life. With care and support, you can manage your anxiety. How to manage lifestyle changes Understanding the difference between stress and anxiety Although stress can play a role in anxiety, it is not the same as anxiety. Stress is your body's reaction to life changes and events, both good and bad. Stress is often caused by something external, such as a deadline, test, or competition. It normally goes away after the event has ended and will last just a few hours. But, stress can be ongoing and can lead to more than just stress. Anxiety is caused by something internal, such as imagining a terrible outcome or worrying that something will go wrong that will greatly upset you. Anxiety often does not go away even after the eventis over, and it can become a long- term (chronic) worry. Lowering stress and anxiety Talk with your health care provider or a counselor to learn more about lowering anxiety and stress.They may suggest tension-reduction techniques, such as: ??? Music. Spend time creating or listening to music that you enjoy and that inspires you. ??? Mindfulness-based meditation. Practice being aware of your normal breaths while not trying to control your breathing. It can be done while sitting or walking. ??? Centering prayer. Focus on a word, phrase, or sacred image that means something to you and brings you peace. ??? Deep breathing. Expand your stomach and inhale slowly through your nose. Hold your breath for 3?5 seconds. Then breathe out slowly, letting your stomach muscles relax. ??? Self-talk. Learn to notice and spot thought patterns that lead to anxiety reactions. Change those patterns to thoughts that feel peaceful. ??? Muscle relaxation. Take time to tense muscles and then relax them. Choose a tension-reduction technique that fits your lifestyle and personality. These techniques take time and practice. Set aside 5?15 minutes a day to do them. Specialized therapists can offer counseling and training in these techniques. The training to help with anxiety may be covered by some insurance plans. Other things you can do to manage stress and anxiety include: ??? Keeping a stress diary. This can help you learn what triggers your reaction and then learn waysto manage your response. ??? Thinking about how you react to certain situations. You may not be able to control everything, but you can control your response. ??? Making time for activities that help you relax and not feeling guilty about spending your time in this way. ??? Doing visual imagery. This involves imagining or creating mental pictures to help you relax. ??? Practicing yoga. Through yoga poses, you can lower tension and relax. Medicines Medicines for anxiety include: ??? Antidepressant medicines. These are usually prescribed for long-term daily control. ??? Anti-anxiety medicines. These may be added in severe cases, especially when panic attacks occur. When used together, medicines, psychotherapy, and tension-reduction techniques may be the most effective treatment. Relationships Relationships can play a big part in helping you recover. Spend more time connecting with trusted friends and family members. Think about going to couples counseling if you have a partner, taking family education classes, or going to family therapy. Therapy can help you and others better understandyour anxiety. How to recognize changes in your anxiety Everyone responds differently to treatment for anxiety. Recovery from anxiety happens when symptomslessen and stop interfering with your daily life at home or work. This may mean that you will startto: ??? Have better concentration and focus. Worry will interfere less in your daily thinking. ??? Sleep better. ??? Be less irritable. ??? Have more energy. ??? Have improved memory. Try to recognize when your condition is getting worse. Contact your provider if your symptoms interfere with home or work and you feel like your condition is not improving. Follow these instructions at home: Activity ??? Exercise. Adults should: ? Exercise for at least 150 minutes each week. The exercise should increase your heart rate and make you sweat (moderate-intensity exercise). ? Do strengthening exercises at least twice a week. ??? Get the right amount and quality of sleep. Most adults need 7?9 hours of sleep each night. Lifestyle ??? Eat a healthy diet that includes plenty of vegetables, fruits, whole grains, low-fat dairy products, and lean protein. ? Do not eat a lot of foods that are high in fats, added sugars, or salt (sodium). ??? Make choices that simplify your life. ??? Do not use any products (more content not included)...[facility]11-01-2024 NoteHNO ID: [id number] Author: KIMBERLY PIERRE MD Service: ? Author Type: Physician Type: Progress Notes Filed: 07/17/2024 14:38 Note Text: I confirmed the above information and modified the note according to my findings. I have personally examined the patient and reviewed the data from the lab and radiologic studies and discussed the plan with Dr. Taveras. IMPRESSION/PLAN: Paris Steven is a 24 year old female who I am following in the [facility] for pulmonary GVHD and recurrent pneumonia. No interval pneumonias. 2 mild interval URIs. Currently asymptomatic. [place]/DLCO are normal and stable from prior. Some expiratory wheezing on exam. Will continue expectant management. Ok to use albuterol PRN. Follow up in 1 year w/ dorina/DLCO. Staff: Kimberly Pierre, [facility]11-01-2024 History of Present illness Narrative* Kimberly Pierre MD - 07/14/2024 2:23 PM EDT I confirmed the above information and modified the note according to my findings. I have personallyexamined the patient and reviewed the data from the lab and radiologic studies and discussed the plan with Dr. Taveras. IMPRESSION/PLAN: Paris Steven is a 24 year old female who I am following in the [facility] for pulmonary GVHD and recurrent pneumonia. No interval pneumonias. 2 mild interval URIs. Currently asymptomatic. [place]/DLCO are normal and stable from prior. Some expiratory wheezing on exam. Will continue expectant management. Ok to use albuterol PRN. Follow up in 1 year w/ dorina/DLCO. Staff: Kimberly Pierre MD * Dale Taveras MD - 07/14/2024 2:01 PM EDT Images from the original note were not included. Respiratory Randolph Paris Steven is a 24 year old female here for a follow up with the [facility] Interstitial Lung Disease Team. HISTORY OF PRESENT ILLNESS: I had the pleasure of seeing Paris Steven in follow-up in the [facility] Clinic at [facility] on July 14, 2024. 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 Last seen 08/20/23--off fluticasone and azithro, singulair from my perspective as well. Would recommend yearly follow up with dorina/DLCO, sooner if pneumonia recur or c/f GVHD flare. Today: -Has had respiratory illness 2 X May 2023, November of 2023. 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 Hancock yearly -Starting to walk more on Wednesday, currently only walks her dogs Animals: Dogs, goats, horses Now going to following with cardiology for aortic root: 1. History of present illness: Hx of AML, S/P BMT. 2. Left ventricle: Mild hypokinesis of the inferoseptal wall. Global left ventricular systolic function remains normal by fractional shortening and ejection fraction despite the observed hypokinesis. The fractional shortening (MM) is 27%. The triplane global longitudinal strain is -18.66%. The ejection fraction (A-L) is 49.17%. Normal global longitudinal strain. 3. Aorta: Borderline aortic root and ascending aortic dilatation. 4. Pericardium, extracardiac: There is no significant pericardial effusion. REVIEW OF SYSTEMS: MRC Dyspnea Scale: 1. Not troubled by breathlessness except on strenuous exercise All others per history of present illness or otherwise negative on detailed 14 point review. 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) Recurrent pneumonia Stem cells transplant status (HCC) MUD PAST SURGICAL HISTORY Procedure Laterality Date LUNG BIOPSY x 2 SOCIAL HISTORY: Social History Tobacco Use Smoking status: Never Smokeless tobacco: Never Alcohol Use: Not on file Drug Use: Not on file No family history on file. ALLERGIES Allergen Reactions Blood-Group Specifi* Unknown TRALI on 07/29/16 - please see FYI tab 12/22/16: Anaphylaxis to male platelets and female platelets that were premedicated with Tylenol, Solumedrol and benadryl. 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 Pretreat with Benadryl, and run vancomycinover 2 hours. CURRENT MEDICATIONS albuterol HFA (PROVENTIL HFA, VENTOLIN HFA) 90 mcg/actuation inhaler Inhale 2 Puffs as instructed every 6 hours as needed for wheezing/shortness of breath. Norgestimate-Ethinyl Estradiol 0.18/0.215/0.25 mg-35 mcg (28) Take 1 tablet by mouth once daily. 1 Each. Cholecalciferol, Vitamin D3, 50 mcg (2,000 unit) cap take 1 capsule by mouth once daily mv,calcium,min/iron/folic/vitK (ONE-A-DAY WOMEN'S COMPLETE ORAL) Take by mouth. norgestimate 0.25 mg-ethinyl estradiol 35 mcg (SPRINTEC, ORTHO-CYCLEN) 0.25-35 mg-mcg per tablet Take 1 tablet by mouth. Biotin 2,500 mcg cap Take 2,500 mcg by mouth. norethindrone-e.estradiol-iron (LO LOESTRIN FE) 1 mg-10 mcg (24)/10 mcg (2) Take 1 tablet by mouth once daily. PHYSICAL EXAM: BP 118/88 Pulse 93 Temp (Src) 97.8 (Temporal) Resp 16 Wt 129 lb 6.6 oz (58.7kg) SpO2 100% LMP 01/09/2022 Physical Exam Constitutional: General: She is not in acute distress. Cardiovascular: Rate and Rhythm: Normal rate. Pulses: Normal pulses. Heart sounds: No murmur heard. Pulmonary: Effort: Pulmonary effort is normal. Comments: Some end expiratory wheezing bilaterally Musculoskeletal: General: No swelling or tenderness. Skin: General: Skin is warm and dry. Neurological: General: No focal deficit present. Mental Status: She is alert and oriented to person, place, and time. DATA REVIEWED (independently reviewed by myself) Laboratory Data Laboratory data reviewed in [facility] Everywhere. Pulmonary Function Data PFT available since last visit: 07/14/24 Six minute walk Six minute walk available since last visit: No Radiology Data New radiology data since last visit: no Echocardiogram Was an echo performed since last visit?: 05/05/24: 1. History of present illness: Hx of AML, S/P BMT. 2. Left ventricle: Mild hypokinesis of the inferoseptal wall. Global left ventricular systolic function remains normal by fractional shortening and ejection fraction despite the observed hypokinesis. The fractional shortening (MM) is 27%. The triplane global longitudinal strain is -18.66%. The ejection fraction (A-L) is 49.17%. Normal global longitudinal strain. 3. Aorta: Borderline aortic root and ascending aortic dilatation. 4. Pericardium, extracardiac: There is no significant pericardial effusion. Heart Catheterization Was a right heart catheterization performed since last visit?: No ASSESSMENT Paris Steven is a 24 year old female with AML status post MUD allogeneic BMT (in CR) in 2017 complicated by CMV viremia, C. 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 She has felt well with no cough or SOB. Had 2 mild respiratory infections since last visit that resolved with ABX. PNA continues to have improved since her job switch. She feels well since stopping fluticasone, azithro, singulair as well. Occasional use of albuterol when sick. Vitals are stable on exam, with some end expiratory wheezing noted on exam today. However, PFTs are normal and stable. Last CT in 2021 with mosaic attenuation, small nodules, and mild bronchial wall thickening, consistentwith Pulmonary GVHD. Given clinical picture she does not need further treatment, just careful monitoring and early treatment if she does get PNA. Discussed option of following locally, and she would like to follow for 1 more year at least. Plan: -Albuterol PRN -Follow up yearly with PFTs or sooner if needed PLAN Treating diagnosis: Pulmonary GVHD ILD medications at end of visit: No medication Follow-up 1 year with dorina/DLCO. ILD CHECKLIST Was the patient discussed at a multidisciplinary discussion?: Don't recall Is the patient being treated with oxygen therapy?: No Does the patient have pulmonary hypertension: No suspicion Is the patient being referred for transplantation?: No Dale Taveras MD CC: [facility] Instructions* Patient Instructions* Dale Taveras MD - 07/14/2024 2:20 PM EDT Thank you for your visit today! Keep up with moving and exercising If you start to get sick make sure to get evaluated early and if you get sick reach out Follow up in 1 year with lung testing [facility]24 NoteHNO ID: [id number] Author: DALE TAVERAS MD Service: ? Author Type: Resident Type: Progress Notes Filed: 07/17/2024 14:38 Note Text: Respiratory Randolph Paris Steven is a 24 year old female here for a follow up [facility]. HISTORY OF PRESENT ILLNESS: I had the pleasure of seeing Paris Steven in follow-up in the [facility] July 14, [facility]. 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 difficile enterocolitis and GVHD of the skin AND lung who I have been following in the [facility] ILD Clinic for chronic, pulmonary GVHD. Last seen 08/20/23--off fluticasone and hugoithderek knoxulair from my perspective as well. Would recommend yearly follow up with dorina/DLCO, sooner if pneumonia recur or c/f GVHD flare. Today: -Has had respiratory illness 2 X May 2023, November of 2023. 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 Hancock yearly -Starting to walk more on Wednesday, currently only walks her dogs Animals: Dogs, goats, horses Now going to following with cardiology for aortic root: 1. History of present illness: Hx of AML, S/P BMT. 2. Left ventricle: Mild hypokinesis of the inferoseptal wall. Global left ventricular systolic function remains normal by fractional shortening and ejection fraction despite the observed hypokinesis. The fractional shortening (MM) is 27%. The triplane global longitudinal strain is -18.66%. The ejection fraction (A-L) is 49.17%. Normal global longitudinal strain. 3. Aorta: Borderline aortic root and ascending aortic dilatation. 4. Pericardium, extracardiac: There is no significant pericardial effusion. REVIEW OF SYSTEMS: MRC Dyspnea Scale: 1. Not troubled by breathlessness except on strenuous exercise All others per history of present illness or otherwise negative on detailed 14 point review. 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) Recurrent pneumonia Stem cells transplant status (HCC) MUD PAST SURGICAL HISTORY Procedure Laterality Date LUNG BIOPSY x 2 SOCIAL HISTORY: Social History Tobacco Use Smoking status: Never Smokeless tobacco: Never Alcohol Use: Not on file Drug Use: Not on file No family history on file. ALLERGIES Allergen Reactions Blood-Group Specifi* Unknown TRALI on 07/29/16 - please see FYI tab 12/22/16: Anaphylaxis to male platelets and female platelets that were premedicated with Tylenol, Solumedrol and benadryl. 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 Pretreat with Benadryl, and run vancomycin over 2 hours. CURRENT MEDICATIONS albuterol HFA (PROVENTIL HFA, VENTOLIN HFA) 90 mcg/actuation inhaler Inhale 2 Puffs as instructed every 6 hours as needed for wheezing/shortness of breath. Norgestimate-Ethinyl Estradiol 0.18/0.215/0.25 mg-35 mcg (28) Take 1 tablet by mouth once daily. 1 Each. Cholecalciferol, Vitamin D3, 50 mcg (2,000 unit) cap take 1 capsule by mouth once daily mv,calcium,min/iron/folic/vitK (ONE-A-DAY WOMEN'S COMPLETE ORAL) Take by mouth. norgestimate 0.25 mg-ethinyl estradiol 35 mcg (SPRINTEC, ORTHO-CYCLEN) 0.25-35 mg-mcg per tablet Take 1 tablet by mouth. Biotin 2,500 mcg cap Take 2,500 mcg by mouth. norethindrone-e.estradiol-iron (LO LOESTRIN FE) 1 mg-10 mcg (24)/10 mcg (2) Take 1 tablet by mouth once daily. PHYSICAL EXAM: BP 118/88 Pulse 93 Temp (Src) 97.8 (Temporal) Resp 16 Wt 129 lb 6.6 oz (58.7kg) SpO2 100% LMP 01/09/2022 Physical Exam Constitutional: General: She is not in acute distress. Cardiovascular: Rate and Rhythm: Normal rate. Pulses: Normal pulses. Heart sounds: No murmur heard. Pulmonary: Effort: Pulmonary effort is normal. Comments: Some end expiratory wheezing bilaterally Musculoskeletal: General: No swelling or tenderness. Skin: General: Skin is warm and dry. Neurological: General: No focal deficit present. Mental Status: She is alert and oriented to person, place, and time. DATA REVIEWED (independently reviewed by (more content not included)...[facility]-01[facility]24 NoteHNO ID: [id number] Author: JENNIFER REDMAN RRT Service: ? Author Type: Registered Resp Therapist Type: Progress Notes Filed: 07/14/2024 13:16 Note Text: PULM FUNCTION: Provider: Kimberly Pierre MD Spirometry: 1 DLCO: 1 System: MC7 - [id number] [facility]11-01-2024 History of Present illness Narrative* Jennifer Redman RRT - 07/14/2024 1:13 PM EDT PULM FUNCTION: Provider: Kimberly Pierre MD Spirometry: 1 DLCO: 1 System: MC7 - [id number] [facility] History of Present illness Narrative* Blossom Hancock MD - 05/05/2024 10:30 AM EDT ANNUAL SURVIVORSHIP VISIT Date of Service: 05/05/2024 Patient: Paris Steven : 2000 Age: 24 y.o. 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 Treated with Methylprednisolone IV, transitioned to oral prior to DC. Post-Transplant Complications/Events *Jun 2017: lung biopsy (right upper and lower lobes) and chest tube placement for diagnostic evaluation of lung disease. Biopsy results per [facility] pathologist are c/w pulmonary GVHD (she reported no evidence of bronchiolitis obliterans), while results from [facility] are consistent with bronchiolitis obliterans. Viral studies (CMV, Adeno, BK, and HSV) were negative with only positive being EBV. Stains on lung tissue showed 1 small cluster of EBV. Case was discussed with Dr. Ernandez at [facility] and Dr. Nava at [facility]. Began treatment for bronchiolitis obliterans - Paris was treated with tacrolimus and steroids as well as FAM therapy. 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 Pneumo from sputum which was treated with Levaquin for prolonged course *December 15, 2017: sinus washout and biopsy for persistent acute on chronic sinusitis - Path revealed chronically inflamed upper respiratory mucosa - path: chronically inflamed mucosa with negative infectious studies *June 10, 2020: Right video-assisted thoracoscopy with wedge resection of right lower lobe lung nodule. Thoracoscopic wedge resection of right superior segment lower lobe lung nodule. Pathology was c/w Strep pneumoniae infection and she was treated with a course of Levaquin. MEDICATIONS: Current Outpatient Medications Medication Instructions albuterol 108 (90 Base) MCG/ACT inhaler 2 Puffs, Inhalation, EVERY 6 HOURS PRN cholecalciferol (VITAMIN D3) 1,000 Units, Oral, DAILY norgestimate-ethinyl estradiol (ORTHO TRI-CYCLEN) 0.18/0.215/0.25 MG-35 MCG tablet 1 Tablet, EVERY MORNING Spacer/Aero-Holding Chambers (OPTICHAMBER MARTIN) MISC DEVICE 1 Each, Other, Use as directed with metered-dose inhaler. 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 TRALI (transfusion related acute lung injury) Past Surgical History: Procedure Laterality Date BRONCHOSCOPY Bilateral 03/18/2017 BRONCHOSCOPY (FLEXIBLE) with Broncheo-alveolar lavage performed by Naty Howe MD at [facility] OR CATHETER REMOVAL N/A 12/28/2016 CATHETER BROVIAC REMOVAL performed by Dakoat Viramontes MD at [facility] OR CENTRAL VENOUS CATHETER N/A 11/17/2016 Double lumen BROVIAC INSERTION performed by Dakota Viramontes MD at [facility] OR ESOPHAGOSCOPY N/A 12/28/2016 ENDOSCOPY (UPPER AND COLONOSCOPY) performed by Caro Cardenas MD at [facility] OR LUNG BIOPSY Right 07/07/2017 THORACOSCOPIC LUNG BIOPSY performed by Dakota Viramontes MD at [facility] OR MEDIPORT PLACEMENT N/A 07/28/2016 9.5 Fr double lumen Powerport via the right internal jugular vein performed by Dakota Viramontes MD [facility] OR MEDIPORT REMOVAL MEDIPORT REMOVAL N/A 05/12/2017 MEDIPORT REMOVAL performed by Dakota Viramontes MD at [facility] OR SINUS ENDOSCOPY N/A 12/15/2017 FUNCTIONAL ENDOSCOPIC SINUS SURGERY STEREOTACTIC GUIDED performed by Augustin Adam MD at [facility] OR No new significant medical history in the interval. She did have a R lobar pneumonia in November 2023. Paris is now followed by Dr. Kimberly Pierre at [facility] for her pulmonary issues. Her last office visit with him was Aug 2023. She had PFT's on 02/05/23 and underwent bronchoscopy with biopsy in February 2022. Her case was discussed in their ILD conference in February 2022 and the consensus was Paris's recurrent pneumonias are likely due to true injection or flares of cGVH. The recommendation was to treat her symptoms as they arise. Bronchoscopy with transbronchial biopsy - [facility] (January 2022). SUBJECTIVE Parsi is a 24 y.o. 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 She is here today for her annual survivorship visit. Overall, doing well since her last visit. She's seen endocrinology, dermatology, [employer], pulmonology, Optometry and the dentist. She just recently had her pelvic exam and pap smear as well as breast exam. Her OB has referred her to ALICIA at [facility] and Paris does plan to go as she was unhappy with RGI. 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 She was recommended to use OTC Rogaine but she has opted not to start this. She had a R lobar pneumonia in November 2023 for which she was treated with abx but otherwise no otherinfections. She saw Dr. Pierre recently and had normal PFT's and he stopped her FAM therapy. No headaches No visual changes. No blurry vision or double vision. No tearing. + dryness but that resolved with allergy gtt prescibed by Ophtho. No redness. No dry mouth or tooth sensitivity No lumps/bumps No chest pain, palpitations or skipping beats No SOB or difficulty breathing No N/V/D/C. She continues to have lower quadrant abdominal pain. The pain is sharp, generally occurs on the L and lasts only a few minutes. There are no associated symptoms, no exacerbating or relieving factors and no radiation. Good appetite No myalgias or arthralgias. No bleeding or abnormal bruising No rashes or concerning moles Paris continues to have anxiety but is no longer in counseling and feels her symptoms are well controlled. Paris denied any smoking or vaping. No EtOH use, no drug use, no THC. She is attending [employer]. Paris is got in June 2022. Her and her own their home. 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 OBJECTIVE VITALS: Vitals: 05/05/24 1115 BP: 118/76 Pulse: 104 Resp: 16 Temp: 36.8 EXAM GEN: Alert, NAD, well appearing and interactive HEENT: NC/AT, hair appears jacobs, PERRL, EOMI, sclera anicteric, conjunctiva noninjected, no nasaldrainage, mucous membranes moist, no oral lesions or leukoplakia, mild posterior pharyngeal erythema, tonsils 2-3+ (R>L), + cobblestoning NECK: Supple with FROM LYMPH NODE EXAM: No posterior cervical, submandibular, supraclavicular, or axillary adenopathy. Bilateral anterior cervical nodes that are 0.5-1cm in diameter, soft, mobile and nontender HEART: RRR, no murmurs, warm and well perfused LUNGS: CTA B/L, no R/R/W ABD: Normoactive BS, soft, non-tender, non-distended but with palpable stool in BLQ's, no masses orhepatosplenomegaly EXTR: No clubbing, cyanosis or edema. FROM of all joints, no contractures noted NEURO: No gross neuro deficits. SKIN: No significant bruises, rashes, petechiae or jaundice. Scattered benign appearing nevi. cGVHD Scoring: Performance Score karnofsky score: 100 Normal, no complaints, no evidence of disease. Score: 0 Asymptomatic (100%) Skin Check all that apply: None Score % BSA: 0 No BSA involved Score Skin Features:0 No sclerotic features Mouth Lichen planus-like features present: No Mouth Score: 0 No symptoms Eyes Karatoconjunctivitis Sicca (KCS) confirmed by Protective Service Specialist: No Eye Score: 0 No symptoms GI Tract Check all that apply: None GI Score: 0 No symptoms Liver Total Bilirubin: ALT: Alk Phos: Not done Liver Score: Lungs % FEV1: 92% (done Aug 2023) Symptom Score:0 No symptoms Lung Function Score: Joints P-ROM Score Shoulder: 7 Elbow: 7 Wrist/Finger: 7 Ankle: 4 Joint Score: 0 No symptoms Genital Tract Check all that apply: None Genital Tract Score:0 No signs Other Check all that apply: None Score for each: 0 Overall: Comments: No evidence of cGVHD at this time Lab Results None today ECHO: 2. Left ventricle: Mild hypokinesis of the inferoseptal wall. Global left ventricular systolic function remains normal by fractional shortening and ejection fraction despite the observed hypokinesis. The fractional shortening (MM) is 27%. The triplane global longitudinal strain is -18.66%. The ejection fraction (A-L) is 49.17%. Normal global longitudinal strain. 3. Aorta: Borderline aortic root and ascending aortic dilatation. 4. Pericardium, extracardiac: There is no significant pericardial effusion. DIAGNOSIS Paris is a 24 y.o. 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 Overall, Paris is doing well. She has a h/o cGVHD of the lungs but at her pulmonary appt in August she had normal spirometry and DLCO and she now has no respiratory symptoms and is off FAM therapy. 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 She is having menstrual cycles on a COCP and was able to see the fertility specialist to discuss future planning. She plans to f/u at [facility] with a different reproductive group. Abdominal pain etiology unclear. It has been ongoing and unchanged in character so will refer to GIfor further evaluation of chronic abdominal discomfort. I suspect this is related to constipation given the history provided today. I gave Paris instructions for a bowel clean out but she did not think this would work and requested a GI referral. Referral provided for adult GI. I will place a lipid panel to be done with her next lab draw. Paris knows this is to be fasting. PLAN Potential late effects related to Paris's treatment include the following: Any cancer experience can lead to adverse psychosocial/quality of life effects such as social withdrawal, educational problems, relationship problems, under- employment/unemployment and dependent living. Mental health disorders are also more prevalent including depression, anxiety, post-traumatic stress and suicidal ideation. Childhood cancer survivors also have an increased risk of participating in risky behaviors. Fatigue and sleep problems are more prevalent. Dental abnormalities including tooth/root agenesis, root thinning/shortening, enamel dysplasia, microdontia, ectopic molar eruption and dental caries can occur. Cytarabine - functional deficits in executive function (planning and organization), sustained attention, memory, processing speed, visual-motor integration, fine motor dexterity; learning deficits inmath and reading, particularly reading comprehension; diminished IQ, behavioral change Etoposide - secondary AML (short latency period, risk plateaus after 10 years) Cyclophosphamide - secondary AML (short latency period, risk plateaus after 10 years), ovarian hormone deficiencies (delayed/arrested puberty, premature ovarian insufficiency/menopause), reduced ovarian follicular pool (infertility), urinary tract toxicity (hemorrhagic cystitis, bladder fibrosis, dysfunctional voiding, hydronephrosis, VUR), secondary cancer of the bladder (risk increased with smoking) Anthracyclines - secondary AML, cardiac toxicity - the risk of cardiac toxicity is related to age at time of treatment and cumulative dose, the potential cardiac issues include silent ischemia, cardiomyopathy (dilated MC), arrhythmias, subclinical LV dysfxn; Paris Steven will need an ECHO every 2 y ears due to her cumulative dose and age at treatment Busulfan - secondary AML (short latency period, risk plateaus after 10 years), ovarian hormone deficiencies (delayed/arrested puberty, premature ovarian insufficiency/menopause), reduced ovarian follicular pool (infertility), cataracts BMT - solid tumors, lymphomas, hepatic toxicity (chronic hepatitis, cirrhosis, iron overload), osteonecrosis, reduced bone mineral density, renal toxicity (glomerular injury, tubular injury, HTN) History of chronic GVHD - skin changes, ocular toxicity, oral toxicity, esophageal stricture, jointcontractures, vulvar scarring, vaginal fibrosis/stenosis [place] will follow up in 1 year for a survivorship visit. Blossom Hancock MD documented [facility] [id number] Hospital Discharge instructions Patient Education 03/13/2024 11:12:56 Restless Legs Syndrome Restless Legs Syndrome Restless legs syndrome is a condition that causes uncomfortable feelings or sensations in the legs,especially while sitting or lying down. The sensations usually cause an overwhelming urge to move the legs. The arms can also sometimes be affected. The condition can range from mild to severe. The symptoms often interfere with a person's ability to sleep. What are the causes? The cause of this condition is not known. What increases the risk? The following factors may make you more likely to develop this condition: Being older than 50. . Being a woman. In general, the condition is more common in women than in men. A family history of the condition. Having iron deficiency. Overuse of caffeine, nicotine, or alcohol. Certain medical conditions, such as kidney disease, Parkinson's disease, or nerve damage. Certain medicines, such as those for high blood pressure, nausea, colds, allergies, depression, andsome heart conditions. What are the signs or symptoms? The main symptom of this condition is uncomfortable sensations in the legs, such as: Pulling. Tingling. Prickling. Throbbing. Crawling. Burning. Usually, the sensations: Affect both sides of the body. Are worse when you sit or lie down. Are worse at night. These may make it difficult to fall asleep. Make you have a strong urge to move your legs. Are temporarily relieved by moving your legs or standing. The arms can also be affected, but this is rare. People who have this condition often have tiredness during the day because of their lack of sleep at night. How is this diagnosed? This condition may be diagnosed based on: Your symptoms. Blood tests. In some cases, you may be monitored in a sleep lab by a specialist (a sleep study). This can detectany disruptions in your sleep. How is this treated? This condition is treated by managing the symptoms. This may include: Lifestyle changes, such as exercising, using relaxation techniques, and avoiding caffeine, alcohol,or tobacco. Iron supplements. Medicines. Parkinson's medications may be tried first. Anti-seizure medications can also be helpful. Follow these instructions at home: General instructions Take mtty-swy-rvngbqb and prescription medicines only as told by your health care provider. Use methods to help relieve the uncomfortable sensations, such as: ?Massaging your legs. ?Walking or stretching. ?Taking a cold or hot bath. Keep all follow-up visits. This is important. Lifestyle Practice good sleep habits. For example, go to bed and get up at the same time every day. Most adults should get 7 9 hours of sleep each night. Exercise regularly. Try to get at least 30 minutes of exercise most days of the week. Practice ways of relaxing, such as yoga or meditation. Avoid caffeine and alcohol. Do not use any products that contain nicotine or tobacco. These products include cigarettes, chewing tobacco, and vaping devices, such as e-cigarettes. If you need help quitting, ask your health careprovider. Where to find more information [employer] [place] of Neu[employer] Disorders and Stroke: www.ninds.nih.gov Contact a health care provider if: Your symptoms get worse or they do not improve with treatment. Summary Restless legs syndrome is a condition that causes uncomfortable feelings or sensations in the legs,especially while sitting or lying down. The symptoms often interfere with your ability to sleep. This condition is treated by managing the symptoms. You may need to make lifestyle changes or take medicines. This information is not intended to replace advice given to you by your health care provider. Make sure you discuss any questions you have with your health care provider. Document Revised: 04/12/2022 Document Reviewed: 04/12/2022 [employer] Patient Education 2022 [employer]. Follow Up Care 02/29/2024 20:22:33 With:Lia Weiss PA-C Address: [address] [place] [phone] When: only if needed [facility] [place] 07-01-2024 NotePatient Education Neurology Restless Legs Syndrome Restless legs syndrome is a condition that causes uncomfortable feelings or sensations in the legs,especially while sitting or lying down. The sensations usually cause an overwhelming urge to move the legs. The arms can also sometimes be affected. The condition can range from mild to severe. The symptoms often interfere with a person's ability to sleep. What are the causes? The cause of this condition is not known. What increases the risk? The following factors may make you more likely to develop this condition: ? Being older than 50. ? . ? Being a woman. In general, the condition is more common in women than in men. ? A family history of the condition. ? Having iron deficiency. ? Overuse of caffeine, nicotine, or alcohol. ? Certain medical conditions, such as kidney disease, Parkinson's disease, or nerve damage. ? Certain medicines, such as those for high blood pressure, nausea, colds, allergies, depression, and some heart conditions. What are the signs or symptoms? The main symptom of this condition is uncomfortable sensations in the legs, such as: ? Pulling. ? Tingling. ? Prickling. ? Throbbing. ? Crawling. ? Burning. Usually, the sensations: ? Affect both sides of the body. ? Are worse when you sit or lie down. ? Are worse at night. These may make it difficult to fall asleep. ? Make you have a strong urge to move your legs. ? Are temporarily relieved by moving your legs or standing. The arms can also be affected, but this is rare. People who have this condition often have tiredness during the day because of their lack of sleep at night. How is this diagnosed? This condition may be diagnosed based on: ? Your symptoms. ? Blood tests. In some cases, you may be monitored in a sleep lab by a specialist (a sleep study). This can detectany disruptions in your sleep. How is this treated? This condition is treated by managing the symptoms. This may include: ? Lifestyle changes, such as exercising, using relaxation techniques, and avoiding caffeine, alcohol, or tobacco. ? Iron supplements. ? Medicines. Parkinson's medications may be tried first. Anti-seizure medications can also be helpful. Follow these instructions at home: General instructions ? Take ytqr-ikl-mzhgpti and prescription medicines only as told by your health care provider. ? Use methods to help relieve the uncomfortable sensations, such as: ? Massaging your legs. ? Walking or stretching. ? Taking a cold or hot bath. ? Keep all follow-up visits. This is important. Lifestyle ? Practice good sleep habits. For example, go to bed and get up at the same time every day. Most adults should get 7?9 hours of sleep each night. ? Exercise regularly. Try to get at least 30 minutes of exercise most days of the week. ? Practice ways of relaxing, such as yoga or meditation. ? Avoid caffeine and alcohol. ? Do not use any products that contain nicotine or tobacco. These products include cigarettes, chewing tobacco, and vaping devices, such as e-cigarettes. If you need help quitting, ask your health care provider. Where to find more information ? [employer] [place] of Neurological Disorders and Stroke: www.ninds.nih.gov Contact a health care provider if: ? Your symptoms get worse or they do not improve with treatment. Summary ? Restless legs syndrome is a condition that causes uncomfortable feelings or sensations in the legs, especially while sitting or lying down. ? The symptoms often interfere with your ability to sleep. ? This condition is treated by managing the symptoms. You may need to make lifestyle changes or take medicines. This information is not intended to replace advice given to you by your health care provider. Make sure you discuss any questions you have with your health care provider. Document Revised: 04/12/2022 Document Reviewed: 04/12/2022 [employer] Patient Education ? [address]22 [employer].[facility] 11-17-2023 Evaluation + Plan noteExtracted from:Title:ED NoteAuthor:Abiola Stratton, Ling HDate:11/17/23 1. Pneumonia (J18.9: Pneumon ia, unspecified organism) Orders: amoxicillin-clavulanate, = 1 tab(s), Oral, q12hr, X 10 day(s), # 20 tab(s), Refills(s) 0, Pharmacy:[facility] #[id number], 165, cm, 11/16/23 21:35:00 EST, Height/Length Dosing, 55.1, kg, 11/16/23 21:35:00 EST, Weight Dosing azithromycin, = 1 packet(s), Oral, As Directed, as directed on package labeling, X 5 day(s), # 6 tab(s), Refills(s) 0, Pharmacy: [facility] #[id number], 165, cm, 11/16/23 21:35:00 EST, Height/Length Dosing,55.1, kg, 11/16/23 21:35:00 EST, Weight Dosing azithromycin + Sodium Chloride 0.9% intravenous solution 250 mL, 500 mg = 1 EA, Injection, IV Piggyback, Once, Stop date 11/16/23 23:59:00 EST, STAT, Start date 11/16/23 23:59:00 EST, 250 mL/hr, Infuse over 60 minute(s) ceftriaxone + Sodium Chloride 0.9% intravenous solution 50 mL, 1,000 mg = 1 EA, IV Piggyback, Once,Stop date 11/16/23 23:59:00 EST, STAT, Start date 11/16/23 23:59:00 EST, 100 mL/hr, Infuse over 30 minute(s), 11/16/23 23:59:00 EST ketorolac, 30 mg = 1 mL, Injection, IV Push, Once, Stop date 11/16/23 21:51:00 EST, STAT, Start date 11/16/23 21:51:00 EST, 11/16/23 21:51:00 EST Sodium Chloride 0.9% intravenous solution, 1,000 mL, Soln-IV, IV, Once, Stop date 11/16/23 21:51:00EST, STAT, Start date 11/16/23 21:51:00 EST, Infuse over 61, minute(s) Basic Metabolic Panel CBC w/ Auto Diff CTA Chest D-Dimer eGFR Extra Blue Tube Extra SST Tube Sedimentation Rate Automated Troponin 0 Hr. XR Chest 2 Views [facility]03-06-2024 Hospital Discharge instructions Patient Education 11/17/2023 02:10:45 Community-Acquired Pneumonia, Adult Community-Acquired Pneumonia, Adult Pneumonia is a lung infection that causes inflammation and the buildup of mucus and fluids in the lungs. This may cause coughing and difficulty breathing. Community-acquired pneumonia is pneumonia that develops in people who are not, and have not recently been, in a hospital or other health care facility. Usually, pneumonia develops as a result of an illness that is caused by a virus, such as the commoncold and the flu (influenza). It can also be caused by bacteria or fungi. While the common cold andinfluenza can pass from person to person (are contagious), pneumonia itself is not considered contagious. What are the causes? This condition may be caused by: Viruses. Bacteria. Fungi. What increases the risk? The following factors may make you more likely to develop this condition: Being over age 65 or having certain medical conditions, such as: ?A long-term (chronic) disease, such as: chronic obstructive pulmonary disease (COPD), asthma, heart failure, diabetes, or kidney disease. ?A condition that increases the risk of breathing in (aspirating) mucus and other fluids from your mouth and nose. ?A weakened body defense system (immune system). Having had your spleen removed (splenectomy). The spleen is the organ that helps fight germs and infections. Not cleaning your teeth and gums well (poor dental hygiene). Using tobacco products. Traveling to places where germs that cause pneumonia are present or being near certain animals or animal habitats that could have germs that cause pneumonia. What are the signs or symptoms? Symptoms of this condition include: A dry cough or a wet (productive) cough. A fever, sweating, or chills. Chest pain, especially when breathing deeply or coughing. Fast breathing, difficulty breathing, or shortness of breath. Tiredness (fatigue) and muscle aches. How is this diagnosed? This condition may be diagnosed based on your medical history or a physical exam. You may also havetests, including: Imaging, such as a chest X-ray or lung ultrasound. Tests of: ?The level of oxygen and other gases in your blood. ?Mucus from your lungs (sputum). ?Fluid around your lungs (pleural fluid). ?Your urine. How is this treated? Treatment for this condition depends on many factors, such as the cause of your pneumonia, your medicines, and other medical conditions that you have. For most adults, pneumonia may be treated at home. In some cases, treatment must happen in a hospital and may include: Medicines that are given by mouth (orally) or through an IV, including: ?Antibiotic medicines, if bacteria caused the pneumonia. ?Medicines that kill viruses (antiviral medicines), if a virus caused the pneumonia. Oxygen therapy. Severe pneumonia, although rare, may require the following treatments: Mechanical ventilation.This procedure uses a machine to help you breathe if you cannot breathe wellon your own or maintain a safe level of blood oxygen. Thoracentesis. This procedure removes any buildup of pleural fluid to help with breathing. Follow these instructions at home: Medicines Take jevu-gsf-wcebtfm and prescription medicines only as told by your health care provider. Take cough medicine only if you have trouble sleeping. Cough medicine can prevent your body from removing mucus from your lungs. If you were prescribed antibiotics, take them as told by your health care provider. Do not stop taking the antibiotic even if you start to feel better. Lifestyle Do not drink alcohol. Do not use any products that contain nicotine or tobacco. These products include cigarettes, chewing tobacco, and vaping devices, such as e-cigarettes. If you need help quitting, ask your health careprovider. Eat a healthy diet. This includes plenty of vegetables, fruits, whole grains, low-fat dairy products, and lean protein. General instructions Rest a lot and get at least 8 hours of sleep each night. Sleep in a partly upright position at night. Place a few pillows under your head or sleep in a reclining chair. Return to your normal activities as told by your health care provider. Ask your health care provider what activities are safe for you. Drink enough fluid to keep your urine pale yellow. This helps to thin the mucus in your lungs. If your throat is sore, gargle with a mixture of salt and water 3 4 times a day or as needed. To make salt water, completely dissolve 1 tsp (3 6 g) of salt in 1 cup (237 mL) of warm water. Keep all follow-up visits. How is this prevented? You can lower your risk of developing community-acquired pneumonia by: Getting the pneumonia vaccine. There are different types and schedules of pneumonia vaccines. Ask your health care provider which option is best for you. Consider getting the pneumonia vaccine if: ?You are older than 65 years of age. ?You are 19 65 years of age and are receiving cancer treatment, have chronic lung disease, or have other medical conditions that affect your immune system. Ask your health care provider if this applies to you. Getting your influenza vaccine every year. Ask your health care provider which type of vaccine is best for you. Getting regular dental checkups. Washing your hands often with soap and water for at least 20 seconds. If soap and water are not available, use hand general claims agent. Contact a health care provider if: You have a fever. You have trouble sleeping because you cannot control your cough with cough medicine. Get help right away if: Your shortness of breath becomes worse. Your chest pain increases. Your sickness becomes worse, especially if you are an older adult or have a weak immune system. You cough up blood. These symptoms may be an emergency. Get help right away. Call 911. Do not wait to see if the symptoms will go away. Do not drive yourself to the hospital. Summary Pneumonia is an infection of the lungs. Community-acquired pneumonia develops in people who have not been in the hospital. It can be causedby bacteria, viruses, or fungi. This condition may be treated with antibiotics or antiviral medicines. Severe pneumonia may require a hospital stay and treatment to help with breathing. This information is not intended to replace advice given to you by your health care provider. Make sure you discuss any questions you have with your health care provider. Document Revised: 10/28/2022 Document Reviewed: 10/28/2022 [employer] Patient Education 2022 [employer]. Follow Up Care 11/16/2023 21:27:33 With:Lia Weiss Address:Unknown When:11/20/2023 Comments:Return to the emergency room if your symptoms get worse, fever persist, shortness of breath or any new symptoms. Stop taking Cefdinir and start taking the antibiotic that was prescribed today. [facility]12-08-2023 History of Present illness Narrative* Kimberly Hernández RRT - 08/20/2023 9:22 AM EST PULM FUNCTION SMARTBLOCK: Provider: Kimberly Pierre MD Spirometry: 1 DLCO: 1 System: 5 - [id number] [facility] Discharge instructions Patient Education 06/11/2023 12:22:00 Community-Acquired Pneumonia, Adult Community-Acquired Pneumonia, Adult Pneumonia is a lung infection that causes inflammation and the buildup of mucus and fluids in the lungs. This may cause coughing and difficulty breathing. Community-acquired pneumonia is pneumonia that develops in people who are not, and have not recently been, in a hospital or other health care facility. Usually, pneumonia develops as a result of an illness that is caused by a virus, such as the commoncold and the flu (influenza). It can also be caused by bacteria or fungi. While the common cold andinfluenza can pass from person to person (are contagious), pneumonia itself is not considered contagious. What are the causes? This condition may be caused by: Viruses. Bacteria. Fungi, such as molds or mushrooms. What increases the risk? The following factors may make you more likely to develop this condition: Having certain medical conditions, such as: ?A long-term (chronic) disease, which may include chronic obstructive pulmonary disease (COPD), asthma, heart failure, cystic fibrosis, diabetes, kidney disease, sickle cell disease, and human immunodeficiency virus (HIV). ?A condition that increases the risk of breathing in (aspirating) mucus and other fluids from your mouth and nose. ?A weakened body defense system (immune system). Having had your spleen removed (splenectomy). The spleen is the organ that helps fight germs and infections. Not cleaning your teeth and gums well (poor dental hygiene). Using tobacco products. Traveling to places where germs that cause pneumonia are present. Being near certain animals, or animal habitats, that have germs that cause pneumonia. Being older than 65 years of age. What are the signs or symptoms? Symptoms of this condition include: A dry cough or a wet (productive) cough. A fever. Sweating or chills. Chest pain, especially when breathing deeply or coughing. Fast breathing, difficulty breathing, or shortness of breath. Tiredness (fatigue). Muscle aches. How is this diagnosed? This condition may be diagnosed based on your medical history or a physical exam. You may also havetests, including: Chest X-rays. Tests of the level of oxygen and other gases in your blood. Tests of: ?Your blood. ?Mucus from your lungs (sputum). ?Fluid around your lungs (pleural fluid). ?Your urine. If your pneumonia is severe, other tests may be done to learn more about the cause. How is this treated? Treatment for this condition depends on many factors, such as the cause of your pneumonia, your medicines, and other medical conditions that you have. For most adults, pneumonia may be treated at home. In some cases, treatment must happen in a hospital and may include: Medicines that are given by mouth (orally) or through an IV, including: ?Antibiotic medicines, if bacteria caused the pneumonia. ?Medicines that kill viruses (antiviral medicines), if a virus caused the pneumonia. Oxygen therapy. Severe pneumonia, although rare, may require the following treatments: Mechanical ventilation.This procedure uses a machine to help you breathe if you cannot breathe wellon your own or maintain a safe level of blood oxygen. Thoracentesis. This procedure removes any buildup of pleural fluid to help with breathing. Follow these instructions at home: Medicines Take isxr-mgp-lcgelqj and prescription medicines only as told by your health care provider. Take cough medicine only if you have trouble sleeping. Cough medicine can prevent your body from removing mucus from your lungs. If you were prescribed an antibiotic medicine, take it as told by your health care provider. Do notstop taking the antibiotic even if you start to feel better. Lifestyle Do not drink alcohol. Do not use any products that contain nicotine or tobacco, such as cigarettes, e- cigarettes, and chewing tobacco. If you need help quitting, ask your health care provider. Eat a healthy diet. This includes plenty of vegetables, fruits, whole grains, low-fat dairy products, and lean protein. General instructions Rest a lot and get at least 8 hours of sleep each night. Sleep in a partly upright position at night. Place a few pillows under your head or sleep in a reclining chair. Return to your normal activities as told by your health care provider. Ask your health care provider what activities are safe for you. Drink enough fluid to keep your urine pale yellow. This helps to thin the mucus in your lungs. If your throat is sore, gargle with a salt water mixture 3 4 times a day or as needed. To make a salt water mixture, completely dissolve 1 tsp (3 6 g) of salt in 1 cup (237 mL) of warm water. Keep all follow-up visits as told by your health care provider. This is important. How is this prevented? You can lower your risk of developing community-acquired pneumonia by: Getting the pneumonia vaccine. There are different types and schedules of pneumonia vaccines. Ask your health care provider which option is best for you. Consider getting the pneumonia vaccine if: ?You are older than 65 years of age. ?You are 19 65 years of age and are receiving cancer treatment, have chronic lung disease, or have other medical conditions that affect your immune system. Ask your health care provider if this applies to you. Getting your influenza vaccine every year. Ask your health care provider which type of vaccine is best for you. Getting regular dental checkups. Washing your hands often with soap and water for at least 20 seconds. If soap and water are not available, use hand general claims agent. Contact a health care provider if you have: A fever. Trouble sleeping because you cannot control your cough with cough medicine. Get help right away if: Your shortness of breath becomes worse. Your chest pain increases. Your sickness becomes worse, especially if you are an older adult or have a weak immune system. You cough up blood. These symptoms may represent a serious problem that is an emergency. Do not wait to see if the symptoms will go away. Get medical help right away. Call your local emergency services (911 in the [place] Do not drive yourself to the hospital. Summary Pneumonia is an infection of the lungs. Community-acquired pneumonia develops in people who have not been in the hospital. It can be causedby bacteria, viruses, or fungi. This condition may be treated with antibiotics or antiviral medicines. Severe pneumonia may require a hospital stay and treatment to help with breathing. This information is not intended to replace advice given to you by your health care provider. Make sure you discuss any questions you have with your health care provider. Document Revised: 06/11/2020 Document Reviewed: 06/11/2020 [employer] Patient Education 2022 [employer]. Follow Up Care 05/31/2023 14:34:28 With:Lia Weiss PA-C Address: [address] [place] [phone] When: only if needed Comments:Only if needed [facility] [facility]23 Hospital Discharge instructions Follow Up Care 02/20/2023 15:37:44 With:Lia Weiss PA-C Address: [address] [place] [phone] When: only if needed [facility] 05-26-2023 History of Past illness Narrative* Problem Noted DateDiagnosed DateResolved DateRecurrent mhykabndj22/26/2023documented as of this encounter (statuses as of 08/20/2023) [facility]01-12-2023 Evaluation + Plan note Future Scheduled Tests Radiology* US Abdomen Complete 09/24/22 [facility] 12-30-2022 Evaluation + Plan note Future Scheduled Tests Radiology* US Appendix 09/11/22 * US Abdomen Complete 09/11/22 [facility] 11-18-2022 Instructions* Patient Instructions* Kimberly Pierre MD - 07/31/2022 11:02 AM EST Start Dulera 200/5 - 1 puff TWICE daily. Rinse mouth after use. Ok to stop when feeling normal. Ok to use albuterol NEEDED as well. Continue azthromycin three times weekly and singulair daily for now. Follow up in 6 months with breathing tests. [facility] History of Present illness Narrative* Kimberly Pierre MD - 07/31/2022 10:41 AM EST Images from the original note were not included. Respiratory Randolph Paris Steven is a 22 year old female here for a follow up with the [facility] Interstitial Lung Disease Team. HISTORY OF PRESENT ILLNESS: I had the pleasure of seeing Paris Steven in follow-up in the Interstitial Lung Disease Clinic at [facility] on July 31, 2022. In the interim since her last appointment she had another exacerbation in the spring. She underwentbronchoscopy and ultimately ILD conference discussion. The ILD conference group felt that her scenario was most consistent with recurrent infectious pneumonias versus chronic GVHD with flares. She has not had an exacerbation since the spring. She presents today for routine follow-up. Hasn't been ill since her biopsy. Developed a head cold last week. Has no CP but does have some chest congestion. Has some cough when she lies down. Cough had been productive of yellow sputum but now is clear and infrequent. Rec'd a prednisone course but hasn't taken it. REVIEW OF SYSTEMS: MRC Dyspnea Scale: 1. 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 SOCIAL HISTORY: Social History Tobacco Use Smoking status: Never Smokeless tobacco: Never Alcohol Use: Not on file Drug Use: Not on file ALLERGIES Allergen Reactions Blood-Group Specifi* Unknown TRALI on 07/29/16 - please see FYI tab 12/22/16: Anaphylaxis to male platelets and female platelets that were premedicated with Tylenol, Solumedrol and benadryl. 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 Pretreat with Benadryl, and run vancomycinover 2 hours. CURRENT MEDICATIONS montelukast (SINGULAIR) 10 mg tablet Take 1 tablet by mouth once daily. azithromycin (ZITHROMAX) 500 mg tablet Take 1 tablet by mouth every Wednesday,Wednesday,Wednesday. norgestimate 0.25 mg-ethinyl estradiol 35 mcg (SPRINTEC, ORTHO-CYCLEN) 0.25-35 mg-mcg per tablet Take 1 tablet by mouth. 1 Each. albuterol HFA (PROVENTIL HFA, VENTOLIN HFA) 90 mcg/actuation inhaler Inhale 2 Puffs as instructed. Cholecalciferol, Vitamin D3, 50 mcg (2,000 unit) cap take 1 capsule by mouth once daily diphenhydrAMINE (BANOPHEN) 25 mg tablet take 1 tablet by mouth once daily at bedtime if needed for itching sleep or allergies Biotin 2,500 mcg cap Take 2,500 mcg by mouth. norethindrone-e.estradiol-iron (LO LOESTRIN FE) 1 mg-10 mcg (24)/10 mcg (2) Take 1 tablet by mouth once daily. mv,calcium,min/iron/folic/vitK (ONE-A-DAY WOMEN'S COMPLETE ORAL) Take by mouth. PHYSICAL EXAM: Vital signs:BP 109/77 Pulse 102 Temp (Src) 98.3 (Temporal) Resp 16 Ht 5' 5 (1.65m) Wt 117 lb 15.1 oz (53.5kg) SpO2 97% LMP 01/09/2022 BMI 19.63 kg/(m^2). Gen: Well appearing, well nourished female in NAD, A&Ox3 HEENT: Anicteric sclera, Moist mucous membranes, clear oropharynx Neck: No lymphadenopathy. No JVD CV: Tachycardic but regular rhythm. Normal S1S2. No murmurs, gallops or rubs appreciated. Lungs: Good air movement. Scattered inspiratory squeaks and expiratory wheezes. No crackles. Normalwork of breathing. No accessory muscle use. Abd: Soft, non-tender and non-distended with normal, active bowel sounds. MS: Extremities are warm and well perfused. No clubbing, cyanosis or edema appreciated. No evidenceof joint erythema or effusions. Skin: No obvious rashes appreciated. Neuro: Grossly non-focal. Normal appearing gait. DATA REVIEWED (independently reviewed by myself) Laboratory Data Laboratory data reviewed in [facility] Everywhere. Pulmonary Function Data PFT available since last visit: Yes. PFT results 07/31/2022. Spirometry is normal. Gas exchange is normal as well. Compared to prior testing from December 2021, FVC is stable. PRE-BRONCH POST-BRONCH Pred LLN ULN Actual %Pred Actual %Chng SPIROMETRY FVC (L) 4.07 3.26 4.92 3.35 82 FEV1 (L) 3.55 2.86 4.23 2.81 79 FEV1/FVC 0.88 0.76 0.97 0.84 95 FEF25 (L/sec) 6.20 FEF50 (L/sec) 4.45 2.84 6.06 4.53 101 FEF75 (L/sec) 2.10 1.15 3.44 1.30 61 JSX02-66 (L/sec) 4.10 2.74 5.64 3.28 79 PEF L/s (L/sec) 7.15 5.33 8.97 7.45 104 FIVC (L) 3.05 FIF50 (L/sec) 3.10 PIF (L/sec) 3.21 Time (sec) 5.17 REGLA (L) 0.10 FET PEF (sec) 0.13 DIFFUSION DLCOunc (ml/min/mmHg) 26.82 20.65 32.99 22.63 84 DLunc/VA (ml/min/mmHg 4.97 3.66 6.29 5.01 100 VA (L) 5.39 4.29 6.49 4.52 83 BHT (sec) 10.35 IVC (L) 2.92 Six minute walk Six minute walk available since last visit: No Radiology Data New radiology data since last visit: No new thoracic imaging. Echocardiogram Was an echo performed since last visit?: No Heart Catheterization Was a right heart catheterization performed since last visit?: No ASSESSMENT Paris Steven is a 22 year old female who I am following in the Interstitial Lung Disease Clinic for recurrent pneumonia and GVHD. 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 Currently, she is slowly recovering from recent URI. Has some residual chest congestion and wheezing on exam. I think we should add an ICS/LABA to see if that helps her recover quicker. She may have some airways disease symptoms that may improve quicker with treatment. She can stop the inhaler when she is back to baseline. She will continue her azithromycin 3 times weekly and Singulair daily for GVHD. She may try to get and may have to come off of azithromycin. She will let me know if her manager global changes her medications and if her symptoms worsen after coming off of azithromycin. PLAN (D89.813) 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) (primary encounter diagnosis) (J18.9) Recurrent pneumonia (Z94.84) History of allogeneic stem cell transplant ([facility]) Comment: As above Plan: LUNG DIFFUSION CAPACITY (DLCO), SPIROMETRY BASELINE ONLY Start Dulera 200/5 -1 puff twice daily. Rinse mouth after use. Continue albuterol as needed Continue azithromycin 3 times weekly. Okay to change to alternative or discontinue if pursues . Continue Singulair 10 mg daily Treating diagnosis: Pulmonary GVHD ILD medications at end of visit: Dulera, azithromycin, Singulair I would like to see Paris Steven return to clinic in 6 months with repeat spirometry/DLCO. ILD CHECKLIST Was the patient discussed at a multidisciplinary discussion?: Yes Is the patient being treated with oxygen therapy?: No Does the patient have pulmonary hypertension: No suspicion Is the patient being referred for transplantation?: No Thank you for referring Paris Steven to the Interstitial Lung Disease Clinic at the [facility]. Should you have any questions or concerns do not hesitate to contact me. Kimberly Pierre MD CC: * Kimberly Pierre MD - 07/31/2022 10:30 AM EST . documented in this encounter[facility] History of Present illness Narrative* Heydi Yeager RRT - 07/31/2022 10:28 AM EST PULM FUNCTION SMARTBLOCK: Provider: Kimberly Pierre MD Spirometry: 1 DLCO: 1 System: 5 - [id number] documented in this encounter[facility] History of Present illness Narrative* Best Mcrae PA-C - 05/08/2022 2:40 PM EDT Images from the original note were not included. Paris completed the Readiness Assessment Tool questionnaire. We discussed the following topics: - Paris knew she had AML, her medical history, allergies, surgical history. - She knew that her treatment included chemotherapy and bone marrow transplant. - Paris was able to list the following long-term side effects: infertility, heart trouble, secondary malignancy. - We discussed the following potential late effects: HTN, kidney toxicity, neurocognitive deficits. - She knew that she needs an echo every 2 years. Best Mcrae PA-C [facility] Miscellaneous Notes* Telephone Encounter - Rula Saldana - 04/23/2022 12:59 PM EDT Please see e-script for Otis Archibald. Thank you. documented in this encounter[facility] Evaluation + Plan note Diagnostic Tests Pending * Testosterone Level Total 04/15/22 * FSH and LH 04/15/22 * Anti-Mullerian Hormone (AMH) 04/15/22 [facility]07-28-2022 Hospital Discharge instructions Follow Up Care 04/09/2022 13:45:00 With:Radha TAVARES, Holly Newby [facility] Address: [facility] [address] [place] [address] [phone] When: Unknown [facility] 07-28-2022 Evaluation + Plan note Diagnostic Tests Pending * Urine Culture 04/09/22 [facility]07-23-2022 Evaluation + Plan noteExtracted from: Title:ED NoteAuthor:Angel Marsh DO ADate:04/04/22 Bronchitis (J40: Bronchitis, not specified as acute or chronic) Orders: methylPREDNISolone, 125 mg = 2 mL, Injection, IV Push, Once, Stop date 04/03/22 22:17:00 EDT, STAT,Start date 04/03/22 22:17:00 EDT, 04/03/22 22:17:00 EDT methylPREDNISolone, Injection, Misc, Once, Stop date 04/04/22 0:25:48 EDT, Physician Stop, 220:25:48 EDT predniSONE, 50 mg = 1 tab(s), Oral, Daily, X 7 day(s), # 7 tab(s), Refills(s) 0 Automated Diff Basic Metabolic Panel Beta hCG Qual CBC w/ Auto Diff CTA Chest ECG 12 Lead Adult ED Cardiac Monitoring eGFR Hepatic Function Panel PT & PTT Saline Lock Insert Troponin 0 Hr. XR Chest Single View [facility]07-23-2022 Hospital Discharge instructions Patient Education 04/04/2022 01:12:29 Acute Bronchitis, Adult, Yhbo-ob-Kkax Acute Bronchitis, Adult Acute bronchitis is when air tubes (bronchi) in the lungs suddenly get swollen. The condition can make it hard to breathe. It can also cause these symptoms: A cough. Coughing up clear, yellow, or green mucus. Wheezing. Chest congestion. Shortness of breath. A fever. Body aches. Chills. A sore throat. Follow these instructions at home: Medicines Take [id number]-etr-ahherbc and prescription medicines only as told by your doctor. If you were prescribed an antibiotic medicine, take it as told by your doctor. Do not stop taking the antibiotic even if you start to feel better. General instructions Rest. Drink enough fluids to keep your pee (urine) pale yellow. Avoid smoking and secondhand smoke. If you smoke and you need help quitting, ask your doctor. Quitting will help your lungs heal faster. Use an inhaler, cool mist vaporizer, or humidifier as told by your doctor. Keep all follow-up visits as told by your doctor. This is important. How is this prevented? To lower your risk of getting this condition again: Wash your hands often with soap and water. If you cannot use soap and water, use hand general claims agent. Avoid contact with people who have cold symptoms. Try not to touch your hands to your mouth, nose, or eyes. Make sure to get the flu shot every year. Contact a doctor if: Your symptoms do not get better in 2 weeks. Get help right away if: You cough up blood. You have chest pain. You have very bad shortness of breath. You become dehydrated. You faint (pass out) or keep feeling like you are going to pass out. You keep throwing up (vomiting). You have a very bad headache. Your fever or chills gets worse. This information is not intended to replace advice given to you by your health care provider. Make sure you discuss any questions you have with your health care provider. Document Released: 02/15/2009 Document Revised: 08/12/2018 Document Reviewed: 02/17/2017 [employer] Patient Education 2020 [employer]. Follow Up Care 04/03/2022 21:35:27 With:Holly Radha Address: [address] [place] [address] [phone] Business (1) When:04/07/2022 Comments:Take The steroids as prescribed you have completed the course. Please follow-up with your primary care doctor next 2 to 3 days. Please return the ED for any new or worsening symptoms. [facility]06-27-2022 Miscellaneous Notes* Telephone Encounter - Kimberly Pierre MD - 03/09/2022 1:06 PM EDT We discussed Paris Steven's case at our Weekly Multidisciplinary Interstitial Lung Disease Conference on March 05, 2022. Members from the departments of Pathology, Radiology and Pulmonary, including myself were in attendance. Imaging showed clustered bronchiolitis and organizing pneumonia with the mid and lower lung zone predominance. And some minimal bronchiolectasis. These changes tended to wax and wane and there was some evidence of mucous plugging. She also had some air trapping in November 2020.. 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 At that time she also had an acute bacterial pneumonia.. 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 The group recommendation was to treat these symptoms as they arise and to check quantitative immunoglobulins.. I spoke with the patient this afternoon and relayed the above findings, thoughts and recommendations. 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 We will keep an eye on this going forward.I will schedule her for follow-up in the fall with spirometry and DLCO. Kimberly Pierre MD March 09, 2022 documented in this encounterU[facility] History of Present illness Narrative* Zulma Downey APRN.CNP - 02/05/2022 1:29 PM EDT Interstitial Lung Disease Multidisciplinary Conference We discussed Mr./MsPrerna Steven ([id number]) at our weekly multidisciplinary interstitial lung disease conference on February 05, 2022. Members from the departments of pulmonology, radiology, and pathology were in attendance. 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 Now with recurring pneumonias . BAL negative for infections. Imaging: mid to lower lung zone bronchiolitis and bronchiectasis with centrilobular nodules. One CTchest with slightly enlarged spleen. Pulmonary GVHD vs. GLILD vs. CTD-related, vs. immunodeficiency Pathology: nonspecific chronic airway inflammation. +eosinophils. Consensus diagnosis: Undetermined. Recommendation: Send autoimmune serologies and immunodeficiency labs. Get VATs lung biopsies from 2016 and 2019. Re-discuss at ILD conference again. Zulma Downey APRN.CNP documented in this encounterU[facility]05-10-[facility]22 Miscellaneous Notes* Telephone Encounter - Itzel Ernandez - 01/20/2022 1:23 PM EDT Rescheduled bronch for 01/23 so that patient has enough time to do COVID test documented in this encounterU[facility]05-10-2022 Miscellaneous Notes* Telephone Encounter - Itzel Ernandez - 01/20/2022 9:45 AM EDT Spoke with patient and scheduled standard bronch for 01/22 Patient will schedule COVID test Jaclyn for 01/20 documented in this encounterU[facility]05-06-[facility]22 History of Present illness Narrative* Landon Claire MD - 01/16/2022 5:11 PM EDT Bronchoscopy Request: Please schedule patient for the following: Standard Bronch w/TBBX and full ID BAL, please do Tissue Cx on TBBx BMT with wax/waning infiltrates Clinical Trial Candidate: No Visit and Bronchoscopy: Bronch only, visit not needed. Last H&P: January 02 Time Allotment/Tier: TIER 1: I HOUR Physician Performing Bronchoscopy:Bronch A, B or C Anesthesia Type: General Special Requests: None Needs Labs: No OSH labs OK in Nov Needs EKG: No [address] prior: No Does the pt need cardiac clearance? No Is he/she on anticoagulants/anti-plt therapy? No Nursing Considerations: (ie: residential, TB, respiratory isolation, etc.) none Diagnosis/Reason for Bronchoscopy: Infiltrates, BMT Referred by: Timur Reviewed by: SHERLYN Claire MD January 16, 2022 5:11 PM Addendum: CBC with diff: No results found for this basename: WBC,RBC,HB,HCT,MCV,MCH,MCHC,RDWCV,PLT,MPV,NEUTP,LYMPHP,MONOP,EOD INP,BASOP,ABSNEUT,ABSLYM,ABSMONO,ABSEOSIN,ABSBASO No results found for: K No results found for: NA No results found for: BUN No results found for: CREAT documented in this encounterU[facility]05-[facility]22 History of Present illness Narrative* RT Kacy(R) - 01/15/2022 9:30 AM EDT Radiology Service Progress Note PATIENT NAME: Paris Steven DATE OF SERVICE: January 15, 2022 TIME: 9:44 AM PATIENT IDENTITY VERIFICATION COMPLETED USING TWO (2) IDENTIFIERS: Name and Date of confirmedby patient verbally and Name and Date of confirmed by identification band. FALL SCREENING: Has the patient had 2 falls in the last year or 1 fall with injury or currently using an Ambulatory Assistive Device (Walker, Cane, Wheelchair, Crutches, etc.)? No PATIENT GENDER DATA: Female. status: : No status: NO. PATIENT RELEVANT IMPLANT DATA REVIEWED: Yes RADIOLOGY DEPARTMENT: CT; Exam(s) Completed: Chest PERIPHERAL IV DATA: Not applicable SIGNED BY: RT Kacy(R) January 15, 2022 9:44 AM documented in this encounterUc [facility]04-22-2022 Instructions* Patient Instructions* Kimberly Pierre MD - 01/02/2022 12:15 PM EDT Please schedule chest CT. Plan for bronchoscopy after CT. G- building - First floor, G-[address] and bronch results. documented in this encounterUc [facility]04-22-2022 History of Present illness Narrative* Kimberly Pierre MD - 01/02/2022 11:10 AM EDT Consultation requested for an opinion regarding recurrent pneumonia. My final recommendations will be communicated back to the requesting physician by way of shared Medical record or letter to requesting physician via US mail. HPI: I had the pleasure of seeing Paris Steven in follow-up in the Pulmonary [facility] at [facility] on January 02, 2022. 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 She presents today for follow up after having another respiratory infection this month. Continues to feel congested. Continues to have productive cough. Denies fevers, chills or night sweats. Denies dyspnea. Some post-nasal drip but does not feel it is causing her cough. REVIEW OF SYSTEMS GENERAL: No weight loss, malaise or fevers HEENT: SEE HPI RESPIRATORY: See HPI CARDIOVASCULAR: Negative for chest pain, leg swelling, CHF or palpitations SKIN: Negative for lesions, rash, and itching PAST MEDICAL HISTORY Diagnosis Date Acute myeloid leukemia in remission (HCC) Aspergillus pneumonia (HCC) C. 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 Social History: Social History Tobacco Use Smoking status: Never Smoker Smokeless tobacco: Never Used Substance Use Topics Alcohol use: Not on file Drug use: Not on file Allergies: ALLERGIES Allergen Reactions Blood-Group Specifi* Unknown TRALI on 07/29/16 - please see FYI tab 12/22/16: Anaphylaxis to male platelets and female platelets that were premedicated with Tylenol, Solumedrol and benadryl. 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 Pretreat with Benadryl, and run vancomycinover 2 hours. Current Medications: predniSONE (DELTASONE) 10 mg tablet Take 3 tablets by mouth once daily for 5 days, THEN 2 tablets once daily for 5 days, THEN 1 tablet once daily for 5 days, THEN 0.5 tablets once daily for 5 days. montelukast (SINGULAIR) 10 mg tablet 1 Each. albuterol HFA (PROVENTIL HFA, VENTOLIN HFA) 90 mcg/actuation inhaler Inhale 2 Puffs as instructed. Cholecalciferol, Vitamin D3, 50 mcg (2,000 unit) cap take 1 capsule by mouth once daily diphenhydrAMINE (BANOPHEN) 25 mg tablet take 1 tablet by mouth once daily at bedtime if needed for itching sleep or allergies Biotin 2,500 mcg cap Take 2,500 mcg by mouth. norethindrone-e.estradiol-iron (LO LOESTRIN FE) 1 mg-10 mcg (24)/10 mcg (2) Take 1 tablet by mouth once daily. mv,calcium,min/iron/folic/vitK (ONE-A-DAY WOMEN'S COMPLETE ORAL) Take by mouth. azithromycin (ZITHROMAX) 500 mg tablet 1 tablet every Wednesday,Wednesday,Wednesday. PHYSICAL EXAM: Vital signs: BP 114/71 Pulse 91 Temp (Src) 98.9 (Temporal) SpO2 98% Gen: Well appearing, well nourished female in NAD, A&Ox3 HEENT: Anicteric sclera, Moist mucous membranes, clear oropharynx Neck: No lymphadenopathy. No JVD CV: Regular rate and rhythm. Normal S1S2. No murmurs, gallops or rubs appreciated. Lungs: Good air movement. Bilateral, lower lobe predominant rhonchi and wheezes. No rales.Normal work of breathing. No accessory muscle use. Abd: Soft, non-tender and non-distended with normal, active bowel sounds. MS: Extremities are warm and well perfused. No clubbing, cyanosis or edema appreciated. No evidenceof joint erythema or effusions. Skin: No obvious rashes appreciated. Neuro: Grossly non-focal. Normal appearing gait. Labs: Pertinent labs reviewed. Spirometry/PFTs (12/23/2021): Spirometry suggest mild restriction. No prior testing for comparison. PRE-BRONCH POST-BRONCH Pred LLN ULN Actual %Pred Actual %Chng SPIROMETRY FVC (L) 4.07 3.25 4.91 3.24 79 FEV1 (L) 3.55 2.86 4.23 2.70 75 FEV1/FVC 0.88 0.77 0.97 0.83 94 FEF25 (L/sec) 4.69 FEF50 (L/sec) 4.47 2.86 6.07 4.05 90 FEF75 (L/sec) 2.12 1.17 3.47 1.29 60 [id number] (L/sec) 4.12 2.75 5.65 3.21 78 PEF L/s (L/sec) 7.13 5.31 8.95 5.96 83 FIVC (L) 2.70 FIF50 (L/sec) 2.66 PIF (L/sec) 2.79 Time (sec) 5.14 REGLA (L) 0.08 FET PEF (sec) 0.18 IMAGING: No new thoracic imaging Assessment/Plan: Paris Steven is a 21 year old female who I am following in the Pulmonary Clinic for recurernt pneumonia. Persistent symptoms despite antibiotics and steroids. Will proceed with a repeat CT and plan for likely biopsy with BAL and TBBx. (J18.9) Pneumonia due to infectious organism, unspecified laterality, unspecified part of lung (primary encounter diagnosis) (Z94.84) History of allogeneic stem cell transplant (HCC) Comment: As above Plan: CT CHEST WO IVCON Likely bronchoscopy pending CT results. Follow up for Ms. Paris Steven will be determined after the CT. Thank you for referring Paris Steven to the Pulmonary Clinic at the [facility]. Should you have any questions or concerns do not hesitate to contact me. -Kimberly Pierre MD [facility] Miscellaneous Notes* Telephone Encounter - Zulma Downey APRN.CNP - 12/23/2021 10:00 AM EDT Will give steroid taper Pred 30 x 5 days, 20 x 5 days, 10 x 5 days, 5 x 5 days Zulma Downey APRN.CNP * Telephone Encounter - Rula Saldana - 12/22/2021 1:32 PM EDT Patient called stating she is on week-two with pneumonia. What should she do? She may be reached @ [phone]. Thank you. documented [facility] [place] + Plan note No data available for this section [facility] Family [facility] [place] Evaluation + Plan note Future Appointments Appointment Date:12/24/2021 09:40:00 AM Scheduled Provider:Hloly Garcia NP Location:[facility] Appointment Type: New Patient - Adult [facility] Evaluation + Plan note Future Appointments Appointment Date:03/13/2024 11:00:00 AM Scheduled Provider:Lia Weiss PA-C Location:[facility] [place] [facility] Diagnosis Bronchiolitis obliterans syndrome (HCC)- Primary Other chronic bronchitis documented in this encounter [facility] note* Diagnosis Pneumonia due to infectious organism, unspecified laterality, unspecified part of lung- Primary History of allogeneic stem cell transplant ([facility]) documented in this encounter [facility] note* Diagnosis Pneumonia due to infectious organism, unspecified laterality, unspecified part of lung documented in this encounter [facility] note* Diagnosis Pneumonia due to infectious organism, unspecified laterality, unspecified part of lung- Primary History of allogeneic stem cell transplant (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)- Primary Wwkhf-zqknio-cyff disease, unspecified Recurrent pneumonia Pneumonia, organism unspecified documented in this encounter [facility] note* Diagnosis Chronic idiopathic constipation- Primary Unspecified constipation History of acute myeloid leukemia in remission Personal history of myeloid leukemia Status post bone marrow transplant Bone marrow replaced by transplant Chemotherapy follow-up examination [facility] [place] [facility]* Diagnosis ILD (interstitial lung disease) (HCC)- Primary Postinflammatory pulmonary fibrosis 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)- Primary Gurnu-xsrogz-ngts disease, unspecified documented in this encounter [facility] note* Diagnosis 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) Fjbhq-lmueok-aykd disease, unspecified documented in this encounter [facility] note* Diagnosis ILD (interstitial lung disease) (HCC)- Primary Postinflammatory pulmonary fibrosis 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) Krkfx-xvvkdi-anvl disease, unspecified documented in this encounter [facility] note* Diagnosis Pharyngitis, unspecified etiology- Primary documented in this encounter [facility] note* Diagnosis Status post bone marrow transplant- Primary Bone marrow replaced by transplant History of acute myeloid leukemia in remission Personal history of myeloid leukemia Chemotherapy follow-up examination Chronic bilateral lower abdominal pain Abdominal pain, right lower quadrant documented in this encounter [facility] note* Diagnosis History of acute myeloid leukemia in remission Personal history of myeloid leukemia Status post bone marrow transplant Bone marrow replaced by transplant Vitamin D deficiency Unspecified vitamin D deficiency AML (acute myeloid leukemia) in remission Acute myeloid leukemia in remission Hair loss Alopecia, unspecified documented in this encounter [facility] note* Diagnosis Acute tonsillitis, unspecified etiology- Primary documented in this encounter [facility] note* Diagnosis Onset Date Resolution Status Admit Date Acute lower respiratory infection acuteMarch 2024 9:05[facility] Work Phone: Evaluation note* Diagnosis Thoracic aortic aneurysm without rupture, unspecified part (HCC)- Primary [facility] [place] [facility]* Diagnosis Premature ovarian failure- Primary Other ovarian dysfunction Acute myeloid leukemia in remission (HCC) Acute myeloid leukemia in remission Stem cells transplant status (HCC) Peripheral stem cells replaced by transplant Patient desires Unspecified procreative management [facility] [place] [facility]* Diagnosis Anxiety disorder, unspecified type- Primary Family history of ischemic heart disease [facility] [place] noteNo assessment information availableBarney Children'S [facility] Work Phone: Evaluation note* Diagnosis Neoplasm of uncertain behavior of skin Melanocytic nevus of trunk Benign neoplasm of skin of trunk, except scrotum documented in this encounter [facility] Healthcare[facility]* Diagnosis Encounter for gynecological examination without abnormal finding Screening for malignant neoplasm of cervix Screening for malignant neoplasm of the cervix Screening for STDs (sexually transmitted diseases) Screening examination for venereal disease Encounter for surveillance of contraceptive pills documented in this encounter [facility] HealthcareEvaluation note* Diagnosis Status post bone marrow transplant- Primary Bone marrow replaced by transplant History of acute myeloid leukemia in remission Personal history of myeloid leukemia [facility] Diagnosis Melanocytic nevus of trunk- Primary Benign neoplasm of skin of trunk, except scrotum Lentigines documented in this encounter [facility] HealthcareHospital Discharge instructions No data available for this section [facility] Progress note No data available for this section [facility] Reason for referral (narrative)* Outpatient Procedure (Routine) - Pending ReviewSpecialtyDiagnoses / ProceduresReferred By Contact Referred To [facility] Diagnoses 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) Procedures SPIROMETRY BASELINE ONLY SPMTRY W/VC EXPIRATORY JOSEPH W/WO MXML VOL VNTJ Kimberly Pierre MD [address] [place] [address] Respiratory [place] [address] [place] [address] Referral IDStatusReasonStart DateExpiration DateVisits RequestedVisits [id number] Review Auto-Generated Referral * Outpatient Procedure (Routine) - Pending ReviewSpecialtyDiagnoses / Procedures Referred By ContactReferred To [facility] 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) Procedures LUNG DIFFUSION CAPACITY (DLCO) DIFFUSING CAPACITY Kimberly Pierre MD [address] [place] [address] [place] [address] Referral IDStatusReannaasonNorth Royalton DateExpiration DateVisits RequestedVisits [id number] Review Auto-Generated Referral [facility] for referral (narrative)* Outpatient Procedure (Routine) - AuthorizedSpecialtyDiagnoses / ProceduresReferred By ContactReferred To [facility] 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) Procedures SPIROMETRY BASELINE ONLY SPMTRY W/VC EXPIRATORY JOSEPH W/WO MXML VOL VNTJ Kimberly Pierre MD [address] [place] [address] [address] [place] [address] [place] [address] Referral IDStatusReannaasonNorth [place]ton DateExpiration DateVisits RequestedVisits [id number] Auto-Generated Referral * Outpatient Procedure (Routine) - AuthorizedSpecialtyDiagnoses / Procedures Referred By ContactReferred To [facility] 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) Procedures LUNG DIFFUSION CAPACITY (DLCO) DIFFUSING CAPACITY Kmiberly Pierre MD [address] [place] [address] [address] [place] [address] [place] [address] Referral IDStatusReasonNorth [place]ton DateExpiration DateVisits RequestedVisits [id number] Auto-Generated Referral / [facility] for referral (narrative)* Referral (Routine) - Open SpecialtyDiagnoses / ProceduresReferred By ContactReferred To Contact Gastroenterology Diagnoses Status post bone marrow transplant History of acute myeloid leukemia in remission Chronic bilateral lower abdominal [place] [address] Referral IDStatusReasonStart DateExpiration DateVisits RequestedVisits [id number]/25/20238/ [facility] for referral (narrative)* Outpatient Procedure (Routine) - New RequestSpecialtyDiagnoses / ProceduresReferred By Contact [facility] Diagnoses ILD (interstitial lung disease) (HCC) Procedures LUNG DIFFUSION CAPACITY (DLCO) DIFFUSING CAPACITY Kimberly Pierre MD [address] [place] [address] [address] [place] [address] [place] [address] Referral IDStatusReasonNorth [place] DateExpiration DateVisits RequestedVisits [id number] Request Auto-Generated Referral * Outpatient Procedure (Routine) - New RequestSpecialtyDiagnoses / Procedures Referred By ContactReferred To [facility] Diagnoses ILD (interstitial lung disease) (HCC) Procedures SPIROMETRY WITH DILATOR IF OBSTRUCTED BRNCDILAT RSPSE SPMTRY PRE&POST-BRNCDILAT ADMN Kimberly Pierre MD [address] [place] [address] [address] [place] [address] [place], [place] [id number] Referral IDStatusReasonStdenver DateExpiration DateVisits RequestedVisits [id number] Request Auto-Generated Referral / [facility] for referral (narrative)* Transition of Care (Routine) - AuthorizedSpecialtyDiagnoses / ProceduresReferred By ContactReferred To [facility] Procedures CARDIOVASCULAR MEDICINE OP FOLLOW UP APPT ORDER Jose Alfredo Albarado MD [address] [place], [place] [phone] Phone: tel: fax: [facility] [place] [address] [place], [place] [phone] Referral IDStatusReBryan [facility] DateExpiration DateVisits RequestedVisits [id number] PCP Requested Referral / [facility] for referral (narrative)No reason for referral information availableBarney Children'S [facility] Work Phone: [facility] Narrative* Referral (Routine) - AuthorizedSpecialtyDiagnoses / ProceduresReferred By ContactReferred To ContactPediatric Hematology Oncology / Hematology and Oncology Diagnoses yearly exam/echocardiogram Procedures ESTABLISHED PATIENT Stacie Stevens, MECHANICAL SYSTEMS DESIGN ENGINEER-ENGINEERING TECHNICAL WRITER [address] [place] [address] [place] [address] Referral IDStatusReasonStart DateExpiration DateVisits RequestedVisits [id number]/26/[id number] [facility] for visit Narrative* Referral (Routine) - AuthorizedSpecialtyDiagnoses / ProceduresReferred By ContactReferred To ContactPediatric Hematology Oncology / Hematology and Oncology Diagnoses SH[employer] SURVIVORSHIP Procedures EST PATIENT SPEC Stacie Stevens, MECHANICAL SYSTEMS DESIGN ENGINEER-ENGINEERING TECHNICAL WRITER [address] [place] [address] [place] [address] Referral IDStatusReasonStart DateExpiration DateVisits RequestedVisits [id number]/25/[id number] [facility] for visit Narrative* Referral (Routine) - AuthorizedSpecialtyDiagnoses / ProceduresReferred By ContactReferred To ContactPediatric Hematology Oncology / Hematology and Oncology Diagnoses [employer]SH[employer] Procedures EST PATIENT SPEC Stacie Stevens APRN-ENGINEERING TECHNICAL WRITER [address] [place] [address] Phone: tel: fax: [place] [address] Phone: tel: fax: Referral IDStatusReasonStart DateExpiration DateVisits RequestedVisits [id number]/[id number] [facility] Summary Purpose Family History No Family History Records FoundNo Family History Records FoundNo Family History Records Found No data available for this section No data available for this section No data available for this section No data available for this section No data available for this section No Family History Records FoundNo Family History Records FoundNo Family History Records FoundNo Family History Records FoundNo Family History Records Found No data available for this section No Family History Records Found No data available for this section No Family History Records Found No data available for this section No data available for this section No Family History Records FoundNo Family History Records FoundNo Family History Records FoundNo Family History Records FoundNo Family History Records Found Advance Directives No Advanced Directives Records Found Advance Directive Response Recorded Date/ Time Advance Directives No August 21, 2024 6:12pm Advance Directive Response Recorded Date/ Time Advance Directives No August 21, 2024 7:12pm Reason for Referral SpecialtyDiagnoses / ProceduresReferred By ContactReferred To ContactCT IMAGING Diagnoses Pneumonia due to infectious organism, unspecified laterality, unspecified part of lung Procedures CT CHEST WO IVCON DIAGNOSTIC COMPUTED TOMOGRAPHY THORAX W/O CNTIDALMIST Kimberly Pierre MD [address] [place] [address] Ct Imaging Referral IDStatusReasonStart DateExpiration DateVisits RequestedVisits [id number] Auto-Generated Referral / Chief Complaint and Reason for Visit Chief Complaint Admit Date bloody phlegm August 21, 2024 4 :53pm Cough, congestion November 11, 2024 9:05 am Reason for Visit Admit Date Acute lower respiratory infection November 11, 2024 9:05am Chief Complaint Admit Date Cough, congestion, shortness of breath J yariel 2024 6:06pm Additional Source Comments INFORMATION SOURCE (unrecogn ized section and content) DATE CREATED AUTHOR 05/08/2021 [facility] DATE CREATED AUTHOR AUTHOR'S ORGANIZ ATION 01/05/2022 [facility] DATE CREATED AUTHOR AUTHOR'S ORGANIZ ATION 11/26/2022 [facility] DATE CREATED AUTHOR AUTHOR'S ORGANIZ ATION 03/04/2024 [facility] DATE CREATED AUTHOR AUTHOR'S ORGANIZ ATION 03/05/2024 [facility] DATE CREATED AUTHOR AUTHOR'S ORGANIZ ATION 03/15/2024 [facility] DATE CREATED AUTHOR AUTHOR'S ORGANIZ ATION 08/16/2024 [facility] DATE CREATED AUTHOR AUTHOR'S ORGANIZ ATION 08/24/2024 [facility] DATE CREATED AUTHOR AUTHOR'S ORGANIZ ATION 08/24/2024 [facility] DATE CREATED AUTHOR AUTHOR'S ORGANIZ ATION 06/06/2025 [facility] DATE CREATED AUTHOR AUTHOR'S ORGANIZ ATION 06/28/2025 [facility] DATE CREATED AUTHOR AUTHOR'S ORGANIZ ATION 07/05/2025 [facility] EPIC Source Comments (unrecognize d section and content) In the event this informatio n is protected by the Federal Confidentiality of Alcohol and Drug Abuse Patient Records regulations: The Federal rules restrict any use of the information to criminally investigate or prosecute any alcohol or drug abuse patient.[facility] the event this information is protected by the Federal Confidentiality of Alcohol and Drug Abuse Patient Records regulations: The Federal rules restrict any use of the information to criminally investigate or prosecute any alcohol or drug abuse patient.[facility]In the event this information is protected by the Federal Confidentiality of Alcohol and Drug Abuse Patient Records regulations: The Federal rules restrict any use of the information to criminally investigate or prosecute any alcohol or drug abuse patient.[facility] the event this information is protected by the Federal Confidentiality of Alcohol and Drug Abuse Patient Records regulations: The Federal rules restrict any use of the information to criminally investigate or prosecute any alcohol or drug abuse patient.[facility] the event this information is protected by the Federal Confidentiality of Alcohol and Drug Abuse Patient Records regulations: The Federal rules restrict any use of the information to criminally investigate or prosecute any alcohol or drug abuse patient.[facility] HospitalIn the event this information is protected by the Federal Confidentiality of Alcohol and Drug Abuse Patient Records regulations: The Federal rules restrict any use of the information to criminally investigate or prosecute any alcohol or drug abuse patient.[facility] HospitalIn the event this information is protected by the Federal Confidentiality of Alcohol and Drug Abuse Patient Records regulations: The Federal rules restrict any use of the information to criminally investigate or prosecute any alcohol or drug abuse patient.[facility] HospitalIn the event this information is protected by the Federal Confidentiality of Alcohol and Drug Abuse Patient Records regulations: The Federal rules restrict any use of the information to criminally investigate or prosecute any alcohol or drug abuse patient.[facility] HospitalIn the event this information is protected by the Federal Confidentiality of Alcohol and Drug Abuse Patient Records regulations: The Federal rules restrict any use of the information to criminally investigate or prosecute any alcohol or drug abuse patient.[facility]In the event this information is protected by the Federal Confidentiality of Alcohol and Drug Abuse Patient Records regulations: The Federal rules restrict any use of the information to criminally investigate or prosecute any alcohol or drug abuse patient.[facility] the event this information is protected by the Federal Confidentiality of Alcohol and Drug Abuse Patient Records regulations: The Federal rules restrict any use of the information to criminally investigate or prosecute any alcohol or drug abuse patient.[facility] the event this information is protected by the Federal Confidentiality of Alcohol and Drug Abuse Patient Records regulations: The Federal rules restrict any use of the information to criminally investigate or prosecute any alcohol or drug abuse patient.[facility] the event this information is protected by the Federal Confidentiality of Alcohol and Drug Abuse Patient Records regulations: The Federal rules restrict any use of the information to criminally investigate or prosecute any alcohol or drug abuse patient.[facility] the event this information is protected by the Federal Confidentiality of Alcohol and Drug Abuse Patient Records regulations: The Federal rules restrict any use of the information to criminally investigate or prosecute any alcohol or drug abuse patient.[facility] the event this information is protected by the Federal Confidentiality of Alcohol and Drug Abuse Patient Records regulations: The Federal rules restrict any use of the information to criminally investigate or prosecute any alcohol or drug abuse patient.[facility]In the event this information is protected by the Federal Confidentiality of Alcohol and Drug Abuse Patient Records regulations: The Federal rules restrict any use of the information to criminally investigate or prosecute any alcohol or drug abuse patient.[facility] HospitalIn the event this information is protected by the Federal Confidentiality of Alcohol and Drug Abuse Patient Records regulations: The Federal rules restrict any use of the information to criminally investigate or prosecute any alcohol or drug abuse patient.[facility] the event this information is protected by the Federal Confidentiality of Alcohol and Drug Abuse Patient Records regulations: The Federal rules restrict any use of the information to criminally investigate or prosecute any alcohol or drug abuse patient.[facility] Hospital[facility] the event this information is protected by the Federal Confidentiality of Alcohol and Drug Abuse Patient Records regulations: The Federal rules restrict any use of the information to criminally investigate or prosecute any alcohol or drug abuse patient.[facility] the event this information is protected by the Federal Confidentiality of Alcohol and Drug Abuse Patient Records regulations: The Federal rules restrict any use of the information to criminally investigate or prosecute any alcohol or drug abuse patient.[facility] the event this information is protected by the Federal Confidentiality of Alcohol and Drug Abuse Patient Records regulations: The Federal rules restrict any use of the information to criminally investigate or prosecute any alcohol or drug abuse patient.[facility] the event this information is protected by the Federal Confidentiality of Alcohol and Drug Abuse Patient Records regulations: The Federal rules restrict any use of the information to criminally investigate or prosecute any alcohol or drug abuse patient.[facility]In the event this information is protected by the Federal Confidentiality of Alcohol and Drug Abuse Patient Records regulations: The Federal rules restrict any use of the information to criminally investigate or prosecute any alcohol or drug abuse patient.[facility] the event this information is protected by the Federal Confidentiality of Alcohol and Drug Abuse Patient Records regulations: The Federal rules restrict any use of the information to criminally investigate or prosecute any alcohol or drug abuse patient.[facility] the event this information is protected by the Federal Confidentiality of Alcohol and Drug Abuse Patient Records regulations: The Federal rules restrict any use of the information to criminally investigate or prosecute any alcohol or drug abuse patient.[facility] HospitalIn the event this information is protected by the Federal Confidentiality of Alcohol and Drug Abuse Patient Records regulations: The Federal rules restrict any use of the information to criminally investigate or prosecute any alcohol or drug abuse patient.[facility] HospitalIn the event this information is protected by the Federal Confidentiality of Alcohol and Drug Abuse Patient Records regulations: The Federal rules restrict any use of the information to criminally investigate or prosecute any alcohol or drug abuse patient.[facility] Reason for Visit (unrecogniz ed section and content) ReasonCommentspneumonia, etc.ReasonCommentsRecheckReasonCommentsRadiology CT SpecialtyDiagnoses / ProceduresReferred By ContactReferred To ContactCT IMAGING Diagnoses Pneumonia due to infectious organism, unspecified laterality, unspecified part of lung Procedures CT CHEST WO IVCON DIAGNOSTIC COMPUTED TOMOGRAPHY THORAX W/O CNTRST Kimberly Pierre MD [address] [place] [address] Ct Imaging Referral IDStatusReasonStdenver DateExpiration DateVisits RequestedVisits [id number] Auto-Generated Referral /[id number]ou SchedulinginitialReasonCommentspre op bronchReasonCommentsILD ConferenceReasonCommentsILD ConferenceReasonOnset DateCommentsRefill Rjrdcbr98/18/2022ReasonOnset DateCommentsRefill Request 2ReasonCommentsSpirometrySpecialtyDiagnoses / ProceduresReferred By ContactReferred To [facility] 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) Procedures SPIROMETRY BASELINE ONLY SPMTRY W/VC EXPIRATORY JOSEPH W/WO MXML VOL VNTJ Kimberly Pierre MD [address] [place] [address] [address] [place] [address] Referral IDStatus[facility] DateExpiration DateVisits RequestedVisits [id number] Auto-Generated Referral /[id number] / ProceduresReferred By ContactReferred To [facility] 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) Procedures LUNG DIFFUSION CAPACITY (DLCO) DIFFUSING CAPACITY Kimberly Pierre MD [address] [place] [address] [address] [place] [address] [place], [place] [address] [address] Referral IDStatusReasonStart DateExpiration DateVisits RequestedVisits [id number] Auto-Generated Referral /[id number]nhtii IDStatusReasonStart Date Expiration DateVisits RequestedVisits [id number] Auto-Generated Referral /[id number] IDStatusReasonStart DateExpiration DateVisits RequestedVisits [id number] Auto-Generated Referral /[id number] IDStatusReasonStart DateExpiration DateVisits RequestedVisits [id number] Auto-Generated Referral 1Referral IDStatusReasonStart DateExpiration DateVisits RequestedVisits [id number] Auto-Generated Referral [id number] UpReasonCommentsNew PatientSore throat and bloody drainage.ReasonCommentsConsultPre- conseptionReasonCommentsSuspicious Skin LesionReasonCommentsGynecologic ExamLMP: 04/25/25 regular, monthly, normal flow, last 6-7 daysBC: norgestimate-ethinyl estradiol ([facility],Trinessa) 0.18/0.215/0.25 MG-35 Last pap 04-21-24 neg.Denies breast, urinary, or bowel concerns.ReasonCommentsFollow-up Care Team (unrecognized sect ion and content) Team MemberRelationshipSpecialtyStart DateEnd Date Stacie Stevens, MECHANICAL SYSTEMS DESIGN ENGINEER-ENGINEERING TECHNICAL WRITER [address] [place] [address] [place] [address] PCP - GeneralFamily Medicine02/14/20 Blossom Hancock MD [address] [place] [id number] Attending PhysicianPediatric Hematology Wcehqiqs75/8/16 Tete Rhodes, MECHANICAL SYSTEMS DESIGN ENGINEER-ENGINEERING TECHNICAL WRITER [place], [place] [id number] Nurse PractitionerPediatric Hematology Oncology04/13/17 Derrick Lopez [place] [address] Attending PhysicianPediatric Hematology Oncology12/27/17Team MemberRelationship SpecialtyStart DateEnd Date Stacie Stevens, MECHANICAL SYSTEMS DESIGN ENGINEER-ENGINEERING TECHNICAL WRITER [address] [place] [address] PCP - GeneralBuchanan [facility] Centerly Medicine02/14/20 Blossom [place]ancock [place] [address] Attending PhysicianPediatric Hematology Jqeoqsyu80/8/16 Tete Rhodes, MECHANICAL SYSTEMS DESIGN ENGINEER-ENGINEERING TECHNICAL WRITER [place] [address] Nurse PractitionerPediatric Hematology Oncology04/13/17 Derrick Lopez [place] [address] Attending PhysicianPediatric Hematology Oncology12/27/17Team MemberRelationship SpecialtyStart DateEnd Date Stacie Stevens, MECHANICAL SYSTEMS DESIGN ENGINEER-ENGINEERING TECHNICAL WRITER [address] [place] [address] PCP - [facility] Medicine02/14/20 Blossom Hancock [place] [address] Attending PhysicianPediatric Hematology Jbrmkase59/8/16 Tete Rhodes, MECHANICAL SYSTEMS DESIGN ENGINEER-ENGINEERING TECHNICAL WRITER [place] [address] Nurse PractitionerPediatric Hematology Oncology04/13/17 Derrick Lopez [place] [address] Attending PhysicianPediatric Hematology Oncology12/27/17Team MemberRelationship SpecialtyStart DateEnd Date Efrain Pathak Burak, DO [address] [place] [address] ReferringObstetrics04/25/24Team MemberRelationshipSpecialtyStart DateEnd [facility] Efrain Pathak, DO [address] [place] [address] ReferringObstetrics04/25/24Team MemberRelationshipSpecialtyStart DateEnd Date Efrain Pathak, DO [address] [place] [address] ReferringObstetrics04/25/24Team MemberRelationshipSpecialtyStart DateEnd [facility] Efrain Pathak Burak, [address] [place] [address] ReferringObstetrics04/25/24Team MemberRelationshipSpecialtyStart DateEnd [facility] Lia Weiss PA [address] [place], [place] [id number] PCP - General04/16/23Team MemberRelationshipSpecialtyStart DateEnd [facility] Lia Weiss PA [address] [place], [place] [id number] PCP - General04/16/23Team MemberRelationshipSpecialtyStart DateEnd [facility] Stacie Stevens APRN-ENGINEERING TECHNICAL WRITER [address] [place] [address] [place] [address] PCP - GeneralFamily [facility]02/14/20 Blossom Hancock MD [address] [place], [place] [id number] Attending ProviderPediatric Hematology Bslowpyb96/8/16 Tete Rhodes, MECHANICAL SYSTEMS DESIGN ENGINEER-ENGINEERING TECHNICAL WRITER [address] [place], [place] [phone] Nurse PractitionerPediatric Hematology Oncology04/13/17 Derrick oLpez MD [address] [place], [place] [id number] Attending ProviderPediatric Hematology Oncology12/27/17Team MemberRelationship SpecialtyStart DateEnd Date Stacie Stevens MECHANICAL SYSTEMS DESIGN ENGINEER-ENGINEERING TECHNICAL WRITER [address] [place] [address] [place] [address] PCP - GeneralFamily Medicine02/14/20 Blossom Hancock MD [address] [place], [place] [id number] Attending ProviderPediatric Hematology Tplutahj83/8/16 Tete Rhodes, MECHANICAL SYSTEMS DESIGN ENGINEER-ENGINEERING TECHNICAL WRITER [address] [place], [place] [id number] Nurse PractitionerPediatric Hematology Oncology04/13/17 Derrick Lopez MD [address] [place], [place] [phone] Attending ProviderPediatric Hematology Oncology12/27/17 Team Status: Active Member Role Status Dates PHYSICIAN NO FAMILY Primary Care Provider Active Team Status: Inactive Member Role Status Dates CHERY MarshallP- Emergency Provider Active Start: August 21, 2024 End: August 21HYSICIAN NO FAMILYPrimary Care ProviderActiveStart: August 21, 2024 End: August 21, 2024 Team Status: Inactive Member Role Status Dates PHYSICIAN NO FAMILY Primary Care Provider Active Start: November 11, 2024 End: November 11, 2024Salina Craig ProviderActiveStart: November 11, 2024 End: November 11, 2024Team MemberRelationshipSpecialtyStart DateEnd Date Efrain Pathak, [address] [place] [address] ReferringObstetrics04/25/24Team MemberRelationshipSpecialtyStart DateEnd Date Efrain Pathak DO [address] [place] [address] ReferringObstetrics04/25/24Team MemberRelationshipSpecialtyStart DateEnd Date Holly Garcia APRN.ENGINEERING TECHNICAL WRITER [address] [place], [place] [address] [address] PCP - Generalmily Medicine03/28/25 Efrain Pathak DO [address] [place] [address] ReferringObstetrics04/25/24 Team Status: Active Member Role Status Dates NON STAFF Primary Care Provider Active Team Status: Inactive Member Role Status Dates Brynn Arizmendi APRN Attending Provider Active Start: March 29, 2025 End: March 29, 2025NON STAFFPrdch [facility] Care ProviderActiveStart: March 29, 2025 End: March 29, 2025Team MemberRelationshipSpecialtyStart DateEnd Date Pascual Pino MD [address] [place] [address] PCP - GeneralBuchanan County Health Centerly Medicine10/20/24Team MemberRelationshipSpecialtyStart DateEnd Date Pascual Pino MD [address] [place] [address] PCP - GeneralFamily Medicine10/20/24Team MemberRelationshipSpecialtyStart DateEnd Date Pascual Pino MD [address] [place] [address] PCP - GeneralFamily Medicine10/20/24Team MemberRelationshipSpecialtyStart DateEnd Date Stacie Stevens MECHANICAL SYSTEMS DESIGN ENGINEER-ENGINEERING TECHNICAL WRITER [address] [place] [address] [place] [address] PCP - GeneralFamily Medicine02/14/20 Blossom Hancock MD [facility] [address] Attending ProviderPediatric Hematology Fzoqakan99/8/16 Tete Rhodes, MECHANICAL SYSTEMS DESIGN ENGINEER-ENGINEERING TECHNICAL [place] [address] Nurse PractitionerPediatric Hematology Oncology04/13/17 Derrick Lopez MD [address] [place], [place] [id number] Attending ProviderPediatric Hematology Oncology12/27/17Team MemberRelationship SpecialtyStart DateEnd Date Pascual Pino MD [address] [place] [address] PCP - Generalmily Medicine10/20/24Team MemberRelationshipSpecialtyStart DateEnd Date Pascual Pino MD [address] [place] [address] [facility]10/20[facility]24 Goals (unrecognized section and content) Goals may be documented in a n alternate section FOR RECORDS PERTAINING TO PATIENTS WHO ARE OR HAVE BEEN ENROLLED IN A CHEMICAL DEPENDENCY/SUBSTANCEABUSE PROGRAM, SOME INFORMATION MAY BE OMITTED. This clinical summary was aggregated from multiple sources. Caution should be exercised in using it in the provision of clinical care. This summary normalizes information from multiple sources, and as a consequence, information in this document may materially change the coding, format and clinical context of patient data. In addition, data may be omitted in some cases. CLINICAL DECISIONS SHOULD BE BASED ON THE PRIMARY CLINICAL RECORDS. [facility] CenterUrban M[facility]. provides no warranty or guarantee of the accuracy or completeness of information in this document."
--- OUTSIDE RECORDS SUMMARY | 2025-08-09 08:37 | XMS_ITS | Clinical Summary ---
Author Organization [facility] [place] [address] Care Team Providers Care Hardness Tester Name Role Phone Blossom Saleh MD Unavailable [phone] Tete Rhodes RIPSAW GRADER-PIG CASTING MACHINE OPERATOR Unavailable Derrick Lopez MD Unavailable Stacie Stevens RIPSAW GRADER-PIG CASTING MACHINE OPERATOR Primary Care Provider [phone] Allergies Active AllergyReactionsCriticalityNoted DateCommentsBlood-Group Specific SubstanceOther (See Comments)High08/05/2016 TRALI on 07/29/16 - please see FYI tab 12/22/16: Anaphylaxis to male platelets and female platelets that were premedicated with Tylenol, Solumedrol and benadryl. 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 Pretreat with Benadryl, and run vancomycinover 2 hours. Medications * This document contains information received from the source organization and may not represent a complete record from that organization. MedicationSigDispense QuantityRefillsLast FilledStart DateEnd DateStatus Spacer/Aero-Holding Chambers (OPTICHAMBER MARTIN) [facility] 1 Each by Other route Use as directed with metered-dose inhaler. 1 Each ctive Additional Information Patient not taking.Reported on 06/05/2025 albuterol 108 (90 Base) MCG/ACT inhaler Inhale 2 Puffs into the lungs every 6 hours as needed for Wheezing, Shortness of Breath or Cough 1 Each ctive Additional Information Patient not taking.Reported on 06/05/2025 cholecalciferol (VITAMIN D3) 25 mcg (1000 units) tablet Take 1 Tablet (1,000 Units) by mouth daily 90 Tablet ctive norgestimate-ethinyl estradiol (ORTHO TRI-CYCLEN) 0.18/0.215/0.25 MG-35 MCG tablet Take 1 Tablet by mouth every ahachcy5104/28/2024ctive loratadine (CLARITIN) 10 MG tablet Take 1 Tablet (10 mg) by mouth daily as neededActive Active Problems Patient Care Coordination No te Formatting of this note migh t be different from the original. Primary oncologist: Delfino Surgeon: Wander biomedical manager Med Desoto: Angely [phone] [facility] for NG supplies and nursing [phone] Kytril PA effective until 06/26/17 per [employer] [phone] PA for IVIG effective until 06/08/18 PA for nexium effective until 06/22/18 per Medicaid [phone] and [employer] case#[id number] until 12/27/18 PA Azithromycin #36 tabs/90 days approved through 01/18/2021. 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, had acute skin and GI GVHD Wash all blood and platelets and premedicate with benadryl, solumedrol and whvzpao3312/14/2017 Overview (12/14/2017): IV benadryl 50mg IV solumedrol 50mg PO tylenol 650mg Presumed treatment induced adrenal insufficiency- stress dose 50mg IV Hydrocortisone for sidyqtjscg80/03/2018 Overview (12/14/2017): Stress dose 50mg IV Hydrocortisone prior to anesthesia Primary ovarian tlsgmup3711/05/2017Mild persistent dkhnhn4608/09/2017Status post bone marrow djcguocapo90/23/2017 Overview (08/04/2019): Date of Transplant: 11/28/16 HLA: 06/22 Graft source: marrow XX --> XX Donor blood type: A Pos Recipient blood type: B Pos Palliative care patient - cruvjbuk98/01/2017 Overview (01/07/2024): This patient has been seen in the past by the Palliative Care Team. Please do not remove or resolvethis item from the problem list. Resolved Problems ProblemNoted DateDiagnosed DateResolved DateAcute xecbgqmqxn73/18/202108/ Post-operative stateAcute upper respiratory infection /11/2019Iatrogenic adrenal wcdhdtvgforpv62oss of kwesdx31Chronic mihxvlbmd01/04/Bacterial ybyseiufu37Bronchiolitis svueycyhzm21 Cytomegalovirus (CMV) fnsajuw62Chronic lcwbf-mqnesn-wygi inwnlfh18/27/BV (Luís-Kirkpatrick virus) hfojewm69 History of lung zuzrdm27Chronic pulmonary gekaaoe3807/07/2017 08/17/20174493Kjebm258263Oylqvnnmhzarfnpskvbcy67/16/201703/12/2019 Mixed restrictive and obstructive lung wdgtymf41Pneumonia Oxygen dlirlhuvkeig64Aspergillus pneumonia Overview (03/23/2017): Dx on BAL 03/18/17 Acute GVHD Overview (01/05/2017): Skin GI (biopsy proven 12/28/16) Qrgqbrvjpamnyh55Right lower quadrant abdominal pain12/31/2016 01/05/2017AML (acute myeloblastic leukemia)On tube feeding diet Overview (12/29/2016): ND Tube placed 12/28/16. Ileitis, mlwfmmdr67Erythema Overview (12/12/2016): To palms, cheeks and soles of feet CMV (cytomegalovirus infection) status jywjrdwa07 Overview (12/11/2016): Plasma C. 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 Rqntqhkmbvrommcs52Pancytopenia due to antineoplastic iqnaqyxqszmr20Pseudomonas aeruginosa onzmyfhig00/03/2017 11/01/2016Abdominal painAdjustment disorder with anxiety Antineoplastic chemotherapy induced zoqall5410/11/2016 11/01/2016Hand foot xrbawgxh71Decreased oral vnelax9509/15/2016 09/28/2016Neutropenic feverSeptic shock Neutropenia associated with sohkvgrbt16AKI (acute kidney injury)AgitationHypoalbuminemia Anasarca1Acute respiratory failure with vrnzmnczi83HypokalemiaAcute myelomonocytic /16/TRALI (transfusion related acute lung injury) Anemia07/27/6881Ezeifpdpjnbevqgs73/14/2016 09/03/2016Thrush, oral07/27/5588Ilxfcdhdsdvz88 Encounters DateTypeDepartmentCare YejdLpwnxbuoagw70/23/2025 1:44 PM EDT - 06/05/2025 11:59 PM EDTHospital Encounter Hematology Oncology - [address], [facility] [address] [facility], [address] [place] [address] Blossom Saleh MD Status post bone marrow transplant (Primary Dx); History of acute myeloid leukemia in remission; Chemotherapy follow-up examination Discharge Disposition: Discharged to Home or Self Care06/04/2025Orders Only Hematology Oncology - [address], [address] [facility], [address] [place], [place] [phone] Blossom Saleh MD 05/11/2025 9:00 AM EDTOffice Visit Diabetes & Endocrinology - [address] [phone] Nicole Dos Santos MD Primary ovarian failure (Primary Dx); Vitamin D deficiency; AML (acute myeloid leukemia) in remissionfrom Last 3 Months Immunizations ImmunizationAdministration DatesNext DueDTaP/HIB/IPV (PENTACEL)03/01/2018, 02/01/2018,12/28/2017DTaP/Hep B/IPV (PEDIARIX)02/17/2007Dtap, Unspecified Kjakpaxqili85/03/2003,2002,2002,2002H1n1 2009 Influenza A Monovalent Nasal Spray07/19/2009HPV01/08/2015,09/03/2014,07/02/2014HPV 9-valent 10/18/2019,04/12/2019,06/23/2018Hep B/HIB (COMVAX)2002,2002, 2002Hepatitis A (PED/ADOL)04/12/2019,06/23/2018,01/08/2015,07/02/2014 Hepatitis B Ped/Adol11/22/2018,04/25/2018,02/01/2018,12/28/2017Hib, Unspecified Fqbydwzbqvc59/03/0624LCJ55/18/2018,2002,2002,2002Influenza Vaccine 0.5 mL Quadrivalent (PF)07/30/2020,06/13/2019,06/23/2018,05/25/2017, 08/23/2016Influenza Whole08/12/2015,07/10/2014,09/08/2007,08/02/2007Influenza, Seasonal, Qutmoaodni20/28/2009,07/15/2008MENINGOCOCCAL CONJUGATE ACWY VACCINE (MENACTRA)07/19/2019,02/28/2019MMR05/16/2003MMRV (PROQUAD)07/19/2019,06/13/2019, 02/17/2007Meningococcal ACWY1PFIZER COVID-19, MRNA, 12Y+, 30MCG/0.3ML DOSE2Pneumococcal 13 Valent Conjugate Rcooech5004/25/2018,03/01/2018, 12/28/2017,09/27/2017Pneumococcal Piexwqavkumqor48/14/2017,06/29/2017,05/25/2017 Tdap02/28/2019,09/03/20146941Dbhncmbzz14/05/2020,05/16/2003 Family History Medical HistoryRelationCommentsNo known problemsBrother 1No known problems Brother 2Kidney DiseaseFatherGlasses BF 6 Y/OMaternal AuntStrabismusMaternal AuntAllergiesMotherNo known problemsSisterAnesth ProblemsNeg HxAsthmaNeg Hx Bleeding ProblemNeg HxCystic FibrosisNeg HxRelationStatusCommentsBrother 1 Brother 2Fatherpolycystic kidneyMaternal AuntMotherSister Social History Tobacco UseTypesPacks/DayYears UsedDateSmoking Tobacco: NeverSmokeless Tobacco: Never Tobacco Cessation:Counseling Given: Not Answered Alcohol UseStandard Drinks/WeekCommentsNo0 (1 standard drink = 0.6 oz pure alcohol)CommentsUnknownSex and Gender InformationValueDate RecordedSex Assigned at BirthNot on fileLegal LtgVzitqk71/13/2016 7:29 PM ESTGender Identity Not on fileSexual OrientationNot on file Last Filed Vital Signs Vital SignReadingTime TakenCommentsBlood Ozejgnne769/8209 1:46 PM EDT Lipat01051/23/2025 1:46 PM GSLPnxtuirqxht96.3 ??C (97.3 ??F)06/05/2025 1:46 PM EDTRespiratory Rjgp157806/05/2025 1:46 PM EDTOxygen Dcuacvoffa56%05/08/2022 4:05 PM EDTInhaled Oxygen Concentration--Epfnzh08.9 kg (123 lb 3.8 oz)06/05/2025 1:46 PM TBGJrhitx320.1 cm (5' 6.18 )06/05/2025 1:46 PM EDTBody Mass Index19.78 06/05/2025 1:46 PM EDT Plan of Treatment Health MaintenanceDue DateLast DoneCommentsPATH Education 12-14+ Years2014 PATH Transitional Wwyshtfnpf80/15/2014PATH Education 15-17+ Years2017MenB (1 of 2 - MenB 2-Dose Series Bexsero)2018PATH Education 18+ Years 01/26/2020COVID-19 (3 - Pfizer risk series)208/, 2Pap Smear2023FLU (#1)512/03/2022, 10/02/2021, 07/30/2020, Additional history existsTetanus Diphtheria and Pertussis Vaccines (12 - Td or Tdap) /10/2021, 02/28/2019, 03/01/2018, Additional history existsHIB Zlopzmefr74/19/2018, 02/01/2018, 12/28/2017, Additional history exists PneumococcalAged Out04/25/2018, 03/01/2018, 12/28/2017, Additional history existsNo longer eligible based on patient's age to complete this topicPolio Vhkayvotn89/18/2018, 08/30/2018, 03/01/2018, Additional history existsHepatitis MZvxbrwawo53/12/2019, 04/25/2018, 02/01/2018, Additional history existsHepatitis EPkyecqaaz45/31/2019, 04/12/2019, 06/23/2018, Additional history existsMMR Jwpypqtbj50/06/2019, 06/13/2019, 02/17/2007, Additional history existsMenACWY Myaygaoue46/06/2019, 02/28/2019, 07/02/20140425WFBSacsliqqq07/05/2020, 10/18/2019, 04/12/2019, Additional history vonftpHpfxnfzsaRndusvtsd84/05/2020, 07/19/2019, 06/13/2019, Additional history existsNirsevimabAged OutNo longer eligible based on patient's age to complete this topicRotavirusAged OutNo longer eligible based on patient's age to complete this topic Medical Devices ImplantedTypeAreaManufacturerDevice IdentifierShelf Expiration DateModel / Serial / LotPort Powerport 9.5fr Implanted:Qty: 1 on 07/28/2016 [facility]Implantable CatheterRight: ChestC R BARD INC:[employer]02/07/[id number] / / [id number] 07fr Debby Implanted:Qty: 1 on 11/17/2016 by [facility] HospitalImplantable CatheterC R BARD INC:BARD [employer]ESS [employer] [id number] / / [id number]:Internal Jugular Procedures Procedure NamePriorityDate/TimeAssociated DiagnosisCommentsRED TOPRoutine 06/05/2025 1:45 PM EDTEXTRA SSUDBZqlfnuo14/23/2025 1:45 PM EDT COMPLETE BLOOD COUNT WITH TQRYZYVHSBOOAkyehcw18/23/2025 1:45 PM EDT COMPREHENSIVE METABOLIC LLDFMVvayfzr81/23/2025 1:45 PM EDT from Last 3 Months Results * Red Top (06/05/2025 1:45 PM EDT)Specimen (Source)Anatomical Location / LateralityCollection Method / VolumeCollection TimeReceived TimeBlood 06/05/2025 1:45 PM EDT06/05/2025 1:58 PM EDT Narrative Authorizing ProviderResult TypeResult StatusStephanfly Saleh MDHEMATOLOGY ORDERABLESFinal ResultPerforming OrganizationAddressCity/State/ZIP CodePhone Number [facility] ([facility]) [place] [address], * (ABNORMAL) Complete Blood Count with Differential (06/05/2025 1:45 PM EDT) ComponentValueRef RangeTest MethodAnalysis TimePerformed AtPathologist SignatureWBC7.04.9 - 10.0 10E3/??L06/05/2025 2:10 PM [facility])Nucleated RBC Percent0.00.0 - 0.0 %06/05/2025 2:10 PM [facility])RBC4.154.03 - 4.91 10E6/??L06/05/2025 2:10 PM [facility])Tkfxlmowft47.511.4 - 14.8 g/dL06/05/2025 2:10 PM [facility])Vrwvrjcolo93.435.5 - 44.6 %06/05/2025 2:10 PM [facility])MCV94.980.0 - 100.0 fL06/05/2025 2:10 PM [facility])MCH34.9(H)25.7 - 31.2 pg06/05/2025 2:10 PM [facility])MCHC36.8(H)31.3 - 34.0 %06/05/2025 2:10 PM [facility]RDW CV11.6(L)11.9 - 14.8 %06/05/2025 2:10 PM [facility])Cysojzjzy072271 - 400 10E3/??L06/05/2025 2:10 PM [facility])MPV9.3(L)9.6 - 11.9 fL06/05/2025 2:10 PM [facility]% Immature Granulocyte0.40.2 - 0.5 %06/05/2025 2:10 PM EDT [facility] ([facility])Comment:Immature Granulocyte Percent includes promyelocytes, myelocytes,and metamyelocytes. IG% > 1.0 indicates a left shift is present. With automated differentials, bands are included in the neutrophil count and not in the Immature Granulocyte Percent.Neutrophil #3.182.43 - 6.42 10E3/??L06/05/2025 2:10 PM [facility])Lymphocyte #3.25(H)1.51 - 2.99 10E3/??L06/05/2025 2:10 PM [facility])Monocyte #0.44 0.36 - 0.77 10E3/??L06/05/2025 2:10 PM [facility])Eosinophil #0.040.04 - 0.27 10E3/??L06/05/2025 2:10 PM [facility]) Basophil #0.030.02 - 0.06 10E3/??L06/05/2025 2:10 PM [facility]% Zbjnwdqyjfd17.7(L)46.0 - 68.6 %06/05/2025 2:10 PM [facility])% Halcboqnhqm84.6(H)21.8 - 42.1 %06/05/2025 2:10 PM EDT [facility])% Monocytes6.35.6 - 10.2 %06/05/2025 2:10 PM [facility] ([employer])% Eosinophil0.60.6 - 3.8 %06/05/2025 2:10 PM [facility] ([employer])% Basophils0.40.3 - 0.9 %06/05/2025 2:10 PM [facility] ([facility])Specimen (Source)Anatomical Location / LateralityCollection Method / VolumeCollection TimeReceived TimeBloodVENOUS STRUCTURE / Unknown Venipuncture / Lmrloau9806/05/2025 1:45 PM EDT06/05/2025 1:57 PM EDT Narrative Authorizing ProviderResult TypeResult StatusStephanie Delfino MDHEMATOLOGY ORDERABLESFinal ResultPerforming OrganizationAddressCity/State/ZIP CodePhone Number [facility] ([facility] [place] [address], * Comprehensive metabolic panel (06/05/2025 1:45 PM EDT)ComponentValueRef Range Test MethodAnalysis TimePerformed AtPathologist GxjxyrctnTkreda906314 - 145 mmol/L06/05/2025 2:30 PM [facility])POTASSIUM3.73.3 - 5.1 mmol/L06/05/2025 2:30 PM [facility] ([employer])GRBOALCV71837 - 108 mmol/L06/05/2025 2:30 PM [facility] ([employer])CARBON URGEFHE06.622.0 - 29.0 mmol/L06/05/2025 2:30 PM [facility] ([employer])FBBUUXD3171 - 99 mg/dL06/05/2025 2:30 PM [facility] ([employer])Comment: Criteria for Diagnosis of Diabetes: Fasting Specimen (no caloric intake for at least 8 hours): <100 mg/dL Normal 100-125 mg/dL Increased risk for Diabetes >125 mg/dL Diagnostic for Diabetes Random Glucose (any time of day without regard to last meal): > or = 200 mg/dL plus Classic Symptoms of Diabetes BILI,TOTAL0.5<=1.0 mg/dL06/05/2025 2:30 PM [facility]AST26<=31 U/L06/05/2025 2:30 PM [facility]ALT20<=34 U/L06/05/2025 2:30 PM [facility])Alkaline Awycehumnny1993 - 104 U/L06/05/2025 2:30 PM [facility])CALCIUM9.77.6 - 11.0 mg/dL06/05/2025 2:30 PM EDT [facility] ([facility])Protein, Total8.15.9 - 8.4 g/dL06/05/2025 2:30 PM EDT [facility] ([facility])Albumin4.83.5 - 5.0 g/dL06/05/2025 2:30 PM [facility] ([facility])Creatinine0.970.50 - 1.00 mg/dL06/05/2025 2:30 PM [facility])eGFR84>=60 mL/min/1.73 m206/05/2025 2:30 PM [facility])SRJ103 - 19 mg/dL06/05/2025 2:30 PM [facility])Specimen (Source)Anatomical Location / LateralityCollection Method / VolumeCollection TimeReceived TimeBloodVENOUS STRUCTURE / UnknownVenipuncture / Jzxiwje0406/05/2025 1:45 PM EDT06/05/2025 1:57 PM EDT Narrative Authorizing ProviderResult TypeResult StatusStephanie Savelli MDCHEMISTRY BLOOD ORDERABLESFinal ResultPerforming OrganizationAddressCity/State/ZIP CodePhone Number [facility] ([facility]) [place] [address], from Last 3 Months Insurance * Guarantor: AMERICO ERAZOAccomarquita TypeRelation to PatientDate of BirthPhone Billing YqzsoovGztqteMiqhpd45[birth year][address] [place] [phone] * Guarantor: Paris Golden EAccomarquita TypeRelation to PatientDate of BirthPhone Billing RyubxceIzskxkKyeh[address] [place] [id number] * Guarantor: Paris Golden EAccomarquita TypeRelation to PatientDate of BirthPhone Billing AddressMental NjcyhrEzcb[address] [address] MemberSubscriberPlan / Payer (Effective 2012-Present)Name:PARIS GOLDEN Relation to Subscriber:ChildName:AMERICO ERAZO Date of :1971 (Home) Address: [address] [id number] Payer ID:[id number] Type:Not on file Address: [facility] [address] [id number] Care Teams Team MemberRelationshipSpecialtyStart DateEnd Date Stacie Stevens RIPSAW GRADER-PIG CASTING MACHINE OPERATOR [address] [place] [address] [place] [address] PCP - GeneralFamily Medicine02/14/20 Blossom Saleh [place] [address] Attending ProviderPediatric Hematology Mbyqikfz45/8/16 Tete Rhodes, RIPSAW GRADER-PIG CASTING MACHINE OPERATOR [address] [place], [place] [phone] Nurse PractitionerPediatric Hematology Oncology04/13/17 Derrick Lopez MD [address] [place], [place] [phone] Attending ProviderPediatric Hematology Oncology12/27/17
--- OUTSIDE RECORDS SUMMARY | 2025-08-09 08:37 | XMS_ITS | Clinical Summary ---
Author Organization [facility] Address [address] [place] [address] Care Team Providers Care Receiving Team Member Name Role Phone Efrain Pathak DO Unavailable [phone] Holly Garcia APRN.AUDIO DIRECTOR Primary Care Provider + Allergies Active AllergyReactionsCriticalityNoted DateCommentsBlood-Group Specific GaowtmfwbRtnnkedUbex93/23/2016 TRALI on 07/29/16 - please see FYI tab 12/22/16: Anaphylaxis to male platelets and female platelets that were premedicated with Tylenol, Solumedrol and benadryl. 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 Pretreat with Benadryl, and run vancomycinover 2 hours. Medications MedicationSigDispense QuantityRefillsLast FilledStart DateEnd DateStatus 1 Each.11/21/2020ctive Cholecalciferol, Vitamin D3, 50 mcg (2,000 unit) cap take 1 capsule by mouth once daily03/08/2019Active mv,calcium,min/iron/folic/vitK (ONE-A-DAY WOMEN'S COMPLETE ORAL) Take by mouth.Active norgestimate 0.25 mg-ethinyl estradiol 35 mcg (SPRINTEC, ORTHO-CYCLEN) 0.25-35 mg-mcg per tablet Take 1 tablet by mouth.1Active albuterol HFA (PROVENTIL HFA, VENTOLIN HFA) 90 mcg/actuation inhaler Inhale 2 Puffs as instructed every 6 hours as needed for wheezing/shortness of breath. 18 g ctive albuterol (PROVENTIL) 2.5 mg /3 mL (0.083 %) nebulizer solution Use 3 mL via nebulizer every 6 hours as needed for wheezing/shortness of breath. 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) Resolved Problems ProblemNoted DateDiagnosed DateResolved DateRecurrent /26/2023 Encounters DateTypeDepartmentCare EqhaAbysdklbhiw18/14/2025Telephone Reproductive Endocrinology Infertility [address] [place] [address] Daniela Saha MD Patient Questionfrom Last 3 Months Family History Medical HistoryRelationCommentsHeart AttackFatherRelationStatusCommentsBrother 1 AliveBrother 2AliveBrother 3AliveFatherAliveMaternal GrandfatherAliveMaternal GrandmotherAliveMotherAlivePaternal GrandfatherAlivePaternal GrandmotherDeceased SisterAlive Social History Tobacco UseTypesPacks/DayYears UsedDateSmoking Tobacco: NeverSmokeless Tobacco: Never Tobacco Cessation:Counseling Given: Not Answered Alcohol UseStandard Drinks/WeekCommentsYes0 (1 standard drink = 0.6 oz pure alcohol)occasionalArea Deprivation IndexAnswerDate RecordedNational Score (1- 100), lower number is lower ygub5494/01/2024State Score (1-10), lower number is lower celx1944Data from: https://www.neighborhoodatlas.medicine.[facility].edu/. Last address used for otvkq[address]CommentsNoSex and Gender InformationValueDate RecordedSex Assigned at BirthNot on fileLegal SexFemale 04/28/2021 12:38 PM EDTGender IdentityNot on fileSexual OrientationNot on file Last Filed Vital Signs Vital SignReadingTime TakenCommentsBlood Nyklulms404/9507 12:21 PM EDT Qtegn25934/16/2025 12:21 PM OSYGcxwsfxbbtz32.6 ??C (97.8 ??F)07/14/2024 1:49 PM EDTRespiratory Yviu866209/13/2023 1:49 PM EDTOxygen Cyfspnbpwt643%03/28/2025 12:21 PM EDTInhaled Oxygen Concentration--Gruwqo61.3 kg (122 lb)03/28/2025 12:21 PM YOXCoecjw655.1 cm (5' 5 )03/28/2025 12:21 PM EDTBody Mass Index20.307 12:21 PM EDT Plan of Treatment DateTypeDepartmentCare Team (Latest Contact Info)Nquejgwrise26/09/2025 9:45 AM [facility] Reproductive Endocrinology Infertility [address] [place] [address] Payton Schmidt MD [address] [place], [place] [phone] POI fert consultHealth MaintenanceDue DateLast DoneCommentsPeds To Adult Transition Initial Xqxivpbcki11/15/2014Peds To Adult Transition Annual Hefbkmkhlb17/15/2016Meningococcal B Vaccine (1 of 2 - Standard)2018Anxiety Ewibeiedi49/15/2020Chlamydia Screening (18-24)01/26/2020Depression Screening 01/26/2020GC (Gonorrhea) Screening (18-24)01/26/2020HIV Bvdevhpds49/15/2020 Hepatitis C Wivdmaapg27/15/2020Cervical Cancer Wanjvqaro36/15/2023Covid-19 Vaccine ( season)508/, 10/02/2021Influenza Vaccine (#1)512/03/2022, 10/02/2021, 07/30/2020, Additional history exists DTaP,Tdap,Td Vaccine (12 - Td or Tdap)210/10/2021, 02/28/2019, 03/01/2018, Additional history existsHepatitis B CtzulxcXsmkfibmt71/12/2019, 04/25/2018, 02/01/2018, Additional history existsHPV WppitjlMxifxozgi51/05/2020, 04/12/2019, 06/23/2018, Additional history exists Insurance * Guarantor: Allan Golden EAccount TypeRelation to PatientDate of BirthPhone Billing AddressPersonal/UkrkviDxej[address] [facility] [place] [address] [place] [phone] Care Teams Team MemberRelationshipSpecialtyStart DateEnd Date Holly Garcia, CHANNEL CEMENTER INSOLE MACHINE.AUDIO DIRECTOR [address] [place], [place] [address]ki[place] [address] [facility] - [facility]03/28/25 Efrain Pathak DO ReferringObstetrics04/25/24
--- OUTSIDE RECORDS SUMMARY | 2025-08-09 08:37 | XMS_ITS ---
Author Organization [facility] [place] [address] Care Team Providers Care Icer Air Conditioning Name Role Phone Blossom Saleh MD Unavailable [phone] Tete Rhodes MOTOR LODGE CLERK-MANAGER RESEARCH DEVELOPMENT Unavailable Derrick Lopez MD Unavailable Stacie Stevens MOTOR LODGE CLERK-MANAGER RESEARCH DEVELOPMENT Primary Care Provider [phone] Active Problems * This document contains information received from the source organization and may not represent a complete record from that organization. Patient Care Coordination No te Formatting of this note migh t be different from the original. Primary oncologist: Delfino Surgeon: Wander manager of transportation Med Bulger: Angely [phone] [facility] for NG supplies and nursing [id number] Kytril PA effective until 06/26/17 per [employer] [phone] PA for IVIG effective until 06/08/18 PA for nexium effective until 06/22/18 per Medicaid [phone] and [employer] case#[id number] until 12/27/18 PA Azithromycin #36 tabs/90 days approved through 01/18/2021. 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, had acute skin and GI GVHD Wash all blood and platelets and premedicate with benadryl, solumedrol and ezoywwm6412/14/2017 Overview (12/14/2017): IV benadryl 50mg IV solumedrol 50mg PO tylenol 650mg 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 Please do not remove or resolvethis item from the problem list. Current Treatment and Therapy Plans No current plan information found. Past Treatment and Therapy Plans Plan NameStart DateDiscontinue DateTreatment MedicationsDiscontinue ReasonPlan ProviderHEM?ANAPHYLAXIS/PRE-MED THERAPY PLAN* acetaminophen (TYLENOL) 160 MG/5ML * acetaminophen (TYLENOL) 325 MG * diphenhydrAMINE (BENADRYL) * diphenhydrAMINE HCL (BENADRYL) 12.5 MG/5ML * EPINEPHrine 1 mg/mL * famotidine (PEPCID) * hydrocortisone (Solu-CORTEF) * methylPREDNISolone (SOLU-Medrol) Therapy Blossom Arguello MDPlan NameStart DateDiscontinue Date Treatment MedicationsDiscontinue ReasonPlan ProviderIV ACCESS/FLUSH THERAPY PLAN * Sterile Sodium Chloride Therapy Blossom Arguello MDPlan NameStart DateDiscontinue Date Treatment MedicationsDiscontinue ReasonPlan ProviderCyclesHERKIMER MEMORIAL [facility] - [id number] ALTERNATIVE DONOR SCT PREP REGIMEN BUSULFAN/FLUDARABINE/ATGAM/METHOTREXATE * acetaminophen (TYLENOL) 325 MG * antithymocyte globulin (horse) (ATGAM) IV * busulfan (BUSULFEX) chemo infusion * diphenhydrAMINE (BENADRYL) * EPINEPHrine * fludarabine (FLUDARA) chemo infusion * granisetron (KYTRIL) * hydrocortisone (Solu-CORTEF) * levETIRAcetam (KEPPRA) * LORazepam (ATIVAN) * methotrexate (PF) 50 MG/2ML * methylPREDNISolone (SOLU-Medrol) * Ok to dispense and administer chemotherapy based on Provider assessment * promethazine (PHENERGAN) * tacrolimus (PROGRAF) continuous infusion Standard Conc 0.02mg/mL Therapy Blossom Arguello MD1 of 1 cycle completedHERKIMER MEMORIAL HOSP[facility] - [id number] BUSULFAN TEST DOSE AND PHARMACOKINETICS ORDER SET* busulfan (BUSULFEX) chemo infusion * dextrose 5 % and 0.45 % NaCl with KCl 20 mEq/L * granisetron (KYTRIL) * levETIRAcetam (KEPPRA) * LORazepam (ATIVAN) * Ok to dispense and administer chemotherapy based on Provider assessment * promethazine (PHENERGAN) Therapy Blossom Arguello MD1 of 1 cycle [id number] INDUCTION II ARM A (MA) HIGH RISK PJXHHIMV49* cytarabine (CYTOSAR) 100 mg/ml chemo infusion * Cytarabine Intrathecal Builder * DexAMETHasone (MAXIDEX) 0.1 % * lidocaine (LMX) 4 % * lidocaine HCl 1 % * LORazepam (ATIVAN) * mitoXANTRONE (NOVANTRONE) chemo infusion (NOVANTRONE) * Ok to dispense and administer chemotherapy based on Provider assessment * OK TO DISPENSE AND ADMINISTER INTRATHECAL CHEMOTHERAPY BASED ON PROVIDER ASSESSMENT * ondasetron (ZOFRAN) IV * promethazine (PHENERGAN) * sodium bicarbonate 8.4 % Therapy Blossom Arguello MD1 of 1 cycle [id number] INDUCTION I ARM D (CHITRA 10+3+5)* cytarabine (PF) (PREETI-C) * DAUNOrubicin (CERUBIDINE) * etoposide (VEPESID) chemo infusion * LORazepam (ATIVAN) * Ok to dispense and administer chemotherapy based on Provider assessment * ondasetron (ZOFRAN) IV * promethazine (PHENERGAN) Therapy Blossom Arguello MD1 of 1 cycle startedDAY 0 PREETI-C FOR NQGBGXFV59* Cytarabine Intrathecal Builder * lidocaine (LMX) 4 % * lidocaine HCl 1 % * OK TO DISPENSE AND ADMINISTER INTRATHECAL CHEMOTHERAPY BASED ON PROVIDER ASSESSMENT * sodium bicarbonate 8.4 % Therapy Blossom Arguello MD1 of 1 cycle startedPlan NameStart Date Discontinue DateTreatment MedicationsDiscontinue ReasonPlan ProviderHEM PENTAMIDINE THERAPY PLAN* albuterol (VENTOLIN) * pentamidine (NEBUPENT) inhalation Therapy Blossom Arguello MDHEM PENTAMIDINE THERAPY PLAN01/12/2017 08/11/2018* albuterol (VENTOLIN) * pentamidine (NEBUPENT) Therapy Blossom Arguello MD Lifetime Dose Tracking * ChemicalLifetime DoseAutomatic EntryManual HhtkiOwqvbmkbthyv532.923 mg/m2 (237 mg)151.923 mg/m2 (237 mg)0 mg/m2 (0 mg)Qwdklohdoneo68.134 mg/m2 (72.8 mg) 48.134 mg/m2 (72.8 mg)0 mg/m2 (0 mg)Etoposide1,494.017 mg/m2 (2,304 mg) 1,494.017 mg/m2 (2,304 mg)0 mg/m2 (0 mg)Yqbcogadntolz646.458 mg/m2 (528.2 mg) 344.458 mg/m2 (528.2 mg)0 mg/m2 (0 mg) Resolved Problems ProblemNoted DateDiagnosed DateResolved DateAcute zxdxqochgn91/18/202108/ Post-operative stateAcute upper respiratory infection Iatrogenic adrenal glfqdqpkryjcj12oss of gntegf43Chronic dgpeixfor21/04/Bacterial hxebeagsc78Bronchiolitis psbvbpyytm33 Cytomegalovirus (CMV) dfzbjpk60Chronic ihjwu-kpeobt-lnwz fdmuizh41BV (Luís-Kirkpatrick virus) reckfph80 History of lung bwhsro10Chronic pulmonary pkbxdya0807/07/2017 08/17/20172965Mpihe008166Dqeovnneammtberrnwgof22/16/201703/12/2019 Mixed restrictive and obstructive lung gbhktrb57Pneumonia Oxygen nqqlxtjqqwhj29Aspergillus pneumonia Overview (03/23/2017): Dx on BAL 03/18/17 Acute GVHD Overview (01/05/2017): Skin GI (biopsy proven 12/28/16) Tfhhvqbsoityxb18Right lower quadrant abdominal pain12/31/2016 01/05/2017AML (acute myeloblastic leukemia)On tube feeding diet Overview (12/29/2016): ND Tube placed 12/28/16. Ileitis, jrizhptc03/17/177776/25/5533Ykvumbpt12 Overview (12/12/2016): To palms, cheeks and soles of feet CMV (cytomegalovirus infection) status jgyazrkx84 Overview (12/11/2016): Plasma C. 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 Dodlutfabljyckmk51/06/Pancytopenia due to antineoplastic eyahgagngumi81Pseudomonas aeruginosa rixkcfxwb25/03/2017 11/01/2016Abdominal painAdjustment disorder with anxiety Antineoplastic chemotherapy induced oxknyi3410/11/2016 11/01/2016Hand foot cwdxdxan60Decreased oral eimagk0809/15/2016 09/28/2016Neutropenic feverSeptic shock Neutropenia associated with rfwdpcdgn43AKI (acute kidney injury)AgitationHypoalbuminemia Anasarca1Acute respiratory failure with oddcsdjzh63HypokalemiaAcute myelomonocytic lshcyatq49TRALI (transfusion related acute lung injury) Anemia0300Rrggkodyolghmtcf80/14/2016 09/03/2016Thrush, oralLeucocytosis
--- OUTSIDE RECORDS SUMMARY | 2025-08-09 08:37 | XMS_ITS | Clinical Summary ---
Author Organization [facility] Address [address] [place] [address] Care Team Providers Care Interactive Media Marketing Specialist Name Role Phone Pascual Pino MD Primary Care Provider [phone] Allergies Active AllergyReactionsCriticalityNoted DateCommentsBlood-Group Specific RtmehiqgnBvgv54/23/2016 Other Reaction(s): Other (See Comments), Unknown TRALI on 07/29/16 - please see FYI tab 12/22/16: Anaphylaxis to male platelets and female platelets that were premedicated with Tylenol, Solumedrol and benadryl. 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 Pretreat with Benadryl, and run vancomycinover 2 hours. Medications MedicationSigDispense QuantityRefillsLast FilledStart DateEnd DateStatus albuterol HFA 90 mcg/act inhaler inhale 2 puffs by mouth and INTO THE LUNGS every 6 hours07/17/2022ctive RA Vitamin D-3 25 MCG (1000 UT) tablet Take 25 mcg by mouth Daily3Active FLUoxetine (PROzac) 20 MG capsule Take 20 mg by mouth Daily5Active ondansetron (Zofran) 4 MG tablet TAKE 1 TABLET BY MOUTH ONCE EVERYDAY NEEDED FOR NAUSEA/VOMITING DIRECTED 4Active hydrOXYzine pamoate (Vistaril) 25 MG capsule Take 1 capsule by mouth in the morning.5Active norgestimate-ethinyl estradiol (Ortho Tri-Cyclen,Trinessa) 0.18/0.215/0.25 MG-35 MCG tablet Indications:Encounter for gynecological examination without abnormal findingTake 1 tablet by mouth in the morning. 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) Treatment protocol: [id number] Cumulative anthracycline dose: 267mg/m2 Date of Dx: 07/28/16 (age 16 years) 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, 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, had acute skin and GI GVHD Allergic axarqaqt14/16/2019Anaphylactic reaction due to administration of blood and blood wexbcgik30/03/2018 Overview (04/16/2023): IV benadryl 50mg IV solumedrol 50mg PO tylenol 650mg Bronchiolitis liixocabqv95/25/2018Mild persistent iysqcl0408/09/2017Status post bone marrow ymmzsssrsb65/23/2017 Overview (04/16/2023): Date of Transplant: 11/28/16 HLA: 06/22 Graft source: marrow XX --> XX Donor blood type: A Pos Recipient blood type: B Pos Palliative care bcdwrrc0111/11/2016 Overview (04/16/2023): This patient has been or is being followed by the Palliative Care team. Do NOT remove or resolve this item from the problem list. Resolved Problems ProblemNoted DateDiagnosed DateResolved NkzbSnejriqore53 Concern about endocrine disease without wirzmwudh34 Overview (04/16/2023): Stress dose 50mg IV Hydrocortisone prior to anesthesia Primary ovarian hpkkocr99 Encounters DateTypeDepartmentCare AbgrUeltgbyfdut00/21/2025 4:00 PM EDTOffice Visit [facility] [address] [place] [address] Davina Snyder MD Melanocytic nevus of trunk (Primary Dx); Nrxbjezcge84/21/2025amboo flowsheet [facility] [address] [place] [address] Davina Snyder MD 07/03/2025Travelfrom Last 3 Months Immunizations ImmunizationAdministration DatesNext LvvCIdG1905/16/2003,2002,2002, 2002DTaP / Hep B / IPV02/17/2007DTaP / HiB / IPV03/01/2018,02/01/2018, 12/28/2017DTaP, Cidcrxpxkzh57/03/2003,2002,2002,2002HPV 9-Ssruya1710/18/2019,04/12/2019,06/23/2018HPV, Wsdazrcbiccr04/28/2015,09/03/2014, 07/02/2014HPV, Likofmlhxkr58/05/2020,04/12/2019,06/23/2018,01/08/2015,09/03/2014 ,07/02/2014Hep A, Mrpdgznfhdc89/31/2019,06/23/2018,01/08/2015,07/02/2014Hep A, ped/adol, 2 dose04/12/2019,06/23/2018,01/08/2015,07/02/2014Hep B, Adolescent or Sduelayvm74/12/2019,04/25/2018,02/01/2018,12/28/2017HiB, cpbrgwamqgv69/03/2003 Hib / Hep B009/15/2002,2002,2002IPV110/31/2017,2002,2002, 2002Influenza Whole08/12/2015,07/10/2014,09/08/2007,08/02/2007Influenza, Ftfxagzowro38/17/2020,06/13/2019,06/23/2018,05/25/2017,06/10/2009,07/15/2008 Influenza, injectable, quadrivalent, preservative free08/19/2022,10/02/2021, 07/30/2020,06/13/2019,06/23/2018,05/25/2017,08/23/2016Influenza, seasonal, uwqizwxqtu43/28/2009,07/15/2008MMR05/16/2003MMRV07/19/2019,06/13/2019,02/17/2007 Meningococcal ACWY, uxuvkxkmcrj17/06/2019,02/28/2019,07/02/2014Meningococcal BUO4Q1607/19/2019,02/28/2019Novel Ouuennxdt-M7W9-50, nasal07/19/2009Pfizer Ward Cap SARS-CoV-2 Mammxabyiwu68/26/2022Pneumococcal Conjugate PCV 1308, 03/01/2018,12/28/2017,09/27/2017Pneumococcal Polysaccharide LFYC411109/26/2016, 06/29/2017,05/25/2017Polio, Gdsvhbbubzp69/18/2018,2002,2002, 04/19/20023557QOKN-HdY-7, Pvqjrxmiizi53/26/3502Zboe90/02/2022,02/28/2019,09/03/2014 Bjgwablcr92/05/2020,05/16/2003 Family History Medical HistoryRelationNameCommentsSeizuresBrotherLukeRelationNameStatusComments CvmyibgModo3HpcgodAlbzdNintoySvjngEgwpgc6 Social History Tobacco UseTypesPacks/DayYears UsedDateSmoking Tobacco: NeverSmokeless Tobacco: Never Tobacco Cessation:Counseling Given: Not Answered Alcohol UseStandard Drinks/WeekCommentsNot Currently0 (1 standard drink = 0.6 oz pure alcohol)Caffeine intake: 1-2 cups per day coffeeAUDIT-CAnswerDate Recorded Q1: How often do you have a drink containing alcohol?Monthly or less04/27/2025 Q2: How many drinks containing alcohol do you have on a typical day when you are drinking?1 or Q3: How often do you have six or more drinks on one occasion?Never04/27/2025PHQ-2AnswerDate RecordedPatient Health Questionnaire-2 Jhxan253CommentsNoSex and Gender InformationValueDate Recorded Sex Assigned at YveztMcpuuj79/02/2023 9:37 PM EDTLegal EvjImhvvg32/15/2023 7:00 PM EDTGender CszctdetPcigpp43/02/2023 9:37 PM EDTSexual OrientationNot on file Last Filed Vital Signs Vital SignReadingTime TakenCommentsBlood Kggiyohq327/90004/27/2025 8:16 AM EDT Nqpek4952/03/2024 9:16 AM SRDUsohiasbqau07.4 ??C (97.5 ??F)08/15/2024 9:16 AM ESTRespiratory Rate--Oxygen Fwhqvsiqyr98%08/15/2024 9:16 AM ESTInhaled Oxygen Concentration--Xcsfuo98.3 kg (122 lb)04/27/2025 8:16 AM VPDEfftef780.6 cm (5' 6 )04/27/2025 8:16 AM EDTBody Mass Index19.69004/27/2025 8:16 AM EDT Plan of Treatment DateTypeDepartmentCare Team (Latest Contact Info)Foxaxmmorfr98/19/2026 8:30 AM EDTOffice Visit [facility] [address] [place] [address] Davina Snyder MD [address] [place] [address] 05/03/2026 8:30 AM EDTOffice Visit [facility] [address] [place] [address] Efrain Pathak DO [address] [place] [address] Health MaintenanceDue DateLast DoneCommentsCOVID-19 Vaccine (3 - Mixed Product risk series)/, 05/08/2022, 10/02/2021Influenza Vaccine (#1) /03/2022, 10/02/2021, 07/30/2020, Additional history exists Pneumococcal Vaccine: Pediatrics (0 to 5 Years) and At-Risk Patients (6 to 64 Years) (4 of 4 - PCV20 or PCV21), 03/01/2018, 12/28/2017, Additional history exists Insurance Care Teams Team MemberRelationshipSpecialtyStart DateEnd Date Pascual Pino MD [address] [place] [address] [facility]/20/24
[2025-08-09 09:22] LABS: SARS-CoV-2 Ag NEGATIVE (NEGATIVE)
== END 2025-08-09 09:34 | disposition home or self-care (01) ==
PROVIDERS: Emergency Provider Emergency Medicine; PCP Nurse Practitioner Family
DX: J06.9 Acute upper respiratory infection, unspecified (principal); Z87.01 Personal history of pneumonia (recurrent)
CPT/HCPCS: 71045; 87804; 87811; 93005; 94640; 99285